=== PATIENT | female | born 1950 | race Caucasian/White ===

== ENCOUNTER 2016-08-27 18:10 | Inpatient (IN) | payer MEDICARE, OTHER ==
[~2016-08-27] VITALS: Ht 165.1 cm; Wt 98.2 kg
[2016-08-27 18:14] VITALS: BP 165/104; PULSE 117; RESP 18; TEMP 98.1; O2SAT 96
[2016-08-27] MEDS ORDERED: [UNRECOGNIZED DRUG - CODE] PO ×2 (18:58)
[2016-08-27] MEDS ORDERED: TRAZ300T2 PO ×2 (18:58)
[2016-08-27] MEDS ORDERED: DULO1CAP3 PO ×2 (18:58)
--- NOTE | 2016-08-27 18:59 | PD ---
HPI Chief Complaint: Psychiatric Symptoms Time Seen by Provider: 18:27 Travel History International Travel<30 days: No Contact w/Intl Traveler<30days: No Traveled to known affect area: No History of Present Illness HPI 65yo F with PMH of HTN, schizophrenia, bipolar disorder was brought in by dry placer machine operator at [facility] for worsening paranoia over the last few days. Pt states she hears voices telling her they will hurt her sister and her. Pt denies any complaints such as fever, cough, chest pain, sob, n/v, abdominal pain, weakness or numbness. retail manager in training Ximena Rothman [phone] is responsible for giving patient her medications including depakote for bipolar and confirms that she is acting more paranoid than normal. No overt trauma. PFSH Social History Tobacco Use: No Allergies-Medications (Allergen,Severity, Reaction): Coded Allergies: No Known Allergies (Unverified , 08/28/16) Reported Meds & Prescriptions Reported Meds & Active Scripts Active Reported Hydroxyzine HCl 50 Mg Tab 50 Mg PO DAILY Urocit-K 10 (Potassium Citrate (Alkalinizer)) 1,080 Mg Tab 10 Meq PO DAILY Metoprolol Tartrate 25 Mg Tab 25 Mg PO BID Furosemide 20 Mg Tab 20 Mg PO DAILY Ibuprofen 800 Mg Tab 800 Mg PO TID Benztropine (Benztropine Mesylate) 2 Mg Tab 2 Mg PO BID Oscal 500/200 D-3 (Calcium Carbonate-Vitamin D) 500-200 Mg-Unit Tab 1 Tab PO TID Drisdol (Ergocalciferol) 50,000 Unit Cap 50,000 Units PO WEEKLY ON MONDAYS Risperdal Consta Inj (Risperidone) 37.5 Mg Inj 37.5 Mg IM Q14D Lisinopril 10 Mg Tab 10 Mg PO DAILY Omeprazole 20 Mg Tab 20 Mg PO DAILYAC Alendronate (Alendronate Sodium) 70 Mg Tab 70 Mg PO WEEKLY ON MONDAYS Just Tears Eye Drops (Artificial Tear Solution Opth Drops) 1 Nadja Nadja 1 Drop EACH EAR DIRECTED PRN Depakote ER (Divalproex Sodium) 500 Mg Esperanza 500 Mg PO TID Buspirone (Buspirone HCl) 15 Mg Tab 15 Mg PO BID Duloxetine DR (Duloxetine HCl) 60 Mg Capdr 60 Mg PO HS Trazodone (Trazodone HCl) 300 Mg Tab 300 Mg PO HS B-12 (Cyanocobalamin) 500 Mcg Tab 500 Mcg PO DAILY Review of Systems Except as stated in HPI: all other systems reviewed are Neg Physical Exam Narrative GENERAL: 65yo F not in distress. SKIN: Warm and dry. HEAD: Atraumatic. Normocephalic. EYES: Pupils equal and round. No scleral icterus. No injection or drainage. ENT: No nasal bleeding or discharge. Mucous membranes pink and moist. NECK: Trachea midline. No JVD. CARDIOVASCULAR: Regular rate and rhythm. No murmur appreciated. RESPIRATORY: No accessory muscle use. Clear to auscultation. Breath sounds equal bilaterally. GASTROINTESTINAL: Abdomen soft, non-tender, nondistended. No rebound tenderness or guarding. MUSCULOSKELETAL: No obvious deformities. No clubbing. No cyanosis. No edema. NEUROLOGICAL: Awake and alert. No obvious cranial nerve deficits. Motor grossly within normal limits. Normal speech. PSYCHIATRIC: Appropriate mood and affect; insight and judgment normal. Data Data Last Documented VS Vital Signs Date Time Temp Pulse Resp B/P Pulse Ox O2 Delivery O2 Flow Rate FiO2 08/27/16 23:33 70 16 168/80 Room Air 08/27/16 18:14 98.1 96 Orders Complete Blood Count With Diff (08/27/16 18:35) Comprehensive Metabolic Panel (08/27/16 18:35) Urinalysis - C+S If Indicated (08/27/16 18:35) Drug Screen, Random Urine (08/27/16 18:35) Alcohol (Ethanol) (08/27/16 18:35) Salicylates (Aspirin) (08/27/16 18:35) Tylenol (Acetaminophen) (08/27/16 18:35) Valproic Acid (Depakene) (08/27/16 18:35) Psych Screen (08/27/16 18:35) Hip, Uni(Ap&Lat) W Ap Pelvis (08/28/16 ) Admit Order (Ed Use Only) (08/28/16 02:44) Vital Signs (Adult) STEVO.Q12H.E (08/28/16 02:44) Activity Oob Ad Yee (08/28/16 02:44) Level Of Observation (Psych) (08/28/16 02:44) Diet Regular Basic (08/28/16 Breakfast) Basic Metabolic Panel (Bmp) (08/29/16 06:00) Lipid Profile (08/29/16 06:00) Hemoglobin (Hgb) A1c (08/29/16 06:00) Consult Hospitalist (08/28/16 ) Labs Laboratory Tests Test 08/27/16 08/27/16 19:56 20:02 White Blood Count 6.4 TH/MM3 Red Blood Count 4.73 MIL/MM3 Hemoglobin 14.2 GM/DL Hematocrit 42.5 % Mean Corpuscular Volume 89.9 FL Mean Corpuscular Hemoglobin 30.0 PG Mean Corpuscular Hemoglobin 33.3 % Concent Red Cell Distribution Width 15.4 % Platelet Count 159 TH/MM3 Mean Platelet Volume 8.4 FL Neutrophils (%) (Auto) 56.8 % Lymphocytes (%) (Auto) 29.1 % Monocytes (%) (Auto) 13.2 % Eosinophils (%) (Auto) 0.5 % Basophils (%) (Auto) 0.4 % Neutrophils # (Auto) 3.7 TH/MM3 Lymphocytes # (Auto) 1.9 TH/MM3 Monocytes # (Auto) 0.8 TH/MM3 Eosinophils # (Auto) 0.0 TH/MM3 Basophils # (Auto) 0.0 TH/MM3 CBC Comment AUTO DIFF Differential Total Cells 100 Counted Neutrophils % (Manual) 58 % Band Neutrophils % 6 % Lymphocytes % 27 % Monocytes % 2 % Eosinophils % 1 % Neutrophils # (Manual) 4.5 TH/MM3 Metamyelocytes 5 % Promyelocytes 1 % Differential Comment FINAL DIFF MANUAL Platelet Estimate LOW Platelet Morphology Comment NORMAL Red Cell Morphology Comment NORMAL Sodium Level 141 MEQ/L Potassium Level 3.7 MEQ/L Chloride Level 103 MEQ/L Carbon Dioxide Level 28.2 MEQ/L Anion Gap 10 MEQ/L Blood Urea Nitrogen 19 MG/DL Creatinine 0.98 MG/DL Estimat Glomerular Filtration 57 ML/MIN Rate Random Glucose 96 MG/DL Calcium Level 8.7 MG/DL Total Bilirubin 0.4 MG/DL Aspartate Amino Transf 39 U/L (AST/SGOT) Alanine Aminotransferase 25 U/L (ALT/SGPT) Alkaline Phosphatase 70 U/L Total Protein 6.8 GM/DL Albumin 3.1 GM/DL Salicylates Level LESS THAN 1.7 MG/DL Acetaminophen Level LESS THAN 2.0 MCG/ML Valproic Acid (Depakene) Level 118 MCG/ML Ethyl Alcohol Level LESS THAN 3 MG/DL Urine Color YELLOW Urine Turbidity CLEAR Urine pH 6.5 Urine Specific [place] 1.023 Urine Protein NEG mg/dL Urine Glucose (UA) NEG mg/dL Urine Ketones TRACE mg/dL Urine Occult Blood NEG Urine Nitrite NEG Urine Bilirubin NEG Urine Urobilinogen 4.0 MG/DL Urine Leukocyte Esterase NEG Urine RBC 1 /hpf Urine WBC 1 /hpf Urine Squamous Epithelial 1 /hpf Cells Urine Bacteria RARE /hpf Urine Mucus FEW /lpf Microscopic Urinalysis Comment CULT NOT INDICATED Urine Opiates Screen NEG Urine Barbiturates Screen NEG Urine Amphetamines Screen NEG Urine Benzodiazepines Screen NEG Urine Cocaine Screen NEG Urine Cannabinoids Screen NEG MDM Medical Decision Making Medical Screen Exam Complete: Yes Emergency Medical Condition: Yes Interpretation(s) Laboratory Tests Test 08/27/16 08/27/16 19:56 20:02 White Blood Count 6.4 TH/MM3 (4.0-11.0) Red Blood Count 4.73 MIL/MM3 (4.00-5.30) Hemoglobin 14.2 GM/DL (11.6-15.3) Hematocrit 42.5 % (35.0-46.0) Mean Corpuscular Volume 89.9 FL (80.0-100.0) Mean Corpuscular Hemoglobin 30.0 PG (27.0-34.0) Mean Corpuscular Hemoglobin 33.3 % Concent (32.0-36.0) Red Cell Distribution Width 15.4 % (11.6-17.2) Platelet Count 159 TH/MM3 (150-450) Mean Platelet Volume 8.4 FL (7.0-11.0) Neutrophils (%) (Auto) 56.8 % (16.0-70.0) Lymphocytes (%) (Auto) 29.1 % (9.0-44.0) Monocytes (%) (Auto) 13.2 % (0.0-8.0) Eosinophils (%) (Auto) 0.5 % (0.0-4.0) Basophils (%) (Auto) 0.4 % (0.0-2.0) Neutrophils # (Auto) 3.7 TH/MM3 (1.8-7.7) Lymphocytes # (Auto) 1.9 TH/MM3 (1.0-4.8) Monocytes # (Auto) 0.8 TH/MM3 (0-0.9) Eosinophils # (Auto) 0.0 TH/MM3 (0-0.4) Basophils # (Auto) 0.0 TH/MM3 (0-0.2) CBC Comment AUTO DIFF Differential Total Cells 100 Counted Neutrophils % (Manual) 58 % (16-70) Band Neutrophils % 6 % (0-6) Lymphocytes % 27 % (9-44) Monocytes % 2 % (0-8) Eosinophils % 1 % (0-4) Neutrophils # (Manual) 4.5 TH/MM3 (1.8-7.7) Metamyelocytes 5 % (0-1) Promyelocytes 1 % (0-0) Differential Comment FINAL DIFF MANUAL Platelet Estimate LOW (NORMAL) Platelet Morphology Comment NORMAL (NORMAL) Red Cell Morphology Comment NORMAL (NORMAL) Sodium Level 141 MEQ/L (136-145) Potassium Level 3.7 MEQ/L (3.5-5.1) Chloride Level 103 MEQ/L (98-107) Carbon Dioxide Level 28.2 MEQ/L (21.0-32.0) Anion Gap 10 MEQ/L (5-15) Blood Urea Nitrogen 19 MG/DL (7-18) Creatinine 0.98 MG/DL (0.50-1.00) Estimat Glomerular Filtration 57 ML/MIN (>89) Rate Random Glucose 96 MG/DL (74-106) Calcium Level 8.7 MG/DL (8.5-10.1) Total Bilirubin 0.4 MG/DL (0.2-1.0) Aspartate Amino Transf 39 U/L (15-37) (AST/SGOT) Alanine Aminotransferase 25 U/L (10-53) (ALT/SGPT) Alkaline Phosphatase 70 U/L (45-117) Total Protein 6.8 GM/DL (6.4-8.2) Albumin 3.1 GM/DL (3.4-5.0) Salicylates Level LESS THAN 1.7 MG/DL (2.8-20.0) Acetaminophen Level LESS THAN 2.0 MCG/ML (10.0-30.0) Valproic Acid (Depakene) Level 118 MCG/ML (50-100) Ethyl Alcohol Level LESS THAN 3 MG/DL (0-5) Urine Color YELLOW (YELLW/STRAW) Urine Turbidity CLEAR (CLEAR) Urine pH 6.5 (5.0-8.5) Urine Specific [place] 1.023 (1.002-1.035) Urine Protein NEG mg/dL (NEG-TRACE) Urine Glucose (UA) NEG mg/dL (NEG) Urine Ketones TRACE mg/dL (NEG) Urine Occult Blood NEG (NEG) Urine Nitrite NEG (NEG) Urine Bilirubin NEG (NEG) Urine Urobilinogen 4.0 MG/DL (LESS THAN 2.0) Urine Leukocyte Esterase NEG (NEG) Urine RBC 1 /hpf (0-3) Urine WBC 1 /hpf (0-5) Urine Squamous Epithelial 1 /hpf (0-5) Cells Urine Bacteria RARE /hpf (NONE) Urine Mucus FEW /lpf (OCC) Microscopic Urinalysis Comment CULT NOT INDICATED Urine Opiates Screen NEG (NEG) Urine Barbiturates Screen NEG (NEG) Urine Amphetamines Screen NEG (NEG) Urine Benzodiazepines Screen NEG (NEG) Urine Cocaine Screen NEG (NEG) Urine Cannabinoids Screen NEG (NEG) Differential Diagnosis Psychosis vs. paranoid schizophrenia vs. dementia vs. electrolyte abnormality vs. UTI vs. dehydration Narrative Course 65yo F with schizophrenia brought here for worsening paranoia by caregiver. Pt is not in acute distress and denies any suicidal ideation or homicidal ideation. Will check labs, depakote level, UA and place psych evaluation. Labs reviewed, no leukocytosis. BMP wnl. Valproic acid level 118 which is within therapeutic range of 50-125 for depakote. acetaminophen and salicylate and alcohol negative. UA negative. While waiting for psych evaluation, pt states she has been having left hip pain for 5 months. States she fell 1 week ago. Pt is able to lift her left leg and has good DP pulse with intact sensation. Will do xray left hip. Xray showed no acute fracture or malalignment. Pt was ambulating in the ED. Pt medically clear for psych evaluation. Diagnosis Primary Impression: Schizophrenia Qualified Code: F20.0 - Paranoid schizophrenia Admitting Information Admitting Physician Requests: it Juanis Bunch DO Aug 27, 2016 18:59
[2016-08-27] MEDS ORDERED: RISP37.5P IM ×2 (19:06)
[2016-08-27] MEDS ORDERED: OMEP20TA PO ×2 (19:06)
[2016-08-27] MEDS ORDERED: ALEN1TAB48 PO ×2 (19:06)
[2016-08-27] MEDS ORDERED: JUSTSOL EACH EAR ×2 (19:06)
[2016-08-27] MEDS ORDERED: LISI10TA3 PO ×2 (19:06)
[2016-08-27] MEDS ORDERED: BUSP15TA PO ×2 (19:06)
[2016-08-27] MEDS ORDERED: DEPA500T3 PO ×2 (19:06)
[2016-08-27] MEDS ORDERED: BENZ2TAB PO ×2 (19:10)
[2016-08-27] MEDS ORDERED: FURO20TA PO ×2 (19:10)
[2016-08-27] MEDS ORDERED: DRIS50002 PO ×2 (19:10)
[2016-08-27] MEDS ORDERED: IBUP800T23 PO ×2 (19:10)
[2016-08-27] MEDS ORDERED: OSCA200T PO ×2 (19:10)
[2016-08-27] MEDS ORDERED: UROCTAB2 PO ×2 (19:12)
[2016-08-27] MEDS ORDERED: HYDR50TA94 PO ×2 (19:12)
[2016-08-27] MEDS ORDERED: METO25TA3 PO ×2 (19:12)
[2016-08-27 20:24] LABS: AUTOMATED NEUTROPHIL # 3.7 TH/MM3 (1.8-7.7); BASOPHIL % 0.4 % (0.0-2.0); EOSINOPHIL % 0.5 % (0.0-4.0); HEMATOCRIT 42.5 % (35.0-46.0); LYMPH % 29.1 % (9.0-44.0); LYMPHOCYTE # 1.9 TH/MM3 (1.0-4.8); MEAN CELL VOLUME 89.9 FL (80.0-100.0); MEAN CORPUSCULAR HGB CONC 33.3 % (32.0-36.0); MONO % 13.2 % (0.0-8.0); NEUT % 56.8 % (16.0-70.0); PLATELET COUNT 159 TH/MM3 (150-450); RED BLOOD COUNT 4.73 MIL/MM3 (4.00-5.30); RED CELL DISTRIBUTION WIDTH 15.4 % (11.6-17.2); WHITE BLOOD COUNT 6.4 TH/MM3 (4.0-11.0)
[2016-08-27 20:26] LABS: HEMO FLAGS AUTO DIFF
[2016-08-27 20:44] LABS: ACETAMINOPHEN LESS THAN 2.0 MCG/ML (10.0-30.0); ALKALINE PHOSPHATASE 70 U/L (45-117); ALT (GPT) 25 U/L (10-53); ANION GAP 10 MEQ/L (5-15); AST (GOT) 39 U/L (15-37); BICARBONATE 28.2 MEQ/L (21.0-32.0); BLOOD UREA NITROGEN 19 MG/DL (7-18); CHLORIDE 103 MEQ/L (98-107); GLOMERULAR FILTRATION RATE 57 ML/MIN (>89); POTASSIUM 3.7 MEQ/L (3.5-5.1); SODIUM (NA) 141 MEQ/L (136-145); TOTAL BILIRUBIN ADULT 0.4 MG/DL (0.2-1.0)
[2016-08-27 20:54] LABS: BANDS 6 % (0-6); EOSINOPHILS 1 % (0-4); METAMYELOCYTES 5 % (0-1); NEUTROPHIL # MANUAL DIFF 4.5 TH/MM3 (1.8-7.7); POLYS (SEG NEUTROPHILS) 58 % (16-70); PROMYELOCYTES 1 % (0-0); WBC DIFF SAMPLE 100
[2016-08-27 20:55] LABS: PLATELET ESTIMATE SMEAR LOW (NORMAL); PLATELET MORPHOLOGY NORMAL (NORMAL); SCAN/DIFF FINAL DIFF MANUAL
[2016-08-27 21:10] LABS: BACTERIA, URINE RARE /hpf; BLOOD, URINE NEG (NEG); GLUCOSE,URINE NEG (NEG); KETONE, URINE TRACE mg/dL (NEG); MUCUS URINE FEW /lpf (OCC); NITRITE,URINE NEG (NEG); PH, URINE 6.5 (5.0-8.5); SQUAMOUS EPITHELIAL CELL URINE 1 /hpf (0-5); URINE COLOR YELLOW (YELLW/STRAW)
[2016-08-27 21:12] LABS: COMMENT (UR) CULT NOT INDICATED; CULTURE IF INDICATED CULT NOT INDICATED
[2016-08-27 21:19] LABS: AMPHETAMINE, URINE NEG (NEG); BARBITURATES, URINE NEG (NEG); COCAINE, URINE NEG (NEG)
[2016-08-27 23:33] VITALS: BP 168/80; PULSE 70; RESP 16
--- NOTE | 2016-08-28 02:06 | RADRPT ---
EXAM DATE/TIME: 08/28/2016 01:42 [facility] COMPARISON: No previous studies available for comparison. INDICATIONS : Pt has fallen twice in past week. Pain to left hip. MEDICAL HISTORY : None. SURGICAL HISTORY : Left hip surgery ENCOUNTER: Initial ACUITY: 1 week PAIN SCORE: 8/10 LOCATION: Left Hip FINDINGS: AP and frog leg lateral views of the left hip were obtained as well as an AP view of the pelvis. This demonstrates extensive postsurgical changes status post left hip arthroplasty with intact femoral an d acetabular components. There is a screw-plate fixation device along the left ilium and acetabulum a nd there is heterotopic bone formation. There is a screw-plate fixation device also noted along the p roximal femur. There is no acute fracture or malalignment. There is mild osteopenia. The pubic rami a re intact. Degenerative disc changes are present in the lumbar spine. CONCLUSION: 1. No acute fracture or malalignment. 2. Remote postsurgical changes status post left hip arthroplasty and open region internal fixation of the left ilium and proximal femur. 3. 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 4. Degenerative disc change in the lumbar spine. Jim Pickard MD on August 28, 2016 at 2:02 Board Certified Radiologist. This report was verified electronically.
[2016-08-28] MEDS ORDERED: hydrOXYzine HCL 50 MG TAB PO PRN (03:30)
[2016-08-28] MEDS ORDERED: BENZTROPINE MESYLATE 1 MG TAB PO PRN (03:30)
[2016-08-28] MEDS ORDERED: LORazepam 2 MG/ML VIAL - age > 65 yrs IM PRN (03:30)
[2016-08-28] MEDS ORDERED: diphenhydrAMINE HCL 50 MG/ML VIAL - HS PRN IM (03:30)
[2016-08-28] MEDS ORDERED: diphenhydrAMINE HCL 50 MG CAP - HS PRN PO (03:30)
[2016-08-28] MEDS ORDERED: ALUMINUM/MAGNESIUM/SIMETH 30 ML CUP PO PRN (03:30)
[2016-08-28] MEDS ORDERED: diphenhydrAMINE HCL 50 MG CAP PO PRN (03:30)
[2016-08-28] MEDS ORDERED: traZODone HCL 50 MG TAB PO PRN (03:30)
[2016-08-28] MEDS ORDERED: diphenhydrAMINE HCL 50 MG/ML VIAL IM PRN (03:30)
[2016-08-28] MEDS ORDERED: BENZTROPINE MESYLATE 2 MG/2 ML VIAL IM PRN (03:30)
[2016-08-28 03:46] VITALS: BP 174/82; PULSE 81; RESP 17; TEMP 97.6; O2SAT 98
[2016-08-28] MEDS: DIVALPROEX SODIUM E.R. 500 MG TAB PO SCH ×4 (05:15→22:00)
[2016-08-28] MEDS: LORazepam 0.5 MG TAB age > 65 yrs PO PRN (05:15)
[2016-08-28 06:38] VITALS: BP 160/82; PULSE 86; RESP 16; TEMP 98; O2SAT 95
[2016-08-28] MEDS ORDERED: PANTOPRAZOLE SOD 20 MG DELAYED RELEASE TAB PO SCH (08:00)
[2016-08-28] MEDS ORDERED: FUROSEMIDE 20 MG TAB PO SCH (09:00)
[2016-08-28] MEDS ORDERED: LISINOPRIL 10 MG TAB PO SCH (09:00)
[2016-08-28] MEDS: busPIRone HCL 5 MG TAB PO SCH ×3 (09:39→21:00)
[2016-08-28] MEDS: CYANOCOBALAMIN 1,000 MCG TAB PO SCH (09:39)
[2016-08-28] MEDS: IBUPROFEN 800 MG TAB PO SCH ×3 (09:40→18:41)
[2016-08-28] MEDS: hydrOXYzine HCL 50 MG TAB PO SCH (09:41)
[2016-08-28] MEDS: METOPROLOL TARTRATE 25 MG TAB PO SCH ×4 (09:41→21:00)
[2016-08-28] MEDS: CALCIUM/VITAMIN D 250 MG/125 U TAB PO SCH ×3 (09:41→18:40)
[2016-08-28] MEDS: BENZTROPINE MESYLATE 2 MG TAB PO SCH ×3 (09:41→21:00)
[2016-08-28] MEDS ORDERED: ARTIFICIAL TEARS OPTH SOLN 15 ML BTL EACH EYE PRN (12:30)
[2016-08-28] MEDS: LISINOPRIL 10 MG TAB PO SCH (12:30)
--- NOTE | 2016-08-28 13:14 | HHI.HP ---
Provisional Diagnosis Admission Date Aug 28, 2016 at 02:52 Ellis I. Bipolar affective disorder depressed Ellis II. No diagnosis Ellis III. Please see the emergency room evaluation Ellis IV. Moderate stress difficulty coping Ellis V. GAF of 45 Certification of Person's Competence To Provide Express and Informed Consent I have personally examined Alessia Gutierrez , a person being served at [facility] on, Aug 28, 2016 13:06. Express and informed consent means consent voluntarily given in writing, by a competent person, after sufficient explanation and disclosure of the subject matter involved to enable the person to make a knowing and willful decision without any element of force, fraud, deceit, duress, or other form of constraint or coercion. This person is 18 years of age or older, is not now known to be incompetent to consent to treatment with a guardian advocate, and does not have a health care surrogate or proxy currently making medical treatment decisions. I have found this person to be one of the following: [x] Competent to provide express and informed consent, as defined above, for voluntary admission to this facility and is competent to provide express and informed consent for treatment. He/she has the consistent capacity to make well reasoned, willful, and knowing decisions concerning his or her medical or mental health treatment. The person fully and consistently understands the purpose of the admission for examination/placement and is fully capable of personally exercising all rights assured [place] Incompetent to provide express and informed consent to voluntary admission, and this is incompetent to provide express and informed consent to treatment. The person must be transferred to involuntary status and a petition for a guardian advocate filed with the Circuit Court. [] Refusing to provide express and informed consent to voluntary admission but is competent to provide express and informed consent for treatment. The person must be discharged or transferred to involuntary status. Form shall be completed within 24 hours of a person's arrival at the receiving facility and filed in the clinical record of each person: 1. Admitted on a voluntary basis 2. Permitted to provide express and informed consent to his/her own treatment 3. Allowed to transfer from involuntary to voluntary status 4. Prior to permitting a person to consent to his or her own treatment after having been previously found incompetent to consent to treatment. History of Present Illness Capacity: Has Capacity HPI This is 65-year-old white female who was recently discharged from [place] about 3 months ago and has been staying with a wash oil pump operator helper. Lately agent has been becoming more paranoid she believes that the people are trying to kill her and her sister. She has been feeling more depressed is tearful and sad she also has some visual hallucination and agitation and that is why the wash oil pump operator helper brought her to the emergency room for admission and med management. Patient denies any suicidal and/or homicidal ideation intentions or plan. No behavior or management problem reported. She is at times admitted to auditory and visual hallucinations. She also reported that she fell couple of times but people don't want to believe her. And complaining of some pain. Review of Systems Constitutional: DENIES: Diaphoretic episodes, Fatigue, Fever, Weight gain, Weight loss, Chills, Dizziness, Change in appetite, Night Sweats Endocrine: DENIES: Abnorml menstrual pattern, Heat/cold intolerance, Polydipsia , Polyuria, Polyphagia Eyes: DENIES: Blurred vision, Diplopia, Eye inflammation, Eye pain, Vision loss , Photosensitivity, Double Vision Ears, nose, mouth, throat: DENIES: Tinnitus, Hearing loss, Vertigo, Nasal discharge, Oral lesions, Throat pain, Hoarseness, Ear Pain, Running Nose, Epistaxis, Sinus Pain, Toothache, Odynophagia Respiratory: DENIES: Apneas, Cough, Snoring, Wheezing, Hemoptysis, Sputum production, Shortness of breath Cardiovascular: DENIES: Chest pain, Palpitations, Syncope, Dyspnea on Exertion , PND, Lower Extremity Edema, Orthopnea, Claudication Gastrointestinal: DENIES: Abdominal pain, Black stools, Bloody stools, Constipation, Diarrhea, Nausea, Vomiting, Difficulty Swallowing, Anorexia Genitourinary: DENIES: Abnormal vaginal bleeding, Dysmenorrhea, Dyspareunia, Sexual dysfunction, Urinary frequency, Urinary incontinence, Urgency, Hematuria , Dysuria, Nocturia, Vaginal discharge Musculoskeletal: COMPLAINS OF: Joint pain, Muscle aches, Back pain Integumentary: DENIES: Abnormal pigmentation, Pruritus, Rash, Nail changes, Breast masses, Breast skin changes, Nipple discharge Hematologic/lymphatic: DENIES: Bruising, Lymphadenopathy Immunologic/allergic: DENIES: Eczema, Urticaria Psychiatric: COMPLAINS OF: Mood changes, Depression, Hallucinations, Delusions Past Psych History Psychological trauma history Patient denied any physical verbal or sexual abuse growing up Violence risk - others (6 mos) Patient denies Violence risk - self (6 mos) Patient denies any suicidal ideation intentions of plan Substance Abuse History Drugs/Alcohol past 12 months Patient denies any alcohol or drug use and her abuse Past Family Social History Coded Allergies: No Known Allergies (Unverified , 08/28/16) Reported Medications Hydroxyzine HCl 50 Mg Tab50 Mg PO DAILY Ref 0 08/27/16 Potassium Citrate (Alkalinizer) (Urocit-K 10)1,080 Mg Tab10 Meq PO DAILY #90 TAB Ref 0 08/27/16 Metoprolol Tartrate 25 Mg Tab25 Mg PO BID #60 TAB Ref 0 08/27/16 Furosemide 20 Mg Tab20 Mg PO DAILY #30 TAB Ref 0 08/27/16 Ibuprofen 800 Mg Vyl228 Mg PO TID Ref 0 08/27/16 Benztropine 2 Mg Tab2 Mg PO BID #60 TAB Ref 0 08/27/16 Calcium Carbonate-Vitamin D (Oscal 500/200 D-3)500-200 Mg-Unit Tab1 Tab PO TID Ref 0 08/27/16 Ergocalciferol (Drisdol)50,000 Unit Cap50,000 Units PO WEEKLY ON MONDAYS #30 CAP Ref 0 08/27/16 Risperidone Inj (Risperdal Consta Inj)37.5 Mg Inj37.5 Mg IM Q14D #2 VIAL Ref 0 08/27/16 Lisinopril 10 Mg Tab10 Mg PO DAILY #30 TAB Ref 0 08/27/16 Omeprazole 20 Mg Tab20 Mg PO DAILYAC #30 TAB Ref 0 08/27/16 Alendronate 70 Mg Tab70 Mg PO WEEKLY ON MONDAYS #4 TAB Ref 0 08/27/16 Artificial Tear Solution Opth Drops (Just Tears Eye Drops)1 Nadja Sol1 Drop EACH EAR DIRECTED PRN (DRY EYE) 08/27/16 Divalproex ER (Depakote ER)500 Mg [id number] Mg PO TID #30 TAB Ref 0 08/27/16 Buspirone 15 Mg Tab15 Mg PO BID Ref 0 08/27/[address] 60 Mg Capdr60 Mg PO HS #30 CAP Ref 0 08/27/16 Trazodone 300 Mg Hvk684 Mg PO HS #30 TAB Ref 0 12/16/16 Cyanocobalamin (B-12)500 Mcg Rjl602 Mcg PO DAILY #1 BOTTLE Ref 0 08/27/16 Current Medications Medications (Trade) Dose Ordered Sig/Kate Route Start Time Stop Time Status Last Admin (Ativan) 0.5 mg Q12H PRN PO 08/28/16 03:30 08/28/16 05:15 (Ativan Inj) 0.5 mg Q12H PRN IM 08/28/16 03:30 (Atarax) 50 mg Q6H PRN PO 08/28/16 03:30 08/28/16 05:15 (Benadryl) 50 mg Q6H PRN PO 08/28/16 03:30 (Benadryl Inj) 50 mg Q6H PRN IM 08/28/16 03:30 (Benadryl) 50 mg HS PRN PO 08/28/16 03:30 (Cogentin) 1 mg Q12H PRN PO 08/28/16 03:30 (Cogentin Inj) 1 mg Q12H PRN IM 08/28/16 03:30 (Benadryl) 50 mg HS PRN PO 08/28/16 03:30 (Benadryl Inj) 50 mg HS PRN IM 08/28/16 03:30 (Desyrel) 50 mg HS PRN PO 08/28/16 03:30 (Tylenol) 650 mg Q4H PRN PO 08/28/16 03:30 (Milk Of Magnesia Liq) 30 ml DAILY PRN PO 08/28/16 03:30 (Mag-Al Plus Susp Liq) 30 ml Q6H PRN PO 08/28/16 03:30 (Vitamin B12) 500 mcg DAILY PO 08/28/16 09:00 08/28/16 09:39 (Desyrel) 300 mg HS PO 08/28/16 21:00 (Cymbalta Dr) 60 mg HS PO 08/28/16 21:00 (Buspar) 15 mg BID PO 08/28/16 09:00 08/28/16 09:39 (Depakote Er) 500 mg Q8H PO 08/28/16 06:00 08/28/16 12:46 (Protonix) 20 mg DAILYAC PO 08/28/16 08:00 08/28/16 09:40 (Prinivil) 10 mg DAILY PO 08/28/16 09:00 08/28/16 09:39 (Drisdol) 50,000 units Q7D PO 08/30/16 09:00 (Oscal-D 250-125) 500 mg TID PO 08/28/16 09:00 08/28/16 12:46 (Cogentin) 2 mg BID PO 08/28/16 09:00 08/28/16 09:41 (Motrin) 800 mg TID PO 08/28/16 09:00 08/28/16 12:47 (Lasix) 20 mg DAILY PO 08/28/16 09:00 Hold (Lopressor) 25 mg BID PO 08/28/16 09:00 08/28/16 09:41 (Atarax) 50 mg DAILY PO 08/28/16 09:00 08/28/16 09:41 (Prinivil) 10 mg DAILY PO 08/28/16 12:30 (Lopressor) 25 mg BID PO 08/28/16 12:30 (Protonix) 20 mg DAILYAC PO 08/29/16 08:00 Family History Positive for maybe depression and bipolar affective disorder Social History Patient was born in [facility]. She has 1 brother and 3 sisters. She was close to both of her parents. Her childhood was described as okay. She denied any physical verbal or sexual abuse growing up. She finished high school and 2 years of college she has been that lasted only for a couple of years she has no children. Patient worked in the [employer]. She did admit to alcohol use when she was young but she hasn't abused that in years denied any drug abuse. Denied any legal difficulty. She has been diagnosed with bipolar affective disorder and has been taking Depakote and Cymbalta and BuSpar. She has been hospitalized in [place] and was released 3 months ago. Patient's Strengths (min. 2) Patient is cooperative and willing to take the medication Physical Exam Please see the emergency room evaluation Vital Signs Vital Signs Date Time Temp Pulse Resp B/P Pulse Ox O2 Delivery O2 Flow Rate FiO2 08/28/16 12:16 18 08/28/16 06:38 98.0 86 160/82 95 08/27/16 23:33 Room Air Mental Status Examination This is a 65-year-old white mildly overweight female in wheelchair was alert oriented 2 cooperative casually dressed in her speech was slow without any evidence of loose associations or flights of ideas or pressure speech her mood was described as feeling frustrated depressed and her affect was sad and tearful she did admit to feeling paranoid that some people are going to kill her and her sister and she also admitted to seeing things and hearing things that are not there. She seems to be of average intelligence with poor recent memory and concentration her insight is fair and her judgment seems to be okay on hypothetical situation. Her language is normal her fund of knowledge is average her gait she was using the wheelchair Assessment & Plan Problem List: (1) Bipolar affective disorder, depressed ICD Code: F31.30 Assessment & Plan Estimated LOS: 5 days. This is a 65-year-old white mildly overweight female was recently discharged from [facility] 3 months ago has been decompensated with more paranoia agitation and hallucinations so her wash oil pump operator helper brought her for medical stabilization. She is voluntary and willing to cooperate with the treatment. Admitted to observe and evaluate and treat. Patient will participate in all the therapeutic activity on the floor. Side effect another alternative treatment were explained to the patient. manager office services to assist in aftercare and discharge planning. We will resume her medication and adjust according to her need and response. Request HC Surrog/Guard Advoc?: No Problem Qualifiers (1) Bipolar affective disorder, depressed: Qualified Code: F31.32 - Bipolar affective disorder, currently depressed, moderate Saturnino Kong MD Aug 28, 2016 13:14
--- NOTE | 2016-08-28 14:56 | PD.CONS ---
HPI Service [facility] Consult Requested By Psychiatric services Reason for Consult Review medications Primary Care Physician Unknown Diagnoses: History of Present Illness This is a pleasant 65-year-old morbidly obese female patient with a past medical history which includes hypertension, bipolar and schizophrenia. Patient reports feeling anxiety is intermittent and tearful throughout the interview process. Patient denies chest pain shortness of breath nausea vomiting diarrhea constipation fevers chills cough or congestion. Patient does report left hip pain worse with ambulation also reports a fall one week ago x- ray reviewed by myself as well as Dr. Arellano no evidence of acute fracture. Review of Systems Other All other systems reviewed and negative except as mentioned in history of present illness Past Family Social History Allergies: Coded Allergies: No Known Allergies (Unverified , 08/28/16) Past Medical History Morbid obesity, hypertension, bipolar and schizophrenia Past Surgical History Left hip arthroplasty Reported Medications Hydroxyzine HCl 50 Mg Tab 50 Mg PO DAILY Urocit-K 10 (Potassium Citrate (Alkalinizer)) 1,080 Mg Tab 10 Meq PO DAILY Metoprolol Tartrate 25 Mg Tab 25 Mg PO BID Furosemide 20 Mg Tab 20 Mg PO DAILY Ibuprofen 800 Mg Tab 800 Mg PO TID Benztropine (Benztropine Mesylate) 2 Mg Tab 2 Mg PO BID Oscal 500/200 D-3 (Calcium Carbonate-Vitamin D) 500-200 Mg-Unit Tab 1 Tab PO TID Drisdol (Ergocalciferol) 50,000 Unit Cap 50,000 Units PO WEEKLY ON MONDAYS Risperdal Consta Inj (Risperidone) 37.5 Mg Inj 37.5 Mg IM Q14D Lisinopril 10 Mg Tab 10 Mg PO DAILY Omeprazole 20 Mg Tab 20 Mg PO DAILYAC Alendronate (Alendronate Sodium) 70 Mg Tab 70 Mg PO WEEKLY ON MONDAYS Just Tears Eye Drops (Artificial Tear Solution Opth Drops) 1 Nadja Nadja 1 Drop EACH EAR DIRECTED PRN Depakote ER (Divalproex Sodium) 500 Mg Esperanza 500 Mg PO TID Buspirone (Buspirone HCl) 15 Mg Tab 15 Mg PO BID Duloxetine DR (Duloxetine HCl) 60 Mg Capdr 60 Mg PO HS Trazodone (Trazodone HCl) 300 Mg Tab 300 Mg PO HS B-12 (Cyanocobalamin) 500 Mcg Tab 500 Mcg PO DAILY Family History Family history positive for hypertension Social History Quit EtOH use possibly 30 years ago, denies tobacco use Physical Exam Vital Signs Vital Signs Date Time Temp Pulse Resp B/P Pulse Ox O2 Delivery O2 Flow Rate FiO2 08/28/16 12:16 18 08/28/16 06:38 98.0 86 16 160/82 95 08/28/16 03:46 97.6 81 17 174/82 98 08/27/16 23:33 70 16 168/80 Room Air 08/27/16 18:14 98.1 117 18 165/104 96 Physical Exam GENERAL: This is a obese, well-developed patient, in no apparent distress. SKIN: No rashes, ecchymoses or lesions. Cool and dry. HEAD: Atraumatic. Normocephalic. No temporal or scalp tenderness. EYES: Extraocular motions intact. No scleral icterus. No injection or drainage. ENT: Nose without bleeding, purulent drainage or septal hematoma. Throat without erythema, tonsillar hypertrophy or exudate. Uvula midline. Airway patent. NECK: Trachea midline. No JVD or lymphadenopathy. Supple, nontender, no meningeal signs. CARDIOVASCULAR: Regular rate and rhythm without murmurs, gallops, or rubs. RESPIRATORY: Clear to auscultation. Breath sounds equal bilaterally. No wheezes , rales, or rhonchi. GASTROINTESTINAL: Abdomen soft, non-tender, nondistended. No hepato-splenomegaly , or palpable masses. No guarding. MUSCULOSKELETAL: No joint tenderness, effusion, or edema noted. No calf tenderness. Negative Homans sign bilaterally. 1+ BLE edema NEUROLOGICAL: Awake and alert. Motor and sensory grossly within normal limits. Five out of 5 muscle strength in all muscle groups. Normal speech. Laboratory Laboratory Tests Test 08/27/16 08/27/16 19:56 20:02 White Blood Count 6.4 Red Blood Count 4.73 Hemoglobin 14.2 Hematocrit 42.5 Mean Corpuscular Volume 89.9 Mean Corpuscular Hemoglobin 30.0 Mean Corpuscular Hemoglobin 33.3 Concent Red Cell Distribution Width 15.4 Platelet Count 159 Mean Platelet Volume 8.4 Neutrophils (%) (Auto) 56.8 Lymphocytes (%) (Auto) 29.1 Monocytes (%) (Auto) 13.2 Eosinophils (%) (Auto) 0.5 Basophils (%) (Auto) 0.4 Neutrophils # (Auto) 3.7 Lymphocytes # (Auto) 1.9 Monocytes # (Auto) 0.8 Eosinophils # (Auto) 0.0 Basophils # (Auto) 0.0 CBC Comment AUTO DIFF Differential Total Cells 100 Counted Neutrophils % (Manual) 58 Band Neutrophils % 6 Lymphocytes % 27 Monocytes % 2 Eosinophils % 1 Neutrophils # (Manual) 4.5 Metamyelocytes 5 Promyelocytes 1 Differential Comment FINAL DIFF MANUAL Platelet Estimate LOW Platelet Morphology Comment NORMAL Red Cell Morphology Comment NORMAL Sodium Level 141 Potassium Level 3.7 Chloride Level 103 Carbon Dioxide Level 28.2 Anion Gap 10 Blood Urea Nitrogen 19 Creatinine 0.98 Estimat Glomerular Filtration 57 Rate Random Glucose 96 Calcium Level 8.7 Total Bilirubin 0.4 Aspartate Amino Transf 39 (AST/SGOT) Alanine Aminotransferase 25 (ALT/SGPT) Alkaline Phosphatase 70 Total Protein 6.8 Albumin 3.1 Salicylates Level LESS THAN 1.7 Acetaminophen Level LESS THAN 2.0 Valproic Acid (Depakene) Level 118 Ethyl Alcohol Level LESS THAN 3 Urine Color YELLOW Urine Turbidity CLEAR Urine pH 6.5 Urine Specific [place] 1.023 Urine Protein NEG Urine Glucose (UA) NEG Urine Ketones TRACE Urine Occult Blood NEG Urine Nitrite NEG Urine Bilirubin NEG Urine Urobilinogen 4.0 Urine Leukocyte Esterase NEG Urine RBC 1 Urine WBC 1 Urine Squamous Epithelial 1 Cells Urine Bacteria RARE Urine Mucus FEW Microscopic Urinalysis Comment CULT NOT INDICATED Urine Opiates Screen NEG Urine Barbiturates Screen NEG Urine Amphetamines Screen NEG Urine Benzodiazepines Screen NEG Urine Cocaine Screen NEG Urine Cannabinoids Screen NEG Result Diagram: 08/27/[id number]/27/[id number] Imaging Last Impressions Hip and Pelvis X-Ray 08/28/16 0000 Signed Impressions: Service Date/Time: Sunday, August 28, 2016 01:42 - CONCLUSION: 1. No acute fracture or malalignment. 2. Remote postsurgical changes status post left hip arthroplasty and open region internal fixation of the left ilium and proximal femur. 3. 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 4. Degenerative disc change in the lumbar spine. Jim Pickard MD Assessment and Plan Assessment and Plan This is a pleasant 65-year-old morbidly obese female patient with a past medical history which includes hypertension, bipolar and schizophrenia. Patient reports feeling anxiety is intermittent and tearful throughout the interview process. Patient denies chest pain shortness of breath nausea vomiting diarrhea constipation fevers chills cough or congestion. Patient does report left hip pain worse with ambulation also reports a fall one week ago x- ray reviewed no evidence of acute fracture. Hypertension resume lisinopril 10 mg daily and metoprolol 25 mg twice a day Continue to monitor blood pressure GERD Continue omeprazole Bilateral lower extremity edema 1+ Lasix on hold secondary to elevated BUN ration dehydration will recheck BMP in 3 days Left hip pain history of left hip total arthroplasty status post fall one week ago Hip/pelvic x-ray reviewed by myself as well as Dr. Arellano no acute fracture identified Acetaminophen as needed for pain DVT prophylaxis patient is ambulatory Written by Tatianna Nielsen, acting as scribe for Dr. Arellano on 08/28/16 at 15:12. The documentation accurately reflects the work performed [id number] by me on 08/28/16 at 15:13. Tatianna Nielsen Aug 28, 2016 14:56 Reynaldo Arellano MD Aug 29, 2016 15:13
[2016-08-28] MEDS: QUEtiapine FUMARATE 100 MG TAB PO SCH ×3 (16:29→21:00)
[2016-08-28 18:00] VITALS: BP 146/60; PULSE 74; RESP 16; TEMP 98.3; O2SAT 95
[2016-08-28 18:29] VITALS: BP 129/62; PULSE 73; RESP 16; TEMP 98.2; O2SAT 97
[2016-08-28 18:36] VITALS: BP 115/65; PULSE 89; RESP 18; TEMP 98.2; O2SAT 99
[2016-08-28] MEDS: traZODone HCL 100 MG TAB PO SCH ×2 (20:57→21:00)
[2016-08-28] MEDS: DULoxetine HCl DR 60 MG CAP PO SCH (21:00)
[2016-08-29 06:19] VITALS: BP 161/78; PULSE 62; RESP 16; TEMP 97.1; O2SAT 96
[2016-08-29] MEDS: DIVALPROEX SODIUM E.R. 500 MG TAB PO SCH ×3 (06:46→22:00)
[2016-08-29 08:00] LABS: HDL CHOLESTEROL 49.1 MG/DL (40.0-60.0)
[2016-08-29 08:15] LABS: ANION GAP 6 MEQ/L (5-15); BICARBONATE 30.8 MEQ/L (21.0-32.0); BLOOD UREA NITROGEN 18 MG/DL (7-18); CHLORIDE 106 MEQ/L (98-107); GLOMERULAR FILTRATION RATE 66 ML/MIN (>89); LDL CHOLESTEROL 75 MG/DL (0-99); SODIUM (NA) 143 MEQ/L (136-145)
[2016-08-29 08:18] LABS: POTASSIUM 4.5 MEQ/L (3.5-5.1)
[2016-08-29] MEDS: QUEtiapine FUMARATE 100 MG TAB PO SCH (08:47)
[2016-08-29] MEDS: CALCIUM/VITAMIN D 250 MG/125 U TAB PO SCH ×3 (08:47→16:55)
[2016-08-29] MEDS: METOPROLOL TARTRATE 25 MG TAB PO SCH ×2 (08:47→20:52)
[2016-08-29] MEDS: CYANOCOBALAMIN 1,000 MCG TAB PO SCH (08:48)
[2016-08-29] MEDS: busPIRone HCL 5 MG TAB PO SCH ×2 (08:48→20:52)
[2016-08-29] MEDS: IBUPROFEN 800 MG TAB PO SCH ×3 (08:48→16:56)
[2016-08-29] MEDS: PANTOPRAZOLE SOD 20 MG DELAYED RELEASE TAB PO SCH (08:48)
[2016-08-29] MEDS: LISINOPRIL 10 MG TAB PO SCH (08:48)
[2016-08-29] MEDS: BENZTROPINE MESYLATE 2 MG TAB PO SCH ×2 (08:48→20:52)
[2016-08-29] MEDS: hydrOXYzine HCL 50 MG TAB PO SCH (08:49)
[2016-08-29 11:01] LABS: HEMOGLOBIN A1a 1.2 %; HEMOGLOBIN Ao 85.2 %; HEMOGLOBIN F 1.7 %; HEMOGLOBIN LA1C 1.8 %; HEMOGLOBIN P3 4.9 %
[2016-08-29] MEDS: MAGNESIUM HYDROXIDE SUSP 30 ML CUP PO PRN (11:56)
--- NOTE | 2016-08-29 12:46 | HHI.PYPN ---
Subjective Remarks Patient was seen and case discussed with nursing. Patient is childlike and labile throughout the interview. Chief complaint is constipation.'s poor insight into her admission. Grossly disorganized. Complaining of auditory hallucinations telling her to get out of here. Per nursing her Seroquel dose made her too tired and unsteady. Objective Alert: Yes [place]: Person, Place, Date Mood: Agitated Affect: Blunted Memory Intact: Immediate Hallucinations: Auditory (telling her to get out of here) Delusions: Yes Delusion Type: Paranoid Suicidal: Ideation (denies) Homicidal: Ideation (denies) Insight/Judgement Poor Labs Test 08/29/16 06:07 Sodium Level 143 MEQ/L Potassium Level 4.5 MEQ/L Chloride Level 106 MEQ/L Carbon Dioxide Level 30.8 MEQ/L Anion Gap 6 MEQ/L Blood Urea Nitrogen 18 MG/DL Creatinine 0.87 MG/DL Estimat Glomerular Filtration 66 ML/MIN Rate Random Glucose 73 MG/DL Hemoglobin A1c 5.1 % Calcium Level 9.0 MG/DL Triglycerides Level 154 MG/DL Cholesterol Level 155 MG/DL LDL Cholesterol 75 MG/DL HDL Cholesterol 49.1 MG/DL Cholesterol/HDL Ratio 3.15 RATIO Vitals/IOs Vital Signs Date Time Temp Pulse Resp B/P Pulse Ox O2 Delivery O2 Flow Rate FiO2 08/29/16 11:11 18 08/29/16 06:19 97.1 62 161/78 96 08/27/16 23:33 Room Air Intake and Output 08/28/16 08/28/16 08/29/16 08:00 16:00 00:00 Intake Total 0 ml 240 ml 240 ml Balance 0 ml 240 ml 240 ml Assessment & Plan Problem List: (1) Bipolar affective disorder, depressed ICD Code: F31.30 Assessment & Plan DC Seroquel. Start Geodon 40 mg by mouth twice a day with food. Dulcolax suppository Justification for Cont. Inpt. Patient would decompensate in a less restrictive setting Request HC Surrog/Guard Advoc?: No Problem Qualifiers (1) Bipolar affective disorder, depressed: Qualified Code: F31.32 - Bipolar affective disorder, currently depressed, moderate Dante Thomas DO Aug 29, 2016 12:46
[2016-08-29] MEDS ORDERED: BISACODYL 10 MG SUPP RECTAL ONE (13:00)
[2016-08-29] MEDS: ZIPRASIDONE HCL 40 MG CAP PO SCH ×2 (13:00→16:56)
[2016-08-29 17:38] VITALS: BP 121/59; PULSE 72; RESP 17; TEMP 97.7
[2016-08-29] MEDS: traZODone HCL 100 MG TAB PO SCH (20:52)
[2016-08-29] MEDS: DULoxetine HCl DR 60 MG CAP PO SCH (20:52)
[2016-08-30 05:59] VITALS: BP 144/56; PULSE 56; RESP 16; TEMP 98.2; O2SAT 94
[2016-08-30] MEDS: DIVALPROEX SODIUM E.R. 500 MG TAB PO SCH ×3 (06:09→20:21)
[2016-08-30] MEDS: ZIPRASIDONE HCL 40 MG CAP PO SCH ×2 (08:48→17:07)
[2016-08-30] MEDS: METOPROLOL TARTRATE 25 MG TAB PO SCH ×2 (08:48→20:20)
[2016-08-30] MEDS: CYANOCOBALAMIN 1,000 MCG TAB PO SCH (08:48)
[2016-08-30] MEDS: LISINOPRIL 10 MG TAB PO SCH (08:48)
[2016-08-30] MEDS: CALCIUM/VITAMIN D 250 MG/125 U TAB PO SCH ×3 (08:48→17:07)
[2016-08-30] MEDS: IBUPROFEN 800 MG TAB PO SCH ×3 (08:49→17:08)
[2016-08-30] MEDS: hydrOXYzine HCL 50 MG TAB PO SCH (08:50)
[2016-08-30] MEDS: ERGOCALCIFEROL (VIT D2) 50,000 UNIT CAP PO SCH (08:50)
[2016-08-30] MEDS: busPIRone HCL 5 MG TAB PO SCH ×2 (08:50→20:20)
[2016-08-30] MEDS: BENZTROPINE MESYLATE 2 MG TAB PO SCH ×2 (08:50→20:21)
[2016-08-30] MEDS: PANTOPRAZOLE SOD 20 MG DELAYED RELEASE TAB PO SCH (08:50)
--- NOTE | 2016-08-30 13:49 | HHI.PYPN ---
Subjective Remarks Patient seen in room nurse Laine, chart reviewed, medication orders reviewed number of them have been discontinued. We have change the Depakote to 500 mg a.m. thousand milligrams at bedtime recheck Depakote level in a.m. Patient seen in her room patient intense labile somewhat intrusive speech somewhat rapid and pressured. Is also some paranoia noted stating she is afraid of the staff at her [facility] where she is been for about 3 months following her discharge from [facility] after staying there for over a year. She does acknowledge some persistent auditory hallucinations of a somewhat threatening also Review of Systems Other No change since 08/28 Objective Alert: Yes [place]: Person, Place, Date Mood: Agitated Affect: Blunted Memory Intact: Immediate Hallucinations: Auditory (telling her to get out of here) Delusions: Yes Delusion Type: Paranoid Suicidal: Ideation (denies) Homicidal: Ideation (denies) Insight/Judgement very poor Vitals/IOs Vital Signs Date Time Temp Pulse Resp B/P Pulse Ox O2 Delivery O2 Flow Rate FiO2 08/30/16 05:59 98.2 56 16 144/56 94 08/27/16 23:33 Room Air Intake and Output 08/29/16 08/29/16 08/30/16 08:00 16:00 00:00 Intake Total 300 ml 360 ml Balance 300 ml 360 ml Assessment & Plan Problem List: (1) Bipolar affective disorder, depressed ICD Code: F31.30 Assessment & Plan Estimated LOS: days patient continues manic and psychotic, though cooperative. She medication adjustments above Justification for Cont. Inpt. At the present time the patient with severely decompensated at a lower level of care Discharge Planning To be determined Request HC Surrog/Guard Advoc?: No Problem Qualifiers (1) Bipolar affective disorder, depressed: Qualified Code: F31.32 - Bipolar affective disorder, currently depressed, moderate Sky Mcmahon MD Aug 30, 2016 13:49
--- NOTE | 2016-08-30 16:56 | HHI.PR ---
Subjective Remarks Follow up hypertension Patient resting in bed comfortably offers no specific complaints Appears to be in no acute distress Blood pressure improved Bilateral lower extremity edema trace to 1+ Objective Vitals Vital Signs Date Time Temp Pulse Resp B/P Pulse Ox O2 Delivery O2 Flow Rate FiO2 08/30/16 15:08 18 08/30/16 05:59 98.2 56 16 144/56 94 08/29/16 17:38 97.7 72 17 121/59 I/O 08/29/16 08/29/16 08/29/16 08/30/16 08/30/16 08/30/16 07:00 15:00 23:00 07:00 15:00 23:00 Intake Total 300 ml 420 ml 480 ml 840 ml Balance 300 ml 420 ml 480 ml 840 ml Intake Oral 420 ml 480 ml 840 ml Other 300 ml # Voids 1 2 3 # Bowel Movements 2 Result Diagram: 08/27/16195508/29/16 0607 Objective Remarks GENERAL: This is a obese, well-developed patient, in no apparent distress. SKIN: No rashes, ecchymoses or lesions. Cool and dry. HEAD: Atraumatic. Normocephalic. No temporal or scalp tenderness. EYES: Extraocular motions intact. No scleral icterus. No injection or drainage. ENT: Nose without bleeding, purulent drainage or septal hematoma. Throat without erythema, tonsillar hypertrophy or exudate. Uvula midline. Airway patent. NECK: Trachea midline. No JVD or lymphadenopathy. Supple, nontender, no meningeal signs. CARDIOVASCULAR: Regular rate and rhythm without murmurs, gallops, or rubs. RESPIRATORY: Clear to auscultation. Breath sounds equal bilaterally. No wheezes , rales, or rhonchi. GASTROINTESTINAL: Abdomen soft, non-tender, nondistended. No hepato-splenomegaly , or palpable masses. No guarding. MUSCULOSKELETAL: No joint tenderness, effusion, or edema noted. No calf tenderness. Negative Homans sign bilaterally. 1+ BLE edema NEUROLOGICAL: Awake and alert. Motor and sensory grossly within normal limits. Five out of 5 muscle strength in all muscle groups. Normal speech. A/P Assessment and Plan This is a pleasant 65-year-old morbidly obese female patient with a past medical history which includes hypertension, bipolar and schizophrenia. Patient reports feeling anxiety is intermittent and tearful throughout the interview process. Patient denies chest pain shortness of breath nausea vomiting diarrhea constipation fevers chills cough or congestion. Patient does report left hip pain worse with ambulation also reports a fall one week ago x- ray reviewed no evidence of acute fracture. Hypertension - improved continue lisinopril 10 mg daily and metoprolol 25 mg twice a day Continue to monitor blood pressure GERD Continue omeprazole Bilateral lower extremity edema 1+ we'll resume Lasix 20 mg daily with 10 meq potassium and will recheck BMP in 3 days Left hip pain history of left hip total arthroplasty status post fall one week ago Hip/pelvic x-ray reviewed by myself as well as Dr. Arellano no acute fracture identified Acetaminophen as needed for pain DVT prophylaxis patient is ambulatory Discussed with patient and RN Written by Tatianna Nielsen, acting as scribe for Dr. Arellano on 08/30/16 at 16:55. The documentation accurately reflects the work performed [id number] by me on 08/30/16 at 16:55 Tatianna Nielsen Aug 30, 2016 16:56 Reynaldo Arellano MD Aug 30, 2016 23:49
[2016-08-30 20:00] VITALS: BP 130/62; PULSE 63; RESP 16; TEMP 97.9; O2SAT 94
[2016-08-30] MEDS: DULoxetine HCl DR 60 MG CAP PO SCH (20:20)
[2016-08-30] MEDS: traZODone HCL 100 MG TAB PO SCH (20:20)
[2016-08-31] MEDS: ACETAMINOPHEN 325 MG TAB PO PRN ×3 (04:25→17:10)
[2016-08-31 05:55] VITALS: BP 144/65; PULSE 76; RESP 16; TEMP 98.1; O2SAT 94
[2016-08-31] MEDS: ZIPRASIDONE HCL 40 MG CAP PO SCH ×2 (09:17→18:14)
[2016-08-31] MEDS: busPIRone HCL 5 MG TAB PO SCH ×2 (09:17→20:46)
[2016-08-31] MEDS: CALCIUM/VITAMIN D 250 MG/125 U TAB PO SCH ×3 (09:18→18:14)
[2016-08-31] MEDS: FUROSEMIDE 20 MG TAB PO SCH (09:18)
[2016-08-31] MEDS: DIVALPROEX SODIUM E.R. 500 MG TAB PO SCH ×2 (09:18→20:46)
[2016-08-31] MEDS: IBUPROFEN 800 MG TAB PO SCH ×4 (09:18→18:16)
[2016-08-31] MEDS: LISINOPRIL 10 MG TAB PO SCH (09:18)
[2016-08-31] MEDS: METOPROLOL TARTRATE 25 MG TAB PO SCH ×2 (09:18→20:47)
[2016-08-31] MEDS: CYANOCOBALAMIN 1,000 MCG TAB PO SCH (09:19)
[2016-08-31] MEDS: PANTOPRAZOLE SOD 20 MG DELAYED RELEASE TAB PO SCH (09:19)
[2016-08-31] MEDS: BENZTROPINE MESYLATE 2 MG TAB PO SCH ×2 (09:19→20:47)
[2016-08-31] MEDS: POTASSIUM CHLORIDE 10 MEQ CONTROLLED RELEASE TAB PO SCH (09:19)
--- NOTE | 2016-08-31 13:07 | HHI.PYPN ---
Subjective Remarks Patient seen in day room, with flexion of, chart review, patient continues somewhat intense labile superficial and silly. Compliant medications. Denies suicidality homicidality denies voices at this time also appears to be responding to internal stimuli at times Review of Systems Other No change since 08/28 Objective Alert: Yes [place]: Person, Place, Date Mood: Agitated Affect: Blunted Memory Intact: Immediate Hallucinations: Auditory (telling her to get out of here) Delusions: Yes Delusion Type: Paranoid Suicidal: Ideation (denies) Homicidal: Ideation (denies) Insight/Judgement Poor Labs Test 08/31/16 06:50 Valproic Acid (Depakene) Level 75 MCG/ML Vitals/IOs Vital Signs Date Time Temp Pulse Resp B/P Pulse Ox O2 Delivery O2 Flow Rate FiO2 08/31/16 05:55 98.1 76 16 144/65 94 08/27/16 23:33 Room Air Intake and Output 08/30/16 08/30/16 08/30/16 07:59 15:59 23:59 Intake Total 60 ml 1320 ml 2040 ml Balance 60 ml 1320 ml 2040 ml Assessment & Plan Problem List: (1) Bipolar affective disorder, depressed ICD Code: F31.30 Assessment & Plan Estimated LOS: days patient continue somewhat intense labile and silly, compliant medications Justification for Cont. Inpt. Patient will decompensate at a low level of care Discharge Planning To be determined Request HC Surrog/Guard Advoc?: No Problem Qualifiers (1) Bipolar affective disorder, depressed: Qualified Code: F31.32 - Bipolar affective disorder, currently depressed, moderate Sky Mcmahon MD Aug 31, 2016 13:07
[2016-08-31 19:47] VITALS: BP 153/65; PULSE 57; RESP 17; TEMP 98.6
[2016-08-31] MEDS: traZODone HCL 100 MG TAB PO SCH (20:46)
[2016-08-31] MEDS: DULoxetine HCl DR 60 MG CAP PO SCH (20:47)
[2016-08-31] MEDS: LORazepam 0.5 MG TAB age > 65 yrs PO PRN (21:26)
[2016-09-01 06:11] VITALS: BP 121/57; PULSE 54; RESP 18; TEMP 98.2; O2SAT 92
[2016-09-01] MEDS: CYANOCOBALAMIN 1,000 MCG TAB PO SCH (09:33)
[2016-09-01] MEDS: LISINOPRIL 10 MG TAB PO SCH (09:33)
[2016-09-01] MEDS: POTASSIUM CHLORIDE 10 MEQ CONTROLLED RELEASE TAB PO SCH (09:33)
[2016-09-01] MEDS: ZIPRASIDONE HCL 40 MG CAP PO SCH ×2 (09:34→18:31)
[2016-09-01] MEDS: DIVALPROEX SODIUM E.R. 500 MG TAB PO SCH ×2 (09:34→21:00)
[2016-09-01] MEDS: FUROSEMIDE 20 MG TAB PO SCH (09:34)
[2016-09-01] MEDS: BENZTROPINE MESYLATE 2 MG TAB PO SCH ×2 (09:34→21:00)
[2016-09-01] MEDS: CALCIUM/VITAMIN D 250 MG/125 U TAB PO SCH ×3 (09:34→18:30)
[2016-09-01] MEDS: PANTOPRAZOLE SOD 20 MG DELAYED RELEASE TAB PO SCH (09:34)
[2016-09-01] MEDS: busPIRone HCL 5 MG TAB PO SCH ×2 (09:35→21:00)
[2016-09-01] MEDS: METOPROLOL TARTRATE 25 MG TAB PO SCH ×2 (09:35→21:00)
[2016-09-01] MEDS: IBUPROFEN 800 MG TAB PO SCH ×3 (09:35→18:31)
--- NOTE | 2016-09-01 13:54 | HHI.PYPN ---
Subjective Remarks Patient seen in her room with floor staff, patient laying in bed, patient calm cooperative though show some drug-seeking asking for more medicine for her "gilda" the patient is resting calmly her speech is a little good rate and rhythm. She denies racing thoughts. Denies suicidality of voices. Patient compliant medications. For now continue treatment Review of Systems Other No change since 08/28 Objective Alert: Yes [place]: Person, Place, Date Mood: Agitated Affect: Blunted Memory Intact: Immediate Hallucinations: Auditory (telling her to get out of here) Delusions: Yes Delusion Type: Paranoid Suicidal: Ideation (denies) Homicidal: Ideation (denies) Insight/Judgement Poor Vitals/IOs Vital Signs Date Time Temp Pulse Resp B/P Pulse Ox O2 Delivery O2 Flow Rate FiO2 09/01/16 06:11 98.2 54 18 121/57 92 Intake and Output 08/31/16 08/31/16 09/01/16 08:00 16:00 00:00 Intake Total 0 ml 960 ml 600 ml Balance 0 ml 960 ml 600 ml Assessment & Plan Problem List: (1) Bipolar affective disorder, depressed ICD Code: F31.30 Assessment & Plan Estimated LOS: days patient is continues somewhat intense with pressured speech though the rate is softening, patient compliant medications. For now continue treatment Justification for Cont. Inpt. At this time patient would decompensate at a lower level of care Discharge Planning To be determined Request HC Surrog/Guard Advoc?: No Problem Qualifiers (1) Bipolar affective disorder, depressed: Qualified Code: F31.32 - Bipolar affective disorder, currently depressed, moderate Sky Mcmahon MD Sep 01, 2016 13:54
[2016-09-01 18:00] VITALS: BP 130/69; PULSE 60; RESP 18; TEMP 98.2; O2SAT 95
[2016-09-01] MEDS: LORazepam 0.5 MG TAB age > 65 yrs PO PRN (18:31)
[2016-09-01] MEDS: traZODone HCL 100 MG TAB PO SCH (21:00)
[2016-09-01] MEDS: DULoxetine HCl DR 60 MG CAP PO SCH (21:00)
[2016-09-02 06:00] VITALS: BP 148/41; PULSE 56; RESP 18; TEMP 98.1; O2SAT 94
[2016-09-02 07:30] LABS: POTASSIUM 4.4 MEQ/L (3.5-5.1)
[2016-09-02] MEDS: busPIRone HCL 5 MG TAB PO SCH ×2 (08:50→20:28)
[2016-09-02] MEDS: POTASSIUM CHLORIDE 10 MEQ CONTROLLED RELEASE TAB PO SCH (08:51)
[2016-09-02] MEDS: ZIPRASIDONE HCL 40 MG CAP PO SCH (08:51)
[2016-09-02] MEDS: IBUPROFEN 800 MG TAB PO SCH ×3 (08:51→17:24)
[2016-09-02] MEDS: PANTOPRAZOLE SOD 20 MG DELAYED RELEASE TAB PO SCH (08:51)
[2016-09-02] MEDS: METOPROLOL TARTRATE 25 MG TAB PO SCH ×2 (08:51→20:29)
[2016-09-02] MEDS: CALCIUM/VITAMIN D 250 MG/125 U TAB PO SCH ×3 (08:51→17:24)
[2016-09-02] MEDS: LISINOPRIL 10 MG TAB PO SCH (08:51)
[2016-09-02] MEDS: BENZTROPINE MESYLATE 2 MG TAB PO SCH ×2 (08:52→20:28)
[2016-09-02] MEDS: CYANOCOBALAMIN 1,000 MCG TAB PO SCH (08:52)
[2016-09-02] MEDS: FUROSEMIDE 20 MG TAB PO SCH (08:52)
[2016-09-02] MEDS: DIVALPROEX SODIUM E.R. 500 MG TAB PO SCH ×2 (08:52→20:28)
--- NOTE | 2016-09-02 13:11 | HHI.PYPN ---
Subjective Remarks Patient seen in day room with nurse Carmela, chart review, patient continues somewhat intrusive speech continue somewhat rapid and pressured. At times appears to be somewhat medication seeking at times appears requesting transfer to medical units. Will increase Geodon to 60 mg twice a day Review of Systems Other No change since 08/28 Objective Alert: Yes [place]: Person, Place, Date Mood: Agitated Affect: Blunted Memory Intact: Immediate Hallucinations: Auditory (telling her to get out of here) Delusions: Yes Delusion Type: Paranoid Suicidal: Ideation (denies) Homicidal: Ideation (denies) Insight/Judgement Poor Labs Test 09/02/16 06:54 Sodium Level 140 MEQ/L Potassium Level 4.4 MEQ/L Chloride Level 103 MEQ/L Carbon Dioxide Level 30.0 MEQ/L Anion Gap 7 MEQ/L Blood Urea Nitrogen 28 MG/DL Creatinine 0.85 MG/DL Estimat Glomerular Filtration 67 ML/MIN Rate Random Glucose 88 MG/DL Calcium Level 9.4 MG/DL Vitals/IOs Vital Signs Date Time Temp Pulse Resp B/P Pulse Ox O2 Delivery O2 Flow Rate FiO2 09/02/16 09:55 18 09/02/16 06:00 98.1 56 148/41 94 Intake and Output 09/01/16 09/01/16 09/02/16 08:00 16:00 00:00 Intake Total 0 ml 1320 ml 840 ml Balance 0 ml 1320 ml 840 ml Assessment & Plan Problem List: (1) Bipolar affective disorder, depressed ICD Code: F31.30 Assessment & Plan Estimated LOS: days patient remains somewhat hypomanic with decreasing rapid pressured speech will increase Geodon to 60 mg twice a day. Compliant medications. Justification for Cont. Inpt. At this time the patient was really decompensated a lower level of care Discharge Planning To be determined Request HC Surrog/Guard Advoc?: No Problem Qualifiers (1) Bipolar affective disorder, depressed: Qualified Code: F31.32 - Bipolar affective disorder, currently depressed, moderate Sky Mcmahon MD Sep 02, 2016 13:11
[2016-09-02] MEDS: ZIPRASIDONE HCL 60 MG CAP PO SCH (17:25)
[2016-09-02 18:31] VITALS: BP 130/68; PULSE 66; RESP 18; TEMP 98.4; O2SAT 95
[2016-09-02] MEDS: DULoxetine HCl DR 60 MG CAP PO SCH (20:28)
[2016-09-02] MEDS: traZODone HCL 100 MG TAB PO SCH (20:29)
[2016-09-03 05:59] VITALS: BP 115/62; PULSE 67; RESP 16; TEMP 98.3; O2SAT 94
[2016-09-03] MEDS: CALCIUM/VITAMIN D 250 MG/125 U TAB PO SCH ×3 (08:42→17:07)
[2016-09-03] MEDS: DIVALPROEX SODIUM E.R. 500 MG TAB PO SCH ×2 (08:43→20:22)
[2016-09-03] MEDS: METOPROLOL TARTRATE 25 MG TAB PO SCH ×2 (08:43→20:21)
[2016-09-03] MEDS: BENZTROPINE MESYLATE 2 MG TAB PO SCH ×2 (08:43→20:22)
[2016-09-03] MEDS: PANTOPRAZOLE SOD 20 MG DELAYED RELEASE TAB PO SCH (08:43)
[2016-09-03] MEDS: LISINOPRIL 10 MG TAB PO SCH (08:43)
[2016-09-03] MEDS: FUROSEMIDE 20 MG TAB PO SCH (08:43)
[2016-09-03] MEDS: busPIRone HCL 5 MG TAB PO SCH ×2 (08:43→20:21)
[2016-09-03] MEDS: IBUPROFEN 800 MG TAB PO SCH ×3 (08:44→17:07)
[2016-09-03] MEDS: CYANOCOBALAMIN 1,000 MCG TAB PO SCH (08:44)
[2016-09-03] MEDS: ZIPRASIDONE HCL 60 MG CAP PO SCH ×2 (09:00→17:08)
[2016-09-03] MEDS: POTASSIUM CHLORIDE 10 MEQ CONTROLLED RELEASE TAB PO SCH (09:13)
--- NOTE | 2016-09-03 12:02 | HHI.PYPN ---
Subjective Remarks Patient seen in day room with nurse Laine, chart review, patient sitting quietly in her chair she is calm cooperative with me though at times somewhat somatic the playing of pain towards right hip and buttocks that is chronic in nature from an old fall. Compliant medications Review of Systems Other No change since 08/28 Objective Alert: Yes [place]: Person, Place, Date Mood: Agitated Affect: Blunted Memory Intact: Immediate Hallucinations: Auditory (telling her to get out of here) Delusions: Yes Delusion Type: Paranoid Suicidal: Ideation (denies) Homicidal: Ideation (denies) Insight/Judgement Very poor Vitals/IOs Vital Signs Date Time Temp Pulse Resp B/P Pulse Ox O2 Delivery O2 Flow Rate FiO2 09/03/16 10:31 18 09/03/16 05:59 98.3 67 115/62 94 Intake and Output 09/02/16 09/02/16 09/03/16 08:00 16:00 00:00 Intake Total 1080 ml 840 ml Balance 1080 ml 840 ml Assessment & Plan Problem List: (1) Bipolar affective disorder, depressed ICD Code: F31.30 Assessment & Plan Estimated LOS: days she continues with mildly rapid pressured speech though improving, compliant medications, also continues mild somatic complaints. For now continue treatment Justification for Cont. Inpt. At this time the patient will decompensate is placed at a lower level of care Discharge Planning To be determined Request HC Surrog/Guard Advoc?: No Problem Qualifiers (1) Bipolar affective disorder, depressed: Qualified Code: F31.32 - Bipolar affective disorder, currently depressed, moderate Sky Mcmahon MD Sep 03, 2016 12:02
[2016-09-03] MEDS: LORazepam 0.5 MG TAB age > 65 yrs PO PRN (13:49)
--- NOTE | 2016-09-03 14:56 | HHI.PR ---
Subjective Remarks Follow-up bilateral lower extremity edema. States it is improving slowly. Denies shortness of breath. Discussed with RN Objective Vitals Vital Signs Date Time Temp Pulse Resp B/P Pulse Ox O2 Delivery O2 Flow Rate FiO2 09/03/16 10:31 18 09/03/16 05:59 98.3 67 16 115/62 94 09/02/16 18:31 98.4 66 18 130/68 95 I/O 09/02/16 09/02/16 09/02/16 09/03/16 09/03/16 09/03/16 07:00 15:00 23:00 07:00 15:00 23:00 Intake Total 1080 ml 840 ml 0 ml 1320 ml Balance 1080 ml 840 ml 0 ml 1320 ml Intake Oral 1080 ml 840 ml 0 ml 1320 ml # Voids 1 3 2 2 3 # Bowel Movements 1 Result Diagram: 09/02/16 0654 Objective Remarks GENERAL: This is a obese, well-developed patient, in no apparent distress. SKIN: No rashes, ecchymoses or lesions. Cool and dry. HEAD: Atraumatic. Normocephalic. No temporal or scalp tenderness. EYES: Extraocular motions intact. No scleral icterus. No injection or drainage. ENT: Nose without bleeding, purulent drainage or septal hematoma. Throat without erythema, tonsillar hypertrophy or exudate. Uvula midline. Airway patent. NECK: Trachea midline. No JVD or lymphadenopathy. Supple, nontender, no meningeal signs. CARDIOVASCULAR: Regular rate and rhythm without murmurs, gallops, or rubs. RESPIRATORY: Clear to auscultation. Breath sounds equal bilaterally. No wheezes , rales, or rhonchi. GASTROINTESTINAL: Abdomen soft, non-tender, nondistended. No guarding. MUSCULOSKELETAL: No joint tenderness, effusion, or edema noted. No calf tenderness. Negative Homans sign bilaterally. 1+ BLE edema NEUROLOGICAL: Awake and alert. Motor and sensory grossly within normal limits. Five out of 5 muscle strength in all muscle groups. Normal speech. Procedures none A/P Assessment and Plan This is a pleasant 65-year-old morbidly obese female patient with a past medical history which includes hypertension, bipolar and schizophrenia. Hypertension - improved continue lisinopril 10 mg daily and metoprolol 25 mg twice a day Continue to monitor blood pressure GERD Continue omeprazole Bilateral lower extremity edema 1+ continue Lasix 20 mg daily with 10 meq potassium and monitor BMP repeat September 06. Bilateral lower extremity elevation. Teds if allowed Left hip pain history of left hip total arthroplasty status post fall one week ago Hip/pelvic x-ray reviewed by myself as well as Dr. Arellano no acute fracture identified Acetaminophen as needed for pain DVT prophylaxis patient is ambulatory Discharge Planning Patient medically stable. We'll sign off. Enoc العلي MD Sep 03, 2016 14:56
[2016-09-03 19:45] VITALS: BP 125/66; PULSE 63; RESP 17; TEMP 97.8; O2SAT 93
[2016-09-03] MEDS: DULoxetine HCl DR 60 MG CAP PO SCH (20:22)
[2016-09-03] MEDS: traZODone HCL 100 MG TAB PO SCH (20:22)
[2016-09-03] MEDS: ACETAMINOPHEN 325 MG TAB PO PRN (20:23)
[2016-09-04] MEDS: LORazepam 0.5 MG TAB age > 65 yrs PO PRN ×2 (00:02→18:27)
[2016-09-04 05:54] VITALS: BP 168/98; PULSE 125; RESP 17; TEMP 97.5; O2SAT 93
[2016-09-04] MEDS: ACETAMINOPHEN 325 MG TAB PO PRN (06:23)
[2016-09-04] MEDS: ZIPRASIDONE HCL 60 MG CAP PO SCH ×2 (09:00→18:00)
[2016-09-04] MEDS: IBUPROFEN 800 MG TAB PO SCH ×3 (09:56→18:16)
[2016-09-04] MEDS: busPIRone HCL 5 MG TAB PO SCH ×2 (09:56→20:47)
[2016-09-04] MEDS: FUROSEMIDE 20 MG TAB PO SCH (09:56)
[2016-09-04] MEDS: DIVALPROEX SODIUM E.R. 500 MG TAB PO SCH ×2 (09:56→20:45)
[2016-09-04] MEDS: BENZTROPINE MESYLATE 2 MG TAB PO SCH ×2 (09:56→20:45)
[2016-09-04] MEDS: POTASSIUM CHLORIDE 10 MEQ CONTROLLED RELEASE TAB PO SCH (09:56)
[2016-09-04] MEDS: CYANOCOBALAMIN 1,000 MCG TAB PO SCH (09:57)
[2016-09-04] MEDS: CALCIUM/VITAMIN D 250 MG/125 U TAB PO SCH ×3 (09:57→18:16)
[2016-09-04] MEDS: LISINOPRIL 10 MG TAB PO SCH (09:57)
[2016-09-04] MEDS: METOPROLOL TARTRATE 25 MG TAB PO SCH ×2 (09:57→20:45)
[2016-09-04] MEDS: PANTOPRAZOLE SOD 20 MG DELAYED RELEASE TAB PO SCH (09:57)
--- NOTE | 2016-09-04 17:00 | HHI.PYPN ---
Subjective Remarks Patient seen in [place] floor staff, continue somewhat loud intrusive and intense, somewhat somatic today also. Compliant medications. Review of Systems Other No somatic complaints today Objective Alert: Yes [place]: Person, Place, Date Mood: Agitated Affect: Blunted Memory Intact: Immediate Hallucinations: Auditory (telling her to get out of here) Delusions: Yes Delusion Type: Paranoid Suicidal: Ideation (denies) Homicidal: Ideation (denies) Insight/Judgement Very poor Vitals/IOs Vital Signs Date Time Temp Pulse Resp B/P Pulse Ox O2 Delivery O2 Flow Rate FiO2 09/04/16 05:54 97.5 125 17 168/98 93 Intake and Output 09/03/16 09/03/16 09/04/16 08:00 16:00 00:00 Intake Total 480 ml 840 ml 960 ml Balance 480 ml 840 ml 960 ml Assessment & Plan Problem List: (1) Bipolar affective disorder, depressed ICD Code: F31.30 Assessment & Plan Estimated LOS: days patient continues somewhat manic intrusive little insight. Compliant medications Justification for Cont. Inpt. At this time patient would decompensate to place the lower level of care Discharge Planning To be determined Request HC Surrog/Guard Advoc?: No Problem Qualifiers (1) Bipolar affective disorder, depressed: Qualified Code: F31.32 - Bipolar affective disorder, currently depressed, moderate Sky Mcmahon MD Sep 04, 2016 17:00
[2016-09-04 19:50] VITALS: BP 133/30; PULSE 65; RESP 17; TEMP 97.6; O2SAT 95
[2016-09-04] MEDS: traZODone HCL 100 MG TAB PO SCH (20:44)
[2016-09-04] MEDS: DULoxetine HCl DR 60 MG CAP PO SCH (20:45)
[2016-09-05] MEDS: diphenhydrAMINE HCL 50 MG CAP - HS PRN PO (02:52)
[2016-09-05] MEDS: ACETAMINOPHEN 325 MG TAB PO PRN ×3 (02:52→19:52)
[2016-09-05 06:17] VITALS: BP 145/66; PULSE 60; RESP 18; TEMP 96.4; O2SAT 92
[2016-09-05] MEDS: ZIPRASIDONE HCL 60 MG CAP PO SCH ×2 (09:00→17:13)
[2016-09-05] MEDS: FUROSEMIDE 20 MG TAB PO SCH (09:50)
[2016-09-05] MEDS: METOPROLOL TARTRATE 25 MG TAB PO SCH ×2 (09:50→20:43)
[2016-09-05] MEDS: CYANOCOBALAMIN 1,000 MCG TAB PO SCH (09:50)
[2016-09-05] MEDS: IBUPROFEN 800 MG TAB PO SCH ×3 (09:50→17:13)
[2016-09-05] MEDS: POTASSIUM CHLORIDE 10 MEQ CONTROLLED RELEASE TAB PO SCH (09:50)
[2016-09-05] MEDS: busPIRone HCL 5 MG TAB PO SCH ×2 (09:50→20:42)
[2016-09-05] MEDS: DIVALPROEX SODIUM E.R. 500 MG TAB PO SCH ×2 (09:50→20:44)
[2016-09-05] MEDS: LISINOPRIL 10 MG TAB PO SCH (09:51)
[2016-09-05] MEDS: CALCIUM/VITAMIN D 250 MG/125 U TAB PO SCH ×3 (09:51→17:13)
[2016-09-05] MEDS: BENZTROPINE MESYLATE 2 MG TAB PO SCH ×2 (09:51→20:44)
[2016-09-05] MEDS: PANTOPRAZOLE SOD 20 MG DELAYED RELEASE TAB PO SCH (09:51)
--- NOTE | 2016-09-05 12:17 | HHI.PYPN ---
Subjective Remarks Patient was seen and case discussed with nursing. Patient is compliant with medications and behaving well on the unit. She is bright and cheerful during the interview. Mood has not been elevated. He denies auditory or visual hallucinations. Denies suicidal ideations thought or plan Objective Alert: Yes [place]: Person, Place, Date Mood: Agitated Affect: Blunted Memory Intact: Immediate Hallucinations: Auditory (telling her to get out of here) Delusions: Yes Delusion Type: Paranoid Suicidal: Ideation (denies) Homicidal: Ideation (denies) Insight/Judgement Poor Vitals/IOs Vital Signs Date Time Temp Pulse Resp B/P Pulse Ox O2 Delivery O2 Flow Rate FiO2 09/05/16 06:17 96.4 60 18 145/66 92 Intake and Output 09/04/16 09/04/16 09/05/16 08:00 16:00 00:00 Intake Total 360 ml 240 ml 960 ml Balance 360 ml 240 ml 960 ml Assessment & Plan Problem List: (1) Bipolar affective disorder, depressed ICD Code: F31.30 Assessment & Plan Continue current treatment plan Justification for Cont. Inpt. Patient will decompensate in a less restrictive setting Request HC Surrog/Guard Advoc?: No Problem Qualifiers (1) Bipolar affective disorder, depressed: Qualified Code: F31.32 - Bipolar affective disorder, currently depressed, moderate Dante Thomas DO Sep 05, 2016 12:17
[2016-09-05 19:30] VITALS: BP 130/64; PULSE 60; RESP 18; TEMP 97.1; O2SAT 96
[2016-09-05] MEDS: DULoxetine HCl DR 60 MG CAP PO SCH (20:43)
[2016-09-05] MEDS: traZODone HCL 100 MG TAB PO SCH (20:44)
[2016-09-06] MEDS: ACETAMINOPHEN 325 MG TAB PO PRN ×2 (03:56→21:06)
[2016-09-06] MEDS: diphenhydrAMINE HCL 50 MG CAP - HS PRN PO (03:58)
[2016-09-06 06:22] VITALS: BP 125/60; PULSE 70; RESP 17; TEMP 97; O2SAT 93
[2016-09-06 08:48] LABS: BICARBONATE 27.7 MEQ/L (21.0-32.0); MAGNESIUM 1.8 MG/DL (1.5-2.5); POTASSIUM 4.7 MEQ/L (3.5-5.1)
[2016-09-06] MEDS: ZIPRASIDONE HCL 60 MG CAP PO SCH (09:00)
[2016-09-06] MEDS: LISINOPRIL 10 MG TAB PO SCH (09:00)
[2016-09-06] MEDS: busPIRone HCL 5 MG TAB PO SCH ×2 (09:14→21:06)
[2016-09-06] MEDS: CALCIUM/VITAMIN D 250 MG/125 U TAB PO SCH ×3 (09:15→17:42)
[2016-09-06] MEDS: BENZTROPINE MESYLATE 2 MG TAB PO SCH ×2 (09:15→21:06)
[2016-09-06] MEDS: FUROSEMIDE 20 MG TAB PO SCH (09:15)
[2016-09-06] MEDS: METOPROLOL TARTRATE 25 MG TAB PO SCH ×2 (09:16→21:06)
[2016-09-06] MEDS: ERGOCALCIFEROL (VIT D2) 50,000 UNIT CAP PO SCH (09:16)
[2016-09-06] MEDS: POTASSIUM CHLORIDE 10 MEQ CONTROLLED RELEASE TAB PO SCH (09:16)
[2016-09-06] MEDS: DIVALPROEX SODIUM E.R. 500 MG TAB PO SCH ×2 (09:16→21:07)
[2016-09-06] MEDS: PANTOPRAZOLE SOD 20 MG DELAYED RELEASE TAB PO SCH (09:17)
[2016-09-06] MEDS: CYANOCOBALAMIN 1,000 MCG TAB PO SCH (09:19)
[2016-09-06] MEDS: IBUPROFEN 800 MG TAB PO SCH ×3 (09:19→17:42)
--- NOTE | 2016-09-06 15:46 | HHI.PYPN ---
Subjective Remarks discussed with treatment team, patient 7 unit, continues loud intrusive and med seeking. Will increase oral Geodon to 80 mg twice a day Review of Systems Other No somatic complaints today Objective Alert: Yes [place]: Person, Place, Date Mood: Agitated Affect: Blunted Memory Intact: Immediate Hallucinations: Auditory (telling her to get out of here) Delusions: Yes Delusion Type: Paranoid Suicidal: Ideation (denies) Homicidal: Ideation (denies) Insight/Judgement Very poor Labs Test 09/06/16 07:05 Sodium Level 137 MEQ/L Potassium Level 4.7 MEQ/L Chloride Level 100 MEQ/L Carbon Dioxide Level 27.7 MEQ/L Anion Gap 9 MEQ/L Blood Urea Nitrogen 30 MG/DL Creatinine 0.94 MG/DL Estimat Glomerular Filtration 60 ML/MIN Rate Random Glucose 103 MG/DL Calcium Level 9.3 MG/DL Magnesium Level 1.8 MG/DL Vitals/IOs Vital Signs Date Time Temp Pulse Resp B/P Pulse Ox O2 Delivery O2 Flow Rate FiO2 09/06/16 06:22 97.0 70 17 125/60 93 Intake and Output 09/05/16 09/05/16 09/06/16 08:00 16:00 00:00 Intake Total 240 ml 720 ml Balance 240 ml 720 ml Assessment & Plan Problem List: (1) Bipolar affective disorder, depressed ICD Code: F31.30 Assessment & Plan Estimated LOS: days patient continues manic psychotic and intrusive, will increase all Geodon 80 mg twice a day Justification for Cont. Inpt. At this time patient with severely decompensated a lower level of care Discharge Planning To be determined Request HC Surrog/Guard Advoc?: No Problem Qualifiers (1) Bipolar affective disorder, depressed: Qualified Code: F31.32 - Bipolar affective disorder, currently depressed, moderate Sky Mcmahon MD Sep 06, 2016 15:46
[2016-09-06] MEDS: ZIPRASIDONE HCL 80 MG CAP PO SCH (17:42)
[2016-09-06 20:00] VITALS: BP 131/89; PULSE 61; RESP 17; TEMP 97.7; O2SAT 96
[2016-09-06] MEDS: traZODone HCL 100 MG TAB PO SCH (21:06)
[2016-09-06] MEDS: DULoxetine HCl DR 60 MG CAP PO SCH (21:07)
[2016-09-06] MEDS: LORazepam 0.5 MG TAB age > 65 yrs PO PRN (21:09)
[2016-09-07] MEDS: ACETAMINOPHEN 325 MG TAB PO PRN ×3 (04:23→18:27)
[2016-09-07 04:25] VITALS: BP 163/95; PULSE 69; RESP 17; TEMP 97.7; O2SAT 94
[2016-09-07 06:04] VITALS: BP 163/95; PULSE 69; RESP 17; TEMP 97.7; O2SAT 96
[2016-09-07] MEDS: BENZTROPINE MESYLATE 2 MG TAB PO SCH ×2 (08:54→20:34)
[2016-09-07] MEDS: METOPROLOL TARTRATE 25 MG TAB PO SCH ×2 (08:54→20:34)
[2016-09-07] MEDS: LISINOPRIL 10 MG TAB PO SCH (08:54)
[2016-09-07] MEDS: CALCIUM/VITAMIN D 250 MG/125 U TAB PO SCH ×3 (08:54→16:07)
[2016-09-07] MEDS: busPIRone HCL 5 MG TAB PO SCH ×2 (08:54→20:34)
[2016-09-07] MEDS: IBUPROFEN 800 MG TAB PO SCH ×3 (08:56→16:07)
[2016-09-07] MEDS: DIVALPROEX SODIUM E.R. 500 MG TAB PO SCH (08:56)
[2016-09-07] MEDS: PANTOPRAZOLE SOD 20 MG DELAYED RELEASE TAB PO SCH (08:57)
[2016-09-07] MEDS: FUROSEMIDE 20 MG TAB PO SCH (08:57)
[2016-09-07] MEDS: ZIPRASIDONE HCL 80 MG CAP PO SCH ×2 (08:57→16:07)
[2016-09-07] MEDS: CYANOCOBALAMIN 1,000 MCG TAB PO SCH (08:57)
[2016-09-07] MEDS: POTASSIUM CHLORIDE 10 MEQ CONTROLLED RELEASE TAB PO SCH (08:57)
--- NOTE | 2016-09-07 09:45 | HHI.PYPN ---
Subjective Remarks Patient seen in day room with nurse Deepthi, patient continues intrusive loud intense with rapid pressured speech continue somewhat somatic, also intrusive on my personal space. Compliant medications. Depakote level 75 contact 09/05 on 500 mg a.m. 1000 at bedtime. Will increase at bedtime dose to 1250 mg recheck Depakote level on 09/10 Review of Systems Other Most medical complaints today Objective Alert: Yes [place]: Person, Place, Date Mood: Agitated Affect: Blunted Memory Intact: Immediate Hallucinations: Auditory (telling her to get out of here) Delusions: Yes Delusion Type: Paranoid Suicidal: Ideation (denies) Homicidal: Ideation (denies) Insight/Judgement Poor Vitals/IOs Vital Signs Date Time Temp Pulse Resp B/P Pulse Ox O2 Delivery O2 Flow Rate FiO2 09/07/16 06:04 97.7 69 17 163/95 96 Intake and Output 09/06/16 09/06/16 09/07/16 08:00 16:00 00:00 Intake Total 120 ml 720 ml 840 ml Balance 120 ml 720 ml 840 ml Assessment & Plan Problem List: (1) Bipolar affective disorder, depressed ICD Code: F31.30 Assessment & Plan Estimated LOS: days patient continues intense intrusive and loud poor boundaries. To medication adjustments above Justification for Cont. Inpt. At this time patient would severely decompensated placed in a lower level of care Discharge Planning To be determined Request HC Surrog/Guard Advoc?: No Problem Qualifiers (1) Bipolar affective disorder, depressed: Qualified Code: F31.32 - Bipolar affective disorder, currently depressed, moderate Sky Mcmahon MD Sep 07, 2016 09:45
[2016-09-07] MEDS: LORazepam 0.5 MG TAB age > 65 yrs PO PRN ×2 (11:27→23:59)
[2016-09-07 20:19] VITALS: BP 157/69; PULSE 79; RESP 16; TEMP 97.3; O2SAT 98
[2016-09-07] MEDS: DIVALPROEX SODIUM E.R. 250 MG TAB PO SCH (20:32)
[2016-09-07] MEDS: traZODone HCL 100 MG TAB PO SCH (20:34)
[2016-09-07] MEDS: DULoxetine HCl DR 60 MG CAP PO SCH (20:34)
[2016-09-08] MEDS: ACETAMINOPHEN 325 MG TAB PO PRN ×4 (04:36→17:00)
[2016-09-08 06:33] VITALS: BP 163/67; PULSE 82; RESP 18; TEMP 97.7; O2SAT 94
[2016-09-08] MEDS: FUROSEMIDE 20 MG TAB PO SCH (08:20)
[2016-09-08] MEDS: DIVALPROEX SODIUM E.R. 500 MG TAB PO SCH (08:20)
[2016-09-08] MEDS: busPIRone HCL 5 MG TAB PO SCH ×2 (08:20→20:46)
[2016-09-08] MEDS: POTASSIUM CHLORIDE 10 MEQ CONTROLLED RELEASE TAB PO SCH (08:20)
[2016-09-08] MEDS: BENZTROPINE MESYLATE 2 MG TAB PO SCH ×2 (08:20→20:46)
[2016-09-08] MEDS: LISINOPRIL 10 MG TAB PO SCH (08:20)
[2016-09-08] MEDS: IBUPROFEN 800 MG TAB PO SCH (08:20)
[2016-09-08] MEDS: METOPROLOL TARTRATE 25 MG TAB PO SCH ×2 (08:21→20:46)
[2016-09-08] MEDS: CYANOCOBALAMIN 1,000 MCG TAB PO SCH (08:21)
[2016-09-08] MEDS: ZIPRASIDONE HCL 80 MG CAP PO SCH ×2 (08:21→17:00)
[2016-09-08] MEDS: PANTOPRAZOLE SOD 20 MG DELAYED RELEASE TAB PO SCH (08:21)
[2016-09-08] MEDS: CALCIUM/VITAMIN D 250 MG/125 U TAB PO SCH ×3 (08:21→17:00)
--- NOTE | 2016-09-08 09:28 | HHI.PYPN ---
Subjective Remarks Patient seen in her room, continues to complain of pain in various locations. It appears the Motrin 800 mg 3 times a day is not helping, will discontinue that offer tramadol 50 mg every 8 hours when necessary pain Review of Systems Other No significant changes in somatic complaints today Objective Alert: Yes [place]: Person, Place, Date Mood: Agitated Affect: Blunted Memory Intact: Immediate Hallucinations: Auditory (telling her to get out of here) Delusions: Yes Delusion Type: Paranoid Suicidal: Ideation (denies) Homicidal: Ideation (denies) Insight/Judgement Poor Vitals/IOs Vital Signs Date Time Temp Pulse Resp B/P Pulse Ox O2 Delivery O2 Flow Rate FiO2 09/08/16 06:33 97.7 82 18 163/67 94 Intake and Output 09/07/16 09/07/16 09/07/16 07:59 15:59 23:59 Intake Total 120 ml 840 ml Balance 120 ml 840 ml Assessment & Plan Problem List: (1) Bipolar affective disorder, depressed ICD Code: F31.30 Assessment & Plan Estimated LOS: days patient continues intense confused loud and intrusive. She medication changes above Justification for Cont. Inpt. At this time patient would severely decompensated place to the lower level of care Discharge Planning To be determined Request HC Surrog/Guard Advoc?: No Problem Qualifiers (1) Bipolar affective disorder, depressed: Qualified Code: F31.32 - Bipolar affective disorder, currently depressed, moderate Sky Mcmahon MD Sep 08, 2016 09:28
[2016-09-08] MEDS: traMADol HCL 50 MG TAB PO PRN ×2 (11:38→20:48)
[2016-09-08] MEDS: LORazepam 0.5 MG TAB age > 65 yrs PO PRN (13:08)
[2016-09-08 19:52] VITALS: BP 126/98; PULSE 51; RESP 17; TEMP 97.6; O2SAT 94
[2016-09-08] MEDS: DULoxetine HCl DR 60 MG CAP PO SCH (20:45)
[2016-09-08] MEDS: DIVALPROEX SODIUM E.R. 250 MG TAB PO SCH (20:46)
[2016-09-08] MEDS: traZODone HCL 100 MG TAB PO SCH (20:46)
[2016-09-09] MEDS: ACETAMINOPHEN 325 MG TAB PO PRN ×3 (03:58→16:21)
[2016-09-09] MEDS: traMADol HCL 50 MG TAB PO PRN ×3 (04:51→20:15)
[2016-09-09 06:00] VITALS: BP 118/54; PULSE 81; RESP 18; TEMP 98.2; O2SAT 95
[2016-09-09] MEDS: CYANOCOBALAMIN 1,000 MCG TAB PO SCH (09:17)
[2016-09-09] MEDS: LISINOPRIL 10 MG TAB PO SCH (09:18)
[2016-09-09] MEDS: ZIPRASIDONE HCL 80 MG CAP PO SCH ×2 (09:18→18:19)
[2016-09-09] MEDS: FUROSEMIDE 20 MG TAB PO SCH (09:22)
[2016-09-09] MEDS: METOPROLOL TARTRATE 25 MG TAB PO SCH ×2 (09:22→20:15)
[2016-09-09] MEDS: DIVALPROEX SODIUM E.R. 500 MG TAB PO SCH (09:22)
[2016-09-09] MEDS: PANTOPRAZOLE SOD 20 MG DELAYED RELEASE TAB PO SCH (09:22)
[2016-09-09] MEDS: BENZTROPINE MESYLATE 2 MG TAB PO SCH ×2 (09:22→20:14)
[2016-09-09] MEDS: busPIRone HCL 5 MG TAB PO SCH ×2 (09:22→20:14)
[2016-09-09] MEDS: LORazepam 0.5 MG TAB age > 65 yrs PO PRN (09:22)
[2016-09-09] MEDS: POTASSIUM CHLORIDE 10 MEQ CONTROLLED RELEASE TAB PO SCH (09:22)
[2016-09-09] MEDS: CALCIUM/VITAMIN D 250 MG/125 U TAB PO SCH ×3 (09:22→18:20)
--- NOTE | 2016-09-09 12:59 | HHI.PYPN ---
Subjective Remarks Patient seen in day room with nurse Banerjee, chart review, patient continues intense somewhat superficial silly childlike. Though the affect is soften somewhat. Patient compliant medications. For now continue treatment Review of Systems Other No new somatic complaints today Objective Alert: Yes [place]: Person, Place, Date Mood: Agitated Affect: Blunted Memory Intact: Immediate Hallucinations: Auditory (telling her to get out of here) Delusions: Yes Delusion Type: Paranoid Suicidal: Ideation (denies) Homicidal: Ideation (denies) Insight/Judgement Poor Vitals/IOs Vital Signs Date Time Temp Pulse Resp B/P Pulse Ox O2 Delivery O2 Flow Rate FiO2 09/09/16 06:00 98.2 81 18 118/54 95 Intake and Output 09/08/16 09/08/16 09/09/16 08:00 16:00 00:00 Intake Total 240 ml 720 ml 1080 ml Balance 240 ml 720 ml 1080 ml Assessment & Plan Problem List: (1) Bipolar affective disorder, depressed ICD Code: F31.30 Assessment & Plan Estimated LOS: days patient continues intense and intrusive and somewhat silly. Though it is softened somewhat. Compliant medications. Justification for Cont. Inpt. At this time patient would decompensated placement a lower level of care Discharge Planning To be determined Request HC Surrog/Guard Advoc?: No Problem Qualifiers (1) Bipolar affective disorder, depressed: Qualified Code: F31.32 - Bipolar affective disorder, currently depressed, moderate Sky Mcmahon MD Sep 09, 2016 12:59
[2016-09-09] MEDS: MAGNESIUM HYDROXIDE SUSP 30 ML CUP PO PRN (16:28)
[2016-09-09] MEDS: DIVALPROEX SODIUM E.R. 250 MG TAB PO SCH (20:14)
[2016-09-09] MEDS: traZODone HCL 100 MG TAB PO SCH (20:14)
[2016-09-09] MEDS: DULoxetine HCl DR 60 MG CAP PO SCH (20:15)
[2016-09-09 20:54] VITALS: BP 129/87; PULSE 81; RESP 18; TEMP 98.3; O2SAT 96
[2016-09-10] MEDS: traMADol HCL 50 MG TAB PO PRN (05:28)
[2016-09-10 05:58] VITALS: BP 184/79; PULSE 83; RESP 16; TEMP 97.5; O2SAT 97
[2016-09-10] MEDS: risperiDONE EXT REL INJ 37.5 MG/2 ML VIAL IM SCH (09:00)
[2016-09-10] MEDS: BENZTROPINE MESYLATE 2 MG TAB PO SCH ×2 (09:14→21:00)
[2016-09-10] MEDS: DIVALPROEX SODIUM E.R. 500 MG TAB PO SCH (09:14)
[2016-09-10] MEDS: CALCIUM/VITAMIN D 250 MG/125 U TAB PO SCH ×3 (09:15→17:30)
[2016-09-10] MEDS: PANTOPRAZOLE SOD 20 MG DELAYED RELEASE TAB PO SCH (09:15)
[2016-09-10] MEDS: busPIRone HCL 5 MG TAB PO SCH ×2 (09:15→21:00)
[2016-09-10] MEDS: ZIPRASIDONE HCL 80 MG CAP PO SCH ×2 (09:15→17:29)
[2016-09-10] MEDS: LISINOPRIL 10 MG TAB PO SCH (09:15)
[2016-09-10] MEDS: METOPROLOL TARTRATE 25 MG TAB PO SCH ×2 (09:15→21:00)
[2016-09-10] MEDS: POTASSIUM CHLORIDE 10 MEQ CONTROLLED RELEASE TAB PO SCH (09:15)
[2016-09-10] MEDS: FUROSEMIDE 20 MG TAB PO SCH (09:15)
[2016-09-10] MEDS: CYANOCOBALAMIN 1,000 MCG TAB PO SCH (09:15)
[2016-09-10] MEDS: ACETAMINOPHEN 325 MG TAB PO PRN (12:34)
--- NOTE | 2016-09-10 15:05 | HHI.PYPN ---
Subjective Remarks Patient seen in dayroom with floor staff, patient continues somewhat intense labile and intrusive somewhat silly and childish, compliant medications, for now continue treatment Review of Systems Other Today no somatic complaints noted Objective Alert: Yes [place]: Person, Place, Date Mood: Agitated Affect: Blunted Memory Intact: Immediate Hallucinations: Auditory (telling her to get out of here) Delusions: Yes Delusion Type: Paranoid Suicidal: Ideation (denies) Homicidal: Ideation (denies) Insight/Judgement Very poor Labs Test 09/10/16 06:32 Valproic Acid (Depakene) Level 67 MCG/ML Vitals/IOs Vital Signs Date Time Temp Pulse Resp B/P Pulse Ox O2 Delivery O2 Flow Rate FiO2 09/10/16 05:58 97.5 83 16 184/79 97 Intake and Output 09/09/16 09/09/16 09/09/16 07:59 15:59 23:59 Intake Total 120 ml 840 ml 240 ml Balance 120 ml 840 ml 240 ml Assessment & Plan Problem List: (1) Bipolar affective disorder, depressed ICD Code: F31.30 Assessment & Plan Estimated LOS: days patient continues intense intrusive labile superficial childlike and silly Justification for Cont. Inpt. This I patient was really decompensated placed a lower level of care Discharge Planning To be determined Request HC Surrog/Guard Advoc?: No Problem Qualifiers (1) Bipolar affective disorder, depressed: Qualified Code: F31.32 - Bipolar affective disorder, currently depressed, moderate Sky Mcmahon MD Sep 10, 2016 15:05
[2016-09-10 19:47] VITALS: BP 96/75; PULSE 64; RESP 16; TEMP 98.2; O2SAT 91
[2016-09-10] MEDS: DULoxetine HCl DR 60 MG CAP PO SCH (21:00)
[2016-09-10] MEDS: DIVALPROEX SODIUM E.R. 250 MG TAB PO SCH (21:00)
[2016-09-10] MEDS: traZODone HCL 100 MG TAB PO SCH (21:00)
[2016-09-10] MEDS: LORazepam 0.5 MG TAB age > 65 yrs PO PRN (21:31)
[2016-09-11 06:02] VITALS: BP 139/90; PULSE 65; RESP 18; TEMP 97.9; O2SAT 94
--- NOTE | 2016-09-11 08:58 | HHI.PYPN ---
Subjective Remarks Patient seen and examined with RN. Chart reviewed. Case discussed with nursing staff reports patient as somewhat needy but otherwise no behavioral problem. On my examination today, the patient reports that she feels "much better than before." No SI or HI voiced. She does have a mild resting hand tremor but no cogwheeling. Patient is reportedly compliant with medications although it does appear that she declined her Risperdal Consta injection yesterday. We will offer this to her again today. No other issues noted. Review of Systems Other Complains of some pain in her left hip, reportedly chronic. No other physical complaints. Objective Alert: Yes [place]: Person, Place Mood: Calm Affect: Euthymic Memory Intact: Comment (not formally assessed) Hallucinations: Other (no AVH reported) Delusions: No Delusion Type: Other (no casey delusional beliefs) Suicidal: Ideation (no SI) Homicidal: Ideation (no HI) Insight/Judgement Poor Remarks Resting hand tremor but no cogwheeling, no dystonias, no dyskinesias. Labs Labs reviewed. Depakote level 67, within the therapeutic range. Vitals/IOs Vital Signs Date Time Temp Pulse Resp B/P Pulse Ox O2 Delivery O2 Flow Rate FiO2 09/11/16 06:02 97.9 65 18 139/90 94 Intake and Output 09/10/16 09/10/16 09/11/16 08:00 16:00 00:00 Intake Total 240 ml 720 ml 1200 ml Output Total 250 ml Balance -10 ml 720 ml 1200 ml Assessment & Plan Problem List: (1) Bipolar affective disorder, depressed ICD Code: F31.30 Assessment & Plan Continue current psychotropics as ordered. Patient has Benadryl available as needed for any EPS. Continue other medications and care as ordered. Justification for Cont. Inpt. Risk for decompensation Discharge Planning Per Dr. Mcmahon Problem Qualifiers (1) Bipolar affective disorder, depressed: Qualified Code: F31.32 - Bipolar affective disorder, currently depressed, moderate Justin Cox MD Sep 11, 2016 08:58
[2016-09-11] MEDS: ZIPRASIDONE HCL 80 MG CAP PO SCH ×2 (09:11→17:23)
[2016-09-11] MEDS: busPIRone HCL 5 MG TAB PO SCH ×2 (09:11→20:35)
[2016-09-11] MEDS: DIVALPROEX SODIUM E.R. 500 MG TAB PO SCH (09:11)
[2016-09-11] MEDS: METOPROLOL TARTRATE 25 MG TAB PO SCH ×2 (09:11→20:36)
[2016-09-11] MEDS: PANTOPRAZOLE SOD 20 MG DELAYED RELEASE TAB PO SCH (09:11)
[2016-09-11] MEDS: CALCIUM/VITAMIN D 250 MG/125 U TAB PO SCH ×3 (09:11→17:23)
[2016-09-11] MEDS: POTASSIUM CHLORIDE 10 MEQ CONTROLLED RELEASE TAB PO SCH (09:12)
[2016-09-11] MEDS: CYANOCOBALAMIN 1,000 MCG TAB PO SCH (09:12)
[2016-09-11] MEDS: BENZTROPINE MESYLATE 2 MG TAB PO SCH ×2 (09:12→20:35)
[2016-09-11] MEDS: LISINOPRIL 10 MG TAB PO SCH (09:12)
[2016-09-11] MEDS: FUROSEMIDE 20 MG TAB PO SCH (09:12)
[2016-09-11] MEDS: traMADol HCL 50 MG TAB PO PRN ×3 (12:56→21:40)
[2016-09-11 19:19] VITALS: BP_DIAS 50; PULSE 62; RESP 16; TEMP 96.6; O2SAT 90
[2016-09-11] MEDS: LORazepam 0.5 MG TAB age > 65 yrs PO PRN (20:00)
[2016-09-11] MEDS: traZODone HCL 100 MG TAB PO SCH (20:36)
[2016-09-11] MEDS: DIVALPROEX SODIUM E.R. 250 MG TAB PO SCH (20:36)
[2016-09-11] MEDS: DULoxetine HCl DR 60 MG CAP PO SCH (20:36)
[2016-09-12] MEDS: LORazepam 0.5 MG TAB age > 65 yrs PO PRN ×2 (05:06→22:14)
[2016-09-12] MEDS: traMADol HCL 50 MG TAB PO PRN ×3 (05:07→22:16)
[2016-09-12 05:33] VITALS: BP 123/73; PULSE 52; RESP 16; TEMP 96.8
[2016-09-12] MEDS: PANTOPRAZOLE SOD 20 MG DELAYED RELEASE TAB PO SCH (08:00)
[2016-09-12] MEDS: LISINOPRIL 10 MG TAB PO SCH (08:04)
[2016-09-12] MEDS: DIVALPROEX SODIUM E.R. 500 MG TAB PO SCH (08:05)
[2016-09-12] MEDS: busPIRone HCL 5 MG TAB PO SCH ×2 (08:05→22:15)
[2016-09-12] MEDS: POTASSIUM CHLORIDE 10 MEQ CONTROLLED RELEASE TAB PO SCH (08:05)
[2016-09-12] MEDS: BENZTROPINE MESYLATE 2 MG TAB PO SCH ×2 (08:05→22:14)
[2016-09-12] MEDS: CALCIUM/VITAMIN D 250 MG/125 U TAB PO SCH ×4 (08:05→16:57)
[2016-09-12] MEDS: ZIPRASIDONE HCL 80 MG CAP PO SCH ×2 (08:05→16:58)
[2016-09-12] MEDS: CYANOCOBALAMIN 1,000 MCG TAB PO SCH (08:05)
[2016-09-12] MEDS: FUROSEMIDE 20 MG TAB PO SCH (08:05)
[2016-09-12] MEDS: METOPROLOL TARTRATE 25 MG TAB PO SCH ×2 (08:30→22:15)
--- NOTE | 2016-09-12 12:13 | HHI.PYPN ---
Subjective Remarks Patient seen and examined with nursing staff. Chart reviewed. Case discussed with nursing staff who reports that patient remains fairly attention seeking and medication focused. On my examination today, the patient remained somewhat medication seeking. Her affect is a little bit labile. She denies side effects from medications. Review of Systems Other Complains of some chronic generalized body pain but otherwise no physical complaints. Objective Alert: Yes [place]: Person, Place Mood: Calm Affect: Labile Memory Intact: Comment (not assessed today) Hallucinations: Other (none) Delusions: No Delusion Type: Other (no delusions) Suicidal: Ideation (no SI) Homicidal: Ideation (no HI) Insight/Judgement Poor Remarks Thought process seems a little attention seeking and childlike. Labs Labs reviewed. No new labs. Vitals/IOs Vital Signs Date Time Temp Pulse Resp B/P Pulse Ox O2 Delivery O2 Flow Rate FiO2 09/12/16 05:33 96.8 52 16 123/73 09/11/16 19:19 90 Intake and Output 09/11/16 09/11/16 09/12/16 08:00 16:00 00:00 Intake Total 240 ml 720 ml 960 ml Balance 240 ml 720 ml 960 ml Assessment & Plan Problem List: (1) Bipolar affective disorder, depressed ICD Code: F31.30 Assessment & Plan Continue current psychotropics as ordered. Continue other medications and care as ordered. Justification for Cont. Inpt. Risk for decompensation Discharge Planning Per Dr. Mcmahon Problem Qualifiers (1) Bipolar affective disorder, depressed: Qualified Code: F31.32 - Bipolar affective disorder, currently depressed, moderate Justin Cox MD Sep 12, 2016 12:13
[2016-09-12 18:00] VITALS: BP 115/68; PULSE 76; RESP 16; TEMP 98.3; O2SAT 93
[2016-09-12] MEDS: traZODone HCL 100 MG TAB PO SCH (22:13)
[2016-09-12] MEDS: DIVALPROEX SODIUM E.R. 250 MG TAB PO SCH (22:14)
[2016-09-12] MEDS: DULoxetine HCl DR 60 MG CAP PO SCH (22:15)
[2016-09-13] MEDS: traMADol HCL 50 MG TAB PO PRN ×3 (05:02→20:19)
[2016-09-13] MEDS: LORazepam 0.5 MG TAB age > 65 yrs PO PRN ×2 (05:02→17:45)
[2016-09-13 06:00] VITALS: BP 151/76; PULSE 105; RESP 16; TEMP 97.6; O2SAT 94
[2016-09-13] MEDS: busPIRone HCL 5 MG TAB PO SCH ×2 (08:45→20:20)
[2016-09-13] MEDS: LISINOPRIL 10 MG TAB PO SCH (08:45)
[2016-09-13] MEDS: CYANOCOBALAMIN 1,000 MCG TAB PO SCH (08:46)
[2016-09-13] MEDS: PANTOPRAZOLE SOD 20 MG DELAYED RELEASE TAB PO SCH (08:46)
[2016-09-13] MEDS: BENZTROPINE MESYLATE 2 MG TAB PO SCH ×2 (08:46→20:19)
[2016-09-13] MEDS: CALCIUM/VITAMIN D 250 MG/125 U TAB PO SCH ×3 (08:46→17:44)
[2016-09-13] MEDS: METOPROLOL TARTRATE 25 MG TAB PO SCH ×2 (08:46→20:20)
[2016-09-13] MEDS: ZIPRASIDONE HCL 80 MG CAP PO SCH ×2 (08:46→17:44)
[2016-09-13] MEDS: DIVALPROEX SODIUM E.R. 500 MG TAB PO SCH (08:47)
[2016-09-13] MEDS: POTASSIUM CHLORIDE 10 MEQ CONTROLLED RELEASE TAB PO SCH (08:47)
[2016-09-13] MEDS: ERGOCALCIFEROL (VIT D2) 50,000 UNIT CAP PO SCH (08:47)
[2016-09-13] MEDS: FUROSEMIDE 20 MG TAB PO SCH (08:47)
--- NOTE | 2016-09-13 16:03 | HHI.PYPN ---
Subjective Remarks Patient discussed with treatment team, chart review, patient sitting unit with floor staff. Patient continues loud intrusive somewhat grandiose and childlike. Compliant medications. For now continue treatment. Review of Systems Except as stated in HPI: all other systems reviewed are Neg Objective Alert: Yes [place]: Person, Place Mood: Calm Affect: Labile Memory Intact: Comment (not assessed today) Hallucinations: Other (none) Delusions: No Delusion Type: Other (no delusions) Suicidal: Ideation (no SI) Homicidal: Ideation (no HI) Insight/Judgement Very poor Vitals/IOs Vital Signs Date Time Temp Pulse Resp B/P Pulse Ox O2 Delivery O2 Flow Rate FiO2 09/13/16 06:02 20 09/13/16 06:00 97.6 105 151/76 94 Intake and Output 09/12/16 09/12/16 09/12/16 07:59 15:59 23:59 Intake Total 120 ml 1560 ml 960 ml Balance 120 ml 1560 ml 960 ml Assessment & Plan Problem List: (1) Bipolar affective disorder, depressed ICD Code: F31.30 Assessment & Plan Estimated LOS: days patient continues loud intrusive pressured speech. Compliant medications. Justification for Cont. Inpt. At this time patient would decompensated placed in the lower level of care Discharge Planning To be determined Problem Qualifiers (1) Bipolar affective disorder, depressed: Qualified Code: F31.32 - Bipolar affective disorder, currently depressed, moderate Sky Mcmahon MD Sep 13, 2016 16:03
[2016-09-13 19:34] VITALS: BP 124/79; PULSE 72; RESP 18; TEMP 98.4
[2016-09-13] MEDS: traZODone HCL 100 MG TAB PO SCH (20:19)
[2016-09-13] MEDS: DIVALPROEX SODIUM E.R. 250 MG TAB PO SCH (20:19)
[2016-09-13] MEDS: DULoxetine HCl DR 60 MG CAP PO SCH (20:20)
[2016-09-14] MEDS: LORazepam 0.5 MG TAB age > 65 yrs PO PRN ×2 (04:50→17:15)
[2016-09-14] MEDS: traMADol HCL 50 MG TAB PO PRN ×2 (04:50→13:41)
[2016-09-14 05:34] VITALS: BP 146/58; PULSE 94; RESP 17; TEMP 97; O2SAT 92
[2016-09-14] MEDS: LISINOPRIL 10 MG TAB PO SCH (10:05)
[2016-09-14] MEDS: DIVALPROEX SODIUM E.R. 500 MG TAB PO SCH ×2 (10:05→21:03)
[2016-09-14] MEDS: ZIPRASIDONE HCL 80 MG CAP PO SCH ×2 (10:05→17:15)
[2016-09-14] MEDS: METOPROLOL TARTRATE 25 MG TAB PO SCH ×2 (10:05→20:28)
[2016-09-14] MEDS: POTASSIUM CHLORIDE 10 MEQ CONTROLLED RELEASE TAB PO SCH (10:05)
[2016-09-14] MEDS: BENZTROPINE MESYLATE 2 MG TAB PO SCH ×2 (10:05→21:03)
[2016-09-14] MEDS: FUROSEMIDE 20 MG TAB PO SCH (10:07)
[2016-09-14] MEDS: CALCIUM/VITAMIN D 250 MG/125 U TAB PO SCH ×3 (10:07→17:15)
[2016-09-14] MEDS: PANTOPRAZOLE SOD 20 MG DELAYED RELEASE TAB PO SCH (10:07)
[2016-09-14] MEDS: CYANOCOBALAMIN 1,000 MCG TAB PO SCH (10:07)
[2016-09-14] MEDS: busPIRone HCL 5 MG TAB PO SCH ×2 (10:10→21:03)
--- NOTE | 2016-09-14 11:59 | HHI.PYPN ---
Subjective Remarks Patient seen in day room with nurse Hazel, chart review, patient not quite as labile today continues to ask about placement issues. She still remains intrusive though at times somewhat rapid pressured speech, compliant medications. Depakote level on 09/10 was 67, will increase at bedtime Depakote to 1500 mg check a level on 09/17 Review of Systems Except as stated in HPI: all other systems reviewed are Neg Objective Alert: Yes [place]: Person, Place Mood: Calm Affect: Labile Memory Intact: Comment (not assessed today) Hallucinations: Other (none) Delusions: No Delusion Type: Other (no delusions) Suicidal: Ideation (no SI) Homicidal: Ideation (no HI) Insight/Judgement Very poor Vitals/IOs Vital Signs Date Time Temp Pulse Resp B/P Pulse Ox O2 Delivery O2 Flow Rate FiO2 09/14/16 05:50 20 09/14/16 05:34 97.0 94 146/58 92 Intake and Output 09/13/16 09/13/16 09/14/16 08:00 16:00 00:00 Intake Total 960 ml 1080 ml Balance 960 ml 1080 ml Assessment & Plan Problem List: (1) Bipolar affective disorder, depressed ICD Code: F31.30 Assessment & Plan Estimated LOS: days patient continues loud intrusive, somewhat childlike. See medication changes above Justification for Cont. Inpt. At this time patient would significantly decompensate if placed in the lower level of care Discharge Planning To be determined Problem Qualifiers (1) Bipolar affective disorder, depressed: Qualified Code: F31.32 - Bipolar affective disorder, currently depressed, moderate Sky Mcmahon MD Sep 14, 2016 11:59
[2016-09-14 18:46] VITALS: BP 96/57; PULSE 64; RESP 17; TEMP 98; O2SAT 96
[2016-09-14] MEDS: traZODone HCL 100 MG TAB PO SCH (21:02)
[2016-09-14] MEDS: DULoxetine HCl DR 60 MG CAP PO SCH (21:02)
[2016-09-15] MEDS: traMADol HCL 50 MG TAB PO PRN (04:57)
[2016-09-15 05:20] VITALS: BP 147/78; PULSE 77; RESP 15; TEMP 98.2; O2SAT 95
[2016-09-15] MEDS: CYANOCOBALAMIN 1,000 MCG TAB PO SCH (09:00)
[2016-09-15] MEDS: busPIRone HCL 5 MG TAB PO SCH ×2 (09:04→20:58)
[2016-09-15] MEDS: ZIPRASIDONE HCL 80 MG CAP PO SCH ×2 (09:05→17:54)
[2016-09-15] MEDS: BENZTROPINE MESYLATE 2 MG TAB PO SCH ×2 (09:05→20:58)
[2016-09-15] MEDS: POTASSIUM CHLORIDE 10 MEQ CONTROLLED RELEASE TAB PO SCH (09:05)
[2016-09-15] MEDS: LISINOPRIL 10 MG TAB PO SCH (09:06)
[2016-09-15] MEDS: METOPROLOL TARTRATE 25 MG TAB PO SCH ×2 (09:07→21:00)
[2016-09-15] MEDS: CALCIUM/VITAMIN D 250 MG/125 U TAB PO SCH ×3 (09:07→17:53)
[2016-09-15] MEDS: FUROSEMIDE 20 MG TAB PO SCH (09:08)
[2016-09-15] MEDS: DIVALPROEX SODIUM E.R. 500 MG TAB PO SCH ×2 (09:08→20:59)
[2016-09-15] MEDS: PANTOPRAZOLE SOD 20 MG DELAYED RELEASE TAB PO SCH (09:09)
--- NOTE | 2016-09-15 10:55 | HHI.PYPN ---
Subjective Remarks Patient seen in day room with floor staff, she continues loud intrusive somewhat childlike and demanding now requesting increase in her tramadol medication. She is otherwise compliant with medication also asking about possibility of going home with her sister. Review of Systems Except as stated in HPI: all other systems reviewed are Neg Objective Alert: Yes [place]: Person, Place Mood: Calm Affect: Labile Memory Intact: Comment (not assessed today) Hallucinations: Other (none) Delusions: No Delusion Type: Other (no delusions) Suicidal: Ideation (no SI) Homicidal: Ideation (no HI) Insight/Judgement Very poor Vitals/IOs Vital Signs Date Time Temp Pulse Resp B/P Pulse Ox O2 Delivery O2 Flow Rate FiO2 09/15/16 05:20 98.2 77 15 147/78 95 Intake and Output 09/14/16 09/14/16 09/14/16 07:59 15:59 23:59 Intake Total 0 ml 1080 ml 360 ml Balance 0 ml 1080 ml 360 ml Assessment & Plan Problem List: (1) Bipolar affective disorder, depressed ICD Code: F31.30 Assessment & Plan Estimated LOS: days patient continues labile intrusive psychotic Justification for Cont. Inpt. At this time patient would severely decompensated placed in a lower level of care Discharge Planning To be determined Problem Qualifiers (1) Bipolar affective disorder, depressed: Qualified Code: F31.32 - Bipolar affective disorder, currently depressed, moderate Sky Mcmahon MD Sep 15, 2016 10:55
[2016-09-15] MEDS: LORazepam 0.5 MG TAB age > 65 yrs PO PRN (15:37)
[2016-09-15 18:00] VITALS: BP 105/55; PULSE 73; RESP 16; TEMP 98.4; O2SAT 97
[2016-09-15] MEDS: DULoxetine HCl DR 60 MG CAP PO SCH (20:58)
[2016-09-15] MEDS: traZODone HCL 100 MG TAB PO SCH (20:58)
[2016-09-16 06:01] VITALS: BP 125/77; PULSE 76; RESP 18; TEMP 97.3; O2SAT 94
[2016-09-16] MEDS: busPIRone HCL 5 MG TAB PO SCH ×2 (09:45→20:45)
[2016-09-16] MEDS: LORazepam 0.5 MG TAB age > 65 yrs PO PRN ×2 (09:45→20:46)
[2016-09-16] MEDS: BENZTROPINE MESYLATE 2 MG TAB PO SCH ×2 (09:45→20:46)
[2016-09-16] MEDS: FUROSEMIDE 20 MG TAB PO SCH (09:45)
[2016-09-16] MEDS: LISINOPRIL 10 MG TAB PO SCH (09:45)
[2016-09-16] MEDS: PANTOPRAZOLE SOD 20 MG DELAYED RELEASE TAB PO SCH (09:46)
[2016-09-16] MEDS: CYANOCOBALAMIN 1,000 MCG TAB PO SCH (09:46)
[2016-09-16] MEDS: traMADol HCL 50 MG TAB PO PRN ×2 (09:46→17:31)
[2016-09-16] MEDS: POTASSIUM CHLORIDE 10 MEQ CONTROLLED RELEASE TAB PO SCH (09:46)
[2016-09-16] MEDS: ZIPRASIDONE HCL 80 MG CAP PO SCH ×2 (09:47→17:30)
[2016-09-16] MEDS: CALCIUM/VITAMIN D 250 MG/125 U TAB PO SCH ×3 (09:47→17:31)
[2016-09-16] MEDS: DIVALPROEX SODIUM E.R. 500 MG TAB PO SCH ×2 (09:47→20:45)
[2016-09-16] MEDS: METOPROLOL TARTRATE 25 MG TAB PO SCH ×2 (09:47→20:45)
--- NOTE | 2016-09-16 10:34 | HHI.PYPN ---
Subjective Remarks Patient seen in day room, the floor staff, chart review, patient continues somewhat loud intrusive somewhat silly and childlike. Compliant medications. Continues to talk about his sister and possible placement. Now continue treatment Review of Systems Except as stated in HPI: all other systems reviewed are Neg Objective Alert: Yes [place]: Person, Place Mood: Calm Affect: Labile Memory Intact: Comment (not assessed today) Hallucinations: Other (none) Delusions: No Delusion Type: Other (no delusions) Suicidal: Ideation (no SI) Homicidal: Ideation (no HI) Insight/Judgement Very poor Vitals/IOs Vital Signs Date Time Temp Pulse Resp B/P Pulse Ox O2 Delivery O2 Flow Rate FiO2 09/16/16 06:01 97.3 76 18 125/77 94 Intake and Output 09/15/16 09/15/16 09/15/16 07:59 15:59 23:59 Intake Total 960 ml 1200 ml Balance 960 ml 1200 ml Assessment & Plan Problem List: (1) Bipolar affective disorder, depressed ICD Code: F31.30 Assessment & Plan Estimated LOS: days patient remains somewhat loud labile intrusive, though able to be redirected. For now continue treatment Justification for Cont. Inpt. At this time patient will decompensate if placed in a lower level of care Discharge Planning To be determined Problem Qualifiers (1) Bipolar affective disorder, depressed: Qualified Code: F31.32 - Bipolar affective disorder, currently depressed, moderate Sky Mcmahon MD Sep 16, 2016 10:34
[2016-09-16] MEDS: ACETAMINOPHEN 325 MG TAB PO PRN ×2 (13:36→21:09)
[2016-09-16 18:39] VITALS: BP 115/57; PULSE 69; RESP 18; TEMP 97.5; O2SAT 94
[2016-09-16] MEDS: traZODone HCL 100 MG TAB PO SCH (20:45)
[2016-09-16] MEDS: DULoxetine HCl DR 60 MG CAP PO SCH (20:46)
[2016-09-17] MEDS: traMADol HCL 50 MG TAB PO PRN ×3 (04:43→20:08)
[2016-09-17] MEDS: ACETAMINOPHEN 325 MG TAB PO PRN ×4 (04:46→22:34)
[2016-09-17 05:16] VITALS: BP 135/73; PULSE 60; RESP 16; TEMP 97.8; O2SAT 95
[2016-09-17] MEDS: PANTOPRAZOLE SOD 20 MG DELAYED RELEASE TAB PO SCH (08:37)
[2016-09-17] MEDS: DIVALPROEX SODIUM E.R. 500 MG TAB PO SCH ×2 (08:37→20:07)
[2016-09-17] MEDS: FUROSEMIDE 20 MG TAB PO SCH (08:37)
[2016-09-17] MEDS: POTASSIUM CHLORIDE 10 MEQ CONTROLLED RELEASE TAB PO SCH (08:37)
[2016-09-17] MEDS: BENZTROPINE MESYLATE 2 MG TAB PO SCH ×2 (08:38→20:08)
[2016-09-17] MEDS: ZIPRASIDONE HCL 80 MG CAP PO SCH ×2 (08:38→17:29)
[2016-09-17] MEDS: LISINOPRIL 10 MG TAB PO SCH (08:38)
[2016-09-17] MEDS: CALCIUM/VITAMIN D 250 MG/125 U TAB PO SCH ×3 (08:38→17:29)
[2016-09-17] MEDS: CYANOCOBALAMIN 1,000 MCG TAB PO SCH (08:38)
[2016-09-17] MEDS: busPIRone HCL 5 MG TAB PO SCH ×2 (08:38→20:08)
[2016-09-17] MEDS: LORazepam 0.5 MG TAB age > 65 yrs PO PRN ×2 (08:38→20:08)
[2016-09-17] MEDS: METOPROLOL TARTRATE 25 MG TAB PO SCH ×2 (08:39→20:08)
[2016-09-17 20:00] VITALS: BP 118/72; PULSE 58; RESP 18; TEMP 97.7
[2016-09-17] MEDS: traZODone HCL 100 MG TAB PO SCH (20:07)
[2016-09-17] MEDS: DULoxetine HCl DR 60 MG CAP PO SCH (20:08)
[2016-09-18] MEDS: traMADol HCL 50 MG TAB PO PRN ×3 (04:04→20:52)
[2016-09-18 06:39] VITALS: BP 135/63; PULSE 60; RESP 16; TEMP 98.2; O2SAT 98
[2016-09-18] MEDS: FUROSEMIDE 20 MG TAB PO SCH (08:52)
[2016-09-18] MEDS: BENZTROPINE MESYLATE 2 MG TAB PO SCH ×2 (08:53→20:51)
[2016-09-18] MEDS: METOPROLOL TARTRATE 25 MG TAB PO SCH ×3 (08:53→20:58)
[2016-09-18] MEDS: ZIPRASIDONE HCL 80 MG CAP PO SCH ×2 (08:53→17:54)
[2016-09-18] MEDS: busPIRone HCL 5 MG TAB PO SCH ×2 (08:53→20:51)
[2016-09-18] MEDS: LISINOPRIL 10 MG TAB PO SCH (08:54)
[2016-09-18] MEDS: PANTOPRAZOLE SOD 20 MG DELAYED RELEASE TAB PO SCH (08:54)
[2016-09-18] MEDS: CYANOCOBALAMIN 1,000 MCG TAB PO SCH (08:54)
[2016-09-18] MEDS: POTASSIUM CHLORIDE 10 MEQ CONTROLLED RELEASE TAB PO SCH (08:54)
[2016-09-18] MEDS: CALCIUM/VITAMIN D 250 MG/125 U TAB PO SCH ×3 (08:54→17:54)
[2016-09-18] MEDS: ACETAMINOPHEN 325 MG TAB PO PRN ×2 (08:56→15:12)
[2016-09-18] MEDS: DIVALPROEX SODIUM E.R. 500 MG TAB PO SCH ×2 (08:56→20:51)
[2016-09-18] MEDS: LORazepam 0.5 MG TAB age > 65 yrs PO PRN (17:58)
--- NOTE | 2016-09-18 19:19 | HHI.PYPN ---
Subjective Remarks Pt seen and discussed with staff. She has been labile with staff and engaging in splitting behaviors. She has been more redirectable today and reports mood is improved. She is childlike and regressed at times. Objective Alert: Yes [place]: Person, Place Mood: Other ("better") Affect: Labile Memory Intact: Comment (fair) Hallucinations: Other (none) Delusions: No Delusion Type: Other (no delusions) Suicidal: Ideation (no SI) Homicidal: Ideation (no HI) Insight/Judgement poor Vitals/IOs Vital Signs Date Time Temp Pulse Resp B/P Pulse Ox O2 Delivery O2 Flow Rate FiO2 09/18/16 06:39 98.2 60 16 135/63 98 Intake and Output 09/17/16 09/17/16 09/18/16 08:00 16:00 00:00 Intake Total 0 ml 480 ml 960 ml Balance 0 ml 480 ml 960 ml Assessment & Plan Problem List: (1) Bipolar affective disorder, depressed ICD Code: F31.30 Assessment & Plan Continue current tx plan Estimated LOS: days Justification for Cont. Inpt. risk of decompensating Problem Qualifiers (1) Bipolar affective disorder, depressed: Qualified Code: F31.32 - Bipolar affective disorder, currently depressed, moderate Chelsea Ge MD Sep 18, 2016 19:19
[2016-09-18 19:28] VITALS: BP 105/57; PULSE 56; RESP 17; TEMP 98.4; O2SAT 100
[2016-09-18] MEDS: traZODone HCL 100 MG TAB PO SCH (20:51)
[2016-09-18] MEDS: DULoxetine HCl DR 60 MG CAP PO SCH (21:00)
[2016-09-19 05:31] VITALS: BP 144/68; PULSE 76; RESP 20; TEMP 98.8; O2SAT 96
[2016-09-19] MEDS: ZIPRASIDONE HCL 80 MG CAP PO SCH ×2 (09:00→17:22)
[2016-09-19] MEDS: CYANOCOBALAMIN 1,000 MCG TAB PO SCH (09:00)
[2016-09-19] MEDS: ACETAMINOPHEN 325 MG TAB PO PRN ×2 (09:12→19:21)
[2016-09-19] MEDS: LISINOPRIL 10 MG TAB PO SCH (09:12)
[2016-09-19] MEDS: busPIRone HCL 5 MG TAB PO SCH ×2 (09:12→20:04)
[2016-09-19] MEDS: FUROSEMIDE 20 MG TAB PO SCH (09:13)
[2016-09-19] MEDS: PANTOPRAZOLE SOD 20 MG DELAYED RELEASE TAB PO SCH (09:13)
[2016-09-19] MEDS: METOPROLOL TARTRATE 25 MG TAB PO SCH ×2 (09:13→20:04)
[2016-09-19] MEDS: POTASSIUM CHLORIDE 10 MEQ CONTROLLED RELEASE TAB PO SCH (09:13)
[2016-09-19] MEDS: CALCIUM/VITAMIN D 250 MG/125 U TAB PO SCH ×3 (09:13→17:21)
[2016-09-19] MEDS: DIVALPROEX SODIUM E.R. 500 MG TAB PO SCH ×2 (09:14→20:04)
[2016-09-19] MEDS: BENZTROPINE MESYLATE 2 MG TAB PO SCH ×2 (09:14→20:03)
--- NOTE | 2016-09-19 12:38 | HHI.PYPN ---
Subjective Remarks Pt seen and discussed with staff. She has been compliant with treatment and is tolerating medications without side effects. Mood has been less labile today. No SI/HI. Objective Alert: Yes [place]: Person, Place Mood: Other ("better") Affect: Labile (decreased) Memory Intact: Comment (fair) Hallucinations: Other (none) Delusions: No Delusion Type: Other (no delusions) Suicidal: Ideation (no SI) Homicidal: Ideation (no HI) Insight/Judgement poor Vitals/IOs Vital Signs Date Time Temp Pulse Resp B/P Pulse Ox O2 Delivery O2 Flow Rate FiO2 09/19/16 05:31 98.8 76 20 144/68 96 Intake and Output 09/18/16 09/18/16 09/19/16 08:00 16:00 00:00 Intake Total 360 ml 240 ml Balance 360 ml 240 ml Assessment & Plan Problem List: (1) Bipolar affective disorder, depressed ICD Code: F31.30 Assessment & Plan Continue current tx plan. Estimated LOS: days Justification for Cont. Inpt. risk of decompensation Problem Qualifiers (1) Bipolar affective disorder, depressed: Qualified Code: F31.32 - Bipolar affective disorder, currently depressed, moderate Chelsea Ge MD Sep 19, 2016 12:37
[2016-09-19] MEDS: traMADol HCL 50 MG TAB PO PRN ×2 (13:00→20:33)
[2016-09-19 18:33] VITALS: BP 123/68; PULSE 77; RESP 18; TEMP 98.4; O2SAT 97
[2016-09-19] MEDS: DULoxetine HCl DR 60 MG CAP PO SCH (20:04)
[2016-09-19] MEDS: traZODone HCL 100 MG TAB PO SCH (20:34)
[2016-09-20] MEDS: traMADol HCL 50 MG TAB PO PRN ×2 (06:15→21:04)
[2016-09-20] MEDS: LORazepam 0.5 MG TAB age > 65 yrs PO PRN ×2 (06:15→21:04)
[2016-09-20 06:38] VITALS: BP 154/74; PULSE 73; RESP 18; TEMP 98; O2SAT 95
[2016-09-20] MEDS: DIVALPROEX SODIUM E.R. 500 MG TAB PO SCH ×2 (08:46→20:46)
[2016-09-20] MEDS: CALCIUM/VITAMIN D 250 MG/125 U TAB PO SCH ×3 (08:46→18:00)
[2016-09-20] MEDS: FUROSEMIDE 20 MG TAB PO SCH (08:47)
[2016-09-20] MEDS: ERGOCALCIFEROL (VIT D2) 50,000 UNIT CAP PO SCH (08:47)
[2016-09-20] MEDS: ZIPRASIDONE HCL 80 MG CAP PO SCH (08:47)
[2016-09-20] MEDS: BENZTROPINE MESYLATE 2 MG TAB PO SCH ×2 (08:47→20:46)
[2016-09-20] MEDS: PANTOPRAZOLE SOD 20 MG DELAYED RELEASE TAB PO SCH (08:47)
[2016-09-20] MEDS: busPIRone HCL 5 MG TAB PO SCH ×2 (08:47→20:45)
[2016-09-20] MEDS: CYANOCOBALAMIN 1,000 MCG TAB PO SCH (08:47)
[2016-09-20] MEDS: METOPROLOL TARTRATE 25 MG TAB PO SCH ×2 (08:47→20:46)
[2016-09-20] MEDS: POTASSIUM CHLORIDE 10 MEQ CONTROLLED RELEASE TAB PO SCH (08:47)
[2016-09-20] MEDS: LISINOPRIL 10 MG TAB PO SCH (08:47)
--- NOTE | 2016-09-20 13:49 | HHI.PYPN ---
Subjective Remarks Patient discussed with treatment team, chart reviewed, patient seen on unit, and use intrusive loud somewhat superficial and silly. Depakote level drawn on 09/17 is 99. Will increase Geodon to 120 mg twice a day Review of Systems Except as stated in HPI: all other systems reviewed are Neg Objective Alert: Yes [place]: Person, Place Mood: Other ("better") Affect: Labile (decreased) Memory Intact: Comment (fair) Hallucinations: Other (none) Delusions: No Delusion Type: Other (no delusions) Suicidal: Ideation (no SI) Homicidal: Ideation (no HI) Insight/Judgement Very poor Vitals/IOs Vital Signs Date Time Temp Pulse Resp B/P Pulse Ox O2 Delivery O2 Flow Rate FiO2 09/20/16 06:38 98.0 73 18 154/74 95 Intake and Output 09/19/16 09/19/16 09/20/16 08:00 16:00 00:00 Intake Total 240 ml 480 ml Balance 240 ml 480 ml Assessment & Plan Problem List: (1) Bipolar affective disorder, depressed ICD Code: F31.30 Assessment & Plan Estimated LOS: days patient continues intrusive loud and pressured speech. See medication adjustment above Justification for Cont. Inpt. At this time patient would severely decompensate if placed in a lower level of care Discharge Planning To be determined Problem Qualifiers (1) Bipolar affective disorder, depressed: Qualified Code: F31.32 - Bipolar affective disorder, currently depressed, moderate Sky Mcmahon MD Sep 20, 2016 13:49
[2016-09-20] MEDS: ZIPRASIDONE HCL 60 MG CAP PO SCH (18:00)
[2016-09-20 18:35] VITALS: BP 116/56; PULSE 67; RESP 18; TEMP 97.6; O2SAT 98
[2016-09-20] MEDS: traZODone HCL 100 MG TAB PO SCH (20:45)
[2016-09-20] MEDS: DULoxetine HCl DR 60 MG CAP PO SCH (20:46)
[2016-09-21] MEDS: traMADol HCL 50 MG TAB PO PRN ×3 (04:44→21:14)
[2016-09-21 05:27] VITALS: BP 129/69; PULSE 62; RESP 18; TEMP 97.3; O2SAT 95
[2016-09-21] MEDS: busPIRone HCL 5 MG TAB PO SCH ×2 (08:43→21:09)
[2016-09-21] MEDS: CALCIUM/VITAMIN D 250 MG/125 U TAB PO SCH ×3 (08:43→17:37)
[2016-09-21] MEDS: LISINOPRIL 10 MG TAB PO SCH (08:43)
[2016-09-21] MEDS: ZIPRASIDONE HCL 60 MG CAP PO SCH ×2 (08:43→17:37)
[2016-09-21] MEDS: CYANOCOBALAMIN 1,000 MCG TAB PO SCH (08:43)
[2016-09-21] MEDS: BENZTROPINE MESYLATE 2 MG TAB PO SCH ×2 (08:44→21:10)
[2016-09-21] MEDS: PANTOPRAZOLE SOD 20 MG DELAYED RELEASE TAB PO SCH (08:44)
[2016-09-21] MEDS: METOPROLOL TARTRATE 25 MG TAB PO SCH ×2 (08:44→21:10)
[2016-09-21] MEDS: POTASSIUM CHLORIDE 10 MEQ CONTROLLED RELEASE TAB PO SCH (08:44)
[2016-09-21] MEDS: DIVALPROEX SODIUM E.R. 500 MG TAB PO SCH ×2 (08:44→21:10)
[2016-09-21] MEDS: FUROSEMIDE 20 MG TAB PO SCH (08:44)
--- NOTE | 2016-09-21 09:22 | HHI.PYPN ---
Subjective Remarks Patient seen in day room with nurse Alivia, chart review, patient continues somewhat superficial and silly, though no significant behavioral problems noted , patient is redirectable, compliant medications. It appears patient may be approaching her baseline behavior [place]. For now continue treatment no change Review of Systems Except as stated in HPI: all other systems reviewed are Neg Objective Alert: Yes [place]: Person, Place Mood: Other ("better") Affect: Labile (decreased) Memory Intact: Comment (fair) Hallucinations: Other (none) Delusions: No Delusion Type: Other (no delusions) Suicidal: Ideation (no SI) Homicidal: Ideation (no HI) Insight/Judgement Poor Vitals/IOs Vital Signs Date Time Temp Pulse Resp B/P Pulse Ox O2 Delivery O2 Flow Rate FiO2 09/21/16 05:27 97.3 62 18 129/69 95 Intake and Output 09/20/16 09/20/16 09/21/16 08:00 16:00 00:00 Intake Total 1800 ml 1320 ml Balance 1800 ml 1320 ml Assessment & Plan Problem List: (1) Bipolar affective disorder, depressed ICD Code: F31.30 Assessment & Plan Estimated LOS: days patient continues somewhat intrusive and childthough no significant behavioral problems related to his. Compliant medications. For now continue treatment no change Justification for Cont. Inpt. This time patient will decompensate if placed in the lower [facility] Discharge Planning To be determined Problem Qualifiers (1) Bipolar affective disorder, depressed: Qualified Code: F31.32 - Bipolar affective disorder, currently depressed, moderate Sky Mcmahon MD Sep 21, 2016 09:22
[2016-09-21 19:43] VITALS: BP 148/68; PULSE 65; RESP 18; TEMP 96.8; O2SAT 98
[2016-09-21] MEDS: traZODone HCL 100 MG TAB PO SCH (21:09)
[2016-09-21] MEDS: DULoxetine HCl DR 60 MG CAP PO SCH (21:10)
[2016-09-21] MEDS: LORazepam 0.5 MG TAB age > 65 yrs PO PRN (21:14)
[2016-09-22] MEDS: traMADol HCL 50 MG TAB PO PRN ×2 (04:53→21:11)
[2016-09-22] MEDS: ACETAMINOPHEN 325 MG TAB PO PRN ×2 (05:09→09:12)
[2016-09-22 05:25] VITALS: BP 143/62; PULSE 64; RESP 16; TEMP 97.4; O2SAT 92
[2016-09-22] MEDS: DIVALPROEX SODIUM E.R. 500 MG TAB PO SCH ×2 (09:00→20:39)
[2016-09-22] MEDS: busPIRone HCL 5 MG TAB PO SCH ×2 (09:07→20:39)
[2016-09-22] MEDS: POTASSIUM CHLORIDE 10 MEQ CONTROLLED RELEASE TAB PO SCH (09:07)
[2016-09-22] MEDS: CALCIUM/VITAMIN D 250 MG/125 U TAB PO SCH ×3 (09:07→18:33)
[2016-09-22] MEDS: ZIPRASIDONE HCL 60 MG CAP PO SCH ×2 (09:07→18:33)
[2016-09-22] MEDS: PANTOPRAZOLE SOD 20 MG DELAYED RELEASE TAB PO SCH (09:07)
[2016-09-22] MEDS: CYANOCOBALAMIN 1,000 MCG TAB PO SCH (09:08)
[2016-09-22] MEDS: FUROSEMIDE 20 MG TAB PO SCH (09:08)
[2016-09-22] MEDS: BENZTROPINE MESYLATE 2 MG TAB PO SCH ×2 (09:08→20:38)
[2016-09-22] MEDS: LISINOPRIL 10 MG TAB PO SCH (09:08)
[2016-09-22] MEDS: METOPROLOL TARTRATE 25 MG TAB PO SCH ×2 (09:08→20:38)
--- NOTE | 2016-09-22 09:16 | HHI.PYPN ---
Subjective Remarks Patient seen in day room with nurse Bernabe, patient continues intrusive loud disorganized though slightly softer than yesterday, compliant medications, for now continue treatment Review of Systems Except as stated in HPI: all other systems reviewed are Neg Objective Alert: Yes [place]: Person, Place Mood: Other ("better") Affect: Labile (decreased) Memory Intact: Comment (fair) Hallucinations: Other (none) Delusions: No Delusion Type: Other (no delusions) Suicidal: Ideation (no SI) Homicidal: Ideation (no HI) Insight/Judgement Poor Vitals/IOs Vital Signs Date Time Temp Pulse Resp B/P Pulse Ox O2 Delivery O2 Flow Rate FiO2 09/22/16 05:25 97.4 64 16 143/62 92 Assessment & Plan Problem List: (1) Bipolar affective disorder, depressed ICD Code: F31.30 Assessment & Plan Estimated LOS: days patient continues loud and intrusive disorganized and somewhat childish. For now continue treatment Justification for Cont. Inpt. At this time patient will decompensate if placed in a lower level of care Discharge Planning To be determined Problem Qualifiers (1) Bipolar affective disorder, depressed: Qualified Code: F31.32 - Bipolar affective disorder, currently depressed, moderate Sky Mcmahon MD Sep 22, 2016 09:16
[2016-09-22 19:32] VITALS: BP 160/69; PULSE 57; RESP 18; TEMP 97.5; O2SAT 98
[2016-09-22] MEDS: traZODone HCL 100 MG TAB PO SCH (20:38)
[2016-09-22] MEDS: DULoxetine HCl DR 60 MG CAP PO SCH (20:38)
[2016-09-23 06:27] VITALS: BP 145/63; PULSE 59; RESP 16; TEMP 97.3; O2SAT 95
[2016-09-23] MEDS: traMADol HCL 50 MG TAB PO PRN ×2 (06:50→16:57)
--- NOTE | 2016-09-23 08:28 | HHI.PYPN ---
Subjective Remarks This is a late entry progress note was patient seen by me on 09/17/16. It appears I forgot to probably anterior progress note into the EMR. At that time patient did continues superficial silly intrusive and loud. Though she was redirectable. She is compliant medications. Review of Systems Except as stated in HPI: all other systems reviewed are Neg Objective Alert: Yes [place]: Person, Place Mood: Other ("better") Affect: Labile (decreased) Memory Intact: Comment (fair) Hallucinations: Other (none) Delusions: No Delusion Type: Other (no delusions) Suicidal: Ideation (no SI) Homicidal: Ideation (no HI) Insight/Judgement Very poor Vitals/IOs Vital Signs Date Time Temp Pulse Resp B/P Pulse Ox O2 Delivery O2 Flow Rate FiO2 09/23/16 06:27 97.3 59 16 145/63 95 Intake and Output 09/22/16 09/22/16 09/23/16 08:00 16:00 00:00 Intake Total 1320 ml 1080 ml Balance 1320 ml 1080 ml Assessment & Plan Problem List: (1) Bipolar affective disorder, depressed ICD Code: F31.30 Assessment & Plan Estimated LOS: days patient remained loud intrusive with manic features, compliant medications, able to be redirected Justification for Cont. Inpt. At That time patient would have severely decompensated with placed in the lower level of care Discharge Planning To be determined Problem Qualifiers (1) Bipolar affective disorder, depressed: Qualified Code: F31.32 - Bipolar affective disorder, currently depressed, moderate Sky Mcmahon MD Sep 23, 2016 08:28
[2016-09-23] MEDS: CYANOCOBALAMIN 1,000 MCG TAB PO SCH (08:51)
[2016-09-23] MEDS: ZIPRASIDONE HCL 60 MG CAP PO SCH ×2 (08:51→17:23)
[2016-09-23] MEDS: BENZTROPINE MESYLATE 2 MG TAB PO SCH ×2 (08:51→20:42)
[2016-09-23] MEDS: LISINOPRIL 10 MG TAB PO SCH (08:51)
[2016-09-23] MEDS: METOPROLOL TARTRATE 25 MG TAB PO SCH ×2 (08:51→20:42)
[2016-09-23] MEDS: CALCIUM/VITAMIN D 250 MG/125 U TAB PO SCH ×3 (08:52→17:24)
[2016-09-23] MEDS: POTASSIUM CHLORIDE 10 MEQ CONTROLLED RELEASE TAB PO SCH (08:52)
[2016-09-23] MEDS: ACETAMINOPHEN 325 MG TAB PO PRN (08:52)
[2016-09-23] MEDS: PANTOPRAZOLE SOD 20 MG DELAYED RELEASE TAB PO SCH (08:52)
[2016-09-23] MEDS: FUROSEMIDE 20 MG TAB PO SCH (08:52)
[2016-09-23] MEDS: DIVALPROEX SODIUM E.R. 500 MG TAB PO SCH ×2 (08:52→20:42)
[2016-09-23] MEDS: busPIRone HCL 5 MG TAB PO SCH ×2 (08:54→20:42)
--- NOTE | 2016-09-23 11:56 | HHI.PYPN ---
Subjective Remarks Patient seen in day room with nurse Bernabe, compliant medications, patient less intrusive or loud , superficial at times somewhat childlike. Patient Appears to be approaching her baseline. For now continue treatment no change Review of Systems Except as stated in HPI: all other systems reviewed are Neg Objective Alert: Yes [place]: Person, Place Mood: Other ("better") Affect: Labile (decreased) Memory Intact: Comment (fair) Hallucinations: Other (none) Delusions: No Delusion Type: Other (no delusions) Suicidal: Ideation (no SI) Homicidal: Ideation (no HI) Insight/Judgement Very poor Vitals/IOs Vital Signs Date Time Temp Pulse Resp B/P Pulse Ox O2 Delivery O2 Flow Rate FiO2 09/23/16 06:27 97.3 59 16 145/63 95 Intake and Output 09/22/16 09/22/16 09/23/16 08:00 16:00 00:00 Intake Total 1320 ml 1080 ml Balance 1320 ml 1080 ml Assessment & Plan Problem List: (1) Bipolar affective disorder, depressed ICD Code: F31.30 Assessment & Plan Estimated LOS: days patient coming somewhat less intrusive less demanding. Appears to be approaching her baseline Justification for Cont. Inpt. At this time patient will decompensate if placed in a lower level of care Discharge Planning To be determined Problem Qualifiers (1) Bipolar affective disorder, depressed: Qualified Code: F31.32 - Bipolar affective disorder, currently depressed, moderate Sky Mcmahon MD Sep 23, 2016 11:56
[2016-09-23 19:24] VITALS: BP 96/51; PULSE 60; RESP 16; TEMP 98; O2SAT 99
[2016-09-23] MEDS: DULoxetine HCl DR 60 MG CAP PO SCH (20:42)
[2016-09-23] MEDS: traZODone HCL 100 MG TAB PO SCH (20:42)
[2016-09-24] MEDS: traMADol HCL 50 MG TAB PO PRN ×2 (03:58→19:42)
[2016-09-24 06:00] VITALS: BP 120/68; PULSE 60; RESP 18; TEMP 97.6; O2SAT 95
[2016-09-24] MEDS: ACETAMINOPHEN 325 MG TAB PO PRN ×3 (06:31→15:23)
[2016-09-24] MEDS: LISINOPRIL 10 MG TAB PO SCH (09:00)
[2016-09-24] MEDS: DIVALPROEX SODIUM E.R. 500 MG TAB PO SCH ×2 (09:49→21:00)
[2016-09-24] MEDS: BENZTROPINE MESYLATE 2 MG TAB PO SCH ×2 (09:49→21:00)
[2016-09-24] MEDS: busPIRone HCL 5 MG TAB PO SCH ×2 (09:49→21:00)
[2016-09-24] MEDS: CALCIUM/VITAMIN D 250 MG/125 U TAB PO SCH ×3 (09:49→17:04)
[2016-09-24] MEDS: METOPROLOL TARTRATE 25 MG TAB PO SCH ×2 (09:50→19:42)
[2016-09-24] MEDS: FUROSEMIDE 20 MG TAB PO SCH (09:50)
[2016-09-24] MEDS: PANTOPRAZOLE SOD 20 MG DELAYED RELEASE TAB PO SCH (09:50)
[2016-09-24] MEDS: CYANOCOBALAMIN 1,000 MCG TAB PO SCH (09:50)
[2016-09-24] MEDS: POTASSIUM CHLORIDE 10 MEQ CONTROLLED RELEASE TAB PO SCH (09:51)
[2016-09-24] MEDS: ZIPRASIDONE HCL 60 MG CAP PO SCH ×2 (09:52→17:04)
--- NOTE | 2016-09-24 11:40 | HHI.PYPN ---
Subjective Remarks Patient seen in day room with medical student karen, patient continues loud intrusive. Little insight. Also there is some subtle med seeking that is continuing. Patient compliant medications. For now continue treatment Review of Systems Except as stated in HPI: all other systems reviewed are Neg Objective Alert: Yes [place]: Person, Place Mood: Other ("better") Affect: Labile (decreased) Memory Intact: Comment (fair) Hallucinations: Other (none) Delusions: No Delusion Type: Other (no delusions) Suicidal: Ideation (no SI) Homicidal: Ideation (no HI) Insight/Judgement Very poor Vitals/IOs Vital Signs Date Time Temp Pulse Resp B/P Pulse Ox O2 Delivery O2 Flow Rate FiO2 09/24/16 06:00 97.6 60 18 120/68 95 Intake and Output 09/23/16 09/23/16 09/24/16 08:00 16:00 00:00 Intake Total 240 ml 1080 ml Balance 240 ml 1080 ml Assessment & Plan Problem List: (1) Bipolar affective disorder, depressed ICD Code: F31.30 Assessment & Plan Estimated LOS: days patient continues loud intrusive hypomanic, the psychotic flavor. Justification for Cont. Inpt. At this time patient would significantly decompensate if placed in a lower level of care Discharge Planning To be determined Problem Qualifiers (1) Bipolar affective disorder, depressed: Qualified Code: F31.32 - Bipolar affective disorder, currently depressed, moderate Sky Mcmahon MD Sep 24, 2016 11:40
[2016-09-24] MEDS: risperiDONE EXT REL INJ 37.5 MG/2 ML VIAL IM SCH (17:03)
[2016-09-24 19:29] VITALS: BP 161/68; PULSE 82; RESP 18; TEMP 98.6; O2SAT 97
[2016-09-24] MEDS: traZODone HCL 100 MG TAB PO SCH (21:00)
[2016-09-24] MEDS: DULoxetine HCl DR 60 MG CAP PO SCH (21:00)
[2016-09-25 06:08] VITALS: BP 96/65; PULSE 59; RESP 16; TEMP 98.5; O2SAT 92
[2016-09-25] MEDS: LISINOPRIL 10 MG TAB PO SCH (09:00)
[2016-09-25] MEDS: METOPROLOL TARTRATE 25 MG TAB PO SCH ×2 (09:00→20:18)
[2016-09-25] MEDS: DIVALPROEX SODIUM E.R. 500 MG TAB PO SCH ×2 (09:25→20:19)
[2016-09-25] MEDS: busPIRone HCL 5 MG TAB PO SCH ×2 (09:25→20:18)
[2016-09-25] MEDS: POTASSIUM CHLORIDE 10 MEQ CONTROLLED RELEASE TAB PO SCH (09:25)
[2016-09-25] MEDS: ZIPRASIDONE HCL 60 MG CAP PO SCH ×2 (09:25→16:40)
[2016-09-25] MEDS: CALCIUM/VITAMIN D 250 MG/125 U TAB PO SCH ×3 (09:25→16:40)
[2016-09-25] MEDS: CYANOCOBALAMIN 1,000 MCG TAB PO SCH (09:25)
[2016-09-25] MEDS: traMADol HCL 50 MG TAB PO PRN ×2 (09:25→16:40)
[2016-09-25] MEDS: BENZTROPINE MESYLATE 2 MG TAB PO SCH ×2 (09:25→20:18)
[2016-09-25] MEDS: FUROSEMIDE 20 MG TAB PO SCH (09:26)
[2016-09-25] MEDS: PANTOPRAZOLE SOD 20 MG DELAYED RELEASE TAB PO SCH (09:26)
[2016-09-25] MEDS: MAGNESIUM HYDROXIDE SUSP 30 ML CUP PO PRN (10:00)
[2016-09-25] MEDS: LORazepam 0.5 MG TAB age > 65 yrs PO PRN ×2 (10:44→22:00)
--- NOTE | 2016-09-25 12:03 | HHI.PYPN ---
Subjective Remarks Patient was seen and case discussed with nursing. Patient remains grossly disorganized with poor insight. Per nursing patient is attention seeking. Compliant with medications. Complaining of mild right hip pain and is on pain medication. Alert and oriented 2. Describes mood is sad. Objective Alert: Yes [place]: Person, Place Mood: Other ("better") Affect: Labile (decreased) Memory Intact: Comment (fair) Hallucinations: Other (none) Delusions: No Delusion Type: Other (no delusions) Suicidal: Ideation (no SI) Homicidal: Ideation (no HI) Insight/Judgement Poor Vitals/IOs Vital Signs Date Time Temp Pulse Resp B/P Pulse Ox O2 Delivery O2 Flow Rate FiO2 09/25/16 06:08 98.5 59 16 96/65 92 Intake and Output 09/24/16 09/24/16 09/25/16 08:00 16:00 00:00 Intake Total 480 ml 240 ml Balance 480 ml 240 ml Assessment & Plan Problem List: (1) Bipolar affective disorder, depressed ICD Code: F31.30 Assessment & Plan Continue current treatment plan Justification for Cont. Inpt. Patient will decompensate in a less restrictive setting Problem Qualifiers (1) Bipolar affective disorder, depressed: Qualified Code: F31.32 - Bipolar affective disorder, currently depressed, moderate Dante Thomas DO Sep 25, 2016 12:03
[2016-09-25 18:00] VITALS: BP 153/67; PULSE 72; RESP 18; TEMP 98.3; O2SAT 95
[2016-09-25] MEDS: DULoxetine HCl DR 60 MG CAP PO SCH (20:18)
[2016-09-25] MEDS: traZODone HCL 100 MG TAB PO SCH (20:18)
[2016-09-25] MEDS: diphenhydrAMINE HCL 50 MG CAP - HS PRN PO (23:30)
[2016-09-26 05:48] VITALS: BP 160/72; PULSE 61; RESP 16; TEMP 97.9; O2SAT 92
[2016-09-26] MEDS: traMADol HCL 50 MG TAB PO PRN ×2 (06:02→20:52)
[2016-09-26] MEDS: LORazepam 0.5 MG TAB age > 65 yrs PO PRN (08:23)
[2016-09-26] MEDS: busPIRone HCL 5 MG TAB PO SCH ×2 (08:23→20:53)
[2016-09-26] MEDS: LISINOPRIL 10 MG TAB PO SCH (08:24)
[2016-09-26] MEDS: POTASSIUM CHLORIDE 10 MEQ CONTROLLED RELEASE TAB PO SCH (08:24)
[2016-09-26] MEDS: FUROSEMIDE 20 MG TAB PO SCH (08:24)
[2016-09-26] MEDS: PANTOPRAZOLE SOD 20 MG DELAYED RELEASE TAB PO SCH (08:24)
[2016-09-26] MEDS: METOPROLOL TARTRATE 25 MG TAB PO SCH ×2 (08:24→20:53)
[2016-09-26] MEDS: BENZTROPINE MESYLATE 2 MG TAB PO SCH ×2 (08:24→20:53)
[2016-09-26] MEDS: CYANOCOBALAMIN 1,000 MCG TAB PO SCH (08:25)
[2016-09-26] MEDS: MAGNESIUM HYDROXIDE SUSP 30 ML CUP PO PRN (08:25)
[2016-09-26] MEDS: CALCIUM/VITAMIN D 250 MG/125 U TAB PO SCH ×3 (08:25→16:10)
[2016-09-26] MEDS: DIVALPROEX SODIUM E.R. 500 MG TAB PO SCH ×2 (08:25→20:53)
[2016-09-26] MEDS: ZIPRASIDONE HCL 60 MG CAP PO SCH ×2 (08:25→16:10)
--- NOTE | 2016-09-26 12:04 | HHI.PYPN ---
Subjective Remarks Patient was seen and case discussed with nursing. Patient is pleasant and cooperative with exam. Per nursing, patient had a temper tantrum last night and patient does not recall her behavior. Mood is elevated. Patient remains interview and attentive seeking. Blood pressure mildly elevated Objective Alert: Yes [place]: Person, Place Mood: Other ("better") Affect: Labile (decreased) Memory Intact: Comment (fair) Hallucinations: Other (none) Delusions: No Delusion Type: Other (no delusions) Suicidal: Ideation (no SI) Homicidal: Ideation (no HI) Insight/Judgement Poor Vitals/IOs Vital Signs Date Time Temp Pulse Resp B/P Pulse Ox O2 Delivery O2 Flow Rate FiO2 09/26/16 05:48 97.9 61 16 160/72 92 Intake and Output 09/25/16 09/25/16 09/26/16 08:00 16:00 00:00 Intake Total 0 ml 720 ml Balance 0 ml 720 ml Assessment & Plan Problem List: (1) Bipolar affective disorder, depressed ICD Code: F31.30 Assessment & Plan Estimated LOS: days Justification for Cont. Inpt. Change vitals to every 6 hours. BP remains elevated, adjust medications Problem Qualifiers (1) Bipolar affective disorder, depressed: Qualified Code: F31.32 - Bipolar affective disorder, currently depressed, moderate Dante Thomas DO Sep 26, 2016 12:04
[2016-09-26 18:00] VITALS: BP_SYST 123; PULSE 70; RESP 17; TEMP 97.2; O2SAT 96
[2016-09-26 19:30] VITALS: BP 94/61; PULSE 69; RESP 16; TEMP 97.2; O2SAT 97
--- NOTE | 2016-09-26 19:49 | RADRPT ---
EXAM DATE/TIME: 09/26/2016 19:24 CORRECTION Corrected on: October 01, 2016; [facility] COMPARISON: No previous studies available for comparison. INDICATIONS : Shoulder pain radiating down left arm. MEDICAL HISTORY : None. SURGICAL HISTORY : Breast augmentation. ENCOUNTER: Initial ACUITY: 1 day PAIN SCORE: 7/10 LOCATION: Left shoulder. FINDINGS: There is a fracture of the humeral head with the greater tuberosity free fragment. The acromion and glenoid are intact. CONCLUSION: Fracture humeral head as described above. Bernard Willingham MD FACR on September 26, 2016 at 19:47 Board Certified Radiologist. This report was verified electronically. Bernard Willingham MD FACR on October 01, 2016 at 10:03 Board Certified Radiologist. This report was verified electronically.
--- NOTE | 2016-09-26 19:51 | RADRPT ---
EXAM DATE/TIME: 09/26/2016 19:28 [facility] COMPARISON: No previous studies available for comparison. INDICATIONS : Knee pain radiating down left leg. MEDICAL HISTORY : Prior fracture. SURGICAL HISTORY : Prior surgical repair of fracture. ENCOUNTER: Initial ACUITY: 1 day PAIN SCORE: 8/10 LOCATION: Left knee. FINDINGS: Plate with screws is seen bridging fractures of the distal tibia and fibula. Alignment is anatomic. Degenerative changes are seen in the patellofemoral compartment. CONCLUSION: Evidence for previous surgery. Otherwise, negative for an acute process. Bernard Willingham MD FACR on September 26, 2016 at 19:48 Board Certified Radiologist. This report was verified electronically.
--- NOTE | 2016-09-26 20:15 | RADRPT ---
EXAM DATE/TIME: 09/26/2016 20:05 [facility] COMPARISON: No previous studies available for comparison. INDICATIONS : Trauma; fall. RADIATION DOSE: 35.01 CTDIvol (mGy) MEDICAL HISTORY : Hypertension. Bipolar disorder. SURGICAL HISTORY : None. ENCOUNTER: Initial ACUITY: 1 day PAIN SCALE: 5/10 LOCATION: cranial TECHNIQUE: Multiple contiguous axial images were obtained of the head. Using automated exposure control and adj ustment of the mA and/or kV according to patient size, radiation dose was kept as low as reasonably a chievable to obtain optimal diagnostic quality images. FINDINGS: CEREBRUM: The ventricles are normal for age. No evidence of midline shift, mass lesion, hemorrhage or acute in farction. No extra-axial fluid collections are seen. POSTERIOR FOSSA: The cerebellum and brainstem are intact. The 4th ventricle is midline. The cerebellopontine angle i s unremarkable. EXTRACRANIAL: The visualized portion of the orbits is intact. SKULL: The calvaria is intact. No evidence of skull fracture. CONCLUSION: Negative for acute traumatic process. Bernard Willingham MD FACR on September 26, 2016 at 20:13 Board Certified Radiologist. This report was verified electronically.
[2016-09-26 20:49] VITALS: BP 107/60; PULSE 72; RESP 16; TEMP 98.6; O2SAT 99
[2016-09-26] MEDS: traZODone HCL 100 MG TAB PO SCH (20:53)
[2016-09-26] MEDS: DULoxetine HCl DR 60 MG CAP PO SCH (20:53)
[2016-09-27 00:28] VITALS: BP 116/55; PULSE 66; RESP 17; TEMP 98.7; O2SAT 90
[2016-09-27] MEDS: traMADol HCL 50 MG TAB PO PRN ×2 (04:45→17:25)
[2016-09-27 04:48] VITALS: BP_SYST 101; BP_SYST 118; BP_DIAS 50; BP_DIAS 59; PULSE 69; PULSE 77; RESP 16; TEMP 98.5; O2SAT 92; O2SAT 93
[2016-09-27 04:53] VITALS: O2SAT 95
[2016-09-27] MEDS: PANTOPRAZOLE SOD 20 MG DELAYED RELEASE TAB PO SCH (08:00)
[2016-09-27] MEDS: ERGOCALCIFEROL (VIT D2) 50,000 UNIT CAP PO SCH (08:40)
[2016-09-27] MEDS: ZIPRASIDONE HCL 60 MG CAP PO SCH ×2 (08:40→17:24)
[2016-09-27] MEDS: DIVALPROEX SODIUM E.R. 500 MG TAB PO SCH ×2 (08:40→21:01)
[2016-09-27] MEDS: BENZTROPINE MESYLATE 2 MG TAB PO SCH ×2 (08:40→21:01)
[2016-09-27] MEDS: FUROSEMIDE 20 MG TAB PO SCH (08:41)
[2016-09-27] MEDS: LISINOPRIL 10 MG TAB PO SCH (08:41)
[2016-09-27] MEDS: CYANOCOBALAMIN 1,000 MCG TAB PO SCH (08:41)
[2016-09-27] MEDS: CALCIUM/VITAMIN D 250 MG/125 U TAB PO SCH ×3 (08:41→17:25)
[2016-09-27] MEDS: METOPROLOL TARTRATE 25 MG TAB PO SCH ×2 (08:41→21:01)
[2016-09-27] MEDS: POTASSIUM CHLORIDE 10 MEQ CONTROLLED RELEASE TAB PO SCH (08:41)
[2016-09-27] MEDS: ACETAMINOPHEN 325 MG TAB PO PRN (08:42)
[2016-09-27] MEDS: busPIRone HCL 5 MG TAB PO SCH ×2 (09:00→21:01)
[2016-09-27 09:08] VITALS: BP 137/59; PULSE 72; RESP 18; TEMP 98.6; O2SAT 93
[2016-09-27 13:14] VITALS: BP 91/52; PULSE 66; RESP 16; TEMP 98
--- NOTE | 2016-09-27 15:36 | HHI.PYPN ---
Subjective Remarks Patient discussed with treatment team and medical student jono Avendano, patient seen on unit. Patient tolerating sleeping on her left arm related to her fractured shoulder. Orthopedist has been consulted. Otherwise patient's behavior remained similar she is intrusive loud but less intrusive. Perhaps patient is reaching her baseline. Review of Systems Except as stated in HPI: all other systems reviewed are Neg (patient fell has fractured left shoulder orthopedist has been consulted) Objective Alert: Yes [place]: Person, Place Mood: Other ("better") Affect: Labile (decreased) Memory Intact: Comment (fair) Hallucinations: Other (none) Delusions: No Delusion Type: Other (no delusions) Suicidal: Ideation (no SI) Homicidal: Ideation (no HI) Insight/Judgement Very poor Vitals/IOs Vital Signs Date Time Temp Pulse Resp B/P Pulse Ox O2 Delivery O2 Flow Rate FiO2 09/27/16 13:14 98.0 66 16 91/52 09/27/16 09:08 93 Intake and Output 09/26/16 09/26/16 09/27/16 08:00 16:00 00:00 Intake Total 0 ml 1440 ml 360 ml Balance 0 ml 1440 ml 360 ml Assessment & Plan Problem List: (1) Bipolar affective disorder, depressed ICD Code: F31.30 Assessment & Plan Estimated LOS: days patient continues loud intrusive though somewhat softer today, is coping with wearing her sling, we'll awaiting the orthopedic consult Justification for Cont. Inpt. At this time patient will decompensate if placed in a lower level of care Discharge Planning To be determined Problem Qualifiers (1) Bipolar affective disorder, depressed: Qualified Code: F31.32 - Bipolar affective disorder, currently depressed, moderate Sky Mcmahon MD Sep 27, 2016 15:36
[2016-09-27 18:31] VITALS: BP 118/58; PULSE 62; RESP 16; TEMP 99; O2SAT 96
[2016-09-27] MEDS: DULoxetine HCl DR 60 MG CAP PO SCH (21:01)
[2016-09-27] MEDS: traZODone HCL 100 MG TAB PO SCH (21:01)
[2016-09-28 06:29] VITALS: BP 116/59; PULSE 76; RESP 18; TEMP 97.9; O2SAT 96
[2016-09-28] MEDS: PANTOPRAZOLE SOD 20 MG DELAYED RELEASE TAB PO SCH (08:00)
[2016-09-28] MEDS: busPIRone HCL 5 MG TAB PO SCH (08:50)
[2016-09-28] MEDS: DIVALPROEX SODIUM E.R. 500 MG TAB PO SCH ×2 (08:53→21:00)
[2016-09-28] MEDS: ZIPRASIDONE HCL 60 MG CAP PO SCH ×2 (08:53→17:09)
[2016-09-28] MEDS: BENZTROPINE MESYLATE 2 MG TAB PO SCH ×2 (08:53→21:00)
[2016-09-28] MEDS: POTASSIUM CHLORIDE 10 MEQ CONTROLLED RELEASE TAB PO SCH (08:54)
[2016-09-28] MEDS: CALCIUM/VITAMIN D 250 MG/125 U TAB PO SCH ×3 (08:55→17:10)
[2016-09-28] MEDS: METOPROLOL TARTRATE 25 MG TAB PO SCH ×2 (08:55→21:00)
[2016-09-28] MEDS: FUROSEMIDE 20 MG TAB PO SCH (08:55)
[2016-09-28] MEDS: LISINOPRIL 10 MG TAB PO SCH (08:55)
[2016-09-28] MEDS: CYANOCOBALAMIN 1,000 MCG TAB PO SCH (09:00)
[2016-09-28] MEDS: ACETAMINOPHEN 325 MG TAB PO PRN (12:30)
--- NOTE | 2016-09-28 14:23 | HHI.PYPN ---
Subjective Remarks Patient seen in day room with floor staff, patient laying quietly in the Bella chair the very sad face very poor eye contact, did respond to my questioning with eye contact though there is no verbal responses. It appears the patient is cycling into a depression. We'll discontinue her BuSpar. Will also change diet to mechanical soft with patient being edentulous Review of Systems Except as stated in HPI: all other systems reviewed are Neg Objective Alert: Yes [place]: Person, Place Mood: Other ("better") Affect: Labile (decreased) Memory Intact: Comment (fair) Hallucinations: Other (none) Delusions: No Delusion Type: Other (no delusions) Suicidal: Ideation (no SI) Homicidal: Ideation (no HI) Insight/Judgement Very poor Vitals/IOs Vital Signs Date Time Temp Pulse Resp B/P Pulse Ox O2 Delivery O2 Flow Rate FiO2 09/28/16 06:29 97.9 76 18 116/59 96 Intake and Output 09/27/16 09/27/16 09/28/16 08:00 16:00 00:00 Intake Total 0 ml 280 ml 720 ml Balance 0 ml 280 ml 720 ml Assessment & Plan Problem List: (1) Bipolar affective disorder, depressed ICD Code: F31.30 Assessment & Plan Estimated LOS: days patient appears recycling into a depressive episode. See medication adjustment above Justification for Cont. Inpt. At this time patient would significantly decompensated if placed in a lower level of care Discharge Planning To be determined Problem Qualifiers (1) Bipolar affective disorder, depressed: Qualified Code: F31.32 - Bipolar affective disorder, currently depressed, moderate Sky Mcmahon MD Sep 28, 2016 14:23
[2016-09-28 19:29] VITALS: BP 95/50; PULSE 66; RESP 18; TEMP 98.6; O2SAT 90
[2016-09-28] MEDS: DULoxetine HCl DR 60 MG CAP PO SCH (21:00)
[2016-09-28] MEDS: traZODone HCL 100 MG TAB PO SCH (21:00)
[2016-09-29 04:27] VITALS: BP 120/75
[2016-09-29] MEDS: traMADol HCL 50 MG TAB PO PRN (04:29)
[2016-09-29 06:03] VITALS: BP 113/61; PULSE 75; RESP 18; TEMP 98.8
--- NOTE | 2016-09-29 08:35 | HHI.PYPN ---
Subjective Remarks Patient seen in day room with nurse Chauncey, chart review, patient significantly more alert pleasant with intense eye contact trimmed behavior similar to the one shown prior. There is been some mixed compliance with medication the past day or 2. Though patient denies suicidality homicidality or voices or visions at this time. Patient voices no complaints of pain in her shoulder at this time. For now continue treatment no change Review of Systems Except as stated in HPI: all other systems reviewed are Neg Objective Alert: Yes [place]: Person, Place Mood: Other ("better") Affect: Labile (decreased) Memory Intact: Comment (fair) Hallucinations: Other (none) Delusions: No Delusion Type: Other (no delusions) Suicidal: Ideation (no SI) Homicidal: Ideation (no HI) Insight/Judgement Poor Vitals/IOs Vital Signs Date Time Temp Pulse Resp B/P Pulse Ox O2 Delivery O2 Flow Rate FiO2 09/29/16 06:03 98.8 75 18 113/61 09/28/16 19:29 90 Intake and Output 09/28/16 09/28/16 09/29/16 08:00 16:00 00:00 Intake Total 600 ml 140 ml Balance 600 ml 140 ml Assessment & Plan Problem List: (1) Bipolar affective disorder, depressed ICD Code: F31.30 Assessment & Plan Estimated LOS: days patient more alert today increased affect, increasingly verbal, with improved eye contact. Now sitting up in Bella chair having breakfast Justification for Cont. Inpt. With this time patient would decompensate if placed in a lower level of care Discharge Planning To be determined Problem Qualifiers (1) Bipolar affective disorder, depressed: Qualified Code: F31.32 - Bipolar affective disorder, currently depressed, moderate Sky Mcmahon MD Sep 29, 2016 08:35
[2016-09-29] MEDS: POTASSIUM CHLORIDE 10 MEQ CONTROLLED RELEASE TAB PO SCH (08:58)
[2016-09-29] MEDS: PANTOPRAZOLE SOD 20 MG DELAYED RELEASE TAB PO SCH (08:58)
[2016-09-29] MEDS: CALCIUM/VITAMIN D 250 MG/125 U TAB PO SCH ×3 (08:58→18:11)
[2016-09-29] MEDS: METOPROLOL TARTRATE 25 MG TAB PO SCH ×2 (08:58→21:25)
[2016-09-29] MEDS: FUROSEMIDE 20 MG TAB PO SCH (08:59)
[2016-09-29] MEDS: BENZTROPINE MESYLATE 2 MG TAB PO SCH ×2 (08:59→21:24)
[2016-09-29] MEDS: CYANOCOBALAMIN 1,000 MCG TAB PO SCH (08:59)
[2016-09-29] MEDS: DIVALPROEX SODIUM E.R. 500 MG TAB PO SCH ×2 (08:59→21:25)
[2016-09-29] MEDS: LISINOPRIL 10 MG TAB PO SCH (08:59)
[2016-09-29] MEDS: ZIPRASIDONE HCL 60 MG CAP PO SCH ×2 (08:59→18:11)
[2016-09-29 18:59] VITALS: BP 117/59; PULSE 69; RESP 14; TEMP 98.6; O2SAT 97
[2016-09-29] MEDS: DULoxetine HCl DR 60 MG CAP PO SCH (21:24)
[2016-09-29] MEDS: traZODone HCL 100 MG TAB PO SCH (21:25)
[2016-09-30] MEDS: traMADol HCL 50 MG TAB PO PRN ×2 (03:15→19:47)
[2016-09-30 06:29] VITALS: BP 161/75; PULSE 67; RESP 19; TEMP 97.3; O2SAT 96
[2016-09-30] MEDS: CYANOCOBALAMIN 1,000 MCG TAB PO SCH (09:00)
[2016-09-30] MEDS: POTASSIUM CHLORIDE 10 MEQ CONTROLLED RELEASE TAB PO SCH (09:16)
[2016-09-30] MEDS: DIVALPROEX SODIUM E.R. 500 MG TAB PO SCH ×2 (09:16→20:19)
[2016-09-30] MEDS: CALCIUM/VITAMIN D 250 MG/125 U TAB PO SCH ×3 (09:16→18:00)
[2016-09-30] MEDS: ZIPRASIDONE HCL 60 MG CAP PO SCH ×2 (09:16→18:00)
[2016-09-30] MEDS: BENZTROPINE MESYLATE 2 MG TAB PO SCH ×2 (09:17→20:20)
[2016-09-30] MEDS: LISINOPRIL 10 MG TAB PO SCH (09:17)
[2016-09-30] MEDS: FUROSEMIDE 20 MG TAB PO SCH (09:17)
[2016-09-30] MEDS: PANTOPRAZOLE SOD 20 MG DELAYED RELEASE TAB PO SCH (09:17)
[2016-09-30] MEDS: METOPROLOL TARTRATE 25 MG TAB PO SCH ×2 (09:17→20:19)
--- NOTE | 2016-09-30 13:06 | HHI.PYPN ---
Subjective Remarks Patient seen in day room, with nurse Mayte, chart reviewed. Patient continues somewhat intrusive and childlike though softer than yesterday. Compliant medications Review of Systems Except as stated in HPI: all other systems reviewed are Neg Objective Alert: Yes [place]: Person, Place Mood: Other ("better") Affect: Labile (decreased) Memory Intact: Comment (fair) Hallucinations: Other (none) Delusions: No Delusion Type: Other (no delusions) Suicidal: Ideation (no SI) Homicidal: Ideation (no HI) Insight/Judgement Very poor Vitals/IOs Vital Signs Date Time Temp Pulse Resp B/P Pulse Ox O2 Delivery O2 Flow Rate FiO2 09/30/16 06:29 97.3 67 19 161/75 96 Intake and Output 09/29/16 09/29/16 09/30/16 08:00 16:00 00:00 Intake Total 600 ml 720 ml 1780 ml Balance 600 ml 720 ml 1780 ml Assessment & Plan Problem List: (1) Bipolar affective disorder, depressed ICD Code: F31.30 Assessment & Plan Estimated LOS: days patient continues intermittently loud intrusive childlike though somewhat softer today Justification for Cont. Inpt. At this time patient will decompensate if placed in a lower level of care Discharge Planning To be determined Problem Qualifiers (1) Bipolar affective disorder, depressed: Qualified Code: F31.32 - Bipolar affective disorder, currently depressed, moderate Sky Mcmahon MD Sep 30, 2016 13:06
[2016-09-30] MEDS: diphenhydrAMINE HCL 50 MG CAP - HS PRN PO (14:15)
[2016-09-30] MEDS: LORazepam 0.5 MG TAB age > 65 yrs PO PRN (14:15)
[2016-09-30] MEDS: ACETAMINOPHEN 325 MG TAB PO PRN (18:16)
[2016-09-30 18:53] VITALS: BP 132/64; PULSE 70; RESP 17; TEMP 98.4; O2SAT 96
[2016-09-30 19:28] VITALS: BP 132/64; PULSE 70; PULSE 72; RESP 15; RESP 17; TEMP 98.4; TEMP 98.8; O2SAT 96
[2016-09-30] MEDS: traZODone HCL 100 MG TAB PO SCH (20:19)
[2016-09-30] MEDS: DULoxetine HCl DR 60 MG CAP PO SCH (20:20)
[2016-09-30] MEDS: MAGNESIUM HYDROXIDE SUSP 30 ML CUP PO PRN (20:20)
[2016-10-01] MEDS: ACETAMINOPHEN 325 MG TAB PO PRN (03:10)
[2016-10-01] MEDS: traMADol HCL 50 MG TAB PO PRN ×4 (06:25→21:24)
[2016-10-01 06:30] VITALS: BP 116/63; PULSE 61; RESP 16; TEMP 97.9; O2SAT 94
[2016-10-01] MEDS: METOPROLOL TARTRATE 25 MG TAB PO SCH ×2 (08:46→21:23)
[2016-10-01] MEDS: LISINOPRIL 10 MG TAB PO SCH (08:47)
[2016-10-01] MEDS: BENZTROPINE MESYLATE 2 MG TAB PO SCH ×2 (08:47→21:23)
[2016-10-01] MEDS: ZIPRASIDONE HCL 60 MG CAP PO SCH ×2 (08:47→18:00)
[2016-10-01] MEDS: PANTOPRAZOLE SOD 20 MG DELAYED RELEASE TAB PO SCH (08:47)
[2016-10-01] MEDS: POTASSIUM CHLORIDE 10 MEQ CONTROLLED RELEASE TAB PO SCH (08:47)
[2016-10-01] MEDS: CALCIUM/VITAMIN D 250 MG/125 U TAB PO SCH ×3 (08:47→18:00)
[2016-10-01] MEDS: DIVALPROEX SODIUM E.R. 500 MG TAB PO SCH ×2 (08:47→21:23)
[2016-10-01] MEDS: FUROSEMIDE 20 MG TAB PO SCH (08:47)
[2016-10-01] MEDS: CYANOCOBALAMIN 1,000 MCG TAB PO SCH (08:48)
--- NOTE | 2016-10-01 11:50 | HHI.PYPN ---
Subjective Remarks Patient seen in dayroom with floor staff, patient continues somewhat intrusive loud complaining some pain in her left shoulder. There is been a clarification of the x-ray interpretation. There is a fracture of the left humeral head. We' ll increase the frequency of the tramadol to every 6 hours. Review of Systems Except as stated in HPI: all other systems reviewed are Neg Objective Alert: Yes [place]: Person, Place Mood: Other ("better") Affect: Labile (decreased) Memory Intact: Comment (fair) Hallucinations: Other (none) Delusions: No Delusion Type: Other (no delusions) Suicidal: Ideation (no SI) Homicidal: Ideation (no HI) Insight/Judgement Poor Vitals/IOs Vital Signs Date Time Temp Pulse Resp B/P Pulse Ox O2 Delivery O2 Flow Rate FiO2 10/01/16 06:30 97.9 61 16 116/63 94 Intake and Output 09/30/16 09/30/16 10/01/16 08:00 16:00 00:00 Intake Total 720 ml 1180 ml Balance 720 ml 1180 ml Assessment & Plan Problem List: (1) Bipolar affective disorder, depressed ICD Code: F31.30 Assessment & Plan Estimated LOS: days patient continues somewhat intrusive but softer continues at times irritable and loud, the fracture left humerus is again confirmed by radiology. Will increase dosing time of Travenol. Justification for Cont. Inpt. At this time patient was significantly decompensated if placed in a lower level of care Discharge Planning To be determined Problem Qualifiers (1) Bipolar affective disorder, depressed: Qualified Code: F31.32 - Bipolar affective disorder, currently depressed, moderate Sky Mcmahon MD Oct 01, 2016 11:50
[2016-10-01] MEDS: LORazepam 0.5 MG TAB age > 65 yrs PO PRN (16:22)
[2016-10-01 18:00] VITALS: BP 150/63; PULSE 68; RESP 17; TEMP 97.5; O2SAT 95
[2016-10-01 20:14] VITALS: BP 160/101; PULSE 74; O2SAT 92
[2016-10-01] MEDS: traZODone HCL 100 MG TAB PO SCH (21:23)
[2016-10-01] MEDS: DULoxetine HCl DR 60 MG CAP PO SCH (21:24)
[2016-10-01 22:30] VITALS: BP 118/58; PULSE 65
[2016-10-02 05:31] VITALS: BP 144/63; PULSE 63; RESP 18; TEMP 98.4; O2SAT 96
[2016-10-02] MEDS: traMADol HCL 50 MG TAB PO PRN ×2 (05:54→23:57)
[2016-10-02] MEDS: FUROSEMIDE 20 MG TAB PO SCH (09:30)
[2016-10-02] MEDS: ZIPRASIDONE HCL 60 MG CAP PO SCH ×2 (09:30→17:44)
[2016-10-02] MEDS: POTASSIUM CHLORIDE 10 MEQ CONTROLLED RELEASE TAB PO SCH (09:30)
[2016-10-02] MEDS: METOPROLOL TARTRATE 25 MG TAB PO SCH ×2 (09:31→23:56)
[2016-10-02] MEDS: BENZTROPINE MESYLATE 2 MG TAB PO SCH ×2 (09:31→23:55)
[2016-10-02] MEDS: LISINOPRIL 10 MG TAB PO SCH (09:31)
[2016-10-02] MEDS: CALCIUM/VITAMIN D 250 MG/125 U TAB PO SCH ×3 (09:31→17:44)
[2016-10-02] MEDS: PANTOPRAZOLE SOD 20 MG DELAYED RELEASE TAB PO SCH (09:31)
[2016-10-02] MEDS: CYANOCOBALAMIN 1,000 MCG TAB PO SCH (09:31)
[2016-10-02] MEDS: DIVALPROEX SODIUM E.R. 500 MG TAB PO SCH ×2 (09:32→23:53)
--- NOTE | 2016-10-02 14:45 | HHI.PYPN ---
Subjective Remarks Pt seen and discussed with staf. Pt is labile at times but has not been agitated. No medication side effects. No SI/HI. Sleeping well and compliant with treatment. Objective Alert: Yes [place]: Person, Place Mood: Other ("better") Affect: Labile (decreased) Memory Intact: Comment (fair) Hallucinations: Other (none) Delusions: No Delusion Type: Other (no delusions) Suicidal: Ideation (no SI) Homicidal: Ideation (no HI) Insight/Judgement poor Vitals/IOs Vital Signs Date Time Temp Pulse Resp B/P Pulse Ox O2 Delivery O2 Flow Rate FiO2 10/02/16 05:31 98.4 63 18 144/63 96 Intake and Output 10/01/16 10/01/16 10/02/16 08:00 16:00 00:00 Intake Total 480 ml 961 ml 510 ml Balance 480 ml 961 ml 510 ml Assessment & Plan Problem List: (1) Bipolar affective disorder, depressed ICD Code: F31.30 Assessment & Plan Continue current tx plan. Estimated LOS: days Justification for Cont. Inpt. risk of decompensation Problem Qualifiers (1) Bipolar affective disorder, depressed: Qualified Code: F31.32 - Bipolar affective disorder, currently depressed, moderate Chelsea Ge MD Oct 02, 2016 14:45
[2016-10-02] MEDS: ACETAMINOPHEN 325 MG TAB PO PRN (17:49)
[2016-10-02 20:00] VITALS: BP 118/58; PULSE 63; RESP 18; TEMP 98.2
[2016-10-02] MEDS: traZODone HCL 100 MG TAB PO SCH (23:55)
[2016-10-02] MEDS: DULoxetine HCl DR 60 MG CAP PO SCH (23:56)
[2016-10-03 00:29] VITALS: BP 127/66; PULSE 80; RESP 20; TEMP 98.6; O2SAT 96
[2016-10-03 05:38] VITALS: BP 111/54; PULSE 56; RESP 18; TEMP 97.9; O2SAT 97
[2016-10-03] MEDS: BENZTROPINE MESYLATE 2 MG TAB PO SCH ×2 (09:09→20:56)
[2016-10-03] MEDS: POTASSIUM CHLORIDE 10 MEQ CONTROLLED RELEASE TAB PO SCH (09:09)
[2016-10-03] MEDS: CYANOCOBALAMIN 1,000 MCG TAB PO SCH (09:09)
[2016-10-03] MEDS: ZIPRASIDONE HCL 60 MG CAP PO SCH ×2 (09:09→18:48)
[2016-10-03] MEDS: CALCIUM/VITAMIN D 250 MG/125 U TAB PO SCH ×3 (09:09→18:49)
[2016-10-03] MEDS: DIVALPROEX SODIUM E.R. 500 MG TAB PO SCH ×2 (09:10→20:56)
[2016-10-03] MEDS: LISINOPRIL 10 MG TAB PO SCH (09:10)
[2016-10-03] MEDS: METOPROLOL TARTRATE 25 MG TAB PO SCH ×2 (09:10→21:00)
[2016-10-03] MEDS: PANTOPRAZOLE SOD 20 MG DELAYED RELEASE TAB PO SCH (09:10)
[2016-10-03] MEDS: FUROSEMIDE 20 MG TAB PO SCH (09:10)
[2016-10-03] MEDS: traMADol HCL 50 MG TAB PO PRN (09:12)
--- NOTE | 2016-10-03 15:12 | HHI.PYPN ---
Subjective Remarks Pt seen and discussed with staff. Pt remains labile but has been responding better to staff redirection. She is tearful during interview and wants MD to know that she is praying for everyone to find peace. No SI/HI. Medication compliant. Objective Alert: Yes [place]: Person, Place Mood: Other ("better") Affect: Labile (decreased) Memory Intact: Comment (fair) Hallucinations: Other (none) Delusions: No Delusion Type: Other (no delusions) Suicidal: Ideation (no SI) Homicidal: Ideation (no HI) Insight/Judgement limited Vitals/IOs Vital Signs Date Time Temp Pulse Resp B/P Pulse Ox O2 Delivery O2 Flow Rate FiO2 10/03/16 05:38 97.9 56 18 111/54 97 Intake and Output 10/02/16 10/02/16 10/03/16 08:00 16:00 00:00 Intake Total 240 ml 600 ml 720 ml Balance 240 ml 600 ml 720 ml Assessment & Plan Problem List: (1) Bipolar affective disorder, depressed ICD Code: F31.30 Assessment & Plan Continue current tx plan. Estimated LOS: days Justification for Cont. Inpt. risk of decompensation, impairments in social functioning Problem Qualifiers (1) Bipolar affective disorder, depressed: Qualified Code: F31.32 - Bipolar affective disorder, currently depressed, moderate Chelsae Ge MD Oct 03, 2016 15:12
[2016-10-03 18:00] VITALS: BP 109/54
[2016-10-03 19:58] VITALS: BP 151/69; PULSE 70; RESP 16; TEMP 98; O2SAT 98
[2016-10-03] MEDS: traZODone HCL 100 MG TAB PO SCH (20:56)
[2016-10-03] MEDS: DULoxetine HCl DR 60 MG CAP PO SCH (20:56)
[2016-10-04 05:15] VITALS: BP 142/64; PULSE 58; RESP 18; TEMP 98; O2SAT 97
[2016-10-04] MEDS: traMADol HCL 50 MG TAB PO PRN (05:55)
[2016-10-04] MEDS: ZIPRASIDONE HCL 60 MG CAP PO SCH ×2 (08:33→18:06)
[2016-10-04] MEDS: CYANOCOBALAMIN 1,000 MCG TAB PO SCH (08:33)
[2016-10-04] MEDS: METOPROLOL TARTRATE 25 MG TAB PO SCH ×2 (08:33→21:35)
[2016-10-04] MEDS: BENZTROPINE MESYLATE 2 MG TAB PO SCH ×2 (08:33→21:37)
[2016-10-04] MEDS: CALCIUM/VITAMIN D 250 MG/125 U TAB PO SCH ×3 (08:33→18:06)
[2016-10-04] MEDS: DIVALPROEX SODIUM E.R. 500 MG TAB PO SCH ×2 (08:33→21:37)
[2016-10-04] MEDS: FUROSEMIDE 20 MG TAB PO SCH (08:33)
[2016-10-04] MEDS: PANTOPRAZOLE SOD 20 MG DELAYED RELEASE TAB PO SCH (08:33)
[2016-10-04] MEDS: LISINOPRIL 10 MG TAB PO SCH (08:33)
[2016-10-04] MEDS: ERGOCALCIFEROL (VIT D2) 50,000 UNIT CAP PO SCH (08:33)
[2016-10-04] MEDS: POTASSIUM CHLORIDE 10 MEQ CONTROLLED RELEASE TAB PO SCH (08:34)
[2016-10-04] MEDS: LORazepam 0.5 MG TAB age > 65 yrs PO PRN (14:13)
--- NOTE | 2016-10-04 14:30 | HHI.PYPN ---
Subjective Remarks Patient discussed with treatment team, chart review, patient seen on unit. Patient remains intrusive tearful somewhat childlike the affect is soft somewhat , she continues compliant with medication. Though there is still difficulty related to placement Review of Systems Except as stated in HPI: all other systems reviewed are Neg Objective Alert: Yes [place]: Person, Place Mood: Other ("better") Affect: Labile (decreased) Memory Intact: Comment (fair) Hallucinations: Other (none) Delusions: No Delusion Type: Other (no delusions) Suicidal: Ideation (no SI) Homicidal: Ideation (no HI) Insight/Judgement Very poor Vitals/IOs Vital Signs Date Time Temp Pulse Resp B/P Pulse Ox O2 Delivery O2 Flow Rate FiO2 10/04/16 05:15 98.0 58 18 142/64 97 Intake and Output 10/03/16 10/03/16 10/04/16 08:00 16:00 00:00 Intake Total 240 ml 720 ml 720 ml Balance 240 ml 720 ml 720 ml Assessment & Plan Problem List: (1) Bipolar affective disorder, depressed ICD Code: F31.30 Assessment & Plan Estimated LOS: days patient continues somewhat labile intrusive though softening. Compliant medications. For now continue treatment Justification for Cont. Inpt. At this time patient will decompensate if placed on the lower level of care Discharge Planning To be determined Problem Qualifiers (1) Bipolar affective disorder, depressed: Qualified Code: F31.32 - Bipolar affective disorder, currently depressed, moderate Sky Mcmahon MD Oct 04, 2016 14:29
[2016-10-04] MEDS: ACETAMINOPHEN 325 MG TAB PO PRN (18:06)
[2016-10-04 21:35] VITALS: PULSE 68
[2016-10-04] MEDS: traZODone HCL 100 MG TAB PO SCH (21:36)
[2016-10-04] MEDS: DULoxetine HCl DR 60 MG CAP PO SCH (21:37)
[2016-10-05] MEDS: traMADol HCL 50 MG TAB PO PRN ×3 (05:02→22:49)
[2016-10-05 05:03] VITALS: BP 114/66; PULSE 70; RESP 16; TEMP 97.8; O2SAT 95
[2016-10-05] MEDS: CALCIUM/VITAMIN D 250 MG/125 U TAB PO SCH ×3 (08:46→16:44)
[2016-10-05] MEDS: POTASSIUM CHLORIDE 10 MEQ CONTROLLED RELEASE TAB PO SCH (08:46)
[2016-10-05] MEDS: FUROSEMIDE 20 MG TAB PO SCH (08:46)
[2016-10-05] MEDS: BENZTROPINE MESYLATE 2 MG TAB PO SCH ×2 (08:46→22:48)
[2016-10-05] MEDS: METOPROLOL TARTRATE 25 MG TAB PO SCH ×2 (08:46→22:47)
[2016-10-05] MEDS: LISINOPRIL 10 MG TAB PO SCH (08:46)
[2016-10-05] MEDS: DIVALPROEX SODIUM E.R. 500 MG TAB PO SCH ×2 (08:46→22:48)
[2016-10-05] MEDS: PANTOPRAZOLE SOD 20 MG DELAYED RELEASE TAB PO SCH (08:46)
[2016-10-05] MEDS: CYANOCOBALAMIN 1,000 MCG TAB PO SCH (08:46)
[2016-10-05] MEDS: ZIPRASIDONE HCL 60 MG CAP PO SCH (08:46)
[2016-10-05] MEDS: ACETAMINOPHEN 325 MG TAB PO PRN (08:47)
[2016-10-05] MEDS: LORazepam 0.5 MG TAB age > 65 yrs PO PRN (08:47)
--- NOTE | 2016-10-05 11:02 | HHI.PYPN ---
Subjective Remarks Patient seen on unit with floor staff, continues to be intrusive loud superficial and childlike. Will increase at at bedtime Geodon to 160 mg continue morning dose of 120 mg Review of Systems Except as stated in HPI: all other systems reviewed are Neg Objective Alert: Yes [place]: Person, Place Mood: Other ("better") Affect: Labile (decreased) Memory Intact: Comment (fair) Hallucinations: Other (none) Delusions: No Delusion Type: Other (no delusions) Suicidal: Ideation (no SI) Homicidal: Ideation (no HI) Insight/Judgement Very poor Vitals/IOs Vital Signs Date Time Temp Pulse Resp B/P Pulse Ox O2 Delivery O2 Flow Rate FiO2 10/05/16 05:03 97.8 70 16 114/66 95 Intake and Output 10/04/16 10/04/16 10/05/16 08:00 16:00 00:00 Intake Total 0 ml 1800 ml Balance 0 ml 1800 ml Assessment & Plan Problem List: (1) Bipolar affective disorder, depressed ICD Code: F31.30 Assessment & Plan Estimated LOS: days patient continues somewhat intrusive silly childlike though the intensity is somewhat diminished. See medication changes above Justification for Cont. Inpt. At this time patient will decompensate if placed in the lower level of care Discharge Planning To be determined Problem Qualifiers (1) Bipolar affective disorder, depressed: Qualified Code: F31.32 - Bipolar affective disorder, currently depressed, moderate Sky Mcmahon MD Oct 05, 2016 11:02
[2016-10-05 20:10] VITALS: BP 149/65; PULSE 64; RESP 16; TEMP 98; O2SAT 96
[2016-10-05] MEDS: DULoxetine HCl DR 60 MG CAP PO SCH (22:47)
[2016-10-05] MEDS: ZIPRASIDONE HCL 80 MG CAP PO SCH (22:48)
[2016-10-05] MEDS: traZODone HCL 100 MG TAB PO SCH (22:48)
[2016-10-06 06:08] VITALS: BP 107/54; PULSE 78; RESP 16; TEMP 98.2; O2SAT 94
--- NOTE | 2016-10-06 09:53 | HHI.PYPN ---
Subjective Remarks Patient seen in dayroom, with nurse Erin, chart review, patient does in Bella chair arousable to her childlike behavior but calmer less intrusive the less loud. Compliant medications Review of Systems Except as stated in HPI: all other systems reviewed are Neg Objective Alert: Yes [place]: Person, Place Mood: Other ("better") Affect: Labile (decreased) Memory Intact: Comment (fair) Hallucinations: Other (none) Delusions: No Delusion Type: Other (no delusions) Suicidal: Ideation (no SI) Homicidal: Ideation (no HI) Insight/Judgement Poor Vitals/IOs Vital Signs Date Time Temp Pulse Resp B/P Pulse Ox O2 Delivery O2 Flow Rate FiO2 10/06/16 06:08 98.2 78 16 107/54 94 Intake and Output 10/05/16 10/05/16 10/06/16 08:00 16:00 00:00 Intake Total 0 ml 2880 ml 600 ml Balance 0 ml 2880 ml 600 ml Assessment & Plan Problem List: (1) Bipolar affective disorder, depressed ICD Code: F31.30 Assessment & Plan Estimated LOS: days patient somewhat calmer today though continues child lichens at times somewhat intrusive. Compliant medications. Justification for Cont. Inpt. With this time patient will decompensate if placed in the lower level of care Discharge Planning To be determined Problem Qualifiers (1) Bipolar affective disorder, depressed: Qualified Code: F31.32 - Bipolar affective disorder, currently depressed, moderate Sky Mcmahon MD Oct 06, 2016 09:53
[2016-10-06] MEDS: LORazepam 0.5 MG TAB age > 65 yrs PO PRN (10:00)
[2016-10-06] MEDS: PANTOPRAZOLE SOD 20 MG DELAYED RELEASE TAB PO SCH (10:01)
[2016-10-06] MEDS: FUROSEMIDE 20 MG TAB PO SCH (10:01)
[2016-10-06] MEDS: POTASSIUM CHLORIDE 10 MEQ CONTROLLED RELEASE TAB PO SCH (10:01)
[2016-10-06] MEDS: METOPROLOL TARTRATE 25 MG TAB PO SCH ×2 (10:01→20:34)
[2016-10-06] MEDS: DIVALPROEX SODIUM E.R. 500 MG TAB PO SCH ×2 (10:01→20:34)
[2016-10-06] MEDS: BENZTROPINE MESYLATE 2 MG TAB PO SCH ×2 (10:02→20:33)
[2016-10-06] MEDS: LISINOPRIL 10 MG TAB PO SCH (10:02)
[2016-10-06] MEDS: CYANOCOBALAMIN 1,000 MCG TAB PO SCH (10:02)
[2016-10-06] MEDS: ZIPRASIDONE HCL 60 MG CAP PO SCH (10:02)
[2016-10-06] MEDS: CALCIUM/VITAMIN D 250 MG/125 U TAB PO SCH ×3 (10:02→17:52)
[2016-10-06] MEDS: ZIPRASIDONE HCL 80 MG CAP PO SCH (20:33)
[2016-10-06] MEDS: traMADol HCL 50 MG TAB PO PRN (20:33)
[2016-10-06] MEDS: traZODone HCL 100 MG TAB PO SCH (20:33)
[2016-10-06] MEDS: DULoxetine HCl DR 60 MG CAP PO SCH (20:34)
[2016-10-06 22:57] VITALS: BP 112/59; PULSE 71; RESP 18; TEMP 97.3; O2SAT 96
[2016-10-07 06:45] VITALS: BP 124/72; PULSE 69; RESP 17; TEMP 96.6; O2SAT 98
[2016-10-07] MEDS: CALCIUM/VITAMIN D 250 MG/125 U TAB PO SCH ×3 (09:17→16:42)
[2016-10-07] MEDS: CYANOCOBALAMIN 1,000 MCG TAB PO SCH (09:17)
[2016-10-07] MEDS: DIVALPROEX SODIUM E.R. 500 MG TAB PO SCH ×2 (09:17→21:25)
[2016-10-07] MEDS: ZIPRASIDONE HCL 60 MG CAP PO SCH (09:17)
[2016-10-07] MEDS: BENZTROPINE MESYLATE 2 MG TAB PO SCH ×2 (09:17→21:25)
[2016-10-07] MEDS: METOPROLOL TARTRATE 25 MG TAB PO SCH ×2 (09:18→21:25)
[2016-10-07] MEDS: POTASSIUM CHLORIDE 10 MEQ CONTROLLED RELEASE TAB PO SCH (09:18)
[2016-10-07] MEDS: FUROSEMIDE 20 MG TAB PO SCH (09:18)
[2016-10-07] MEDS: LISINOPRIL 10 MG TAB PO SCH (09:18)
[2016-10-07] MEDS: PANTOPRAZOLE SOD 20 MG DELAYED RELEASE TAB PO SCH (09:18)
--- NOTE | 2016-10-07 11:24 | HHI.PYPN ---
Subjective Remarks Patient seen in day room, sitting in Bella chair, with nurse Erin, chart reviewed, patient continues to ask for increased pain medication, complains of some poor sleep. Her H his cervical just adjusted continue to monitor no change in medication at this time. Patient is calmer less intrusive less childlike with me today Review of Systems Except as stated in HPI: all other systems reviewed are Neg Objective Alert: Yes [place]: Person, Place Mood: Other ("better") Affect: Labile (decreased) Memory Intact: Comment (fair) Hallucinations: Other (none) Delusions: No Delusion Type: Other (no delusions) Suicidal: Ideation (no SI) Homicidal: Ideation (no HI) Insight/Judgement Poor Vitals/IOs Vital Signs Date Time Temp Pulse Resp B/P Pulse Ox O2 Delivery O2 Flow Rate FiO2 10/07/16 06:45 96.6 69 17 124/72 98 Intake and Output 10/06/16 10/06/16 10/07/16 08:00 16:00 00:00 Intake Total 360 ml Balance 360 ml Assessment & Plan Problem List: (1) Bipolar affective disorder, depressed ICD Code: F31.30 Assessment & Plan Estimated LOS: days patient showing some decrease intensity of affect though still remains somewhat childish and intrusive. Justification for Cont. Inpt. At this time patient would significantly decompensated if placed in the lower level of care Discharge Planning To be determined Problem Qualifiers (1) Bipolar affective disorder, depressed: Qualified Code: F31.32 - Bipolar affective disorder, currently depressed, moderate Sky Mcmahon MD Oct 07, 2016 11:24
[2016-10-07] MEDS: ACETAMINOPHEN 325 MG TAB PO PRN (16:42)
[2016-10-07 20:00] VITALS: BP 121/49; PULSE 54; RESP 18; TEMP 96.6; O2SAT 95
[2016-10-07] MEDS: DULoxetine HCl DR 60 MG CAP PO SCH (21:25)
[2016-10-07] MEDS: traMADol HCL 50 MG TAB PO PRN (21:25)
[2016-10-07] MEDS: traZODone HCL 100 MG TAB PO SCH (21:25)
[2016-10-07] MEDS: ZIPRASIDONE HCL 80 MG CAP PO SCH (21:25)
[2016-10-08] MEDS: traMADol HCL 50 MG TAB PO PRN ×2 (06:26→18:04)
[2016-10-08 06:41] VITALS: BP 120/74; PULSE 66; RESP 18; TEMP 98; O2SAT 99
[2016-10-08] MEDS: CALCIUM/VITAMIN D 250 MG/125 U TAB PO SCH ×3 (09:38→18:04)
[2016-10-08] MEDS: CYANOCOBALAMIN 1,000 MCG TAB PO SCH (09:39)
[2016-10-08] MEDS: DIVALPROEX SODIUM E.R. 500 MG TAB PO SCH ×2 (09:41→21:41)
[2016-10-08] MEDS: ZIPRASIDONE HCL 60 MG CAP PO SCH (09:41)
[2016-10-08] MEDS: METOPROLOL TARTRATE 25 MG TAB PO SCH ×2 (09:42→21:40)
[2016-10-08] MEDS: POTASSIUM CHLORIDE 10 MEQ CONTROLLED RELEASE TAB PO SCH (09:42)
[2016-10-08] MEDS: LISINOPRIL 10 MG TAB PO SCH (09:42)
[2016-10-08] MEDS: PANTOPRAZOLE SOD 20 MG DELAYED RELEASE TAB PO SCH (09:42)
[2016-10-08] MEDS: FUROSEMIDE 20 MG TAB PO SCH (09:42)
[2016-10-08] MEDS: BENZTROPINE MESYLATE 2 MG TAB PO SCH ×2 (09:42→21:40)
[2016-10-08] MEDS: risperiDONE EXT REL INJ 37.5 MG/2 ML VIAL IM SCH (09:55)
--- NOTE | 2016-10-08 12:10 | HHI.PYPN ---
Subjective Remarks Patient seen in day room with nurse Deepthi, chart reviewed, patient, pleasant with me today is marked decrease in the intensity lability with her, marked decrease in the med seeking behaviors also. For now continue treatment Review of Systems Except as stated in HPI: all other systems reviewed are Neg Objective Alert: Yes [place]: Person, Place Mood: Other ("better") Affect: Labile (decreased) Memory Intact: Comment (fair) Hallucinations: Other (none) Delusions: No Delusion Type: Other (no delusions) Suicidal: Ideation (no SI) Homicidal: Ideation (no HI) Insight/Judgement Very poor Labs Test 10/08/16 06:28 Valproic Acid (Depakene) Level 106 MCG/ML Vitals/IOs Vital Signs Date Time Temp Pulse Resp B/P Pulse Ox O2 Delivery O2 Flow Rate FiO2 10/08/16 06:41 98.0 66 18 120/74 99 Intake and Output 10/07/16 10/07/16 10/08/16 08:00 16:00 00:00 Intake Total 1080 ml 480 ml Balance 1080 ml 480 ml Assessment & Plan Problem List: (1) Bipolar affective disorder, depressed ICD Code: F31.30 Assessment & Plan Estimated LOS: days patient calmer less intrusive less somatic today, compliant medications Justification for Cont. Inpt. At this time patient would decompensate if placed in a lower level of care Discharge Planning To be determined Problem Qualifiers (1) Bipolar affective disorder, depressed: Qualified Code: F31.32 - Bipolar affective disorder, currently depressed, moderate Sky Mcmahon MD Oct 08, 2016 12:10
[2016-10-08 19:11] VITALS: BP 118/62; PULSE 65; RESP 18; TEMP 96.8; O2SAT 98
[2016-10-08] MEDS: traZODone HCL 100 MG TAB PO SCH (21:40)
[2016-10-08] MEDS: ZIPRASIDONE HCL 80 MG CAP PO SCH (21:40)
[2016-10-08] MEDS: diphenhydrAMINE HCL 50 MG CAP - HS PRN PO (21:41)
[2016-10-08] MEDS: DULoxetine HCl DR 60 MG CAP PO SCH (21:41)
[2016-10-08] MEDS: LORazepam 0.5 MG TAB age > 65 yrs PO PRN (21:41)
[2016-10-09] MEDS: traMADol HCL 50 MG TAB PO PRN ×2 (06:21→14:09)
[2016-10-09 06:24] VITALS: BP 103/58; PULSE 58; RESP 16; TEMP 99.2; O2SAT 95
[2016-10-09] MEDS: METOPROLOL TARTRATE 25 MG TAB PO SCH ×2 (09:00→21:05)
[2016-10-09] MEDS: LISINOPRIL 10 MG TAB PO SCH (09:00)
[2016-10-09] MEDS: FUROSEMIDE 20 MG TAB PO SCH (09:02)
[2016-10-09] MEDS: ZIPRASIDONE HCL 60 MG CAP PO SCH (09:02)
[2016-10-09] MEDS: POTASSIUM CHLORIDE 10 MEQ CONTROLLED RELEASE TAB PO SCH (09:02)
[2016-10-09] MEDS: CYANOCOBALAMIN 1,000 MCG TAB PO SCH (09:02)
[2016-10-09] MEDS: PANTOPRAZOLE SOD 20 MG DELAYED RELEASE TAB PO SCH (09:02)
[2016-10-09] MEDS: CALCIUM/VITAMIN D 250 MG/125 U TAB PO SCH ×3 (09:03→18:18)
[2016-10-09] MEDS: BENZTROPINE MESYLATE 2 MG TAB PO SCH ×2 (09:03→21:04)
[2016-10-09] MEDS: DIVALPROEX SODIUM E.R. 500 MG TAB PO SCH ×2 (09:03→21:03)
[2016-10-09] MEDS: LORazepam 0.5 MG TAB age > 65 yrs PO PRN (09:06)
--- NOTE | 2016-10-09 13:39 | HHI.PYPN ---
Subjective Remarks Patient was seen and case discussed with nursing. Per nursing patient fractured her arm couple of weeks ago. She is getting when necessary Ultram is an pain throughout the day per nursing. Depakote level mildly elevated and treating psychiatrist during the week is aware. Behaving well on the unit. Compliant with medication Objective Alert: Yes [place]: Person, Place Mood: Other ("better") Affect: Labile (decreased) Memory Intact: Comment (fair) Hallucinations: Other (none) Delusions: No Delusion Type: Other (no delusions) Suicidal: Ideation (no SI) Homicidal: Ideation (no HI) Insight/Judgement Poor Vitals/IOs Vital Signs Date Time Temp Pulse Resp B/P Pulse Ox O2 Delivery O2 Flow Rate FiO2 10/09/16 06:24 99.2 58 16 103/58 95 Intake and Output 10/08/16 10/08/16 10/09/16 08:00 16:00 00:00 Intake Total 480 ml 480 ml Balance 480 ml 480 ml Assessment & Plan Problem List: (1) Bipolar affective disorder, depressed ICD Code: F31.30 Assessment & Plan Continue current treatment plan. Start Motrin 600 mg every 8 hours. Justification for Cont. Inpt. Patient would decompensate a less restrictive setting Problem Qualifiers (1) Bipolar affective disorder, depressed: Qualified Code: F31.32 - Bipolar affective disorder, currently depressed, moderate Dante Thomas DO Oct 09, 2016 13:39
[2016-10-09 20:09] VITALS: BP 126/57; PULSE 84; RESP 18; TEMP 98.2
[2016-10-09] MEDS: IBUPROFEN 600 MG TAB PO PRN (21:03)
[2016-10-09] MEDS: traZODone HCL 100 MG TAB PO SCH (21:04)
[2016-10-09] MEDS: ZIPRASIDONE HCL 80 MG CAP PO SCH (21:04)
[2016-10-09] MEDS: DULoxetine HCl DR 60 MG CAP PO SCH (21:04)
[2016-10-10 06:21] VITALS: BP 118/69; PULSE 83; RESP 18; TEMP 97.4
[2016-10-10] MEDS: POTASSIUM CHLORIDE 10 MEQ CONTROLLED RELEASE TAB PO SCH (09:32)
[2016-10-10] MEDS: DIVALPROEX SODIUM E.R. 500 MG TAB PO SCH ×2 (09:32→20:47)
[2016-10-10] MEDS: ZIPRASIDONE HCL 60 MG CAP PO SCH (09:32)
[2016-10-10] MEDS: CYANOCOBALAMIN 1,000 MCG TAB PO SCH (09:33)
[2016-10-10] MEDS: METOPROLOL TARTRATE 25 MG TAB PO SCH ×2 (09:33→20:47)
[2016-10-10] MEDS: PANTOPRAZOLE SOD 20 MG DELAYED RELEASE TAB PO SCH (09:33)
[2016-10-10] MEDS: FUROSEMIDE 20 MG TAB PO SCH (09:33)
[2016-10-10] MEDS: LISINOPRIL 10 MG TAB PO SCH (09:33)
[2016-10-10] MEDS: IBUPROFEN 600 MG TAB PO PRN ×2 (09:33→20:48)
[2016-10-10] MEDS: CALCIUM/VITAMIN D 250 MG/125 U TAB PO SCH ×3 (09:33→18:00)
[2016-10-10] MEDS: BENZTROPINE MESYLATE 2 MG TAB PO SCH ×2 (09:33→20:48)
[2016-10-10] MEDS: traMADol HCL 50 MG TAB PO PRN ×2 (09:34→18:29)
--- NOTE | 2016-10-10 14:07 | HHI.PYPN ---
Subjective Remarks Patient was seen and case discussed with nursing. Patient's pain has improved since we added Motrin. She continues to work herself out of her sling and orthopedics will be consulted for more permanent solution. Patient remains childlike with poor insight. Compliant with medications. Behaving well on the unit Objective Alert: Yes [place]: Person, Place Mood: Other ("better") Affect: Labile (decreased) Memory Intact: Comment (fair) Hallucinations: Other (none) Delusions: No Delusion Type: Other (no delusions) Suicidal: Ideation (no SI) Homicidal: Ideation (no HI) Insight/Judgement Poor Vitals/IOs Vital Signs Date Time Temp Pulse Resp B/P Pulse Ox O2 Delivery O2 Flow Rate FiO2 10/10/16 06:21 97.4 83 18 118/69 10/09/16 06:24 95 Intake and Output 10/09/16 10/09/16 10/10/16 08:00 16:00 00:00 Intake Total 1860 ml Balance 1860 ml Assessment & Plan Problem List: (1) Bipolar affective disorder, depressed ICD Code: F31.30 Assessment & Plan Continue current treatment plan Justification for Cont. Inpt. Patient will decompensate outside of a less restrictive setting Problem Qualifiers (1) Bipolar affective disorder, depressed: Qualified Code: F31.32 - Bipolar affective disorder, currently depressed, moderate Dante Thomas DO Oct 10, 2016 14:07
[2016-10-10 19:46] VITALS: BP 128/73; PULSE 79; RESP 18; TEMP 97.3; O2SAT 99
[2016-10-10] MEDS: ZIPRASIDONE HCL 80 MG CAP PO SCH (20:48)
[2016-10-10] MEDS: DULoxetine HCl DR 60 MG CAP PO SCH (20:48)
[2016-10-10] MEDS: traZODone HCL 100 MG TAB PO SCH (20:48)
[2016-10-11 05:36] VITALS: BP 111/62; PULSE 55; RESP 18; TEMP 97.1; O2SAT 100
[2016-10-11] MEDS: FUROSEMIDE 20 MG TAB PO SCH (09:00)
[2016-10-11] MEDS: LISINOPRIL 10 MG TAB PO SCH (09:00)
[2016-10-11] MEDS: METOPROLOL TARTRATE 25 MG TAB PO SCH ×2 (09:00→21:00)
[2016-10-11] MEDS: BENZTROPINE MESYLATE 2 MG TAB PO SCH ×2 (09:00→21:17)
[2016-10-11] MEDS: ERGOCALCIFEROL (VIT D2) 50,000 UNIT CAP PO SCH (09:00)
[2016-10-11] MEDS: CALCIUM/VITAMIN D 250 MG/125 U TAB PO SCH ×3 (09:02→17:06)
[2016-10-11] MEDS: CYANOCOBALAMIN 1,000 MCG TAB PO SCH (09:02)
[2016-10-11] MEDS: POTASSIUM CHLORIDE 10 MEQ CONTROLLED RELEASE TAB PO SCH (09:02)
[2016-10-11] MEDS: DIVALPROEX SODIUM E.R. 500 MG TAB PO SCH ×2 (09:03→21:17)
[2016-10-11] MEDS: PANTOPRAZOLE SOD 20 MG DELAYED RELEASE TAB PO SCH (09:04)
[2016-10-11] MEDS: ZIPRASIDONE HCL 60 MG CAP PO SCH (09:04)
--- NOTE | 2016-10-11 09:43 | PD.ORT.PN ---
Subjective Subjective Remarks Consult for left proximal humerus fracture and left knee contusion. Patient has bipolar disorder. She does not recall a fall. X-rays were performed on 2016 for left knee and 10/01/2016 for left shoulder. She is examined today in a wheelchair with a sling on her left upper extremity. She complains of pain to her shoulder and mild pain to the left knee. She is pleasant and answers questions accordingly Objective Vitals Vital Signs Date Time Temp Pulse Resp B/P Pulse Ox O2 Delivery O2 Flow Rate FiO2 10/11/16 05:36 97.1 55 18 111/62 100 10/10/16 19:46 97.3 79 18 128/73 99 I/O 10/10/16 10/10/16 10/10/16 10/11/16 10/11/16 10/11/16 07:00 15:00 23:00 07:00 15:00 23:00 Intake Total 1440 ml 150 ml 960 ml Balance 1440 ml 150 ml 960 ml Intake Oral 1440 ml 150 ml 960 ml # Voids 5 2 Imaging Last Impressions Shoulder X-Ray 09/26/16 0000 Signed Impressions: Service Date/Time: Monday, September 26, 2016 19:24 - CONCLUSION: Fracture humeral head as described above. Bernard Willingham MD FACR Knee X-Ray 09/26/16 0000 Signed Impressions: Service Date/Time: Monday, September 26, 2016 19:28 - CONCLUSION: Evidence for previous surgery. Otherwise, negative for an acute process. Bernard Willingham MD FACR Head CT 09/26/16 0000 Signed Impressions: Service Date/Time: Monday, September 26, 2016 20:05 - CONCLUSION: Negative for acute traumatic process. Bernard Willingham MD FACR Hip and Pelvis X-Ray 08/28/16 0000 Signed Impressions: Service Date/Time: Sunday, August 28, 2016 01:42 - CONCLUSION: 1. No acute fracture or malalignment. 2. Remote postsurgical changes status post left hip arthroplasty and open region internal fixation of the left ilium and proximal femur. 3. 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 4. Degenerative disc change in the lumbar spine. Slick Pickard MD Objective Remarks Alessia is alert but is confused. She is sitting in a wheelchair in no acute distress with a sling to her left upper extremity. Right upper extremity: Full range of motion neurovascularly intact Left upper extremity: Significant ecchymosis and mild swelling over proximal humerus. She has no pain to elbow and wrist range of motion. She has intact sensation over the radial ulnar and median nerve distributions with good capillary refills. She is able to extend her fingers and make a fist Right lower extremity: Full range of motion neurovascularly intact Left lower extremity: No pain with hip range of motion. She does have a small scab abrasion over her knee. There is no erythema or drainage. I'm able fully extend her knee and flex her knee to 120. She has only mild tenderness with range of motion of the knee. She does have some tenderness to palpation over the patella. Distally she has intact sensation with good capillary refills Assessment & Plan Assessment and Plan Minimally displaced left proximal humerus fracture- Nonoperative treatment Contusion with abrasion to left knee [employer] we'll fit her with sling and swath for left upper extremity We will perform repeat x-rays today to evaluate alignment of the proximal humerus She'll be nonweightbearing on the left upper extremity and remain in sling and swath at all times. No range of motion. She'll be weightbearing as tolerated to left lower extremity. X-rays and plan are reviewed with Dr. Del Valle and he will continue to follow this patient. SLICK GREENWOOD PA-C Oct 11, 2016 09:43
[2016-10-11] MEDS: IBUPROFEN 600 MG TAB PO PRN ×2 (12:24→21:17)
--- NOTE | 2016-10-11 14:12 | MB ---
cc: COLIN BYRNE ANTONY MD DATE OF CONSULTATION: 10/10/2016 REASON FOR CONSULTATION Left proximal humerus fracture. CONSULTING PHYSICIAN Colin Byrne D.O. HISTORY OF PRESENT ILLNESS Alessia is a 66-year-old female who suffers bipolar affective disorder. She was originally admitted on 08/28/2016. She has been under psychiatric care due to auditory and visual hallucinations and depression. On 09/26/2016 Alessia had a fall and is unable to recall the events. CT scan and knee x-rays were performed and five days later left shoulder x-rays were obtained. X-rays showed a left proximal humerus fracture and she was put into a cradle sling. Since then she has come out of the sling several times and continues to complain of pain to the left proximal humerus. REVIEW OF SYSTEMS She denies any headache, visual changes, neck pain, chest pain, shortness of breath, abdominal pain, nausea or vomiting, recent weight loss, numbness or tingling of extremities, but does complain of left proximal humerus and shoulder pain. PAST MEDICAL HISTORY Bipolar affective disorder. SOCIAL HISTORY Denies any alcohol or drug abuse. ALLERGIES No known allergies. MEDICATIONS Reported medications: 1. Hydroxyzine. 2. Potassium citrate. 3. Metoprolol. 4. Furosemide. 5. Ibuprofen. 6. Benztropine. 7. Calcium carbonate. 8. Ergocalciferol. 9. Risperidone. 10.Lisinopril. 11.Omeprazole. 12.Alendronate. 13.Artificial Tears solution. 14.Divalproex. 15.Depakote. 16.Buspirone. 17.Duloxetine. 18.Trazodone. 19.Cyanocobalamin. FAMILY HISTORY Positive for depression and bipolar affective disorder. PHYSICAL EXAMINATION GENERAL: Alessia is a 66-year-old female who is examined in a wheelchair. She is pleasant with complaints of pain to left shoulder and some pain to left knee. She has a previous history of multiple fractures in the left lower extremity with open reduction, internal fixation of femur as well as tibia plateau. VITAL SIGNS: Temperature 97.1, pulse 55, respiratory rate 18, blood pressure 111/62, pulse ox 100 at room air. HEENT: Normocephalic, atraumatic. Pupils are equal and reactive to light and accommodation. Extraocular movements are intact. Mucosa is moist with no exudates. NECK: Trachea is midline. No lymphadenopathy. CHEST: Breathing is regular with no accessory muscle use. ABDOMEN: Soft, nondistended and nontender. EXTREMITIES: Examination of right upper extremity reveals full range of motion and neurovascularly intact. Examination of the left upper extremity reveals significant bruising and ecchymosis over the proximal humerus. Skin is intact. She has full range of motion of elbow and wrist. She has intact sensation over the radial, ulnar and median nerve distributions with good capillary refill. She is able to extend her fingers and she is able to make a fist. Examination of the right lower extremity reveals no pain with hip or knee range of motion. Distally she has intact sensation with good capillary refill and strong dorsiflexion and plantar flexion of the foot. Examination of the left lower extremity reveals no pain with hip range of motion. She did have a small scab with no erythema or drainage over the knee anteriorly. I am able to fully extend her knee and flex her knee to 120 degrees without any significant discomfort. She does have tenderness to palpation over the patella. Distally she has intact sensation with good capillary refill. She has strong dorsiflexion and plantar flexion of the foot. IMAGING X-rays on 09/26/2016 were reviewed which showed no acute fractures. Previous plate and screw fixation of the distal femur and proximal tibia are noted with no hardware failure. X-rays were also reviewed of the shoulder taken on 10/01/2016 which show a minimally displaced fracture of the humeral head. The glenohumeral joint is concentrically reduced. ASSESSMENT 1. Left proximal humerus fracture minimally displaced. 2. Contusion to left knee. PLAN X-rays obtained on 10/01/2016 show a minimally displaced proximal humerus fracture. She will go into a sling and swathe as she will be fitted by the orthopedic shoes salesperson today. She will be non-weightbearing and will avoid any motion or range of motion of the shoulder. Repeat x-rays will be obtained today since it has been 10 days since previous x-rays and she has been coming out of the sling. Due to the contusion of her left knee she will continue to be weightbearing as tolerated with no restrictions. Anticipate this to continue to improve. She does have degenerative changes and arthritis of the knee which will give her some problems in daily activities. X-rays and plans are reviewed with Dr. Anders Del Valle and he will continue to follow and treat for left proximal humerus fracture. She will be seen tomorrow 10/11/2016 to assess x-ray results as well as fitting for sling and swathe. Dictated by: Jim Rebollar PA-C Anders Del Valle MD AD/BT /9:50 AM /2:12 PM I reviewed and agree with the above. Nonop treatment of left proximal humerus fx in sling- NWB- Start PT for pendulums and PROM WBAT LLE. ROM as tolerated. MTDD
--- NOTE | 2016-10-11 15:33 | RADRPT ---
EXAM DATE/TIME: 10/11/2016 14:33 [facility] COMPARISON: No previous studies available for comparison. INDICATIONS : Left arm pain previous fracture. MEDICAL HISTORY : None. SURGICAL HISTORY : None. ENCOUNTER: Subsequent ACUITY: 1 week PAIN SCORE: 8/10 LOCATION: Left Shoulder FINDINGS: Left humeral neck fracture is present involving the greater tuberosity. Humeral head is not dislocate d. The acromioclavicular joint is intact. Bony mineralization is normal. CONCLUSION: 1. Left humeral neck fracture Justin Corley MD on October 11, 2016 at 15:30 Board Certified Radiologist. This report was verified electronically.
--- NOTE | 2016-10-11 16:58 | HHI.PYPN ---
Subjective Remarks Patient discussed with treatment team, chart reviewed, patient seen on unit. Patient compliant medications continues at times labile childlike though the frequency and intensity has softened. Patient no significant behavioral problems for now continue treatment Review of Systems Except as stated in HPI: all other systems reviewed are Neg Objective Alert: Yes [place]: Person, Place Mood: Other ("better") Affect: Labile (decreased) Memory Intact: Comment (fair) Hallucinations: Other (none) Delusions: No Delusion Type: Other (no delusions) Suicidal: Ideation (no SI) Homicidal: Ideation (no HI) Insight/Judgement Very poor Vitals/IOs Vital Signs Date Time Temp Pulse Resp B/P Pulse Ox O2 Delivery O2 Flow Rate FiO2 10/11/16 05:36 97.1 55 18 111/62 100 Intake and Output 10/10/16 10/10/16 10/11/16 08:00 16:00 00:00 Intake Total 1440 ml 1110 ml Balance 1440 ml 1110 ml Assessment & Plan Problem List: (1) Bipolar affective disorder, depressed ICD Code: F31.30 Assessment & Plan Estimated LOS: days patient continues at times intrusive loud silly and childlike but the intensity and frequency her softening Justification for Cont. Inpt. At this time patient will decompensate if placed in a lower level of care Discharge Planning To be determined Problem Qualifiers (1) Bipolar affective disorder, depressed: Qualified Code: F31.32 - Bipolar affective disorder, currently depressed, moderate Sky Mcmahon MD Oct 11, 2016 16:58
[2016-10-11] MEDS: traMADol HCL 50 MG TAB PO PRN (17:07)
[2016-10-11 19:43] VITALS: BP 102/69; PULSE 73; RESP 18; TEMP 97.9
[2016-10-11] MEDS: LORazepam 0.5 MG TAB age > 65 yrs PO PRN (21:16)
[2016-10-11] MEDS: traZODone HCL 100 MG TAB PO SCH (21:17)
[2016-10-11] MEDS: ZIPRASIDONE HCL 80 MG CAP PO SCH (21:17)
[2016-10-11] MEDS: DULoxetine HCl DR 60 MG CAP PO SCH (21:17)
[2016-10-12] MEDS: diphenhydrAMINE HCL 50 MG CAP - HS PRN PO ×2 (00:31→10:42)
[2016-10-12] MEDS: traMADol HCL 50 MG TAB PO PRN ×2 (00:32→21:17)
[2016-10-12 05:35] VITALS: BP 117/59; PULSE 88; RESP 16; TEMP 97.9; O2SAT 97
[2016-10-12 07:40] LABS: AUTOMATED NEUTROPHIL # 3.5 TH/MM3 (1.8-7.7); BASOPHIL % 0.3 % (0.0-2.0); EOSINOPHIL % 0.3 % (0.0-4.0); HEMATOCRIT 40.9 % (35.0-46.0); HEMO FLAGS DIFF FINAL; LYMPH % 35.6 % (9.0-44.0); LYMPHOCYTE # 2.4 TH/MM3 (1.0-4.8); MEAN CELL VOLUME 90.6 FL (80.0-100.0); MEAN CORPUSCULAR HEMOGLOBIN 30.3 PG (27.0-34.0); MEAN CORPUSCULAR HGB CONC 33.4 % (32.0-36.0); MONO % 11.3 % (0.0-8.0); NEUT % 52.5 % (16.0-70.0); PLATELET COUNT 235 TH/MM3 (150-450); RED BLOOD COUNT 4.51 MIL/MM3 (4.00-5.30); WHITE BLOOD COUNT 6.7 TH/MM3 (4.0-11.0)
[2016-10-12 07:57] LABS: ALKALINE PHOSPHATASE 91 U/L (45-117); ALT (GPT) 11 U/L (10-53); ANION GAP 9 MEQ/L (5-15); AST (GOT) 14 U/L (15-37); BICARBONATE 29.1 MEQ/L (21.0-32.0); BLOOD UREA NITROGEN 23 MG/DL (7-18); CHLORIDE 99 MEQ/L (98-107); GLOMERULAR FILTRATION RATE 45 ML/MIN (>89); POTASSIUM 4.4 MEQ/L (3.5-5.1); SODIUM (NA) 137 MEQ/L (136-145); TOTAL BILIRUBIN ADULT 0.4 MG/DL (0.2-1.0)
[2016-10-12] MEDS: METOPROLOL TARTRATE 25 MG TAB PO SCH ×2 (09:00→21:17)
[2016-10-12] MEDS: CYANOCOBALAMIN 1,000 MCG TAB PO SCH (09:51)
[2016-10-12] MEDS: DIVALPROEX SODIUM E.R. 500 MG TAB PO SCH ×2 (09:51→21:16)
[2016-10-12] MEDS: FUROSEMIDE 20 MG TAB PO SCH (09:51)
[2016-10-12] MEDS: ZIPRASIDONE HCL 60 MG CAP PO SCH (09:52)
[2016-10-12] MEDS: CALCIUM/VITAMIN D 250 MG/125 U TAB PO SCH ×3 (09:52→18:52)
[2016-10-12] MEDS: LISINOPRIL 10 MG TAB PO SCH (09:52)
[2016-10-12] MEDS: POTASSIUM CHLORIDE 10 MEQ CONTROLLED RELEASE TAB PO SCH (09:52)
[2016-10-12] MEDS: BENZTROPINE MESYLATE 2 MG TAB PO SCH ×2 (09:52→21:17)
[2016-10-12] MEDS: PANTOPRAZOLE SOD 20 MG DELAYED RELEASE TAB PO SCH (09:52)
--- NOTE | 2016-10-12 12:42 | HHI.PYPN ---
Subjective Remarks Patient seen in her room with nurse Hazel, patient dosing at this time. Repeat x-rays show left humeral head fracture though good position. Will defer to or thrill for treatment. Patient compliant medications. Staff also noted that appear to be pink tinged urine, patient showing no complaints of UTI at this time, will check UA we'll also repeat Depakote level in a.m. Review of Systems Except as stated in HPI: all other systems reviewed are Neg Objective Alert: Yes [place]: Person, Place Mood: Other ("better") Affect: Labile (decreased) Memory Intact: Comment (fair) Hallucinations: Other (none) Delusions: No Delusion Type: Other (no delusions) Suicidal: Ideation (no SI) Homicidal: Ideation (no HI) Insight/Judgement Very poor Labs Test 10/12/16 06:57 White Blood Count 6.7 TH/MM3 Red Blood Count 4.51 MIL/MM3 Hemoglobin 13.6 GM/DL Hematocrit 40.9 % Mean Corpuscular Volume 90.6 FL Mean Corpuscular Hemoglobin 30.3 PG Mean Corpuscular Hemoglobin 33.4 % Concent Red Cell Distribution Width 15.0 % Platelet Count 235 TH/MM3 Mean Platelet Volume 7.9 FL Neutrophils (%) (Auto) 52.5 % Lymphocytes (%) (Auto) 35.6 % Monocytes (%) (Auto) 11.3 % Eosinophils (%) (Auto) 0.3 % Basophils (%) (Auto) 0.3 % Neutrophils # (Auto) 3.5 TH/MM3 Lymphocytes # (Auto) 2.4 TH/MM3 Monocytes # (Auto) 0.8 TH/MM3 Eosinophils # (Auto) 0.0 TH/MM3 Basophils # (Auto) 0.0 TH/MM3 CBC Comment DIFF FINAL Differential Comment Sodium Level 137 MEQ/L Potassium Level 4.4 MEQ/L Chloride Level 99 MEQ/L Carbon Dioxide Level 29.1 MEQ/L Anion Gap 9 MEQ/L Blood Urea Nitrogen 23 MG/DL Creatinine 1.21 MG/DL Estimat Glomerular Filtration 45 ML/MIN Rate Random Glucose 81 MG/DL Calcium Level 9.3 MG/DL Total Bilirubin 0.4 MG/DL Aspartate Amino Transf 14 U/L (AST/SGOT) Alanine Aminotransferase 11 U/L (ALT/SGPT) Alkaline Phosphatase 91 U/L Total Protein 6.4 GM/DL Albumin 2.9 GM/DL Vitals/IOs Vital Signs Date Time Temp Pulse Resp B/P Pulse Ox O2 Delivery O2 Flow Rate FiO2 10/12/16 05:35 97.9 88 16 117/59 97 Intake and Output 10/11/16 10/11/16 10/12/16 08:00 16:00 00:00 Intake Total 0 ml 960 ml 1260 ml Balance 0 ml 960 ml 1260 ml Assessment & Plan Problem List: (1) Bipolar affective disorder, depressed ICD Code: F31.30 Assessment & Plan Estimated LOS: days patient somewhat sedated today, compliant medications, did get up this morning 3 breakfast and then returned to bed. Will check Depakote blood level in a.m. also will check UA Justification for Cont. Inpt. At this time patient would decompensate if placed in the lower level of care Discharge Planning To be determined Problem Qualifiers (1) Bipolar affective disorder, depressed: Qualified Code: F31.32 - Bipolar affective disorder, currently depressed, moderate Sky Mcmahon MD Oct 12, 2016 12:42
--- NOTE | 2016-10-12 18:39 | PD.ORT.PN ---
Subjective Subjective Remarks in chair comfortable. no complaints Objective Vitals Vital Signs Date Time Temp Pulse Resp B/P Pulse Ox O2 Delivery O2 Flow Rate FiO2 10/12/16 05:35 97.9 88 16 117/59 97 10/11/16 19:43 97.9 73 18 102/69 I/O 10/11/16 10/11/16 10/11/16 10/12/16 10/12/16 10/12/16 07:00 15:00 23:00 07:00 15:00 23:00 Intake Total 960 ml 1500 ml 960 ml 480 ml Balance 960 ml 1500 ml 960 ml 480 ml Intake Oral 960 ml 1500 ml 960 ml 480 ml # Voids 2 3 3 Result Diagram: 10/12/16 0657 10/12/16 0657 Objective Remarks Alert. Confused. LUE in sling. grossly nvi. SILT distally. RLE: nvi. ROM 0-102. SILT distally. 2+PT/DP, +TTP over medial patella facet and medial joint line. negative apprehension, stable to varus and valgus stress. Assessment & Plan Assessment and Plan 1-Minimally displaced left proximal humerus fracture at greater tuberosity- -nonop. sling/swathe. Start PT passive ROM around 2/10. 2-Contusion with abrasion to left knee -WBAT -PT for ROM, gait training F/U Dr. Del Valle 2 weeks Stephane Del Valle Jr., MD Oct 12, 2016 18:39
[2016-10-12 19:00] VITALS: BP 134/59; PULSE 65; RESP 16; TEMP 98.4; O2SAT 99
[2016-10-12 19:11] LABS: BACTERIA, URINE MANY /hpf; BLOOD, URINE NEG (NEG); COMMENT (UR) CULTURE INDICATED; CULTURE IF INDICATED CULTURE INDICATED; GLUCOSE,URINE NEG (NEG); KETONE, URINE NEG (NEG); MUCUS URINE FEW /lpf (OCC); NITRITE,URINE NEG (NEG); PH, URINE 6.5 (5.0-8.5); SQUAMOUS EPITHELIAL CELL URINE 2 /hpf (0-5); URINE COLOR YELLOW (YELLW/STRAW)
[2016-10-12] MEDS: DULoxetine HCl DR 60 MG CAP PO SCH (21:16)
[2016-10-12] MEDS: ZIPRASIDONE HCL 80 MG CAP PO SCH (21:17)
[2016-10-12] MEDS: traZODone HCL 100 MG TAB PO SCH (21:17)
[2016-10-12] MEDS: risperiDONE 1 MG TAB PO SCH (21:17)
[2016-10-13 06:21] VITALS: BP 104/56; PULSE 79; RESP 16; TEMP 97.1; O2SAT 93
[2016-10-13] MEDS: PANTOPRAZOLE SOD 20 MG DELAYED RELEASE TAB PO SCH (08:00)
[2016-10-13] MEDS: DIVALPROEX SODIUM E.R. 500 MG TAB PO SCH ×2 (08:55→21:43)
[2016-10-13] MEDS: BENZTROPINE MESYLATE 2 MG TAB PO SCH ×2 (08:57→21:43)
[2016-10-13] MEDS: METOPROLOL TARTRATE 25 MG TAB PO SCH ×2 (08:58→21:00)
[2016-10-13] MEDS: LISINOPRIL 10 MG TAB PO SCH (08:59)
[2016-10-13] MEDS: CALCIUM/VITAMIN D 250 MG/125 U TAB PO SCH ×3 (08:59→17:19)
[2016-10-13] MEDS: risperiDONE 1 MG TAB PO SCH ×2 (08:59→21:42)
[2016-10-13] MEDS: POTASSIUM CHLORIDE 10 MEQ CONTROLLED RELEASE TAB PO SCH (09:00)
[2016-10-13] MEDS: CYANOCOBALAMIN 1,000 MCG TAB PO SCH (09:00)
[2016-10-13] MEDS: ZIPRASIDONE HCL 60 MG CAP PO SCH (09:00)
[2016-10-13] MEDS: FUROSEMIDE 20 MG TAB PO SCH (09:00)
[2016-10-13] MEDS: IBUPROFEN 600 MG TAB PO PRN (09:02)
--- NOTE | 2016-10-13 11:26 | HHI.PYPN ---
Subjective Remarks Patient seen in day room with nurse Josseline and family practice resident Antonina, patient calm and pleasant with me. Though still somewhat childish she is calmer and more appropriate. She does complain of pain with a fractured left shoulder. We will discontinue her Tylenol Motrin and tramadol. Will start Tylenol 3 one every 6 hours when necessary pain. Her UA also came back positive for the culture indicated. The culture results are not ready yet. We' ll start patient on Bactrim DS 1 twice a day 5 days. Continue other medications no change Review of Systems Except as stated in HPI: all other systems reviewed are Neg Objective Alert: Yes [place]: Person, Place Mood: Other ("better") Affect: Labile (decreased) Memory Intact: Comment (fair) Hallucinations: Other (none) Delusions: No Delusion Type: Other (no delusions) Suicidal: Ideation (no SI) Homicidal: Ideation (no HI) Insight/Judgement Poor Labs Test 10/12/16 10/13/16 18:59 06:54 Urine Color YELLOW Urine Turbidity CLEAR Urine pH 6.5 Urine Specific [place] 1.010 Urine Protein NEG mg/dL Urine Glucose (UA) NEG mg/dL Urine Ketones NEG mg/dL Urine Occult Blood NEG Urine Nitrite NEG Urine Bilirubin NEG Urine Urobilinogen LESS THAN 2.0 MG/DL Urine Leukocyte Esterase NEG Urine RBC 1 /hpf Urine WBC 2 /hpf Urine Squamous Epithelial 2 /hpf Cells Urine Bacteria MANY /hpf Urine Mucus FEW /lpf Microscopic Urinalysis Comment CULTURE INDICATED Valproic Acid (Depakene) Level 105 MCG/ML Date/Time Procedure Status Source Growth 10/12/16 18:59 Urine Culture Received Urine Clean Catch Pending Vitals/IOs Vital Signs Date Time Temp Pulse Resp B/P Pulse Ox O2 Delivery O2 Flow Rate FiO2 10/13/16 06:21 97.1 79 16 104/56 93 Intake and Output 10/12/16 10/12/16 10/13/16 08:00 16:00 00:00 Intake Total 240 ml 480 ml 720 ml Balance 240 ml 480 ml 720 ml Assessment & Plan Problem List: (1) Bipolar affective disorder, depressed ICD Code: F31.30 Assessment & Plan Estimated LOS: days patient continues somewhat loud and intrusive but softer. UA was positive will start patient on Bactrim DS while awaiting urine culture results, will also discontinue prior analgesics start patient on T3's to help control pain related to her fractured left shoulder continue to work on placement issues related to possible transfer to facility in [facility] to be near to sister Justification for Cont. Inpt. At this time patient would decompensate if placed in a lower level of care Discharge Planning To be determined Problem Qualifiers (1) Bipolar affective disorder, depressed: Qualified Code: F31.32 - Bipolar affective disorder, currently depressed, moderate Sky Mcmahon MD Oct 13, 2016 11:26
[2016-10-13] MEDS: SULFAMETHOXAZOLE-TRIMETHOPRIM DS 800-160 MG TAB PO SCH ×2 (11:56→21:43)
[2016-10-13] MEDS: ACETAMINOPHEN/CODEINE 300 MG/30 MG TAB PO PRN ×2 (12:07→18:00)
[2016-10-13] MEDS: ZIPRASIDONE HCL 80 MG CAP PO SCH (21:43)
[2016-10-13] MEDS: DULoxetine HCl DR 60 MG CAP PO SCH (21:43)
[2016-10-13] MEDS: traZODone HCL 100 MG TAB PO SCH (21:43)
[2016-10-14 05:37] VITALS: BP 91/59; PULSE 78; RESP 16; TEMP 98.2
[2016-10-14] MEDS: PANTOPRAZOLE SOD 20 MG DELAYED RELEASE TAB PO SCH (08:00)
[2016-10-14] MEDS: SULFAMETHOXAZOLE-TRIMETHOPRIM DS 800-160 MG TAB PO SCH ×2 (08:20→20:01)
[2016-10-14] MEDS: BENZTROPINE MESYLATE 2 MG TAB PO SCH ×2 (08:20→19:59)
[2016-10-14] MEDS: DIVALPROEX SODIUM E.R. 500 MG TAB PO SCH ×2 (08:21→20:02)
[2016-10-14] MEDS: ZIPRASIDONE HCL 60 MG CAP PO SCH (08:21)
[2016-10-14] MEDS: METOPROLOL TARTRATE 25 MG TAB PO SCH ×2 (08:22→19:58)
[2016-10-14] MEDS: POTASSIUM CHLORIDE 10 MEQ CONTROLLED RELEASE TAB PO SCH (08:22)
[2016-10-14] MEDS: FUROSEMIDE 20 MG TAB PO SCH (08:22)
[2016-10-14] MEDS: CALCIUM/VITAMIN D 250 MG/125 U TAB PO SCH ×3 (08:23→17:05)
[2016-10-14] MEDS: CYANOCOBALAMIN 1,000 MCG TAB PO SCH (08:23)
[2016-10-14] MEDS: LISINOPRIL 10 MG TAB PO SCH (08:23)
[2016-10-14] MEDS: risperiDONE 1 MG TAB PO SCH ×2 (08:23→19:59)
[2016-10-14] MEDS: ACETAMINOPHEN/CODEINE 300 MG/30 MG TAB PO PRN ×3 (08:24→20:25)
--- NOTE | 2016-10-14 12:33 | HHI.PYPN ---
Subjective Remarks Patient seen in day room with nurse Josseline, chart review, it appears that Tylenol 3 is helping with the pain from her left shoulder. Patient somewhat drowsy and at at the present time though arousable she is calm and pleasant though continue somewhat confused. For now continue treatment Review of Systems Except as stated in HPI: all other systems reviewed are Neg Objective Alert: Yes [place]: Person, Place Mood: Other ("better") Affect: Labile (decreased) Memory Intact: Comment (fair) Hallucinations: Other (none) Delusions: No Delusion Type: Other (no delusions) Suicidal: Ideation (no SI) Homicidal: Ideation (no HI) Insight/Judgement Very poor Labs Date/Time Procedure Status Source Growth 10/12/16 18:59 Urine Culture - Final Complete Urine Clean Catch 10-50,000 CFU/ML MIXED RAI... Vitals/IOs Vital Signs Date Time Temp Pulse Resp B/P Pulse Ox O2 Delivery O2 Flow Rate FiO2 10/14/16 05:37 98.2 78 16 91/59 10/13/16 06:21 93 Intake and Output 10/13/16 10/13/16 10/14/16 08:00 16:00 00:00 Intake Total 240 ml 990 ml Balance 240 ml 990 ml Assessment & Plan Problem List: (1) Bipolar affective disorder, depressed ICD Code: F31.30 Assessment & Plan Estimated LOS: days patient appears somewhat calmer appears pain relief is better now with the Tylenol 3. Patient less intense less intrusive Justification for Cont. Inpt. At this time the patient will decompensate if placed at a lower level of care Discharge Planning To be determined Problem Qualifiers (1) Bipolar affective disorder, depressed: Qualified Code: F31.32 - Bipolar affective disorder, currently depressed, moderate Sky Mcmahon MD Oct 14, 2016 12:33
[2016-10-14 18:40] VITALS: BP 115/82; PULSE 60; RESP 16; TEMP 97.8; O2SAT 96
[2016-10-14] MEDS: traZODone HCL 100 MG TAB PO SCH (19:56)
[2016-10-14] MEDS: DULoxetine HCl DR 60 MG CAP PO SCH (19:56)
[2016-10-14] MEDS: diphenhydrAMINE HCL 50 MG CAP - HS PRN PO (19:58)
[2016-10-14] MEDS: ZIPRASIDONE HCL 80 MG CAP PO SCH (20:04)
[2016-10-15] VITALS (10 sets, daily range): BP systolic 92–132; BP diastolic 50–65; PULSE 69–118; RESP 17–28; TEMP 98.3–101.1; O2SAT 92–100
[2016-10-15] MEDS: PANTOPRAZOLE SOD 20 MG DELAYED RELEASE TAB PO SCH (08:00)
[2016-10-15] MEDS: METOPROLOL TARTRATE 25 MG TAB PO SCH ×2 (08:33→23:36)
[2016-10-15] MEDS: FUROSEMIDE 20 MG TAB PO SCH (09:00)
[2016-10-15] MEDS: DIVALPROEX SODIUM E.R. 500 MG TAB PO SCH (09:00)
[2016-10-15] MEDS: LISINOPRIL 10 MG TAB PO SCH (09:00)
[2016-10-15] MEDS: risperiDONE 1 MG TAB PO SCH (09:00)
[2016-10-15] MEDS: CALCIUM/VITAMIN D 250 MG/125 U TAB PO SCH ×3 (09:00→18:00)
[2016-10-15] MEDS: CYANOCOBALAMIN 1,000 MCG TAB PO SCH (09:00)
[2016-10-15] MEDS: POTASSIUM CHLORIDE 10 MEQ CONTROLLED RELEASE TAB PO SCH (09:00)
[2016-10-15] MEDS: ZIPRASIDONE HCL 60 MG CAP PO SCH (09:00)
[2016-10-15] MEDS ORDERED: SODIUM CHLOR 0.9% 1000 ML INJ 1,000 ML IV SCH (11:00)
[2016-10-15 11:13] LABS: AUTOMATED NEUTROPHIL # 6.6 TH/MM3 (1.8-7.7); BASOPHIL % 0.3 % (0.0-2.0); EOSINOPHIL % 0.4 % (0.0-4.0); HEMATOCRIT 34.8 % (35.0-46.0); HEMO FLAGS DIFF FINAL; LYMPH % 16.8 % (9.0-44.0); LYMPHOCYTE # 1.8 TH/MM3 (1.0-4.8); MEAN CELL VOLUME 93.3 FL (80.0-100.0); MEAN CORPUSCULAR HEMOGLOBIN 30.5 PG (27.0-34.0); MEAN CORPUSCULAR HGB CONC 32.7 % (32.0-36.0); MONO % 19.4 % (0.0-8.0); NEUT % 63.1 % (16.0-70.0); PLATELET COUNT 157 TH/MM3 (150-450); RED BLOOD COUNT 3.73 MIL/MM3 (4.00-5.30); WHITE BLOOD COUNT 10.5 TH/MM3 (4.0-11.0)
[2016-10-15 11:15] LABS: GLUCOSE,URINE 100 mg/dL (NEG)
[2016-10-15] MEDS ORDERED: PROPRANOLOL HCL 10 MG TAB PO ONE (11:15)
[2016-10-15 11:17] LABS: BLOOD, URINE SMALL (NEG); KETONE, URINE NEG (NEG); NITRITE,URINE NEG (NEG); PH, URINE 5.5 (5.0-8.5); URINE COLOR YELLOW (YELLW/STRAW)
[2016-10-15 11:18] LABS: BACTERIA, URINE RARE /hpf; COMMENT (UR) CATH-CULTURE IND; CULTURE IF INDICATED CATH CULTURE IND; WBC, URINE 0-2 /hpf (0-5)
--- NOTE | 2016-10-15 11:21 | HHI.PYPN ---
Subjective Remarks Patient was seen for evaluation today along with nurse staff, patient is poorly cooperative, she seems to be confused, restless, agitated, needing frequent redirection, she is oriented in person, disoriented in time and place, not able to focus, with visible bilateral lower extremity movements. Review of Systems ROS Limitations: Altered Mental Status, Uncooperative Psychiatric: COMPLAINS OF: Confusion Objective Alert: Yes [place]: Person Mood: Agitated, Anxious Affect: Restricted Memory Intact: Comment (impaired ) Hallucinations: Other Delusions: No Delusion Type: Other (no delusions) Suicidal: Ideation (no SI) Homicidal: Ideation (no HI) Insight/Judgement poor Labs Date/Time Procedure Status Source Growth 10/12/16 18:59 Urine Culture - Final Complete Urine Clean Catch 10-50,000 CFU/ML MIXED RAI... Vitals/IOs Vital Signs Date Time Temp Pulse Resp B/P Pulse Ox O2 Delivery O2 Flow Rate FiO2 10/15/16 08:33 98.3 89 17 92/53 98 Intake and Output 10/14/16 10/14/16 10/15/16 08:00 16:00 00:00 Intake Total 120 ml 360 ml Balance 120 ml 360 ml Assessment & Plan Problem List: (1) Bipolar affective disorder, depressed Assessment & Plan: On psychiatric reevaluation today patient seems to be confused, agitated, restless, with continues involuntary legs movement which might suggest akathisia. Will order Depakote levels, EKG, routine labs including urine and CPK. Hospitalist consult to address potential underlying medical conditions. Will decrease Geodon to 120 mg twice a day, will will decrease benztropine to 1 mg twice a day, will decrease Depakote to 500 mg twice a day, will decrease Trazodone to 100 mg bid. ICD Code: F31.30 Assessment & Plan Estimated LOS: days Justification for Cont. Inpt. Patient is to continue psychiatric hospitalization for stabilization Problem Qualifiers (1) Bipolar affective disorder, depressed: Qualified Code: F31.32 - Bipolar affective disorder, currently depressed, moderate Saúl Alicia MD Oct 15, 2016 11:21
[2016-10-15 11:30] LABS: ALKALINE PHOSPHATASE 85 U/L (45-117); ALT (GPT) 13 U/L (10-53); ANION GAP 6 MEQ/L (5-15); AST (GOT) 16 U/L (15-37); BICARBONATE 28.5 MEQ/L (21.0-32.0); BLOOD UREA NITROGEN 36 MG/DL (7-18); CHLORIDE 103 MEQ/L (98-107); GLOMERULAR FILTRATION RATE 21 ML/MIN (>89); MAGNESIUM 2.1 MG/DL (1.5-2.5); POTASSIUM 5.5 MEQ/L (3.5-5.1); SODIUM (NA) 137 MEQ/L (136-145); TOTAL BILIRUBIN ADULT 0.5 MG/DL (0.2-1.0)
--- NOTE | 2016-10-15 13:38 | EKG ---
Date Performed: 10/15/2016 Time Performed: 10:40:34 PTAGE: 66 years EKG: Sinus rhythm NONSPECIFIC T-WAVE ABNORMALITY BORDERLINE ECG NO PREVIOUS TRACING DOCTOR: Mayte Seth Interpretating Date/Time 10/15/2016 13:34:38
--- NOTE | 2016-10-15 14:16 | HHI.PR ---
Subjective Remarks Reconsulted. Medical management UTI, pain. Patient reported to have changed in mental status. She is to be awake alert pleasant and responsive to questions and commands. Noted to be severely confused, agitated, unable to answer questions and commands. Patient also with hypoxia O2 sat low that she needs to be placed on 2 L nasal cannula as per nursing. Patient was also hypertensive SBP's in the 90s. UA was done last 10/12 with cultures of 10,000-50,000 mixed sandy. Patient was transferred to medical psychiatric unit for further evaluation. Patient seen today. Occasional response to questions and commands. Very restless. Moves all extremities and needs to be held down by 3 nurses. Abdominal palpation with tenderness to left lower quadrant. As per nursing, no report when patient had last bowel movement. When catheterized earlier, there was no urine flow. Mouth appears dry, skin appears dry. Otherwise, patient is afebrile. No noted nausea, vomiting, diarrhea. Cough is present. Objective Vitals Vital Signs Date Time Temp Pulse Resp B/P Pulse Ox O2 Delivery O2 Flow Rate FiO2 10/15/16 11:21 96 Nasal Cannula 4.00 10/15/16 11:21 99.1 90 18 95/50 96 10/15/16 08:33 98.3 89 17 92/53 98 10/14/16 18:40 97.8 60 16 115/82 96 I/O 10/14/16 10/14/16 10/14/16 10/15/16 10/15/16 10/15/16 07:00 15:00 23:00 07:00 15:00 23:00 Intake Total 120 ml 360 ml 360 ml Balance 120 ml 360 ml 360 ml Intake Oral 120 ml 360 ml Lipid 360 ml # Voids 1 5 1 # Bowel Movements 0 Result Diagram: 10/15/16 1037 10/15/16 1037 Objective Remarks GENERAL: This is a well-nourished, well-developed patient, in no apparent distress. HEENT: Normocephalic. Pupils equal round and reactive. Nose without bleeding. Airway patent. NECK: Trachea midline. No JVD. Supple. CARDIOVASCULAR: Regular rate and rhythm without murmurs, gallops, or rubs. RESPIRATORY: Diminished bases. No wheezes, rales, or rhonchi. Cough noted GASTROINTESTINAL: Abdomen soft, nondistended, tender to palpate left lower quadrant. Bowel Sounds hypoactive. NEUROLOGICAL: Awake and alert. Restless. Confuse. OSBORN. Nonverbal/mute. Procedures none A/P Problem List: (1) Bipolar affective disorder, depressed ICD Code: F31.30 Status: Acute (2) Schizophrenia ICD Code: F20.9 Status: Acute (3) Abdominal pain ICD Code: R10.9 Status: Acute (4) UTI (urinary tract infection) ICD Code: N39.0 Status: Acute (5) Hypoxia ICD Code: R09.02 Status: Acute (6) Acute kidney failure ICD Code: N17.9 Status: Acute Assessment and Plan This is a pleasant 65-year-old morbidly obese female patient with a past medical history which includes hypertension, bipolar and schizophrenia. Encephalopathy, AMS - difficult levels elevated previous days. Recheck level today 77 - Avoid sedative narcotics. DC Tylenol 3 for now. Abdominal pain - left lower quadrant tenderness to palpation - Abdominal KUB ordered. Will follow-up results. Hypoxia, Cough - continue 2 L nasal cannula. - DuoNeb's when necessary - Check chest x-ray - Monitor respiratory status UTI - patient was placed on Bactrim few days ago. UA showed 10,000-50,000 mixed sandy, possible contamination - DC Bactrim for now. Repeat UA straight catheter. Acute kidney injury - elevated BUN/creatinine 36/2.30 - IV fluids for hydration NS 84ml/hr - Avoid nephrotoxins - Recheck BMP tomorrow Left humeral neck fracture - orthosis following patient. Recommended for sling and swathe. - Continue precautions. HTN - low BP prior to transfer to medical psychiatric unit. 91/59, 92/53,95/50. - Hold lisinopril, metoprolol for now - Monitor BP trend Discussed with patient, nursing Written by Tiburcio Cope, acting as scribe for Dr. العلي on 10/15/16 at 11:00. The documentation accurately reflects the work performed [id number] by me on at 16:52. Problem Qualifiers (1) Bipolar affective disorder, depressed: Qualified Code: F31.32 - Bipolar affective disorder, currently depressed, moderate (2) Schizophrenia: Qualified Code: F20.0 - Paranoid schizophrenia Tiburcio Brito Oct 15, 2016 14:16 Enoc العلي MD Oct 15, 2016 16:52
--- NOTE | 2016-10-15 14:32 | RADRPT ---
EXAM DATE/TIME: 10/15/2016 12:36 [facility] COMPARISON: No previous studies available for comparison. INDICATIONS : Abdominal pain. MEDICAL HISTORY : Hypertension. SURGICAL HISTORY : Hip replacement. ENCOUNTER: Initial ACUITY: 1 day PAIN SCORE: Non-responsive. LOCATION: Abdomen. FINDINGS: There is no free air. Very minimal parenchymal changes are seen in the right lung base. The left laz ng is clear. Vena cava filter is evident. CONCLUSION: Nonspecific bowel gas pattern. Bernard Willingham MD FACR on October 15, 2016 at 13:57 Board Certified Radiologist. This report was verified electronically.
--- NOTE | 2016-10-15 14:36 | RADRPT ---
EXAM DATE/TIME: 10/15/2016 12:46 [facility] COMPARISON: No previous studies available for comparison. INDICATIONS : Hypoxia. MEDICAL HISTORY : Hypertension. SURGICAL HISTORY : None. ENCOUNTER: Initial ACUITY: 1 day PAIN SCORE: Non-responsive. LOCATION: Bilateral chest FINDINGS: The right lung is clear. Minimal parenchymal changes are seen in the left base. The heart and pulmo nary vascularity are normal. The portions of the bony skeleton visualized are unremarkable. CONCLUSION: Minimal parenchymal changes in the left base. Bernard Willingham MD FACR on October 15, 2016 at 13:58 Board Certified Radiologist. This report was verified electronically.
[2016-10-15] MEDS ORDERED: RESP: ALBUTEROL 2.5 MG/IPRATROPIUM 0.5 MG NEB (PRN) INH (15:00)
[2016-10-15] MEDS: SODIUM POLYSTYRENE SULFONATE SUSP 15 GM/60 ML CUP PO ONE (15:30)
[2016-10-15] MEDS: AZITHROMYCIN INJ 500 MG in SODIUM CHLOR 0.9% 250 ML INJ 250 ML IV SCH (16:00)
[2016-10-15] MEDS ORDERED: BISACODYL 10 MG SUPP PR PRN (17:00)
[2016-10-15] MEDS: PIPERACIL-TAZO 2.25 GM PREMIX 50 ML IV SCH ×2 (17:00→23:37)
[2016-10-15] MEDS ORDERED: LACTULOSE SYRUP 20 GM/30 ML CUP PO PRN (17:00)
[2016-10-15] MEDS ORDERED: DOCUSATE SODIUM 100 MG CAP PO PRN (17:00)
[2016-10-15] MEDS: RESP: ALBUTEROL 2.5 MG/IPRATROPIUM 0.5 MG NEB (SCH) INH (17:20)
--- NOTE | 2016-10-15 18:27 | HHI.PR ---
Addendum To [facility] Progress Not Reason for addendum: Additonal documentation (Pt. reported to be febrile 101.1 , tachycardic, dyspneic on 4L nc. Pt. seen, using accessory muscles and more lethargic compared to earlier. Pt. eyes opening to stimulation, not verbalizing , restless, using accessory muscles to breathe. O2 sat 89-92%. Rhonchi throughout with rales. Discussed with Dr. العلي. NPO for now. ABG Stat. Blood cultures ordered, lactic acid. IV antibiotics ordered earlier Azithromax and Zosyn. Cage Manager consulted. Will transfer to ICU. RN aware.) Tiburcio Brito Oct 15, 2016 18:27
[2016-10-15] MEDS: SODIUM CHLOR 0.9% 1000 ML INJ 1,000 ML IV SCH (18:59)
[2016-10-15] MEDS ORDERED: RESP: ALBUTEROL 2.5 MG/3 ML NEB (PRN) INH (19:00)
[2016-10-15] MEDS ORDERED: SODIUM CHLORIDE 0.9% FLUSH 5 ML FLUSH IV FLUSH PRN (19:00)
[2016-10-15] MEDS ORDERED: MISCELLANEOUS NURSING INFORMATION XX SCH (19:00)
[2016-10-15] MEDS ORDERED: CHLORHEXIDINE GLUCONATE 2 % 1 PACK (2 CLOTHS) TOP PRN (19:00)
[2016-10-15] MEDS ORDERED: ONDANSETRON HCL 4 MG/2 ML VIAL IV PRN (19:00)
[2016-10-15 19:20] LABS: BLOOD GAS BASE EXCESS 1.2 mmol/L (-2-2); BLOOD GAS CARBOXYHEMOGLOBIN 1.4 % (0-4); BLOOD GAS HCO3 27 mmol/L (22-26); BLOOD GAS METHEMOGLOBIN 1.2 % (0-2); BLOOD GAS O2 HGB SATURATION 94 % (90-100); BLOOD GAS OXYGEN CONTENT 15.5 Vol % (12.0-20.0); BLOOD GAS PCO2 51 mmHg (38-42); BLOOD GAS PO2 97 mmHg (61-120); BLOOD GAS TOTAL HGB 11.6 G/DL (12.0-16.0); CRITICAL VALUE YES; LITER FLOW 10 L/M; OXYGEN DEVICE SIMPLE MASK; TEMP CORR TO 98.6
[2016-10-15 19:21] LABS: DRAW SITE LT RADIAL; NUMBER OF ARTERIAL PUNCTURES 1; STAT YES; ULNAR PULSE PRESENT
[2016-10-15] MEDS ORDERED: ETOMIDATE 40 MG/20 ML VIAL ONE (19:23)
[2016-10-15] MEDS ORDERED: ROCURONIUM INJ 50 MG/5 ML VIAL ONE (19:23)
[2016-10-15] MEDS ORDERED: PROPOFOL 1000 MG/100 ML INJ 100 ML ONE (19:23)
--- NOTE | 2016-10-15 19:58 | PD.PROCEDR ---
Procedure Note Procedure PROCEDURE NOTE PROCEDURE: Endotracheal intubation INDICATION: Acute respiratory failure, respiratory distress with inadequate airway protection. 10/15/16 DETAILS OF PROCEDURE: The patient was placed in optimal position and preoxygenated with 100% FiO2 via [id number]. Oximeter oxygen saturation of 98% was obtained prior to direct laryngoscopy. The patient was administered etomidate 20 mg IV for sedation and Rocuronium 50 mg IV for paralysis. Direct laryngoscopy was performed with a 3.0 Hernandez laryngoscope blade and a grade I Cormack-Lehane view was obtained. On single attempt a size 7.5 endotracheal tube was visualized passing through the cords. Correct placement was confirmed with colorimetric CO2 detector. Breath sounds were equal bilaterally. No sounds auscultated over the stomach. The endotracheal tube was secured with a commercial tube felipe at a depth of 21 cm at the lips. The patient was connected to the ventilator. The patient tolerated the procedure well without any apparent complication. Oxygen saturations were maintained greater than 97% at all times. Stat chest x-ray was ordered. Chelly Benavides MD Oct 15, 2016 19:58
[2016-10-15] MEDS: PANTOPRAZOLE SODIUM 40 MG VIAL IV SCH (20:00)
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
--- NOTE | 2016-10-15 20:30 | RADRPT ---
EXAM DATE/TIME: 10/15/2016 20:04 [facility] COMPARISON: CHEST SINGLE AP, October 15, 2016, 12:46. INDICATIONS : Shortness of breath MEDICAL HISTORY : Hypertension. SURGICAL HISTORY : None. ENCOUNTER: Subsequent ACUITY: 1 day PAIN SCORE: Non-responsive. LOCATION: Bilateral chest FINDINGS: ET tube is present with tip overlapping approximately 2 cm above the marcel. NG tube is present with tip in the stomach. The lungs are clear without infiltrate, nodule, or mass. There is no appreciable pleural effusion for technique. Heart and mediastinum are unremarkable. There is prominence of the perivascular markings with crowding of the bronchovascular markings may be due to expiratory state of this radiograph, however slight interstitial process is not excluded. CONCLUSION: No acute cardiopulmonary disease. Juliet Cao MD on October 15, 2016 at 20:28 Board Certified Radiologist. This report was verified electronically.
[2016-10-15] MEDS: CHLORHEXIDINE 0.12% (ORAL KIT) 15 ML CUP MT SCH (20:34)
[2016-10-15 20:46] LABS: BLOOD GAS BASE EXCESS 0.7 mmol/L (-2-2); BLOOD GAS CARBOXYHEMOGLOBIN 1.1 % (0-4); BLOOD GAS HCO3 25 mmol/L (22-26); BLOOD GAS O2 HGB SATURATION 97 % (90-100); BLOOD GAS OXYGEN CONTENT 15.8 Vol % (12.0-20.0); BLOOD GAS PCO2 38 mmHg (38-42); BLOOD GAS PO2 158 mmHg (61-120); BLOOD GAS TOTAL HGB 11.4 G/DL (12.0-16.0); CRITICAL VALUE NO; DRAW SITE RT RADIAL; FIO2 100 %; NUMBER OF ARTERIAL PUNCTURES 1; OXYGEN DEVICE VENTILATOR; STAT NO; TEMP CORR TO 98.6; ULNAR PULSE PRESENT; VENT SETTINGS PRVC/18/400/+5/IT0.8
[2016-10-15] MEDS ORDERED: DIVALPROEX SODIUM E.R. 500 MG TAB PO SCH (21:00)
[2016-10-15] MEDS ORDERED: traZODone HCL 100 MG TAB PO SCH (21:00)
[2016-10-15] MEDS ORDERED: ZIPRASIDONE HCL 60 MG CAP PO SCH (21:00)
[2016-10-15] MEDS: SODIUM CHLORIDE 0.9% FLUSH 5 ML FLUSH IV FLUSH SCH (21:00)
[2016-10-15] MEDS ORDERED: BENZTROPINE MESYLATE 1 MG TAB PO SCH (21:00)
[2016-10-15 22:20] LABS: PROTHROMBIN TIME - PATIENT 11.2 SEC (9.8-11.6)
[2016-10-15 22:47] LABS: ALKALINE PHOSPHATASE 92 U/L (45-117); ALT (GPT) 16 U/L (10-53); ANION GAP 7 MEQ/L (5-15); AST (GOT) 31 U/L (15-37); BLOOD UREA NITROGEN 26 MG/DL (7-18); CHLORIDE 104 MEQ/L (98-107); GLOMERULAR FILTRATION RATE 43 ML/MIN (>89); POTASSIUM 5.3 MEQ/L (3.5-5.1); SODIUM (NA) 139 MEQ/L (136-145); TOTAL BILIRUBIN ADULT 0.7 MG/DL (0.2-1.0)
[2016-10-15 23:10] LABS: AUTOMATED NEUTROPHIL # 6.4 TH/MM3 (1.8-7.7); BASOPHIL % 0.3 % (0.0-2.0); EOSINOPHIL % 0.1 % (0.0-4.0); HEMATOCRIT 35.6 % (35.0-46.0); HEMO FLAGS DIFF FINAL; LYMPH % 16.6 % (9.0-44.0); LYMPHOCYTE # 1.6 TH/MM3 (1.0-4.8); MEAN CORPUSCULAR HGB CONC 33.7 % (32.0-36.0); MONO % 17.8 % (0.0-8.0); NEUT % 65.2 % (16.0-70.0); PLATELET COUNT 148 TH/MM3 (150-450); RED BLOOD COUNT 3.87 MIL/MM3 (4.00-5.30); RED CELL DISTRIBUTION WIDTH 14.8 % (11.6-17.2); WHITE BLOOD COUNT 9.9 TH/MM3 (4.0-11.0)
[2016-10-15] MEDS: PROPRANOLOL HCL 10 MG TAB PO SCH (23:36)
[2016-10-15] MEDS: DOCUSATE SODIUM 50 MG/SENNA 8.6 MG TAB PO SCH (23:37)
[2016-10-15] MEDS: PROPOFOL 1000 MG/100 ML INJ 100 ML IV SCH (23:41)
[2016-10-16] VITALS (21 sets, daily range): BP systolic 108–148; BP diastolic 53–78; PULSE 46–91; RESP 18–24; TEMP 98.1–99.2; O2SAT 92–100
--- NOTE | 2016-10-16 00:22 | RADRPT ---
EXAM DATE/TIME: 10/15/2016 21:14 [facility] COMPARISON: No previous studies available for comparison. INDICATIONS : Thrombosis. MEDICAL HISTORY : Hypertension. Bipolar disorder. Confused. Anxiety. Depression. Closterphobia. SURGICAL HISTORY : Left hip surgery. ENCOUNTER: Initial ACUITY: 1 day PAIN SCORE: Non-responsive LOCATION: Bilateral legs. TECHNIQUE: Venous ultrasound of the left and right leg was performed from the inguinal ligament to the proximal calf. Real-time, color Doppler and spectral tracing, compression and augmentation techniques were us ed. FINDINGS: RIGHT LEG: There is normal compressibility of the deep venous system from the inguinal region to the proximal ca lf. No echogenic clot is seen in the lumen of the common femoral, femoral, popliteal, and posterior tibial veins. There is a normal response of the venous system to proximal and distal augmentation an d respiration. LEFT LEG: There is normal compressibility of the deep venous system from the inguinal region to the proximal ca lf. No echogenic clot is seen in the lumen of the common femoral, femoral, popliteal, and posterior tibial veins. There is a normal response of the venous system to proximal and distal augmentation an d respiration. CONCLUSION: No DVT is identified within either lower extremity. Sky Amaya MD on October 16, 2016 at 0:20 Board Certified Radiologist. This report was verified electronically.
[2016-10-16] MEDS: DEXMEDETOMIDINE INJ 50 ML IV SCH ×3 (00:34→18:24)
[2016-10-16] MEDS ORDERED: ATROPINE SULFATE 1 MG/10 ML SYRINGE ONE (00:40)
[2016-10-16] MEDS ORDERED: LIDOCAINE HCL 2% 100 MG/5 ML SYRINGE ONE (00:40)
[2016-10-16] MEDS ORDERED: EPINEPHrine HCL (1:10,000) 1 MG/10 ML SYRINGE ONE (00:40)
--- NOTE | 2016-10-16 01:31 | RADRPT ---
EXAM DATE/TIME: 10/16/2016 01:01 [facility] COMPARISON: CT BRAIN W/O CONTRAST, September 26, 2016, 20:05. INDICATIONS : Altered mental status. RADIATION DOSE: 36.82 CTDIvol (mGy) MEDICAL HISTORY : Hypertension. Cardiovascular disease SURGICAL HISTORY : None. ENCOUNTER: Initial ACUITY: 1 day PAIN SCALE: Non-responsive LOCATION: cranial TECHNIQUE: Multiple contiguous axial images were obtained of the head. Using automated exposure control and adj ustment of the mA and/or kV according to patient size, radiation dose was kept as low as reasonably a chievable to obtain optimal diagnostic quality images. FINDINGS: CEREBRUM: There is moderate generalized cerebral atrophy. The ventricles are normal in size. There is mild yared ventricular white matter low attenuation. No evidence of midline shift, mass lesion, hemorrhage or a cute infarction. No extra-axial fluid collections are seen. POSTERIOR FOSSA: The cerebellum and brainstem demonstrate no acute finding. The 4th ventricle is midline. The cerebe llopontine angle is unremarkable. EXTRACRANIAL: There is minimal mucoperiosteal thickening within the left sphenoid sinus but the remaining paranasal sinuses are clear. SKULL: The calvaria is intact. No evidence of skull fracture. CONCLUSION: Stable noncontrast head CT. No acute intracranial abnormality is identified. Sky Amaya MD on October 16, 2016 at 1:26 Board Certified Radiologist. This report was verified electronically.
[2016-10-16] MEDS: CHLORHEXIDINE GLUCONATE 2 % 1 PACK (2 CLOTHS) TOP SCH (03:09)
[2016-10-16] MEDS: RESP: ALBUTEROL 2.5 MG/IPRATROPIUM 0.5 MG NEB (SCH) INH ×5 (03:26→21:03)
[2016-10-16] MEDS: SODIUM CHLOR 0.9% 1000 ML INJ 1,000 ML IV SCH ×3 (04:00→17:27)
[2016-10-16] MEDS: PIPERACIL-TAZO 2.25 GM PREMIX 50 ML IV SCH ×4 (04:13→22:20)
[2016-10-16] MEDS: PROPOFOL 1000 MG/100 ML INJ 100 ML IV SCH (05:57)
[2016-10-16 06:32] LABS: ALT (GPT) 17 U/L (10-53); ANION GAP 10 MEQ/L (5-15); AST (GOT) 48 U/L (15-37); BICARBONATE 22.9 MEQ/L (21.0-32.0); BLOOD UREA NITROGEN 22 MG/DL (7-18); CHLORIDE 105 MEQ/L (98-107); GLOMERULAR FILTRATION RATE 49 ML/MIN (>89); MAGNESIUM 2.1 MG/DL (1.5-2.5); POTASSIUM 5.7 MEQ/L (3.5-5.1); SODIUM (NA) 138 MEQ/L (136-145)
[2016-10-16 06:33] LABS: ALKALINE PHOSPHATASE 86 U/L (45-117); TOTAL BILIRUBIN ADULT 0.7 MG/DL (0.2-1.0)
[2016-10-16] MEDS ORDERED: INSULIN HUMAN REGULAR 1,000 UNITS/10 ML VIAL IV PUSH ONE (07:15)
[2016-10-16] MEDS ORDERED: DEXTROSE 50% IN WATER 50 ML VIAL(D50) IV PUSH ONE (07:15)
--- NOTE | 2016-10-16 07:37 | HHI.CCPN ---
Subjective Remarks/Hospital Course 66-year-old female with past medical history of bipolar disorder, HTN. She has previously been in [facility] in [facility] for about a year and a half. From there she had been discharged to an assisted living facility in May of 2016 but then was admitted to [facility] 08/28/16 due to worsening paranoia, delusions. She has been hospitalized since that time on a voluntary basis. She has been followed by psychiatry for titration of meds and making efforts toward snf placement near her sister's home. She had fallen and fractured her left humerus which was managed non-operatively. This morning she was transferred from psychiatry to the med-psych unit due to decreased mental status and increased oxygen requirement. She was noted to have increased creatinine 2.3 from baseline ~0.8. Depakote level was elevated 10/13 to 105 and depakote had been held, level now 77. She has been on trazodone 300 po qhs, cymbalta 60 mg po qhs. Risperdal 1 po bid added 09/14/16 and geodon incrased to 120 am/160 ahs on (previously on 120 bid). This evening she developed temp 101.1 and became tachypneic with rhonchi . She was given Zosyn and azithromycin and Payment Analyst was consulted. Upon arrival she was tachypneic with sonorous respirations and GCS 7-8. She was intubated for airway protection. No known new trauma, though she has h/o frequent falls. No recent opiods. SUBJ: Patient remains intubated and heavily sedated on propofol. On lightening sedation moves extremities do not follow commands. Afebrile today. No evidence of neuroleptic malignant syndrome. Potassium slightly elevated was treated with IV insulin and dextrose Objective Vital Signs Date Time Temp Pulse Resp B/P Pulse Ox O2 Delivery O2 Flow Rate FiO2 10/16/16 04:00 40 10/16/16 04:00 98.7 57 18 124/57 100 10/15/16 17:22 Nasal Cannula 4.00 Intake and Output 10/15/16 10/15/16 10/16/16 08:00 16:00 00:00 Intake Total 360 ml 280 ml Output Total 350 ml Balance 360 ml -70 ml Result Diagram: 10/15/16215710/16/16 0547 Other Results Microbiology Date/Time Procedure Status Source Growth 10/16/16 00:15 Influenza Types A,B Antigen (JILLIAN) - Final Complete Nasal Aspirate NEGATIVE FOR FLU A AND B ANTIGEN.... Laboratory Tests Test 10/15/16 10/15/16 19:10 20:36 Blood Gas Puncture Site LT RADIAL RT RADIAL Blood Gas Patient Temperature 98.6 98.6 Blood Gas HCO3 27 mmol/L 25 mmol/L (22-26) (22-26) Blood Gas Base Excess 1.2 mmol/L 0.7 mmol/L (-2-2) (-2-2) Blood Gas Oxygen Saturation 94 % (90-100) 97 % (90-100) Arterial Blood pH 7.34 7.43 (7.380-7.420) (7.380-7.420) Arterial Blood Partial 51 mmHg (38-42) 38 mmHg (38-42) Pressure CO2 Arterial Blood Partial 97 mmHg 158 mmHg Pressure O2 (61-120) (61-120) Arterial Blood Oxygen Content 15.5 Vol % 15.8 Vol % (12.0-20.0) (12.0-20.0) Arterial Blood 1.4 % (0-4) 1.1 % (0-4) Carboxyhemoglobin Arterial Blood Methemoglobin 1.2 % (0-2) 1.0 % (0-2) Blood Gas Hemoglobin 11.6 G/DL 11.4 G/DL (12.0-16.0) (12.0-16.0) Oxygen Delivery Device SIMPLE MASK VENTILATOR Blood Gas Liter Flow 10 L/M Blood Gas Ventilator Setting PRVC/18/400/+5/IT0.8 Blood Gas Inspired Oxygen 100 % Objective Remarks GENERAL: Obese well-developed patient who is intubated sedated SKIN: Warm and dry, no rash. HEAD: Atraumatic. Normocephalic. EYES: Pupils 4 mm and reactive bilaterally. No scleral icterus. No injection or drainage. No meningismus ENT: No nasal bleeding or discharge. Mucous membranes dry. Orotracheally intubated NECK: Trachea midline. No JVD. No meningismus CARDIOVASCULAR: Bradycardic. No murmurs rubs or gallops. RESPIRATORY: Air entry equal bilaterally with no wheezes or crackles, Diminished bilaterally without audible wheeze. From ETT large amount of yellow respiratory secretions. GASTROINTESTINAL: Abdomen soft, no appreciable tenderness, no rebound or guarding. MUSCULOSKELETAL: R knee scar well healed. S/p partial amputation of right foot. NEUROLOGICAL: On lightening sedation withdraws all extremities. No clonus, no rigidity. Do not follow commands Procedures none Urinary Catheter: Yes Assessment to: Continue Vascular Central Line Catheter: Yes Assessment to: Continue A/P Problem List: (1) Respiratory failure, acute ICD Code: J96.00 Status: Acute (2) Acute kidney failure ICD Code: N17.9 Status: Acute (3) Bipolar affective disorder, depressed ICD Code: F31.30 Status: Acute Assessment and Plan NEURO: Acute toxic metabolic encephalopathy Bipolar affective disorder Chronic pain h/o opioid dependence Propofol for sedation. Discontinue and start Precedex to facilitate ventilator weaning Target RASS -2. Daily sedation vacation. CT of the head shows no acute finding Suspect multifactorial toxic metabolic encephalopathy secondary to medication effect in setting of acute kidney injury. Garett evidence of neuroleptic malignant syndrome, holding all psychiatric meds. Will use Geodon when necessary RESP: Acute hypercapnic and hypoxemic respiratory failure Acute tracheobronchitis, suspected aspiration Remote history of tobacco abuse Ventilator bundle. Followup ABG, Followup CXR. DuoNeb every 6 hours Albuterol every 2 hours when necessary SBT with extubation when mental status permits CV: Monitor hemodynamics Propranolol 10 mg every 12 hours-hold for bradycardia hypotension GI: GERD NPO. OG tube. Start tube feeds today if not extubated Bowel regimen with Lisha-Colace twice a day. Stress ulcer prophylaxis as per below FEN/RENAL: Acute kidney injury Acute hyperkalemia Clinically appears dry, prerenal. NaCl@125 L per hour Insert Solomon. Monitor intake/output Potassium 5.7 earlier today. IV Insulin 5 U followed by D50 ID: Acute tracheobronchitis, suspected aspiration Blood cultures have been obtained. Send sputum culture now. Azithromycin daily 2 /3 #2, Zosyn with renal adjusted dose 2/3 #2. F/U influenza screen, pneumococcal and legionella antigen. CXR 2/3 with L basilar opacity. Previously on bactrim for ?UTI but urine culture 10/12 showed contaminant so bactrim has been discontinued. HEME: Monitor CBC ENDO: No history of diabetes. She is euglycemic. Obtain TSH MSK: L humeral neck fracture Seen by orthoDr. Del Valle. Non operative management with sling and swathe LUE, nonweightbearing LUE.. WBAT LLE. PROPH: Start Lovenox 40 mg sq daily. Protonix 40 mg IV daily for stress ulcer prophylaxis. ACCESS: PIV Dr. Benavides called patient's sister, Darlyn Wong, and provided update regarding ICU transfer and intubation. Patient is full code Critical care time 40 minutes exclusive of separately billable procedures. Problem Qualifiers (1) Bipolar affective disorder, depressed: Qualified Code: F31.32 - Bipolar affective disorder, currently depressed, moderate Malik Swanson MD Oct 16, 2016 07:18 Malik Swanson MD Oct 16, 2016 07:18
[2016-10-16] MEDS: PANTOPRAZOLE SOD 20 MG DELAYED RELEASE TAB PO SCH (08:00)
[2016-10-16 08:19] LABS: AUTOMATED NEUTROPHIL # 5.1 TH/MM3 (1.8-7.7); BASOPHIL % 0.4 % (0.0-2.0); EOSINOPHIL % 0.4 % (0.0-4.0); HEMATOCRIT 32.4 % (35.0-46.0); LYMPH % 28.6 % (9.0-44.0); LYMPHOCYTE # 2.9 TH/MM3 (1.0-4.8); MEAN CELL VOLUME 92.6 FL (80.0-100.0); MEAN CORPUSCULAR HEMOGLOBIN 30.6 PG (27.0-34.0); MEAN CORPUSCULAR HGB CONC 33.1 % (32.0-36.0); MONO % 21.3 % (0.0-8.0); NEUT % 49.3 % (16.0-70.0); PLATELET COUNT 139 TH/MM3 (150-450); RED CELL DISTRIBUTION WIDTH 14.8 % (11.6-17.2); WHITE BLOOD COUNT 10.3 TH/MM3 (4.0-11.0)
[2016-10-16 08:27] LABS: HEMO FLAGS AUTO DIFF
[2016-10-16] MEDS: CHLORHEXIDINE 0.12% (ORAL KIT) 15 ML CUP MT SCH ×2 (08:32→19:16)
[2016-10-16] MEDS: PANTOPRAZOLE SODIUM 40 MG VIAL IV SCH (08:53)
[2016-10-16] MEDS: SODIUM CHLORIDE 0.9% FLUSH 5 ML FLUSH IV FLUSH SCH ×2 (08:53→21:00)
[2016-10-16] MEDS: PROPRANOLOL HCL 10 MG TAB PO SCH ×2 (08:54→21:00)
[2016-10-16] MEDS: CALCIUM/VITAMIN D 250 MG/125 U TAB PO SCH ×3 (08:54→15:48)
[2016-10-16] MEDS: METOPROLOL TARTRATE 25 MG TAB PO SCH ×2 (08:54→21:00)
[2016-10-16] MEDS: CYANOCOBALAMIN 1,000 MCG TAB PO SCH (08:54)
[2016-10-16] MEDS: DOCUSATE SODIUM 50 MG/SENNA 8.6 MG TAB PO SCH ×2 (08:55→21:00)
[2016-10-16 09:08] LABS: CKMB 1.1 NG/ML (0.5-3.6)
[2016-10-16 10:33] LABS: PLATELET ESTIMATE SMEAR LOW (NORMAL); PLATELET MORPHOLOGY NORMAL (NORMAL); SCAN/DIFF AUTO DIFF CONFIRMED
[2016-10-16] MEDS: ENOXAPARIN SODIUM 40 MG/0.4 ML SYRINGE SQ SCH (13:54)
[2016-10-16] MEDS: AZITHROMYCIN INJ 500 MG in SODIUM CHLOR 0.9% 250 ML INJ 250 ML IV SCH (15:48)
[2016-10-16] MEDS ORDERED: ZIPRASIDONE MESYLATE 20 MG VIAL IM PRN (17:45)
[2016-10-17] VITALS (9 sets, daily range): BP systolic 121–158; BP diastolic 54–88; PULSE 52–84; RESP 18–24; TEMP 97.5–98.3; O2SAT 92–100
[2016-10-17] MEDS: LORazepam 0.5 MG TAB age > 65 yrs PO PRN (02:22)
[2016-10-17] MEDS: SODIUM CHLOR 0.9% 1000 ML INJ 1,000 ML IV SCH (03:36)
[2016-10-17] MEDS: CHLORHEXIDINE GLUCONATE 2 % 1 PACK (2 CLOTHS) TOP SCH (03:36)
[2016-10-17 04:33] LABS: HEMATOCRIT 31.4 % (35.0-46.0); HEMO FLAGS AUTO DIFF; MEAN CELL VOLUME 90.3 FL (80.0-100.0); MEAN CORPUSCULAR HEMOGLOBIN 30.9 PG (27.0-34.0); MEAN CORPUSCULAR HGB CONC 34.2 % (32.0-36.0); PLATELET COUNT 134 TH/MM3 (150-450); RED BLOOD COUNT 3.48 MIL/MM3 (4.00-5.30); RED CELL DISTRIBUTION WIDTH 14.8 % (11.6-17.2); WHITE BLOOD COUNT 6.5 TH/MM3 (4.0-11.0)
[2016-10-17 04:41] LABS: ALT (GPT) 13 U/L (10-53); ANION GAP 9 MEQ/L (5-15); AST (GOT) 21 U/L (15-37); BICARBONATE 22.4 MEQ/L (21.0-32.0); BLOOD UREA NITROGEN 14 MG/DL (7-18); CHLORIDE 110 MEQ/L (98-107); GLOMERULAR FILTRATION RATE 72 ML/MIN (>89); POTASSIUM 4.2 MEQ/L (3.5-5.1); SODIUM (NA) 141 MEQ/L (136-145)
[2016-10-17 04:43] LABS: ALKALINE PHOSPHATASE 74 U/L (45-117); TOTAL BILIRUBIN ADULT 0.5 MG/DL (0.2-1.0)
[2016-10-17] MEDS: RESP: ALBUTEROL 2.5 MG/IPRATROPIUM 0.5 MG NEB (SCH) INH (04:43)
[2016-10-17] MEDS: PIPERACIL-TAZO 2.25 GM PREMIX 50 ML IV SCH ×2 (04:45→11:13)
[2016-10-17 04:58] LABS: BANDS 1 % (0-6); NEUTROPHIL # MANUAL DIFF 3.4 TH/MM3 (1.8-7.7); POLYS (SEG NEUTROPHILS) 52 % (16-70); WBC DIFF SAMPLE 100
[2016-10-17 04:59] LABS: PLATELET ESTIMATE SMEAR NORMAL (NORMAL); PLATELET MORPHOLOGY NORMAL (NORMAL); SCAN/DIFF FINAL DIFF MANUAL
[2016-10-17] MEDS: DEXMEDETOMIDINE INJ 50 ML IV SCH (05:06)
--- NOTE | 2016-10-17 06:36 | RADRPT ---
EXAM DATE/TIME: 10/17/2016 05:36 [facility] COMPARISON: CHEST SINGLE AP, October 15, 2016, 20:04. INDICATIONS : Shortness of breath, possible pulmonary disease. MEDICAL HISTORY : Hypertension. SURGICAL HISTORY : None. ENCOUNTER: Subsequent ACUITY: 3 days PAIN SCORE: Non-responsive. LOCATION: Bilateral chest FINDINGS: AP view of the chest demonstrates a normal-sized cardiac silhouette. Endotracheal tube and nasogastri c tube have been removed. Lungs are underinflated with bibasilar opacity most likely representing ate lectasis. No effusion or pneumothorax is seen. CONCLUSION: Severely underinflated examination with likely atelectasis at the lung bases. Sky Amaya MD on October 17, 2016 at 6:33 Board Certified Radiologist. This report was verified electronically.
[2016-10-17] MEDS: CHLORHEXIDINE 0.12% (ORAL KIT) 15 ML CUP MT SCH (07:44)
[2016-10-17] MEDS: PANTOPRAZOLE SOD 20 MG DELAYED RELEASE TAB PO SCH ×2 (07:44→09:07)
--- NOTE | 2016-10-17 08:32 | HHI.CCPN ---
Subjective Remarks/Hospital Course 66-year-old female with past medical history of bipolar disorder, HTN. She has previously been in [facility] in [place] [facility] for about a year and a half. From there she had been discharged to an assisted living facility in May of 2016 but then was admitted to [facility] 08/28/16 due to worsening paranoia, delusions. She has been hospitalized since that time on a voluntary basis. She has been followed by psychiatry for titration of meds and making efforts toward senior living placement near her sister's home. She had fallen and fractured her left humerus which was managed non-operatively. This morning she was transferred from psychiatry to the med-psych unit due to decreased mental status and increased oxygen requirement. She was noted to have increased creatinine 2.3 from baseline ~0.8. Depakote level was elevated 10/13 to 105 and depakote had been held, level now 77. She has been on trazodone 300 po qhs, cymbalta 60 mg po qhs. Risperdal 1 po bid added 09/14/16 and geodon incrased to 120 am/160 ahs on (previously on 120 bid). This evening she developed temp 101.1 and became tachypneic with rhonchi . She was given Zosyn and azithromycin and Splunk Developer was consulted. Upon arrival she was tachypneic with sonorous respirations and GCS 7-8. She was intubated for airway protection. No known new trauma, though she has h/o frequent falls. No recent opiods. SUBJ: Patient remains intubated and heavily sedated on propofol. On lightening sedation moves extremities do not follow commands. Afebrile today. No evidence of neuroleptic malignant syndrome. Potassium slightly elevated was treated with IV insulin and dextrose 10/17/16; Extubated yesterday, breathing comfortably. Requests food. Tearful. Psychiatry reconsulted for resuming bipolar meds. Objective Vital Signs Date Time Temp Pulse Resp B/P Pulse Ox O2 Delivery O2 Flow Rate FiO2 10/17/16 06:00 62 10/17/16 04:45 100 10/17/16 04:00 97.5 20 121/69 10/16/16 21:03 Nasal Cannula 2.00 10/16/16 14:19 50 Intake and Output 10/16/16 10/16/16 10/17/16 08:00 16:00 00:00 Intake Total 1110 ml 1205 ml 1275 ml Output Total 450 ml 350 ml 300 ml Balance 660 ml 855 ml 975 ml Result Diagram: 10/17/16 0343 10/17/16 0343 Other Results Microbiology Date/Time Procedure Status Source Growth 10/15/16 19:55 Legionella Antigen - Final Complete Urine Catheterized Urine PRESUMPTIVE NEGATIVE FOR LEGIONELLA P... 10/15/16 19:55 Streptococcus pneumoniae Antigen (M - Final Complete Urine Catheterized Urine PRESUMPTIVE NEGATIVE FOR STREPTOCOCCU... 10/16/16 00:15 Influenza Types A,B Antigen (JILLIAN) - Final Complete Nasal Aspirate NEGATIVE FOR FLU A AND B ANTIGEN.... Objective Remarks GENERAL: Obese well-developed patient who on NC, breathing comfortable SKIN: Warm and dry, no rash. HEAD: Atraumatic. Normocephalic. EYES: Pupils 4 mm and reactive bilaterally. No scleral icterus. No injection or drainage. No meningismus ENT: No nasal bleeding or discharge. Mucous membranes dry. NECK: Trachea midline. No JVD. No meningismus CARDIOVASCULAR: No murmurs rubs or gallops. RESPIRATORY: Air entry equal bilaterally with no wheezes or crackles, Diminished bilaterally without audible wheeze. GASTROINTESTINAL: Abdomen soft, no appreciable tenderness, no rebound or guarding. MUSCULOSKELETAL: R knee scar well healed. S/p partial amputation of right foot. NEUROLOGICAL: Extubated, intermittently tearfu. Nonfocal exam Procedures none A/P Problem List: (1) Respiratory failure, acute ICD Code: J96.00 Status: Acute (2) Acute kidney failure ICD Code: N17.9 Status: Acute (3) Bipolar affective disorder, depressed ICD Code: F31.30 Status: Acute Assessment and Plan NEURO: Acute toxic metabolic encephalopathy Bipolar affective disorder Chronic pain h/o opioid dependence Discontinue Precedex. Use PRN Geodon. Consult psychiatry to assist in BiPolar management TCT of the head shows no acute finding Suspect multifactorial toxic metabolic encephalopathy secondary to medication effect in setting of acute kidney injury. No evidence of neuroleptic malignant syndrome RESP: Acute hypercapnic and hypoxemic respiratory failure-resolved Acute tracheobronchitis, suspected aspiration Remote history of tobacco abuse DuoNeb every 6 hours Albuterol every 2 hours when necessary Extubated 10/16/16. Empiric ABX EzPAP, Acapella, IS CV: Monitor hemodynamics DC Propranolol, continue metoprolol GI: GERD Regular diet Bowel regimen with Lisha-Colace twice a day. Stress ulcer prophylaxis as per below FEN/RENAL: Acute kidney injury-resolved Acute hyperkalemia-resolved NaCl@125 L per hour-DC today Monitor intake/output Hyperkalemia treated resolved ID: Acute tracheobronchitis, suspected aspiration All cultures negative to date DC Azithromycin daily 2/3 #3, Zosyn with renal adjusted dose 10/15 #3 if cultures remain negative for another 24 hours F/U influenza screen, -negative CXR 10/17 bibasilar opacity Previously on Bactrim for ?UTI but urine culture 10/12 showed contaminant so Bactrim has been discontinued. HEME: Monitor CBC ENDO: No history of diabetes. She is euglycemic. Obtain TSH MSK: L humeral neck fracture Seen by ortho, Dr. Del Valle. Non operative management with sling and swathe LUE, nonweightbearing LUE. WBAT LLE. PROPH: Lovenox 40 mg sq daily. Protonix 40 mg IV daily for stress ulcer prophylaxis. ACCESS: PIV Dr. Benavides called patient's sister, Darlyn Wong, and provided update regarding ICU transfer and intubation. Patient is full code Level [address] Tristan to assume care 10/17/16. Psych consulted Problem Qualifiers (1) Bipolar affective disorder, depressed: Qualified Code: F31.32 - Bipolar affective disorder, currently depressed, moderate Malik Swanson MD Oct 17, 2016 08:32
[2016-10-17] MEDS: CALCIUM/VITAMIN D 250 MG/125 U TAB PO SCH ×3 (08:57→12:47)
[2016-10-17] MEDS: DOCUSATE SODIUM 50 MG/SENNA 8.6 MG TAB PO SCH ×2 (08:57→09:07)
[2016-10-17] MEDS: METOPROLOL TARTRATE 25 MG TAB PO SCH (09:00)
[2016-10-17] MEDS: PANTOPRAZOLE SODIUM 40 MG VIAL IV SCH (09:00)
[2016-10-17] MEDS: SODIUM CHLORIDE 0.9% FLUSH 5 ML FLUSH IV FLUSH SCH (09:00)
[2016-10-17] MEDS: CYANOCOBALAMIN 1,000 MCG TAB PO SCH (09:07)
[2016-10-17] MEDS ORDERED: ACETAMINOPHEN/HYDROcodone 325 MG/5 MG TAB PO PRN (09:30)
[2016-10-17 09:36] LABS: HEMOGLOBIN A1a 1.1 %; HEMOGLOBIN A1b 0.9 %; HEMOGLOBIN Ao 85.1 %; HEMOGLOBIN F 1.9 %; HEMOGLOBIN LA1C 1.8 %; HEMOGLOBIN P3 5.1 %
[2016-10-17] MEDS ORDERED: Vancomycin Consult Pharmacy 1 EA OTHER SCH (12:15)
[2016-10-17] MEDS ORDERED: risperiDONE 1 MG TAB PO ONE (12:30)
[2016-10-17] MEDS: ENOXAPARIN SODIUM 40 MG/0.4 ML SYRINGE SQ SCH (12:47)
[2016-10-17] MEDS ORDERED: VANCOMYCIN INJ 1,250 MG in SODIUM CHLOR 0.9% 250 ML INJ 250 ML IV SCH (13:00)
--- NOTE | 2016-10-17 13:18 | EKG ---
Date Performed: 10/16/2016 Time Performed: 10:31:06 PTAGE: 66 years EKG: SINUS BRADYCARDIA Since previous tracing, no significant change noted BORDERLINE ECG PREVIOUS TRACING : 10/15/2016 10.40 DOCTOR: Eyal Lea Interpretating Date/Time 10/17/2016 13:16:08
--- NOTE | 2016-10-17 15:31 | HHI.DS ---
Discharge Summary Admission Date Aug 28, 2016 at 02:52 Admitting Diagnosis BIPOLAR DISORDER (1) Respiratory failure, acute ICD Code: J96.00 Diagnosis: Principal (2) Hypoxia ICD Code: R09.02 Diagnosis: Principal (3) Acute kidney failure ICD Code: N17.9 Diagnosis: Principal (4) Probable MRSA pneumonia Diagnosis: Principal (5) Bipolar affective disorder, depressed ICD Code: F31.30 Diagnosis: Principal (6) Schizophrenia ICD Code: F20.9 Diagnosis: Principal (7) Abdominal pain ICD Code: R10.9 Diagnosis: Principal (8) UTI (urinary tract infection) ICD Code: N39.0 Diagnosis: Principal Procedures none Brief History 66-year-old female with past medical history of bipolar disorder, HTN. She has previously been in [facility] in [facility] for about a year and a half. From there she had been discharged to an assisted living facility in May of 2016 but then was admitted to [facility] 08/28/16 due to worsening paranoia, delusions. She has been hospitalized since that time on a voluntary basis. She has been followed by psychiatry for titration of meds and making efforts toward correction placement near her sister's home. She had fallen and fractured her left humerus which was managed non-operatively. This morning she was transferred from psychiatry to the med-psych unit due to decreased mental status and increased oxygen requirement. She was noted to have increased creatinine 2.3 from baseline ~0.8. Depakote level was elevated 10/13 to 105 and depakote had been held, level now 77. She has been on trazodone 300 po qhs, cymbalta 60 mg po qhs. Risperdal 1 po bid added 09/14/16 and geodon incrased to 120 am/160 ahs on (previously on 120 bid). This evening she developed temp 101.1 and became tachypneic with rhonchi . She was given Zosyn and azithromycin and Chargemaster Analyst was consulted. Upon arrival she was tachypneic with sonorous respirations and GCS 7-8. She was intubated for airway protection. No known new trauma, though she has h/o frequent falls. No recent opiods. CBC/BMP: 10/17/16 0343 10/17/16 0343 Significant Findings Laboratory Tests Test 10/15/16 10/15/16 10/15/16 10/15/16 10:23 10:37 19:10 20:36 Urine Glucose (UA) 100 mg/dL (NEG) Urine Occult Blood SMALL (NEG) Urine Bacteria RARE /hpf (NONE) Red Blood Count 3.73 MIL/MM3 (4.00-5.30) Hemoglobin 11.4 GM/DL (11.6-15.3) Hematocrit 34.8 % (35.0-46.0) Monocytes (%) (Auto) 19.4 % (0.0-8.0) Monocytes # (Auto) 2.0 TH/MM3 (0-0.9) Potassium Level 5.5 MEQ/L (3.5-5.1) Blood Urea Nitrogen 36 MG/DL (7-18) Creatinine 2.30 MG/DL (0.50-1.00) Estimat Glomerular Filtration 21 ML/MIN (>89) Rate Total Protein 6.0 GM/DL (6.4-8.2) Albumin 2.9 GM/DL (3.4-5.0) Blood Gas HCO3 27 mmol/L (22-26) Arterial Blood pH 7.34 7.43 (7.380-7.420) (7.380-7.420) Arterial Blood Partial 51 mmHg (38-42) Pressure CO2 Blood Gas Hemoglobin 11.6 G/DL 11.4 G/DL (12.0-16.0) (12.0-16.0) Arterial Blood Partial 158 mmHg Pressure O2 (61-120) Test 10/15/16 10/15/16 10/16/16 10/16/16 21:27 21:58 05:47 07:01 D-Dimer Quantitative (PE/DVT) 0.59 MG/L FEU (0.00-0.50) Potassium Level 5.3 MEQ/L 5.7 MEQ/L (3.5-5.1) (3.5-5.1) Blood Urea Nitrogen 26 MG/DL (7-18) 22 MG/DL (7-18) Creatinine 1.24 MG/DL 1.12 MG/DL (0.50-1.00) (0.50-1.00) Estimat Glomerular Filtration 43 ML/MIN (>89) 49 ML/MIN (>89) Rate Total Protein 6.3 GM/DL (6.4-8.2) Albumin 2.8 GM/DL 2.7 GM/DL (3.4-5.0) (3.4-5.0) Red Blood Count 3.87 MIL/MM3 (4.00-5.30) Platelet Count 148 TH/MM3 (150-450) Monocytes (%) (Auto) 17.8 % (0.0-8.0) Monocytes # (Auto) 1.8 TH/MM3 (0-0.9) Ammonia LESS THAN 10 MCMOL/L (11-32) Random Glucose 67 MG/DL (74-106) Aspartate Amino Transf 48 U/L (15-37) (AST/SGOT) Total Creatine Kinase 223 U/L (26-192) Test 10/16/16 10/17/16 07:51 03:43 Red Blood Count 3.50 MIL/MM3 3.48 MIL/MM3 (4.00-5.30) (4.00-5.30) Hemoglobin 10.7 GM/DL 10.8 GM/DL (11.6-15.3) (11.6-15.3) Hematocrit 32.4 % 31.4 % (35.0-46.0) (35.0-46.0) Platelet Count 139 TH/MM3 134 TH/MM3 (150-450) (150-450) Monocytes (%) (Auto) 21.3 % (0.0-8.0) Monocytes # (Auto) 2.2 TH/MM3 (0-0.9) Platelet Estimate LOW (NORMAL) Monocytes % 12 % (0-8) Chloride Level 110 MEQ/L (98-107) Estimat Glomerular Filtration 72 ML/MIN (>89) Rate Random Glucose 107 MG/DL (74-106) Calcium Level 8.4 MG/DL (8.5-10.1) Total Protein 5.6 GM/DL (6.4-8.2) Albumin 2.4 GM/DL (3.4-5.0) PE at Discharge GENERAL: This is a well-nourished, well-developed patient, in no apparent distress. HEENT: Normocephalic. Pupils equal round and reactive. Nose without bleeding. Airway patent. NECK: Trachea midline. No JVD. Supple. CARDIOVASCULAR: Regular rate and rhythm without murmurs, gallops, or rubs. RESPIRATORY: Diminished bases. No wheezes, rales, or rhonchi. Cough noted GASTROINTESTINAL: Abdomen soft, nondistended, tender to palpate left lower quadrant. Bowel Sounds hypoactive. NEUROLOGICAL: Awake and alert. Restless. Confused. OSBORN. Transfer Summary See hospital course Hospital Course 66-year-old female with past medical history of bipolar disorder, HTN. She has previously been in [facility] in [facility] for about a year and a half, discharged to an assisted living facility in May of 2016 but then was admitted to [facility] 08/28/16 due to worsening paranoia, delusions. She had fallen and fractured her left humerus which was managed non-operatively. 10/15/16 AM she was transferred from psychiatry to the med-psych unit due to decreased mental status and increased oxygen requirement. She was noted to have increased creatinine 2.3 from baseline ~0.8. Depakote level was elevated 10/13 to 105 and depakote had been held, level now 77. She has been on trazodone 300 po qhs, cymbalta 60 mg po qhs. Risperdal 1 po bid added 09/14/16 and geodon increased to 120 am/160 ahs on (previously on 120 bid). This evening she developed temp 101.1 and became tachypneic with rhonchi Started on Zosyn and azithromycin. Upon arrival of Dr. Benavides she was tachypneic with sonorous respirations and GCS 7-8. She was intubated for airway protection. On 10/16/16, with lightening sedation moves extremities do not follow commands. She was extubated successfully and was placed on as needed Precedex and Geodon when necessary 10/17/16: Patient breathing comfortably. Requests food. Tearful. Psychiatry reconsulted for resuming bipolar meds, and transfer back to psych. Patient sputum growing MRSA, Zosyn will be continued on vancomycin and has been added. Patient remained stable for transfer to psych Pt Condition on Discharge: Stable Discharge Disposition: Disc to Psych Care Fac Discharge Instructions DIET: Follow Instructions for: As Tolerated, No Restrictions Activities you can perform: See Additionl Instruction Other Activity Instructions: Per PT Malik Swanson MD Oct 17, 2016 15:31
[2016-10-17] MEDS ORDERED: PIPERACIL-TAZO 4.5 GM PREMIX 100 ML IV SCH (17:00)
[2016-10-19] MEDS ORDERED: PHARMACY ORDERED LAB XX ONE (18:45)
== END 2016-10-15 20:00 | disposition short-term general hospital (02) | DRG 885 ==
LOC: NEPE 18:10 → NEDA 08-28 02:52 → H250 08-28 03:42 → H4EA 10-15 09:31 → N03A 10-15 19:22 → H270 10-15 20:00 → UNDODISIN 10-15 20:00
PROVIDERS: ADMIT Emergency Medicine; ATTEND Emergency Medicine
DX: F31.32 Bipolar disorder, current episode depressed, moderate (principal); J96.01 Acute respiratory failure with hypoxia; G92 Toxic encephalopathy; N17.9 Acute kidney failure, unspecified; F11.20 Opioid dependence, uncomplicated; E66.01 Morbid (severe) obesity due to excess calories; E87.5 Hyperkalemia; S42.252A Displaced fracture of greater tuberosity of left humerus, initial encounter for closed fracture; I10 Essential (primary) hypertension; M25.552 Pain in left hip; Z96.642 Presence of left artificial hip joint; K21.9 Gastro-esophageal reflux disease without esophagitis; E86.0 Dehydration; W19.XXXA Unspecified fall, initial encounter; Y93.9 Activity, unspecified; Y92.9 Unspecified place or not applicable; R60.0 Localized edema; F91.8 Other conduct disorders; W18.30XA Fall on same level, unspecified, initial encounter; Y92.239 Unspecified place in hospital as the place of occurrence of the external cause; S80.02XA Contusion of left knee, initial encounter; M17.12 Unilateral primary osteoarthritis, left knee; G89.29 Other chronic pain; Z87.891 Personal history of nicotine dependence; J20.9 Acute bronchitis, unspecified
CPT/HCPCS: 31500; 36600; 70450; 71010; 73030; 73502; 73560; 74000; 76937; 80048; 80053; 80061; 80164; 80301; 80320; 80329; 81001; 82140; 82550; 82552; 82805; 83036; 83605; 83735; 84132; 84443; 85007; 85025; 85027; 85379; 85610; 85730; 86403; 87040; 87070; 87086; 87147; 87186; 87205; 87449; 87641; 87804; 93005; 93970; 94002; 94003; 94640; 94664; 99285; C9113; C9399; G0479; J0171; J0456; J0461; J1650; J1815; J2543; J2794; J3370; J3486; J7030; J7050; Q0163

== ENCOUNTER 2016-10-15 19:02 | Inpatient (IN) | payer MEDICARE, OTHER ==
[~2016-10-15 19:02] MED LIST: ALEN1TAB48 PO; BENZ2TAB PO; BUSP15TA PO; DEPA500T3 PO; DRIS50002 PO; DULO1CAP3 PO; FURO20TA PO; HYDR50TA94 PO; IBUP800T23 PO; JUSTSOL EACH EAR; LISI10TA3 PO; METO25TA3 PO; OMEP20TA PO; OSCA200T PO; RISP37.5P IM; TRAZ300T2 PO; UROCTAB2 PO; [UNRECOGNIZED DRUG - CODE] PO
[2016-10-17] MEDS ORDERED: LORA-392 PO (15:30)
== END 2016-10-17 20:00 | disposition home or self-care (01) | DRG 208 ==
LOC: N03B 19:02
PROVIDERS: ADMIT Emergency Medicine; ATTEND Emergency Medicine
PROC: 0BH17EZ Insertion of Endotracheal Airway into Trachea, Via Natural or Artificial Opening (ICD-10-PCS; principal; 2016-10-15)
PROC: 5A1945Z Respiratory Ventilation, 24-96 Consecutive Hours (ICD-10-PCS; 2016-10-15)
DX: J96.02 Acute respiratory failure with hypercapnia (principal); G92 Toxic encephalopathy; N17.9 Acute kidney failure, unspecified; J15.212 Pneumonia due to Methicillin resistant Staphylococcus aureus; N39.0 Urinary tract infection, site not specified; F31.30 Bipolar disorder, current episode depressed, mild or moderate severity, unspecified; J96.01 Acute respiratory failure with hypoxia; Y92.239 Unspecified place in hospital as the place of occurrence of the external cause; T50.995A Adverse effect of other drugs, medicaments and biological substances, initial encounter; F20.9 Schizophrenia, unspecified; K21.9 Gastro-esophageal reflux disease without esophagitis; I10 Essential (primary) hypertension; E66.9 Obesity, unspecified; E87.5 Hyperkalemia; S42.302D Unspecified fracture of shaft of humerus, left arm, subsequent encounter for fracture with routine healing; W19.XXXD Unspecified fall, subsequent encounter; Z91.81 History of falling

== ENCOUNTER 2016-10-17 12:30 | Inpatient (IN) | payer MEDICARE, OTHER ==
[~2016-10-17] VITALS: Ht 165.1 cm; Wt 98.3 kg
[2016-10-17] MEDS ORDERED: LORA-392 PO (15:30)
[2016-10-17] MEDS ORDERED: MAGNESIUM HYDROXIDE SUSP 30 ML CUP PO PRN (17:15)
[2016-10-17] MEDS ORDERED: LORazepam 0.5 MG TAB age > 65 yrs PO PRN (17:15)
[2016-10-17] MEDS ORDERED: ALUMINUM/MAGNESIUM/SIMETH 30 ML CUP PO PRN (17:15)
[2016-10-17 17:26] VITALS: BP 114/65; PULSE 86; RESP 16; TEMP 97.9; O2SAT 99
[2016-10-17] MEDS ORDERED: SODIUM CHLORIDE FLUSH PRN IVF (17:30)
[2016-10-17] MEDS ORDERED: BISACODYL 10 MG SUPP RECTAL PRN (17:30)
[2016-10-17] MEDS ORDERED: ZIPRASIDONE MESYLATE 20 MG VIAL IM PRN (17:30)
[2016-10-17] MEDS: CHLORHEXIDINE 0.12% (ORAL KIT) 15 ML CUP OROPHARYNG SCH (17:48)
[2016-10-17] MEDS: IBUPROFEN 800 MG TAB PO SCH (18:00)
[2016-10-17] MEDS ORDERED: ARTIFICIAL TEARS OPTH SOLN 15 ML BTL EACH EYE PRN (18:00)
[2016-10-17] MEDS ORDERED: PILL SPLITTER OTHER PRN (18:15)
[2016-10-17] MEDS: DOCUSATE SODIUM 100 MG CAP PO PRN ×2 (18:28→18:34)
[2016-10-17 19:36] VITALS: BP 159/70; PULSE 102; RESP 18; TEMP 97.7; O2SAT 97
[2016-10-17] MEDS: PIPERACIL-TAZO 4.5 GM PREMIX 100 ML IV SCH (20:00)
[2016-10-17] MEDS: AZITHROMYCIN 500 MG/NS 250 ML IV SCH ×2 (20:00)
[2016-10-17] MEDS: ACETAMINOPHEN 325 MG TAB PO PRN (20:24)
[2016-10-17] MEDS: DOCUSATE SODIUM 50 MG/SENNA 8.6 MG TAB PO SCH (20:24)
[2016-10-17] MEDS: REMOVE OLD NICOTINE PATCH T-DERMAL SCH (21:00)
[2016-10-17] MEDS: RESP: ALBUTEROL 2.5 MG/IPRATROPIUM 0.5 MG NEB (SCH) NEB (21:32)
[2016-10-17] MEDS: diphenhydrAMINE HCL 50 MG CAP PO PRN (21:37)
[2016-10-17] MEDS: LORazepam 0.5 MG TAB PO PRN (21:37)
[2016-10-17] MEDS: SODIUM CHLORIDE FLUSH BID IVF SCH (21:38)
[2016-10-17] MEDS: METOPROLOL TARTRATE 25 MG TAB PO SCH (21:38)
[2016-10-17 21:42] VITALS: O2SAT 96
[2016-10-18] MEDS: ONDANSETRON HCL 4 MG/2 ML VIAL IV PUSH PRN ×2 (00:23→06:23)
[2016-10-18] MEDS: PIPERACIL-TAZO 4.5 GM PREMIX 100 ML IV SCH ×4 (03:10→20:47)
[2016-10-18] MEDS: RESP: ALBUTEROL 2.5 MG/IPRATROPIUM 0.5 MG NEB (SCH) NEB ×4 (04:40→21:43)
[2016-10-18] MEDS: VANCOMYCIN INJ 1,250 MG in SODIUM CHLOR 0.9% 250 ML INJ 250 ML IV SCH (05:36)
[2016-10-18 05:44] VITALS: BP 161/76; PULSE 84; RESP 15; TEMP 98; O2SAT 97
[2016-10-18] MEDS: CHLORHEXIDINE 0.12% (ORAL KIT) 15 ML CUP OROPHARYNG SCH ×2 (08:00→20:00)
[2016-10-18] MEDS: SODIUM CHLORIDE FLUSH BID IVF SCH ×2 (09:00→20:48)
[2016-10-18] MEDS: NICOTINE 21 MG/24 HR PATCH T-DERMAL SCH (09:00)
[2016-10-18] MEDS: ERGOCALCIFEROL (VIT D2) 50,000 UNIT CAP PO SCH (09:00)
[2016-10-18] MEDS ORDERED: CALCIUM/VITAMIN D 250 MG/125 U TAB PO SCH (09:00)
[2016-10-18] MEDS: PANTOPRAZOLE SOD 20 MG DELAYED RELEASE TAB PO SCH (09:00)
[2016-10-18] MEDS: METOPROLOL TARTRATE 25 MG TAB PO SCH ×2 (09:00→20:49)
[2016-10-18] MEDS: LISINOPRIL 10 MG TAB PO SCH (09:00)
[2016-10-18] MEDS: CALCIUM/VITAMIN D 250 MG/125 U TAB PO SCH ×3 (09:00→18:00)
[2016-10-18] MEDS: IBUPROFEN 800 MG TAB PO SCH ×3 (09:00→18:00)
[2016-10-18] MEDS: CYANOCOBALAMIN 1,000 MCG TAB PO SCH (09:00)
[2016-10-18] MEDS: FUROSEMIDE 20 MG TAB PO SCH (09:00)
[2016-10-18] MEDS: DOCUSATE SODIUM 50 MG/SENNA 8.6 MG TAB PO SCH ×2 (09:00→20:49)
[2016-10-18 09:23] LABS: ANION GAP 10 MEQ/L (5-15); BICARBONATE 21.3 MEQ/L (21.0-32.0); BLOOD UREA NITROGEN 8 MG/DL (7-18); CHLORIDE 108 MEQ/L (98-107); GLOMERULAR FILTRATION RATE 80 ML/MIN (>89); LDL CHOLESTEROL 65 MG/DL (0-99); POTASSIUM 4.3 MEQ/L (3.5-5.1); SODIUM (NA) 139 MEQ/L (136-145)
[2016-10-18 10:04] VITALS: O2SAT 96
--- NOTE | 2016-10-18 11:09 | HHI.PYPN ---
Subjective Remarks Patient is seen for reevaluation, she is in isolation due to MRSA she is calm and cooperative, pleasantly confused, no agitation, restlessness observed. She reports good, mood, denies SI/HI/VH. Review of Systems Other no somatic complain Objective Alert: Yes [place]: Person Mood: Calm Affect: Euthymic Memory Intact: Immediate Hallucinations: Other (none) Delusions: No Delusion Type: Other (none) Suicidal: Ideation (she denies) Homicidal: Ideation (she denies ) Insight/Judgement poor Labs Test 10/18/16 08:21 Sodium Level 139 MEQ/L Potassium Level 4.3 MEQ/L Chloride Level 108 MEQ/L Carbon Dioxide Level 21.3 MEQ/L Anion Gap 10 MEQ/L Blood Urea Nitrogen 8 MG/DL Creatinine 0.73 MG/DL Estimat Glomerular Filtration 80 ML/MIN Rate Random Glucose 116 MG/DL Calcium Level 8.1 MG/DL Triglycerides Level 125 MG/DL Cholesterol Level 127 MG/DL LDL Cholesterol 65 MG/DL HDL Cholesterol 37.0 MG/DL Cholesterol/HDL Ratio 3.43 RATIO Vancomycin Level Trough 25.6 MCG/ML Vitals/IOs Vital Signs Date Time Temp Pulse Resp B/P Pulse Ox O2 Delivery O2 Flow Rate FiO2 10/18/16 10:04 96 Nasal Cannula 2.00 10/18/16 05:44 98.0 84 15 161/76 Intake and Output 10/17/16 10/17/16 10/18/16 08:00 16:00 00:00 Intake Total 490 ml Output Total 1000 ml Balance -510 ml Assessment & Plan Problem List: (1) Schizophrenia ICD Code: F20.9 Assessment & Plan Estimated LOS: days Justification for Cont. Inpt. She will decompensate out of an structure environment, she needs stabilization Saúl Alicia MD Oct 18, 2016 11:09
[2016-10-18] MEDS: DIVALPROEX SODIUM E.R. 500 MG TAB PO SCH ×2 (11:15→20:49)
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
[2016-10-18 14:18] LABS: HEMOGLOBIN A1a 1.4 %; HEMOGLOBIN A1b 0.9 %; HEMOGLOBIN F 1.9 %; HEMOGLOBIN LA1C 2.2 %
--- NOTE | 2016-10-18 14:33 | HHI.HP ---
Provisional Diagnosis Admission Date Oct 17, 2016 at 12:30 [place]. Bipolar disorder, dementia Certification of Person's Competence To Provide Express and Informed Consent I have personally examined Alessia Gutierrez , a person being served at [facility] on, Oct 18, 2016 14:26. Express and informed consent means consent voluntarily given in writing, by a competent person, after sufficient explanation and disclosure of the subject matter involved to enable the person to make a knowing and willful decision without any element of force, fraud, deceit, duress, or other form of constraint or coercion. This person is 18 years of age or older, is not now known to be incompetent to consent to treatment with a guardian advocate, and does not have a health care surrogate or proxy currently making medical treatment decisions. I have found this person to be one of the following: [] Competent to provide express and informed consent, as defined above, for voluntary admission to this facility and is competent to provide express and informed consent for treatment. He/she has the consistent capacity to make well reasoned, willful, and knowing decisions concerning his or her medical or mental health treatment. The person fully and consistently understands the purpose of the admission for examination/placement and is fully capable of personally exercising all rights assured under [place] [] Incompetent to provide express and informed consent to voluntary admission, and this is incompetent to provide express and informed consent to treatment. The person must be transferred to involuntary status and a petition for a guardian advocate filed with the Circuit Court. [X] Refusing to provide express and informed consent to voluntary admission but is competent to provide express and informed consent for treatment. The person must be discharged or transferred to involuntary status. Form shall be completed within 24 hours of a person's arrival at the receiving facility and filed in the clinical record of each person: 1. Admitted on a voluntary basis 2. Permitted to provide express and informed consent to his/her own treatment 3. Allowed to transfer from involuntary to voluntary status 4. Prior to permitting a person to consent to his or her own treatment after having been previously found incompetent to consent to treatment. History of Present Illness Capacity: Has Capacity HPI The patient is a 66 years old woman with psychiatric history of schizophrenia, bipolar disorder, neurocognitive disorder, on multiple psychotropics, she has been hospital in psychiatry now since 08/28/2017. She was transferred last Tuesday to medical floor due to pneumonia and MRSA following her sputum, treated with antibiotic therapy and then brought back to the unit. Today patient was seen for evaluation and also for treatment team on a with nursing charge, social welfare research worker and therapist. Patient is seems to be more alert, talkative, and with a brighter affect. She reports good mood, she says that she is happy, she is just partially oriented in time and place, denies depression, denies suicidal or homicidal ideation, denies visual and auditory hallucinations. She denies distress and pain. Review of Systems Constitutional: DENIES: Diaphoretic episodes, Fatigue, Fever, Weight gain, Weight loss, Chills, Dizziness, Change in appetite, Night Sweats Endocrine: DENIES: Abnorml menstrual pattern, Heat/cold intolerance, Polydipsia , Polyuria, Polyphagia Eyes: DENIES: Blurred vision, Diplopia, Eye inflammation, Eye pain, Vision loss , Photosensitivity, Double Vision Ears, nose, mouth, throat: DENIES: Tinnitus, Hearing loss, Vertigo, Nasal discharge, Oral lesions, Throat pain, Hoarseness, Ear Pain, Running Nose, Epistaxis, Sinus Pain, Toothache, Odynophagia Respiratory: DENIES: Apneas, Cough, Snoring, Wheezing, Hemoptysis, Sputum production, Shortness of breath Gastrointestinal: DENIES: Abdominal pain, Black stools, Bloody stools, Constipation, Diarrhea, Nausea, Vomiting, Difficulty Swallowing, Anorexia Musculoskeletal: DENIES: Joint pain, Muscle aches, Stiffness, Joint Swelling, Back pain, Neck pain Integumentary: DENIES: Abnormal pigmentation, Pruritus, Rash, Nail changes, Breast masses, Breast skin changes, Nipple discharge Hematologic/lymphatic: DENIES: Bruising, Lymphadenopathy Immunologic/allergic: DENIES: Eczema, Urticaria Neurologic: DENIES: Abnormal gait, Headache, Localized weakness, Paresthesias, Seizures, Speech Problems, Tremor, Poor Balance Psychiatric: DENIES: Anxiety, Confusion, Mood changes, Depression, Hallucinations, Agitation, Suicidal Ideation, Homicidal Ideation, Delusions Substance Abuse History Drugs/Alcohol past 12 months She denies Past Family Social History Coded Allergies: *MDRO Multi-Drug Resistant Organism (Verified Adverse Reaction, Unknown, MRSA, 10/18/16) MRSA (sputum)-10/15/16 MRSA PCR screen POSITIVE - 10/15/16 Active Scripts Lorazepam (Ativan)0.5 Mg Tab0.5 Mg PO Q12H PRN (MODERATE TO SEVERE ANXIETY) 30 Days Ref 0 Prov:Malik Swanson MD 10/17/16 Reported Medications Potassium Citrate (Alkalinizer) (Urocit-K 10)1,080 Mg Tab10 Meq PO DAILY #90 TAB Ref 0 08/27/16 Metoprolol Tartrate 25 Mg Tab25 Mg PO BID #60 TAB Ref 0 08/27/16 Furosemide 20 Mg Tab20 Mg PO DAILY #30 TAB Ref 0 08/27/16 Ibuprofen 800 Mg Wal274 Mg PO TID Ref 0 08/27/16 Calcium Carbonate-Vitamin D (Oscal 500/200 D-3)500-200 Mg-Unit Tab1 Tab PO TID Ref 0 08/27/16 Ergocalciferol (Drisdol)50,000 Unit Cap50,000 Units PO WEEKLY ON MONDAYS #30 CAP Ref 0 08/27/16 Risperidone Inj (Risperdal Consta Inj)37.5 Mg Inj37.5 Mg IM Q14D #2 VIAL Ref 0 08/27/16 Lisinopril 10 Mg Tab10 Mg PO DAILY #30 TAB Ref 0 08/27/16 Omeprazole 20 Mg Tab20 Mg PO DAILYAC #30 TAB Ref 0 08/27/16 Alendronate 70 Mg Tab70 Mg PO WEEKLY ON MONDAYS #4 TAB Ref 0 08/27/16 Artificial Tear Solution Opth Drops (Just Tears Eye Drops)1 Nadja Sol1 Drop EACH EAR DIRECTED PRN (DRY EYE) 08/27/16 Cyanocobalamin (B-12)500 Mcg Hjh228 Mcg PO DAILY #1 BOTTLE Ref 0 08/27/16 Discontinued Reported Medications Hydroxyzine HCl 50 Mg Tab50 Mg PO DAILY Ref 0 08/27/16 Benztropine 2 Mg Tab2 Mg PO BID #60 TAB Ref 0 08/27/16 Divalproex ER (Depakote ER)500 Mg [id number] Mg PO TID #30 TAB Ref 0 08/27/16 Buspirone 15 Mg Tab15 Mg PO BID Ref 0 08/27/[address] 60 Mg Capdr60 Mg PO HS #30 CAP Ref 0 08/27/16 Trazodone 300 Mg Sdl893 Mg PO HS #30 TAB Ref 0 08/27/16 Current Medications Medications (Trade) Dose Ordered Sig/Kate Route Start Time Stop Time Status Last Admin (Ativan Inj) 0.5 mg Q12H PRN IM 10/17/16 17:15 (Tylenol) 650 mg Q4H PRN PO 10/17/16 17:15 10/17/16 20:24 (Milk Of Magnesia Liq) 30 ml DAILY PRN PO 10/17/16 17:15 10/17/16 20:24 (Mag-Al Plus Susp Liq) 30 ml Q6H PRN PO 10/17/16 17:15 10/17/16 20:24 (Habitrol 21 Mg Patch.24 Hr) 1 patch DAILY T-DERMAL 10/18/16 09:00 Miscellaneous Information 1 HS T-DERMAL 10/17/16 21:00 (Lisha-Colace) 2 tab BID PO 10/17/16 21:00 10/18/16 09:00 (Drisdol) 50,000 units Mo@09 PO 10/18/16 09:00 10/18/16 09:00 (Protonix) 20 mg DAILY PO 10/18/16 09:00 10/18/16 09:00 (Lopressor) 25 mg BID PO 10/17/16 21:00 10/18/16 09:00 (Vitamin B12) 500 mcg DAILY PO 10/18/16 09:00 10/18/16 09:00 (Ativan) 0.5 mg Q12HR PRN PO 10/17/16 17:30 10/17/16 21:37 Diphenhydramine HCl 50 mg 50 mg HS PRN PO 10/17/16 17:30 10/17/16 21:37 (Zithromax Inj/ NS 250 ml Inj) 250 ml @ 250 mls/hr Q24H IV 10/17/16 20:00 10/17/16 20:00 (Colace) 100 mg BID PRN PO 10/17/16 17:30 10/17/16 18:34 (Dulcolax Supp) 10 mg DAILY PRN RECTAL 10/17/16 17:30 10/17/16 23:42 (NS Flush) 2 ml BID IVF 10/17/16 21:00 10/18/16 09:00 (NS Flush) 2 ml UNSCH PRN IVF 10/17/16 17:30 10/18/16 00:24 (Peridex 0.12% Liq) 15 ml BID@08,20 OROPHARYNG 10/17/16 20:00 10/18/16 08:00 (Geodon Inj) 20 mg Q6H PRN IM 10/17/16 17:30 (Tears Naturale Opth Soln) 1 drop UNSCH PRN EACH EYE 10/17/16 18:00 (Lasix) 20 mg DAILY PO 10/18/16 09:00 10/18/16 09:00 (Motrin) 800 mg TID PO 10/17/16 18:00 10/18/16 13:00 Lisinopril 10 mg 10 mg DAILY PO 10/18/16 09:00 10/18/16 09:00 Vancomycin HCl 1250 mg/Sodium Chloride 262.5 ml @ 250 mls/hr Q18H IV 10/18/16 06:00 10/18/16 05:36 (Zosyn 4.5 Gm Premix) 100 ml @ 200 mls/hr Q6H IV 10/17/16 20:00 10/18/16 13:48 (Oscal-D 250-125) 500 mg TID PO 10/18/16 09:00 10/18/16 13:00 (Pill Splitter) 1 ea UNSCH PRN OTHER 10/17/16 18:15 (Zofran Inj) 4 mg Q6HR PRN IV PUSH 10/17/16 23:30 10/18/16 06:23 (Depakote Er) 500 mg BID PO 10/18/16 11:15 10/18/16 11:15 (Geodon) 80 mg BID PO 10/18/16 21:00 (Desyrel) 100 mg HS PO 10/18/16 21:00 (Cymbalta Dr) 60 mg DAILY PO 10/19/16 09:00 Social History Patient was born in [facility]. She has 1 brother and 3 sisters. She was close to both of her parents. Her childhood was described as okay. She denied any physical verbal or sexual abuse growing up. She finished high school and 2 years of college she has been that lasted only for a couple of years she has no children. Patient worked in the [employer]. She did admit to alcohol use when she was young but she hasn't abused that in years denied any drug abuse. Denied any legal difficulty. She has been diagnosed with bipolar affective disorder and has been taking Depakote and Cymbalta and BuSpar. She has been hospitalized in [place] and was released 3 months ago Physical Exam Vital Signs Vital Signs Date Time Temp Pulse Resp B/P Pulse Ox O2 Delivery O2 Flow Rate FiO2 10/18/16 10:04 96 Nasal Cannula 2.00 10/18/16 05:44 98.0 84 15 161/76 I/O 10/17/16 10/17/16 10/18/16 08:00 16:00 00:00 Intake Total 490 ml Output Total 1000 ml Balance -510 ml Mental Status Examination Appearance Overweight woman, age appearing, calm and cooperative Speech: Unremarkable Orientation: x3 Memory: Impaired (describe) Thought Process: Goal Directed Thought Content: Bizarre thinking Hallucination Type: None Suicidal Ideation: No Homicidal Ideation: No Judgement: Poor Affect: Good Mood: Appropriate Motor Activity: Normal gait Assessment & Plan Problem List: (1) Schizophrenia Assessment & Plan: Patient will be readmitted in the Med[facility] unit. We'll start trazodone 100 mg, Depakote 500 mg twice a day, Geodon 80 mg twice a day and duloxetine 60 minute. ICD Code: F20.9 Assessment & Plan Estimated LOS: Saúl Persaud MD Oct 18, 2016 14:32
[2016-10-18] MEDS: LORazepam 0.5 MG TAB PO PRN (15:50)
[2016-10-18 16:24] VITALS: BP 115/55; PULSE 79; RESP 16; TEMP 98.7; O2SAT 95
[2016-10-18 19:43] VITALS: BP 115/55; PULSE 79; RESP 16; TEMP 98.7; O2SAT 95
[2016-10-18] MEDS: ZIPRASIDONE HCL 80 MG CAP PO SCH (20:49)
[2016-10-18] MEDS: traZODone HCL 100 MG TAB PO SCH (20:50)
[2016-10-18] MEDS: AZITHROMYCIN 500 MG/NS 250 ML IV SCH ×2 (20:51)
[2016-10-18] MEDS: REMOVE OLD NICOTINE PATCH T-DERMAL SCH (21:00)
[2016-10-18] MEDS: ACETAMINOPHEN 325 MG TAB PO PRN (21:37)
[2016-10-19] MEDS: VANCOMYCIN INJ 1,250 MG in SODIUM CHLOR 0.9% 250 ML INJ 250 ML IV SCH ×2
[2016-10-19] MEDS: PIPERACIL-TAZO 4.5 GM PREMIX 100 ML IV SCH ×4 (01:57→20:00)
[2016-10-19] MEDS ORDERED: Vancomycin Consult Pharmacy 1 EA OTHER SCH (02:15)
[2016-10-19] MEDS: RESP: ALBUTEROL 2.5 MG/IPRATROPIUM 0.5 MG NEB (SCH) NEB ×4 (03:05→21:05)
[2016-10-19] MEDS ORDERED: VANCOMYCIN INJ 1,250 MG in SODIUM CHLOR 0.9% 250 ML INJ 250 ML IV SCH (04:00)
[2016-10-19] MEDS: LORazepam 0.5 MG TAB PO PRN (04:14)
[2016-10-19 05:43] VITALS: BP 115/69; PULSE 85; RESP 18; TEMP 98.2; O2SAT 96
[2016-10-19] MEDS: CHLORHEXIDINE 0.12% (ORAL KIT) 15 ML CUP OROPHARYNG SCH ×2 (08:00→20:00)
[2016-10-19] MEDS: CYANOCOBALAMIN 1,000 MCG TAB PO SCH (09:00)
[2016-10-19] MEDS: NICOTINE 21 MG/24 HR PATCH T-DERMAL SCH (09:00)
[2016-10-19] MEDS: DULoxetine HCl DR 60 MG CAP PO SCH (09:00)
[2016-10-19] MEDS: METOPROLOL TARTRATE 25 MG TAB PO SCH ×2 (09:00→21:38)
[2016-10-19] MEDS: CALCIUM/VITAMIN D 250 MG/125 U TAB PO SCH ×3 (09:00→18:00)
[2016-10-19] MEDS: SODIUM CHLORIDE FLUSH BID IVF SCH ×2 (09:00→21:39)
[2016-10-19] MEDS: LISINOPRIL 10 MG TAB PO SCH (09:00)
[2016-10-19] MEDS: IBUPROFEN 800 MG TAB PO SCH ×3 (09:00→18:00)
[2016-10-19] MEDS: FUROSEMIDE 20 MG TAB PO SCH (09:00)
[2016-10-19] MEDS: ZIPRASIDONE HCL 80 MG CAP PO SCH ×2 (09:00→21:37)
[2016-10-19] MEDS: DOCUSATE SODIUM 50 MG/SENNA 8.6 MG TAB PO SCH ×2 (09:00→21:37)
[2016-10-19] MEDS: PANTOPRAZOLE SOD 20 MG DELAYED RELEASE TAB PO SCH (09:00)
[2016-10-19] MEDS: DIVALPROEX SODIUM E.R. 500 MG TAB PO SCH ×2 (09:00→21:37)
--- NOTE | 2016-10-19 10:16 | HHI.PYPN ---
Subjective Remarks Patient was seen for reevaluation at bedside, patient was sign a good mood, pleasant, cooperative, she states that she is happy today, she doesn't have any medical complaints, she denies depressive symptoms, no delusions, paranoia, internal preoccupation, confusion, attention deficit observed, she is oriented in person, partially oriented to time and place. She has been medication compliant. As per nurse in charge no periods of agitation or aggressive behavior reported or observed in the last 24 hours. Review of Systems Other No significant changes seen 10/18/2016 Objective Alert: Yes [place]: Person, Place, Date Mood: Calm Affect: Euthymic Memory Intact: Immediate Hallucinations: Other (none) Delusions: No Delusion Type: Other (none) Suicidal: Ideation (she denies) Homicidal: Ideation (she denies ) Insight/Judgement fair Labs Test 10/19/16 06:00 Random Vancomycin Level 22.9 COMMENT Vitals/IOs Vital Signs Date Time Temp Pulse Resp B/P Pulse Ox O2 Delivery O2 Flow Rate FiO2 10/19/16 05:43 98.2 85 18 115/69 96 10/18/16 21:30 Nasal Cannula 2.00 Intake and Output 10/18/16 10/18/16 10/19/16 08:00 16:00 00:00 Intake Total 240 ml 600 ml 240 ml Output Total 400 ml 500 ml Balance -160 ml 600 ml -260 ml Assessment & Plan Problem List: (1) Schizophrenia Assessment & Plan: On psychiatric evaluation the patient does not show any significant depressive symptoms, acute anxiety or psychosis. She denies suicidal and homicidal ideation, she denies visual and auditory hallucinations. No episodic aggressive behavior or agitation observed or reported. So far just medication compliant with an appropriate good response. ICD Code: F20.9 Assessment & Plan Estimated LOS: days Justification for Cont. Inpt. Patient is now in IV antibiotics, but also she is still need more psychiatric stabilization. Saúl Alicia MD Oct 19, 2016 10:16
[2016-10-19] MEDS: LORazepam 2 MG/ML VIAL - age > 65 yrs IM PRN (11:00)
[2016-10-19 11:52] VITALS: O2SAT 96
--- NOTE | 2016-10-19 13:03 | HHI.PR ---
Subjective Remarks This is a 65-year-old obese female patient who was admitted to intensive care unit for acute respiratory failure, was previously on the ventilator and was weaned off. Improved clinical status. Transferred to inpatient medical psych unit for further management. Consulted for medical management. Patient complaints of mild SOB which is improving. Patient also c/o sore throat. Denies cough sputum production chest pain N/V/D. Offers no other complaints. Objective Vitals Vital Signs Date Time Temp Pulse Resp B/P Pulse Ox O2 Delivery O2 Flow Rate FiO2 10/19/16 11:52 96 21 10/19/16 05:43 98.2 85 18 115/69 96 10/18/16 21:30 Nasal Cannula 2.00 10/18/16 19:43 98.7 79 16 115/55 95 10/18/16 16:24 98.7 79 16 115/55 95 I/O 10/18/16 10/18/16 10/18/16 10/19/16 10/19/16 10/19/16 07:00 15:00 23:00 07:00 15:00 23:00 Intake Total 240 ml 600 ml 240 ml 480 ml Output Total 400 ml 500 ml 750 ml Balance -160 ml 600 ml -260 ml -270 ml Intake Oral 240 ml 600 ml 240 ml 480 ml Output Urine Total 400 ml 500 ml 750 ml # Voids 2 1 # Bowel Movements 2 2 1 Result Diagram: 10/18/16 0821 Objective Remarks GENERAL: This is a well-nourished, well-developed patient, in no apparent distress. SKIN: No rashes, ecchymoses or lesions. Cool and dry. HEAD: Atraumatic. Normocephalic. No temporal or scalp tenderness. EYES: Pupils equal round and reactive. Extraocular motions intact. No scleral icterus. No injection or drainage. ENT: Nose without bleeding. Throat without erythema. Uvula midline. Airway patent. NECK: Trachea midline. No JVD or lymphadenopathy. Supple, nontender, no meningeal signs. CARDIOVASCULAR: Regular rate and rhythm without murmurs, gallops, or rubs. RESPIRATORY: Clear to auscultation. Breath sounds equal bilaterally. No wheezes , rales, or rhonchi. GASTROINTESTINAL: Abdomen soft, non-tender, nondistended. Bowel sounds hypoactive. No guarding. MUSCULOSKELETAL: Extremities without clubbing, cyanosis, trace bilateral lower extremity edema. Partial left foot amputation. NEUROLOGICAL: Awake and alert. Confuse. Motor and sensory grossly within normal limits. Unsteady getting out of bed. Needs assistance with ADLs. Normal speech. A/P Problem List: (1) Schizophrenia ICD Code: F20.9 Status: Acute (2) Probable MRSA pneumonia Status: Acute (3) Respiratory failure, acute ICD Code: J96.00 Status: Acute (4) Acute kidney failure ICD Code: N17.9 Status: Acute Assessment and Plan This is a 65-year-old obese female patient who was admitted to intensive care unit for acute respiratory failure, was previously on the ventilator and was weaned off. Improved clinical status. Transferred to inpatient medical psych unit for further management. Consulted for medical management Schizophrenia - managed by psychiatry team Acute hypoxic respiratory failure, tracheo bronchitis, possible aspiration, MRSA sputum - Continue IV Zosyn, vancomycin, azithromycin -Droplet isolation - Continue O2 nasal cannula when necessary - DuoNeb scheduled and when necessary - Nicotine patch - Monitor labs HONG - resolved. Current creatinine 0.73 HTN - continue lisinopril 10 mg daily, furosemide 20 mg daily, metoprolol 25 twice a day - Monitor BP trend L humeral neck fracture Seen by ortho, Dr. Del Valle. Non operative management with sling and swathe LUE, nonweightbearing LUE. WBAT LLE. - Monitor for risk for falls. Continue with orthopedic precautions. Recommend sling and swath - Will order PT OT for evaluation Discussed plan of care with patient, RN, Dr. Alicia and Tatianna Salazra Oct 19, 2016 13:03
[2016-10-19] MEDS ORDERED: MENTHOL LOZENGE BUCCAL PRN (19:00)
[2016-10-19 20:10] VITALS: BP 122/57; PULSE 68; RESP 16; TEMP 98.1; O2SAT 92
[2016-10-19] MEDS ORDERED: SODIUM CHLOR 0.9% 1000 ML INJ 1,000 ML IV SCH (20:15)
[2016-10-19] MEDS: REMOVE OLD NICOTINE PATCH T-DERMAL SCH (21:00)
[2016-10-19] MEDS: traZODone HCL 100 MG TAB PO SCH (21:37)
[2016-10-19] MEDS: AZITHROMYCIN 500 MG/NS 250 ML IV SCH ×2 (21:39)
[2016-10-20] MEDS ORDERED: VANCOMYCIN INJ 1,250 MG in SODIUM CHLOR 0.9% 250 ML INJ 250 ML IV ONE (00:45)
[2016-10-20] MEDS: PIPERACIL-TAZO 4.5 GM PREMIX 100 ML IV SCH ×3 (03:06→14:00)
[2016-10-20] MEDS: RESP: ALBUTEROL 2.5 MG/IPRATROPIUM 0.5 MG NEB (SCH) NEB ×4 (04:26→20:57)
[2016-10-20 06:47] VITALS: BP 116/67; PULSE 69; RESP 16; TEMP 97.5; O2SAT 90
[2016-10-20] MEDS: LORazepam 0.5 MG TAB PO PRN (06:48)
[2016-10-20 07:21] LABS: AUTOMATED NEUTROPHIL # 6.3 TH/MM3 (1.8-7.7); BASOPHIL % 0.3 % (0.0-2.0); EOSINOPHIL % 0.1 % (0.0-4.0); HEMATOCRIT 31.1 % (35.0-46.0); HEMO FLAGS DIFF FINAL; LYMPH % 21.4 % (9.0-44.0); LYMPHOCYTE # 2.2 TH/MM3 (1.0-4.8); MEAN CELL VOLUME 91.5 FL (80.0-100.0); MEAN CORPUSCULAR HEMOGLOBIN 31.6 PG (27.0-34.0); MEAN CORPUSCULAR HGB CONC 34.5 % (32.0-36.0); NEUT % 62.2 % (16.0-70.0); PLATELET COUNT 184 TH/MM3 (150-450); RED CELL DISTRIBUTION WIDTH 15.2 % (11.6-17.2); WHITE BLOOD COUNT 10.2 TH/MM3 (4.0-11.0)
[2016-10-20] MEDS: CHLORHEXIDINE 0.12% (ORAL KIT) 15 ML CUP OROPHARYNG SCH ×2 (08:00→20:00)
[2016-10-20] MEDS: SODIUM CHLORIDE FLUSH BID IVF SCH ×2 (08:52→20:46)
[2016-10-20] MEDS: DULoxetine HCl DR 60 MG CAP PO SCH (08:52)
[2016-10-20] MEDS: DIVALPROEX SODIUM E.R. 500 MG TAB PO SCH ×2 (08:52→21:45)
[2016-10-20] MEDS: FUROSEMIDE 20 MG TAB PO SCH (08:52)
[2016-10-20] MEDS: IBUPROFEN 800 MG TAB PO SCH ×3 (08:52→18:00)
[2016-10-20] MEDS: ZIPRASIDONE HCL 80 MG CAP PO SCH ×2 (08:52→21:44)
[2016-10-20] MEDS: METOPROLOL TARTRATE 25 MG TAB PO SCH ×2 (08:52→21:45)
[2016-10-20] MEDS: LISINOPRIL 10 MG TAB PO SCH (08:53)
[2016-10-20] MEDS: PANTOPRAZOLE SOD 20 MG DELAYED RELEASE TAB PO SCH (08:53)
[2016-10-20] MEDS: DOCUSATE SODIUM 50 MG/SENNA 8.6 MG TAB PO SCH ×2 (08:53→21:44)
[2016-10-20] MEDS: CALCIUM/VITAMIN D 250 MG/125 U TAB PO SCH ×3 (08:53→18:00)
[2016-10-20] MEDS: NICOTINE 21 MG/24 HR PATCH T-DERMAL SCH (08:53)
[2016-10-20] MEDS: CYANOCOBALAMIN 1,000 MCG TAB PO SCH (08:53)
[2016-10-20 10:27] VITALS: O2SAT 96
--- NOTE | 2016-10-20 12:17 | HHI.PYPN ---
Subjective Remarks Patient was seen today for psychiatric evaluation, patient was found calm, cooperative and pleasant today, she was smiling, stating that she feels happy today, she denies depressive symptoms, reports good level of energy, reports good appetite, reports good sleep, denies suicidal and homicidal ideation, denies confusion, visual and auditory hallucinations, patient is fully oriented 3, medication compliant. Her sister, who was a bedside, reported that the patient is at baseline, much much better than before. She is trying to find a penitentiary for her. Review of Systems Other No changes since 10/19/2016 Objective Alert: Yes [place]: Person, Place, Date Mood: Calm Affect: Euthymic Memory Intact: Immediate, Recent, Remote Hallucinations: Other (none) Delusions: No Delusion Type: Other (none) Suicidal: Ideation (she denies) Homicidal: Ideation (she denies ) Insight/Judgement Good Labs Test 10/19/16 10/20/16 23:20 06:30 Vancomycin Level Trough 4.2 MCG/ML White Blood Count 10.2 TH/MM3 Red Blood Count 3.40 MIL/MM3 Hemoglobin 10.7 GM/DL Hematocrit 31.1 % Mean Corpuscular Volume 91.5 FL Mean Corpuscular Hemoglobin 31.6 PG Mean Corpuscular Hemoglobin 34.5 % Concent Red Cell Distribution Width 15.2 % Platelet Count 184 TH/MM3 Mean Platelet Volume 8.1 FL Neutrophils (%) (Auto) 62.2 % Lymphocytes (%) (Auto) 21.4 % Monocytes (%) (Auto) 16.0 % Eosinophils (%) (Auto) 0.1 % Basophils (%) (Auto) 0.3 % Neutrophils # (Auto) 6.3 TH/MM3 Lymphocytes # (Auto) 2.2 TH/MM3 Monocytes # (Auto) 1.6 TH/MM3 Eosinophils # (Auto) 0.0 TH/MM3 Basophils # (Auto) 0.0 TH/MM3 CBC Comment DIFF FINAL Differential Comment Creatinine 0.75 MG/DL Estimat Glomerular Filtration 78 ML/MIN Rate Vitals/IOs Vital Signs Date Time Temp Pulse Resp B/P Pulse Ox O2 Delivery O2 Flow Rate FiO2 10/20/16 10:27 96 Nasal Cannula 2.00 10/20/16 06:47 97.5 69 16 116/67 10/19/16 11:52 21 Intake and Output 10/19/16 10/19/16 10/20/16 08:00 16:00 00:00 Intake Total 480 ml 720 ml 1440 ml Output Total 750 ml 1000 ml Balance -270 ml 720 ml 440 ml Assessment & Plan Problem List: (1) Schizophrenia Assessment & Plan: Patient continues to show good response to psychotropic, no significant side effects, she doesn't show any sign of confusion, akathisia, depression, anxiety, she denies suicidal or homicidal ideation, she denies visual and auditory hallucinations. No changes in psychotropics at this moment. ICD Code: F20.9 Assessment & Plan Estimated LOS: days Justification for Cont. Inpt. At this point we'll start him to coordinate a safe discharge, patient is still needs medical care. Saúl Alicia MD Oct 20, 2016 12:17
[2016-10-20] MEDS: LORazepam 2 MG/ML VIAL - age > 65 yrs IM PRN (16:16)
[2016-10-20 16:23] VITALS: BP 151/74; PULSE 81; RESP 16; TEMP 98; O2SAT 94
--- NOTE | 2016-10-20 17:02 | HHI.PR ---
Subjective Remarks Follow up: acute respiratory failure. Denies cough sputum production chest pain N/V/D. Reports SOB is better but still present. Offers no other complaints. Objective Vitals Vital Signs Date Time Temp Pulse Resp B/P Pulse Ox O2 Delivery O2 Flow Rate FiO2 10/20/16 16:23 98.0 81 16 151/74 94 10/20/16 10:27 96 Nasal Cannula 2.00 10/20/16 06:47 97.5 69 16 116/67 90 10/19/16 20:10 98.1 68 16 122/57 92 I/O 10/19/16 10/19/16 10/19/16 10/20/16 10/20/16 10/20/16 07:00 15:00 23:00 07:00 15:00 23:00 Intake Total 480 ml 720 ml 960 ml 720 ml Output Total 750 ml 2600 ml 950 ml Balance -270 ml 720 ml 960 ml -1880 ml -950 ml Intake Oral 480 ml 720 ml 480 ml 720 ml Other 480 ml Output Urine Total 750 ml 2600 ml 950 ml # Voids 1 5 # Bowel Movements 1 1 Result Diagram: 10/20/1630 10/20/16 0630 Objective Remarks GENERAL: This is a well-nourished, well-developed patient, in no apparent distress. SKIN: No rashes, ecchymoses or lesions. Cool and dry. HEAD: Atraumatic. Normocephalic. No temporal or scalp tenderness. EYES: Pupils equal round and reactive. Extraocular motions intact. No scleral icterus. No injection or drainage. ENT: Nose without bleeding. Throat without erythema. Uvula midline. Airway patent. NECK: Trachea midline. No JVD or lymphadenopathy. Supple, nontender, no meningeal signs. CARDIOVASCULAR: Regular rate and rhythm without murmurs, gallops, or rubs. RESPIRATORY: Clear to auscultation. Breath sounds equal bilaterally. No wheezes , rales, or rhonchi. GASTROINTESTINAL: Abdomen soft, non-tender, nondistended. Bowel sounds hypoactive. No guarding. MUSCULOSKELETAL: Extremities without clubbing, cyanosis, trace bilateral lower extremity edema. Partial left foot amputation. NEUROLOGICAL: Awake and alert. Confuse. Motor and sensory grossly within normal limits. Unsteady getting out of bed. Needs assistance with ADLs. Normal speech. A/P Problem List: (1) Schizophrenia ICD Code: F20.9 Status: Acute (2) Probable MRSA pneumonia Status: Acute (3) Respiratory failure, acute ICD Code: J96.00 Status: Acute (4) Acute kidney failure ICD Code: N17.9 Status: Acute Assessment and Plan This is a 65-year-old obese female patient who was admitted to intensive care unit for acute respiratory failure, was previously on the ventilator and was weaned off. Improved clinical status. Transferred to inpatient medical psych unit for further management. Consulted for medical management Schizophrenia - managed by psychiatry team Acute hypoxic respiratory failure, tracheo bronchitis, possible aspiration, MRSA sputum - DC IV Zosyn, vancomycin, azithromycin - Start Clindamycin and Levaquin PO -Droplet isolation - Continue O2 nasal cannula when necessary - DuoNeb scheduled and when necessary - Nicotine patch - Monitor labs HONG - resolved. Current creatinine 0.73 HTN - continue lisinopril 10 mg daily, furosemide 20 mg daily, metoprolol 25 twice a day - Monitor BP trend L humeral neck fracture Seen by ortho, Dr. Del Valle. Non operative management with sling and swathe LUE, nonweightbearing LUE. WBAT LLE. - Monitor for risk for falls. Continue with orthopedic precautions. Recommend sling and swath - Will order PT OT for evaluation Discussed plan of care with patient, RN and . Tatianna Allison Oct 20, 2016 17:02 Phill Miranda MD Oct 29, 2016 09:08
[2016-10-20] MEDS: CLINDAMYCIN 150 MG CAP PO SCH (18:00)
[2016-10-20] MEDS ORDERED: VANCOMYCIN 1,500 MG/NS 500 ML IV SCH ×2 (18:00)
[2016-10-20] MEDS ORDERED: CLINDAMYCIN 150 MG CAP PO SCH (18:00)
[2016-10-20] MEDS: REMOVE OLD NICOTINE PATCH T-DERMAL SCH (21:00)
[2016-10-20] MEDS: traZODone HCL 100 MG TAB PO SCH (21:44)
[2016-10-21] MEDS: CLINDAMYCIN 150 MG CAP PO SCH ×4 (00:43→18:00)
[2016-10-21] MEDS: ACETAMINOPHEN 325 MG TAB PO PRN ×2 (03:52→19:54)
[2016-10-21] MEDS: RESP: ALBUTEROL 2.5 MG/IPRATROPIUM 0.5 MG NEB (SCH) NEB ×4 (04:05→22:00)
[2016-10-21 04:22] VITALS: BP 128/69; PULSE 79; RESP 16; TEMP 98.3; O2SAT 95
[2016-10-21] MEDS: CHLORHEXIDINE 0.12% (ORAL KIT) 15 ML CUP OROPHARYNG SCH ×2 (07:10→19:58)
[2016-10-21] MEDS: LEVOFLOXACIN 750 MG TAB PO SCH (08:29)
[2016-10-21] MEDS: CALCIUM/VITAMIN D 250 MG/125 U TAB PO SCH ×3 (08:29→18:00)
[2016-10-21] MEDS: FUROSEMIDE 20 MG TAB PO SCH (08:30)
[2016-10-21] MEDS: LORazepam 0.5 MG TAB PO PRN (08:30)
[2016-10-21] MEDS: METOPROLOL TARTRATE 25 MG TAB PO SCH ×2 (08:30→21:00)
[2016-10-21] MEDS: LISINOPRIL 10 MG TAB PO SCH (08:30)
[2016-10-21] MEDS: CYANOCOBALAMIN 1,000 MCG TAB PO SCH (08:30)
[2016-10-21] MEDS: PANTOPRAZOLE SOD 20 MG DELAYED RELEASE TAB PO SCH (08:30)
[2016-10-21] MEDS: ZIPRASIDONE HCL 80 MG CAP PO SCH ×2 (08:30→21:00)
[2016-10-21] MEDS: SODIUM CHLORIDE FLUSH BID IVF SCH ×2 (08:30→21:00)
[2016-10-21] MEDS: IBUPROFEN 800 MG TAB PO SCH ×3 (08:30→18:00)
[2016-10-21] MEDS: DULoxetine HCl DR 60 MG CAP PO SCH (08:30)
[2016-10-21] MEDS: DIVALPROEX SODIUM E.R. 500 MG TAB PO SCH ×2 (08:30→19:54)
[2016-10-21] MEDS: DOCUSATE SODIUM 50 MG/SENNA 8.6 MG TAB PO SCH ×2 (08:30→21:00)
[2016-10-21] MEDS: NICOTINE 21 MG/24 HR PATCH T-DERMAL SCH (08:31)
[2016-10-21] MEDS: clonazePAM 0.5 MG TAB PO SCH ×3 (09:39→19:54)
--- NOTE | 2016-10-21 09:39 | HHI.PYPN ---
Subjective Remarks Patient seen today for psychiatric reevaluation, patient continues showing consistent improvement in her mood, in her behavior, she denies depressive symptoms, she states that she is very happy, doing much better, compliant with psychotropics, she denies suicidal or homicidal ideation, she denies visual and auditory hallucinations. No episodes of aggressive behavior, agitation, disorganized behavior, observed or reported. Patient is still in Iv antibiotics. She does report mild to moderate anxiety and requests to be medicated with clonazepam "usually a very low-dose of clonazepam twice a day is very good for me". Patient is fully oriented 3, no confusion, delirium, fluctuation of consciousness, attention deficit observed. Review of Systems Musculoskeletal: COMPLAINS OF: Joint pain, Back pain Psychiatric: COMPLAINS OF: Anxiety Objective Alert: Yes [place]: Person, Place, Date Mood: Calm Affect: Euthymic Memory Intact: Immediate, Recent, Remote Hallucinations: Other (none) Delusions: No Delusion Type: Other (none) Suicidal: Ideation (she denies) Homicidal: Ideation (she denies ) Insight/Judgement Good Vitals/IOs Vital Signs Date Time Temp Pulse Resp B/P Pulse Ox O2 Delivery O2 Flow Rate FiO2 10/21/16 08:49 21 10/21/16 04:22 98.3 79 16 128/69 95 10/20/16 10:27 Nasal Cannula 2.00 Intake and Output 10/20/16 10/20/16 10/21/16 08:00 16:00 00:00 Intake Total 240 ml 740 ml Output Total 1600 ml 950 ml Balance -1360 ml -950 ml 740 ml Assessment & Plan Problem List: (1) Schizophrenia Assessment & Plan: Patient continues showing good response to psychotropics, no significant side effects, her mood, her thought processes, her memory seems to be now at baseline. She is still on IV antibiotics for pneumonia. We will add clonazepam 0.5 mg 2 times a day for reported anxiety. ICD Code: F20.9 Assessment & Plan Estimated LOS: days Justification for Cont. Inpt. Patient is now medically clear, still IV antibiotics, working in a discharge plan right now. Saúl Alicia MD Oct 21, 2016 09:39
[2016-10-21] MEDS ORDERED: PHARMACY ORDERED LAB XX ONE (10:45)
[2016-10-21] MEDS: DOCUSATE SODIUM 100 MG CAP PO PRN (12:07)
[2016-10-21 14:00] VITALS: BP 159/101; PULSE 79
[2016-10-21 17:33] VITALS: O2SAT 98
[2016-10-21 18:06] VITALS: BP 148/62; PULSE 55; RESP 16; TEMP 98.2; O2SAT 95
[2016-10-21] MEDS: traZODone HCL 100 MG TAB PO SCH (19:53)
[2016-10-21] MEDS: REMOVE OLD NICOTINE PATCH T-DERMAL SCH (21:00)
[2016-10-21] MEDS ORDERED: traMADol HCL 50 MG TAB PO ONE (21:45)
[2016-10-21 22:05] VITALS: O2SAT 96
[2016-10-22] MEDS: ACETAMINOPHEN 325 MG TAB PO PRN ×2 (04:12→21:03)
[2016-10-22] MEDS: CLINDAMYCIN 150 MG CAP PO SCH ×4 (05:15→18:00)
[2016-10-22] MEDS ORDERED: PHARMACY ORDERED LAB XX ONE (05:45)
[2016-10-22 06:09] VITALS: BP_SYST 155; BP_SYST 162; BP_DIAS 76; BP_DIAS 80; PULSE 68; RESP 14; TEMP 98.4; O2SAT 96
[2016-10-22] MEDS: CHLORHEXIDINE 0.12% (ORAL KIT) 15 ML CUP OROPHARYNG SCH ×2 (08:00→19:55)
[2016-10-22] MEDS: SODIUM CHLORIDE FLUSH BID IVF SCH ×2 (08:07→21:00)
[2016-10-22] MEDS: IBUPROFEN 800 MG TAB PO SCH ×3 (08:47→18:00)
[2016-10-22] MEDS: METOPROLOL TARTRATE 25 MG TAB PO SCH ×2 (08:48→21:04)
[2016-10-22] MEDS: PANTOPRAZOLE SOD 20 MG DELAYED RELEASE TAB PO SCH (08:48)
[2016-10-22] MEDS: LEVOFLOXACIN 750 MG TAB PO SCH (08:48)
[2016-10-22] MEDS: DOCUSATE SODIUM 50 MG/SENNA 8.6 MG TAB PO SCH ×2 (08:49→21:04)
[2016-10-22] MEDS: CALCIUM/VITAMIN D 250 MG/125 U TAB PO SCH ×3 (08:50→18:00)
[2016-10-22] MEDS: DULoxetine HCl DR 60 MG CAP PO SCH (08:50)
[2016-10-22] MEDS: clonazePAM 0.5 MG TAB PO SCH ×2 (08:50→21:04)
[2016-10-22] MEDS: FUROSEMIDE 20 MG TAB PO SCH (08:50)
[2016-10-22] MEDS: LISINOPRIL 20 MG TAB PO SCH (08:51)
[2016-10-22] MEDS: CYANOCOBALAMIN 1,000 MCG TAB PO SCH (08:51)
[2016-10-22] MEDS: DIVALPROEX SODIUM E.R. 500 MG TAB PO SCH ×2 (08:51→21:04)
[2016-10-22] MEDS: ZIPRASIDONE HCL 80 MG CAP PO SCH ×2 (08:51→21:04)
[2016-10-22] MEDS: NICOTINE 21 MG/24 HR PATCH T-DERMAL SCH (08:58)
--- NOTE | 2016-10-22 11:39 | HHI.PR ---
Subjective Remarks Late charting patient seen 10/21/2016 approximately 11 AM Follow up: acute respiratory failure. Denies cough sputum production chest pain N/V/D. Reports shortness of breath has improved. Patient reports 5-6 loose bowel movements after laxative given (Tatianna Nielsen) Objective Vital Signs Date Time Temp Pulse Resp B/P Pulse Ox O2 Delivery O2 Flow Rate FiO2 10/22/16 06:09 98.4 68 14 155/76 96 162/80 10/21/16 22:05 96 Nasal Cannula 2.00 10/21/16 18:06 98.2 55 16 148/62 95 10/21/16 17:33 98 21 10/21/16 14:00 79 159/101 I/O 10/21/16 10/21/16 10/21/16 10/22/16 10/22/16 10/22/16 07:00 15:00 23:00 07:00 15:00 23:00 Intake Total 120 ml 1780 ml 1080 ml 500 ml 360 ml Output Total 1450 ml Balance -1330 ml 1780 ml 1080 ml 500 ml 360 ml Intake Oral 120 ml 1780 ml 1080 ml 500 ml 360 ml Output Urine Total 1450 ml # Voids 4 5 2 # Bowel Movements 2 3 0 (Tatianna Nielsen) Result Diagram: 10/20/16 0630 10/22/16 0725 A/P Assessment and Plan They charting patient's ENT 2016 approximately 11 AM This is a 65-year-old obese female patient who was admitted to intensive care unit for acute respiratory failure, was previously on the ventilator and was weaned off. Improved clinical status. Transferred to inpatient medical psych unit for further management. Consulted for medical management Schizophrenia - managed by psychiatry team Acute hypoxic respiratory failure, tracheo bronchitis, possible aspiration, MRSA sputum - DC IV Zosyn, vancomycin, azithromycin -Continue Clindamycin and Levaquin PO -Droplet isolation - Continue O2 nasal cannula when necessary - DuoNeb scheduled and when necessary - Nicotine patch - Monitor labs HONG - resolved. Current creatinine 0.73 HTN - continue lisinopril 10 mg daily, furosemide 20 mg daily, metoprolol 25 twice a day - Monitor BP trend L humeral neck fracture Seen by orthoDr. Del Valle. Non operative management with sling and swathe LUE, nonweightbearing LUE. WBAT LLE. - Monitor for risk for falls. Continue with orthopedic precautions. Recommend sling and swath - Will order PT OT for evaluation Discussed plan of care with patient, RN and Dr. Miranda (Tatianna Nielsen) Tatianna Nielsen Oct 22, 2016 11:39 Phill Miranda MD Oct 29, 2016 09:09
--- NOTE | 2016-10-22 11:41 | HHI.PR ---
Subjective Remarks Follow up: acute respiratory failure. Denies cough sputum production chest pain N/V/D. denies shortness of breath. Patient reports no further loose stool. Stools are now formed. Reports she had a hard time sleeping last night had to receive trazodone for sleep. Per RN after trazodone patient's oxygen saturation dropped to approximately 88%. Objective Vitals Vital Signs Date Time Temp Pulse Resp B/P Pulse Ox O2 Delivery O2 Flow Rate FiO2 10/22/16 06:09 98.4 68 14 155/76 96 162/80 10/21/16 22:05 96 Nasal Cannula 2.00 10/21/16 18:06 98.2 55 16 148/62 95 10/21/16 17:33 98 21 10/21/16 14:00 79 159/101 I/O 10/21/16 10/21/16 10/21/16 10/22/16 10/22/16 10/22/16 07:00 15:00 23:00 07:00 15:00 23:00 Intake Total 120 ml 1780 ml 1080 ml 500 ml 360 ml Output Total 1450 ml Balance -1330 ml 1780 ml 1080 ml 500 ml 360 ml Intake Oral 120 ml 1780 ml 1080 ml 500 ml 360 ml Output Urine Total 1450 ml # Voids 4 5 2 # Bowel Movements 2 3 0 Result Diagram: 10/20/16 0630 10/22/16 0725 Objective Remarks GENERAL: This is a well-nourished, well-developed patient, in no apparent distress. SKIN: No rashes, ecchymoses or lesions. Cool and dry. HEAD: Atraumatic. Normocephalic. No temporal or scalp tenderness. EYES: Pupils equal round and reactive. Extraocular motions intact. No scleral icterus. No injection or drainage. ENT: Nose without bleeding. Throat without erythema. Uvula midline. Airway patent. NECK: Trachea midline. No JVD or lymphadenopathy. Supple, nontender, no meningeal signs. CARDIOVASCULAR: Regular rate and rhythm without murmurs, gallops, or rubs. RESPIRATORY: Clear to auscultation. Breath sounds equal bilaterally. No wheezes , rales, or rhonchi. GASTROINTESTINAL: Abdomen soft, non-tender, nondistended. Bowel sounds hypoactive. No guarding. MUSCULOSKELETAL: Extremities without clubbing, cyanosis, trace bilateral lower extremity edema. Partial left foot amputation. NEUROLOGICAL: Awake and alert. Confuse. Motor and sensory grossly within normal limits. Unsteady getting out of bed. Needs assistance with ADLs. Normal speech. A/P Problem List: (1) Schizophrenia ICD Code: F20.9 Status: Acute (2) Probable MRSA pneumonia Status: Acute (3) Respiratory failure, acute ICD Code: J96.00 Status: Acute (4) Acute kidney failure ICD Code: N17.9 Status: Acute Assessment and Plan They charting patient's ENT 2016 approximately 11 AM This is a 65-year-old obese female patient who was admitted to intensive care unit for acute respiratory failure, was previously on the ventilator and was weaned off. Improved clinical status. Transferred to inpatient medical psych unit for further management. Consulted for medical management Schizophrenia - managed by psychiatry team Acute hypoxic respiratory failure, tracheo bronchitis, possible aspiration, MRSA sputum - DC IV Zosyn, vancomycin, azithromycin -Continue Clindamycin and Levaquin PO stop date 10/29/2016 -Droplet isolation - Continue O2 nasal cannula when necessary - DuoNeb scheduled and when necessary - Nicotine patch - Monitor labs - Would recommend avoiding trazodone and sedating medications in light of patient's oxygen requirements HONG - resolved. Current creatinine 0.73 HTN - continue furosemide 20 mg daily, metoprolol 25 twice a day - Increase lisinopril to 20 mg daily - Monitor BP trend L humeral neck fracture Seen by ortho, Dr. Del Valle. Non operative management with sling and swathe LUE, nonweightbearing LUE. WBAT LLE. - Monitor for risk for falls. Continue with orthopedic precautions. Recommend sling and swath - Will order PT OT for evaluation Patient medically stable at this point. Recommend patient follow up with PCP after discharge and complete antibiotic course. Date 10/29/2016 Discussed plan of care with patient, RN and . Tatianna Allison Oct 22, 2016 11:41 Phill Miranda MD Oct 29, 2016 09:12
--- NOTE | 2016-10-22 12:52 | HHI.PYPN ---
Subjective Remarks Patient was seen today for reevaluation alone with nurse in charge, she is calm , cooperative and pleasant, patient reports very good mood, she says that she is happy with her improvement, she reports good compliant with medication and good response, denies side effects, she reports mild to moderate left shoulder pain. She denies depressive symptoms, she denies anxiety she denies visual and auditory hallucinations, she denies suicidal or homicidal ideation. Patient is fully oriented 3, no gross cognitive impairment observed, no involuntary movement disorder(akathisia), agitation, aggressive behavior, behavioral or mood dysregulation observed or reported. Review of Systems Other Mild to moderate left shoulder pain Objective Alert: Yes [place]: Person, Place, Date Mood: Calm Affect: Euthymic Memory Intact: Immediate, Recent, Remote Hallucinations: Other (none) Delusions: No Delusion Type: Other (none) Suicidal: Ideation (she denies) Homicidal: Ideation (she denies ) Insight/Judgement Good Labs Test 10/22/16 07:25 Creatinine 0.56 MG/DL Estimat Glomerular Filtration 109 ML/MIN Rate Vitals/IOs Vital Signs Date Time Temp Pulse Resp B/P Pulse Ox O2 Delivery O2 Flow Rate FiO2 10/22/16 06:09 98.4 68 14 155/76 96 162/80 10/21/16 22:05 Nasal Cannula 2.00 10/21/16 17:33 21 Intake and Output 10/21/16 10/21/16 10/22/16 08:00 16:00 00:00 Intake Total 120 ml 1780 ml 1080 ml Output Total 1450 ml Balance -1330 ml 1780 ml 1080 ml Assessment & Plan Problem List: (1) Schizophrenia Assessment & Plan: On reevaluation today the patient does not present any acute signs or symptom of psychotic decompensation, she denies depression, she denies anxiety, she denies suicidal and homicidal ideation. Patient is medication compliant, with an appropriate response, no significant side effects. At this point we have started the process of discharge plan to an CUSTODIAL facility once patient is medically clear. ICD Code: F20.9 Assessment & Plan Estimated LOS: days Justification for Cont. Inpt. Working in the coordination of a safe discharge plan, she is in IV antibiotics. Saúl Alicia MD Oct 22, 2016 12:51
[2016-10-22 18:44] VITALS: BP 140/73; PULSE 60; RESP 15; TEMP 97.4; O2SAT 95
[2016-10-22] MEDS: REMOVE OLD NICOTINE PATCH T-DERMAL SCH (21:00)
[2016-10-22] MEDS: traZODone HCL 100 MG TAB PO SCH (21:03)
[2016-10-23] MEDS: CLINDAMYCIN 150 MG CAP PO SCH ×4 (06:00→17:54)
[2016-10-23 06:13] VITALS: BP 118/57; PULSE 63; RESP 14; TEMP 98.9; O2SAT 97
[2016-10-23] MEDS: CHLORHEXIDINE 0.12% (ORAL KIT) 15 ML CUP OROPHARYNG SCH ×2 (08:00→20:00)
--- NOTE | 2016-10-23 08:31 | RADRPT ---
EXAM DATE/TIME: 10/23/2016 08:13 [facility] COMPARISON: CHEST SINGLE AP, October 17, 2016, 5:36. INDICATIONS : Shortness of breath MEDICAL HISTORY : Hypertension. SURGICAL HISTORY : None. ENCOUNTER: Subsequent ACUITY: 4 - 6 days PAIN SCORE: Non-responsive. LOCATION: Bilateral chest FINDINGS: A single view of the chest demonstrates the lungs to be symmetrically aerated without evidence of mas s, infiltrate or effusion. The cardiomediastinal contours are unremarkable. Osseous structures are intact. CONCLUSION: No acute disease. Mike Nazario MD on October 23, 2016 at 8:29 Board Certified Radiologist. This report was verified electronically.
[2016-10-23] MEDS: NICOTINE 21 MG/24 HR PATCH T-DERMAL SCH (09:00)
[2016-10-23] MEDS: SODIUM CHLORIDE FLUSH BID IVF SCH ×2 (09:00→20:57)
[2016-10-23] MEDS: DIVALPROEX SODIUM E.R. 500 MG TAB PO SCH ×2 (09:00→20:43)
[2016-10-23] MEDS: FUROSEMIDE 20 MG TAB PO SCH (09:00)
[2016-10-23] MEDS: METOPROLOL TARTRATE 25 MG TAB PO SCH ×2 (09:00→21:00)
[2016-10-23] MEDS: PANTOPRAZOLE SOD 20 MG DELAYED RELEASE TAB PO SCH (09:00)
[2016-10-23] MEDS: LISINOPRIL 20 MG TAB PO SCH (09:37)
[2016-10-23] MEDS: CYANOCOBALAMIN 1,000 MCG TAB PO SCH (09:37)
[2016-10-23] MEDS: DOCUSATE SODIUM 50 MG/SENNA 8.6 MG TAB PO SCH ×2 (09:37→20:43)
[2016-10-23] MEDS: CALCIUM/VITAMIN D 250 MG/125 U TAB PO SCH ×3 (09:37→17:54)
[2016-10-23] MEDS: ZIPRASIDONE HCL 80 MG CAP PO SCH ×2 (09:37→20:43)
[2016-10-23] MEDS: LEVOFLOXACIN 750 MG TAB PO SCH (09:38)
[2016-10-23] MEDS: clonazePAM 0.5 MG TAB PO SCH ×2 (09:39→20:43)
[2016-10-23] MEDS: DULoxetine HCl DR 60 MG CAP PO SCH (09:39)
[2016-10-23] MEDS: IBUPROFEN 800 MG TAB PO SCH ×3 (09:39→17:54)
--- NOTE | 2016-10-23 10:24 | HHI.PR ---
Subjective Remarks Follow up: acute respiratory failure. Patient noted to be on room air during evaluation. Reports feeling better today. Denies cough sputum production chest pain N/V/D. denies shortness of breath. Objective Vitals Vital Signs Date Time Temp Pulse Resp B/P Pulse Ox O2 Delivery O2 Flow Rate FiO2 10/23/16 06:13 98.9 63 14 118/57 97 Manual Cuff/Auscultation 10/22/16 18:44 97.4 60 15 140/73 95 I/O 10/22/16 10/22/16 10/22/16 10/23/16 10/23/16 10/23/16 07:00 15:00 23:00 07:00 15:00 23:00 Intake Total 500 ml 1560 ml 1530 ml Balance 500 ml 1560 ml 1530 ml Intake Oral 500 ml 1560 ml 1530 ml # Voids 2 4 2 1 # Bowel Movements 0 4 2 0 Result Diagram: 10/20/16 0630 10/22/16 0725 Objective Remarks GENERAL: This is a well-nourished, well-developed patient, in no apparent distress. EYES:Extraocular motions intact. No scleral icterus. No injection or drainage. CARDIOVASCULAR: Regular rate and rhythm without murmurs, gallops, or rubs. RESPIRATORY: Clear to auscultation. Breath sounds equal bilaterally. No wheezes , rales, or rhonchi. GASTROINTESTINAL: Abdomen soft, non-tender, nondistended. Bowel sounds hypoactive. No guarding. MUSCULOSKELETAL: Extremities without clubbing, cyanosis, trace bilateral lower extremity edema. Partial left foot amputation. NEUROLOGICAL: Awake and alert. Motor and sensory grossly within normal limits. Normal speech. A/P Problem List: (1) Schizophrenia ICD Code: F20.9 Status: Acute (2) Probable MRSA pneumonia Status: Acute (3) Respiratory failure, acute ICD Code: J96.00 Status: Acute (4) Acute kidney failure ICD Code: N17.9 Status: Acute Assessment and Plan This is a 65-year-old obese female patient who was admitted to intensive care unit for acute respiratory failure, was previously on the ventilator and was weaned off. Improved clinical status. Transferred to inpatient medical psych unit for further management. Consulted for medical management Schizophrenia - managed by psychiatry team Acute hypoxic respiratory failure, tracheo bronchitis, possible aspiration, MRSA sputum - DC IV Zosyn, vancomycin, azithromycin -Continue Clindamycin and Levaquin PO stop date 10/29/2016 -Droplet isolation - Continue O2 nasal cannula when necessary - DuoNeb scheduled and when necessary - Nicotine patch - Monitor labs- CBC for today pending - Would recommend avoiding trazodone and sedating medications in light of patient's oxygen requirements - Repeat CXR 10/23/2016 reviewed by myself as well as Dr. Miranda, no acute disease process identified improved from prior study HONG - resolved. Current creatinine 0.73 HTN - improved -continue furosemide 20 mg daily, metoprolol 25 twice a day -Continue lisinopril to 20 mg daily - Monitor BP trend L humeral neck fracture Seen by ortho, Dr. Del Valle. Non operative management with sling and swathe LUE, nonweightbearing LUE. WBAT LLE. - Monitor for risk for falls. Continue with orthopedic precautions. Recommend sling and swath - Will order PT OT for evaluation Patient medically stable at this point. Recommend patient follow up with PCP after discharge and complete antibiotic course. Date 10/29/2016 Discussed plan of care with patient, RN and Tatianna Salazar Oct 23, 2016 10:24 Phill Miranda MD Oct 29, 2016 09:12
[2016-10-23 11:27] LABS: AUTOMATED NEUTROPHIL # 3.3 TH/MM3 (1.8-7.7); BASOPHIL % 0.5 % (0.0-2.0); EOSINOPHIL % 0.6 % (0.0-4.0); HEMATOCRIT 30.5 % (35.0-46.0); LYMPH % 29.9 % (9.0-44.0); LYMPHOCYTE # 1.7 TH/MM3 (1.0-4.8); MEAN CELL VOLUME 90.5 FL (80.0-100.0); MEAN CORPUSCULAR HEMOGLOBIN 31.6 PG (27.0-34.0); MONO % 10.9 % (0.0-8.0); NEUT % 58.1 % (16.0-70.0); PLATELET COUNT 258 TH/MM3 (150-450); RED BLOOD COUNT 3.37 MIL/MM3 (4.00-5.30); RED CELL DISTRIBUTION WIDTH 14.7 % (11.6-17.2); WHITE BLOOD COUNT 5.7 TH/MM3 (4.0-11.0)
[2016-10-23 11:32] LABS: HEMO FLAGS AUTO DIFF
[2016-10-23 12:05] LABS: BANDS 2 % (0-6); BASOPHILS 1 % (0-2); EOSINOPHILS 2 % (0-4); MYELOCYTES 2 % (0-0); NEUTROPHIL # MANUAL DIFF 3.1 TH/MM3 (1.8-7.7); POLYS (SEG NEUTROPHILS) 51 % (16-70); WBC DIFF SAMPLE 100
[2016-10-23 12:06] LABS: PLATELET ESTIMATE SMEAR NORMAL (NORMAL); PLATELET MORPHOLOGY NORMAL (NORMAL); SCAN/DIFF FINAL DIFF MANUAL
--- NOTE | 2016-10-23 15:17 | HHI.PYPN ---
Subjective Remarks Patient seen and examined. Chart reviewed. Case discussed with nursing staff. On my examination today, patient is initially resting peacefully. She awakens easily and is in good spirits. She denies any suicidal ideation or audiovisual hallucinations. She complains of some ongoing shoulder pain and also of an extremely distractible hand tremor. This tremor was not present during rest and disappears when I examine the other arm. Denies side effects from medications. No other issues noted. Review of Systems Other Except as above, no somatic complaints. Objective Alert: Yes [place]: Person, Place, Date Mood: Calm Affect: Euthymic (remains euthymic) Memory Intact: Comment (intact on clinical exam) Hallucinations: Other (denies AVH) Delusions: No Delusion Type: Other (no delusions) Suicidal: Ideation (denies suicidal ideation) Homicidal: Ideation (no homicidal ideation) Insight/Judgement Poor Remarks Distractible hand tremor is noted above. No cogwheeling. No evident dystonia or dyskinesias. Labs Test 10/23/16 11:03 White Blood Count 5.7 TH/MM3 Red Blood Count 3.37 MIL/MM3 Hemoglobin 10.7 GM/DL Hematocrit 30.5 % Mean Corpuscular Volume 90.5 FL Mean Corpuscular Hemoglobin 31.6 PG Mean Corpuscular Hemoglobin 35.0 % Concent Red Cell Distribution Width 14.7 % Platelet Count 258 TH/MM3 Mean Platelet Volume 8.1 FL Neutrophils (%) (Auto) 58.1 % Lymphocytes (%) (Auto) 29.9 % Monocytes (%) (Auto) 10.9 % Eosinophils (%) (Auto) 0.6 % Basophils (%) (Auto) 0.5 % Neutrophils # (Auto) 3.3 TH/MM3 Lymphocytes # (Auto) 1.7 TH/MM3 Monocytes # (Auto) 0.6 TH/MM3 Eosinophils # (Auto) 0.0 TH/MM3 Basophils # (Auto) 0.0 TH/MM3 CBC Comment AUTO DIFF Differential Total Cells 100 Counted Neutrophils % (Manual) 51 % Band Neutrophils % 2 % Lymphocytes % 28 % Monocytes % 14 % Eosinophils % 2 % Basophils % 1 % Neutrophils # (Manual) 3.1 TH/MM3 Myelocytes 2 % Differential Comment FINAL DIFF MANUAL Platelet Estimate NORMAL Platelet Morphology Comment NORMAL Red Cell Morphology Comment NORMAL Labs reviewed. Vitals/IOs Vital Signs Date Time Temp Pulse Resp B/P Pulse Ox O2 Delivery O2 Flow Rate FiO2 10/23/16 06:13 98.9 63 14 118/57 97 Manual Cuff/Auscultation 10/21/16 22:05 Nasal Cannula 2.00 10/21/16 17:33 21 Intake and Output 10/22/16 10/22/16 10/23/16 08:00 16:00 00:00 Intake Total 500 ml 1560 ml 1530 ml Balance 500 ml 1560 ml 1530 ml Assessment & Plan Problem List: (1) Schizophrenia ICD Code: F20.9 Assessment & Plan Hospitalist alliances consultant input noted and appreciated. I see that they are recommending holding sedatives including the trazodone because of oxygen requirement. I will place the trazodone on hold. Continue other psychotropics as ordered. Continue other medications and care as ordered. Justification for Cont. Inpt. Risk for decompensation Discharge Planning Per Dr. Ravin Cox,Justin Slater MD Oct 23, 2016 15:16
[2016-10-23 18:00] VITALS: BP 138/65; PULSE 100; RESP 18; TEMP 98.7; O2SAT 97
[2016-10-23] MEDS: REMOVE OLD NICOTINE PATCH T-DERMAL SCH (20:44)
[2016-10-23] MEDS: diphenhydrAMINE HCL 50 MG CAP PO PRN (20:44)
[2016-10-24] MEDS: CLINDAMYCIN 150 MG CAP PO SCH ×5 (05:53→23:26)
[2016-10-24 06:00] VITALS: BP 177/79; PULSE 87; RESP 17; TEMP 98; O2SAT 95
[2016-10-24] MEDS: ACETAMINOPHEN 325 MG TAB PO PRN (06:07)
[2016-10-24] MEDS: CHLORHEXIDINE 0.12% (ORAL KIT) 15 ML CUP OROPHARYNG SCH ×2 (08:00→20:00)
[2016-10-24] MEDS: DIVALPROEX SODIUM E.R. 500 MG TAB PO SCH ×2 (08:42→20:34)
[2016-10-24] MEDS: ZIPRASIDONE HCL 80 MG CAP PO SCH ×2 (08:42→20:34)
[2016-10-24] MEDS: FUROSEMIDE 20 MG TAB PO SCH (08:42)
[2016-10-24] MEDS: LEVOFLOXACIN 750 MG TAB PO SCH (08:42)
[2016-10-24] MEDS: DULoxetine HCl DR 60 MG CAP PO SCH (08:42)
[2016-10-24] MEDS: clonazePAM 0.5 MG TAB PO SCH ×2 (08:42→20:34)
[2016-10-24] MEDS: CALCIUM/VITAMIN D 250 MG/125 U TAB PO SCH ×3 (08:43→17:08)
[2016-10-24] MEDS: DOCUSATE SODIUM 50 MG/SENNA 8.6 MG TAB PO SCH ×2 (08:43→20:34)
[2016-10-24] MEDS: PANTOPRAZOLE SOD 20 MG DELAYED RELEASE TAB PO SCH (08:43)
[2016-10-24] MEDS: IBUPROFEN 800 MG TAB PO SCH ×3 (08:43→17:08)
[2016-10-24] MEDS: LISINOPRIL 20 MG TAB PO SCH (08:43)
[2016-10-24] MEDS: CYANOCOBALAMIN 1,000 MCG TAB PO SCH (09:00)
[2016-10-24] MEDS: METOPROLOL TARTRATE 25 MG TAB PO SCH ×2 (09:00→21:00)
[2016-10-24] MEDS: NICOTINE 21 MG/24 HR PATCH T-DERMAL SCH (09:00)
[2016-10-24] MEDS: SODIUM CHLORIDE FLUSH BID IVF SCH ×2 (09:00→21:00)
--- NOTE | 2016-10-24 10:42 | HHI.PR ---
Subjective Remarks Follow up: acute respiratory failure. Patient saturating well on room air. Complains of chronic shoulder pain requesting Percocet. Denies cough sputum production chest pain N/V/D. denies shortness of breath Objective Vitals Vital Signs Date Time Temp Pulse Resp B/P Pulse Ox O2 Delivery O2 Flow Rate FiO2 10/24/16 09:23 96 Room Air 10/24/16 06:00 98.0 87 17 177/79 95 10/23/16 18:54 20 10/23/16 18:00 98.7 100 18 138/65 97 I/O 10/23/16 10/23/16 10/23/16 10/24/16 10/24/16 10/24/16 07:00 15:00 23:00 07:00 15:00 23:00 Intake Total 1440 ml 1200 ml 240 ml Balance 1440 ml 1200 ml 240 ml Intake Oral 1440 ml 1200 ml 240 ml # Voids 1 2 3 2 # Bowel Movements 0 2 1 Result Diagram: 10/23/16 1103 10/24/16 0741 Objective Remarks GENERAL: This is a well-nourished, well-developed patient, in no apparent distress. EYES:Extraocular motions intact. No scleral icterus. No injection or drainage. CARDIOVASCULAR: Regular rate and rhythm without murmurs, gallops, or rubs. RESPIRATORY: Clear to auscultation. Breath sounds equal bilaterally. No wheezes , rales, or rhonchi. GASTROINTESTINAL: Abdomen soft, non-tender, nondistended. Bowel sounds hypoactive. No guarding. MUSCULOSKELETAL: Extremities without clubbing, cyanosis, trace bilateral lower extremity edema. Partial left foot amputation. NEUROLOGICAL: Awake and alert. Motor and sensory grossly within normal limits. Normal speech. A/P Problem List: (1) Schizophrenia ICD Code: F20.9 Status: Acute (2) Probable MRSA pneumonia Status: Acute (3) Respiratory failure, acute ICD Code: J96.00 Status: Acute (4) Acute kidney failure ICD Code: N17.9 Status: Acute Assessment and Plan This is a 65-year-old obese female patient who was admitted to intensive care unit for acute respiratory failure, was previously on the ventilator and was weaned off. Improved clinical status. Transferred to inpatient medical psych unit for further management. Consulted for medical management Schizophrenia - managed by psychiatry team Acute hypoxic respiratory failure, tracheo bronchitis, possible aspiration, MRSA sputum - DC IV Zosyn, vancomycin, azithromycin -Continue Clindamycin and Levaquin PO stop date 10/29/2016 -Droplet isolation - DuoNeb when necessary - Nicotine patch - Would recommend avoiding trazodone and sedating medications in light of patient's oxygen requirements, explained the patient she cannot have Percocet at this time will continue acetaminophen as needed for pain - Repeat CXR 10/23/2016 reviewed by myself as well as Dr. Miranda, no acute disease process identified improved from prior study HONG - resolved. Current creatinine 0.69 HTN - improved overall trend with isolated episode of elevated high blood pressure 177/79 today continue to monitor trend -continue furosemide 20 mg daily, metoprolol 25 twice a day -Continue lisinopril to 20 mg daily - Monitor BP trend L humeral neck fracture Seen by ortho, Dr. Del Valle. Non operative management with sling and swathe LUE, nonweightbearing LUE. WBAT LLE. - Monitor for risk for falls. Continue with orthopedic precautions. Recommend sling and swath - Will order PT OT for evaluation Patient medically stable at this point. Recommend patient follow up with PCP after discharge and complete antibiotic course on 10/29/2016 Discussed plan of care with patient, RN and Tatianna Salazar Oct 24, 2016 10:42 Phill Miranda MD Oct 29, 2016 09:14
--- NOTE | 2016-10-24 15:54 | HHI.PYPN ---
Subjective Remarks Patient seen and examined. Chart reviewed. Case discussed with nursing staff who reports patient has been in good spirits and was ambulating around the unit earlier today. She reportedly continues to complain of tremor. Patient tells me that this has been going on for the last week or so and that "they were giving me shots for this that really helped." She remembers the name of the medication: Ativan. Somewhat medication seeking for benzodiazepines from there on out. Otherwise in good spirits. No SI or AVH reported. No side effects from medications. Sleep was not adversely affected by holding trazodone. Review of Systems Other Except as above, no reported somatic complaints Objective Alert: Yes [place]: Person, Place, Date Mood: Calm Affect: Euthymic (remains euthymic) Memory Intact: Comment (not formally assessed today) Hallucinations: Other (no AVH) Delusions: No Delusion Type: Other (no delusional material) Suicidal: Ideation (no suicidal ideation) Homicidal: Ideation (no homicidal ideation) Insight/Judgement Unchanged from previous assessment Remarks Patient continues to display a very distractible hand tremor. This disappears when the patient's attention is focused on any other task. Labs Test 10/24/16 07:41 Creatinine 0.69 MG/DL Estimat Glomerular Filtration 85 ML/MIN Rate Labs reviewed. Vitals/IOs Vital Signs Date Time Temp Pulse Resp B/P Pulse Ox O2 Delivery O2 Flow Rate FiO2 10/24/16 09:23 96 Room Air 10/24/16 06:00 98.0 87 17 177/79 10/21/16 22:05 2.00 10/21/16 17:33 21 Intake and Output 10/23/16 10/23/16 10/24/16 08:00 16:00 00:00 Intake Total 240 ml 1200 ml 1200 ml Balance 240 ml 1200 ml 1200 ml Assessment & Plan Problem List: (1) Schizophrenia ICD Code: F20.9 Assessment & Plan Continue current psychotropics as ordered. Continue other medications and care as ordered. Justification for Cont. Inpt. Risk for decompensation Discharge Planning Per Justin Novak MD Oct 24, 2016 15:54
[2016-10-24] MEDS: LORazepam 0.5 MG TAB PO PRN (16:19)
[2016-10-24 18:16] VITALS: BP 136/66; PULSE 77; RESP 20; TEMP 98; O2SAT 95
[2016-10-24] MEDS: diphenhydrAMINE HCL 50 MG CAP PO PRN (20:45)
[2016-10-24] MEDS: REMOVE OLD NICOTINE PATCH T-DERMAL SCH (21:00)
[2016-10-25] MEDS: ACETAMINOPHEN 325 MG TAB PO PRN ×3 (02:14→15:31)
[2016-10-25] MEDS: CLINDAMYCIN 150 MG CAP PO SCH ×3 (05:42→17:51)
[2016-10-25 05:54] VITALS: BP 121/78; PULSE 60; RESP 18; TEMP 97.9; O2SAT 94
[2016-10-25] MEDS: CHLORHEXIDINE 0.12% (ORAL KIT) 15 ML CUP OROPHARYNG SCH ×2 (08:00→19:27)
[2016-10-25] MEDS: MUPIROCIN 2% OINT 1 APPLIC/GM SYR EACH NARE SCH ×2 (09:00→21:04)
[2016-10-25] MEDS: NICOTINE 21 MG/24 HR PATCH T-DERMAL SCH (09:00)
[2016-10-25] MEDS: SODIUM CHLORIDE FLUSH BID IVF SCH ×2 (09:00→19:28)
[2016-10-25] MEDS: ZIPRASIDONE HCL 80 MG CAP PO SCH ×2 (09:17→21:05)
[2016-10-25] MEDS: METOPROLOL TARTRATE 25 MG TAB PO SCH ×2 (09:17→21:05)
[2016-10-25] MEDS: LISINOPRIL 20 MG TAB PO SCH (09:17)
[2016-10-25] MEDS: LEVOFLOXACIN 750 MG TAB PO SCH (09:17)
[2016-10-25] MEDS: DOCUSATE SODIUM 50 MG/SENNA 8.6 MG TAB PO SCH ×2 (09:17→21:00)
[2016-10-25] MEDS: CYANOCOBALAMIN 1,000 MCG TAB PO SCH (09:17)
[2016-10-25] MEDS: PANTOPRAZOLE SOD 20 MG DELAYED RELEASE TAB PO SCH (09:17)
[2016-10-25] MEDS: DIVALPROEX SODIUM E.R. 500 MG TAB PO SCH ×2 (09:18→21:04)
[2016-10-25] MEDS: DULoxetine HCl DR 60 MG CAP PO SCH (09:18)
[2016-10-25] MEDS: FUROSEMIDE 20 MG TAB PO SCH (09:18)
[2016-10-25] MEDS: CALCIUM/VITAMIN D 250 MG/125 U TAB PO SCH ×3 (09:18→17:51)
[2016-10-25] MEDS: clonazePAM 0.5 MG TAB PO SCH ×2 (09:18→21:06)
[2016-10-25] MEDS: ERGOCALCIFEROL (VIT D2) 50,000 UNIT CAP PO SCH (12:11)
[2016-10-25] MEDS: IBUPROFEN 800 MG TAB PO PRN ×2 (12:11→21:06)
[2016-10-25] MEDS: LORazepam 0.5 MG TAB PO PRN (12:11)
--- NOTE | 2016-10-25 12:11 | HHI.PR ---
Subjective Remarks Follow up: acute respiratory failure. Patient saturating well on room air. Complains of chronic pain requesting Percocet. Denies cough sputum production chest pain N/V/D. denies shortness of breath Objective Vitals Vital Signs Date Time Temp Pulse Resp B/P Pulse Ox O2 Delivery O2 Flow Rate FiO2 10/25/16 05:54 97.9 60 18 121/78 94 10/24/16 21:57 Room Air 10/24/16 18:16 98.0 77 20 136/66 95 I/O 10/24/16 10/24/16 10/24/16 10/25/16 10/25/16 10/25/16 07:00 15:00 23:00 07:00 15:00 23:00 Intake Total 240 ml 480 ml 720 ml Balance 240 ml 480 ml 720 ml Intake Oral 240 ml 480 ml 720 ml # Voids 2 3 3 # Bowel Movements 1 1 Result Diagram: 10/23/16 1103 10/24/16 0741 Objective Remarks GENERAL: This is a well-nourished, well-developed patient, in no apparent distress. EYES:Extraocular motions intact. No scleral icterus. No injection or drainage. CARDIOVASCULAR: Regular rate and rhythm without murmurs, gallops, or rubs. RESPIRATORY: Clear to auscultation. Breath sounds equal bilaterally. No wheezes , rales, or rhonchi. GASTROINTESTINAL: Abdomen soft, non-tender, nondistended. Bowel sounds hypoactive. No guarding. MUSCULOSKELETAL: Extremities without clubbing, cyanosis, trace bilateral lower extremity edema. Partial left foot amputation. NEUROLOGICAL: Awake and alert. Motor and sensory grossly within normal limits. Normal speech. A/P Problem List: (1) Schizophrenia ICD Code: F20.9 Status: Acute (2) Probable MRSA pneumonia Status: Acute (3) Respiratory failure, acute ICD Code: J96.00 Status: Acute (4) Acute kidney failure ICD Code: N17.9 Status: Acute Assessment and Plan This is a 65-year-old obese female patient who was admitted to intensive care unit for acute respiratory failure, was previously on the ventilator and was weaned off. Improved clinical status. Transferred to inpatient medical psych unit for further management. Consulted for medical management Schizophrenia - managed by psychiatry team Acute hypoxic respiratory failure, tracheo bronchitis, possible aspiration, MRSA sputum - DC IV Zosyn, vancomycin, azithromycin -Continue Clindamycin and Levaquin PO stop date 10/29/2016 -Droplet isolation - DuoNeb when necessary - Nicotine patch - Would recommend avoiding trazodone and sedating medications in light of patient's oxygen requirements, explained the patient she cannot have Percocet at this time will continue acetaminophen as needed for pain - Repeat CXR 10/23/2016 reviewed by myself as well as Dr. Miranda, no acute disease process identified improved from prior study HONG - resolved. Current creatinine 0.69 HTN - improved overall trend with isolated episode of elevated high blood pressure 177/79 today continue to monitor trend -continue furosemide 20 mg daily, metoprolol 25 twice a day -Continue lisinopril to 20 mg daily - Monitor BP trend L humeral neck fracture Seen by ortho, Dr. Del Valle. Non operative management with sling and swathe LUE, nonweightbearing LUE. WBAT LLE. - Monitor for risk for falls. Continue with orthopedic precautions. Recommend sling and swath - Will order PT OT for evaluation Patient medically stable at this point. Recommend patient follow up with PCP after discharge and complete antibiotic course. Date 10/29/2016 Discussed plan of care with patient, RN Written by Tatianna Nielsen, acting as scribe for Dr. العلي on 10/25/16 at 12:10. The documentation accurately reflects the work performed [id number] by me on at 16:36. Tatianna Nielsen Oct 25, 2016 12:11 Enoc العلي MD Oct 25, 2016 16:36
--- NOTE | 2016-10-25 13:25 | HHI.PYPN ---
Subjective Remarks Patient was seen today for psychiatric reevaluation along with nurse in charge Fredrick, weekend documentation was reviewed, patient was found eating her breakfast, she was communicative, in a visible good mood, she explains that she feels happy that the things are going good for her, she reports good response to psychotropics, no significant side effects, she denies depressive symptoms, she denies suicidal or homicidal ideation, she denies visual and auditory hallucinations. Patient is fully oriented 3, no gross cognitive impairment observed, no aggressive behavior, agitation, mood or behavioral dysregulation observed or reported. Review of Systems Other No significant somatic complaints Objective Alert: Yes [place]: Person, Place, Date Mood: Calm Affect: Euthymic (remains euthymic) Memory Intact: Comment (not formally assessed today) Hallucinations: Other (no AVH) Delusions: No Delusion Type: Other (no delusional material) Suicidal: Ideation (no suicidal ideation) Homicidal: Ideation (no homicidal ideation) Insight/Judgement good Vitals/IOs Vital Signs Date Time Temp Pulse Resp B/P Pulse Ox O2 Delivery O2 Flow Rate FiO2 10/25/16 05:54 97.9 60 18 121/78 94 10/24/16 21:57 Room Air 10/21/16 22:05 2.00 10/21/16 17:33 21 Intake and Output 10/24/16 10/24/16 10/25/16 08:00 16:00 00:00 Intake Total 240 ml 480 ml 720 ml Balance 240 ml 480 ml 720 ml Assessment & Plan Problem List: (1) Schizophrenia Assessment & Plan: Will restart today the trazodone 100 mg at night, continue psychiatric hospitalization for stabilization. ICD Code: F20.9 Assessment & Plan Estimated LOS: days Justification for Cont. Inpt. High risk to decompensate in outpatient basis. Saúl Alicia MD Oct 25, 2016 13:25
[2016-10-25 17:41] VITALS: BP 132/83; PULSE 69; RESP 18; TEMP 98.1; O2SAT 94
[2016-10-25] MEDS: REMOVE OLD NICOTINE PATCH T-DERMAL SCH (19:32)
[2016-10-25] MEDS: diphenhydrAMINE HCL 50 MG CAP PO PRN (21:04)
[2016-10-26] MEDS: LORazepam 0.5 MG TAB PO PRN ×3 (00:26→20:41)
[2016-10-26] MEDS: CLINDAMYCIN 150 MG CAP PO SCH ×4 (00:26→18:00)
[2016-10-26 06:30] VITALS: BP 184/76; PULSE 77; RESP 18; TEMP 97.1; O2SAT 95
[2016-10-26] MEDS: CHLORHEXIDINE 0.12% (ORAL KIT) 15 ML CUP OROPHARYNG SCH ×2 (08:00→20:00)
[2016-10-26] MEDS: MUPIROCIN 2% OINT 1 APPLIC/GM SYR EACH NARE SCH ×2 (08:47→20:41)
[2016-10-26] MEDS: SODIUM CHLORIDE FLUSH BID IVF SCH ×2 (08:47→21:00)
[2016-10-26] MEDS: NICOTINE 21 MG/24 HR PATCH T-DERMAL SCH (09:00)
[2016-10-26] MEDS: CYANOCOBALAMIN 1,000 MCG TAB PO SCH (09:15)
[2016-10-26] MEDS: PANTOPRAZOLE SOD 20 MG DELAYED RELEASE TAB PO SCH (09:15)
[2016-10-26] MEDS: CALCIUM/VITAMIN D 250 MG/125 U TAB PO SCH ×3 (09:15→18:00)
[2016-10-26] MEDS: LEVOFLOXACIN 750 MG TAB PO SCH (09:15)
[2016-10-26] MEDS: LISINOPRIL 20 MG TAB PO SCH (09:15)
[2016-10-26] MEDS: DOCUSATE SODIUM 50 MG/SENNA 8.6 MG TAB PO SCH ×2 (09:15→20:44)
[2016-10-26] MEDS: METOPROLOL TARTRATE 25 MG TAB PO SCH ×2 (09:15→20:41)
[2016-10-26] MEDS: DIVALPROEX SODIUM E.R. 500 MG TAB PO SCH ×2 (09:15→20:41)
[2016-10-26] MEDS: clonazePAM 0.5 MG TAB PO SCH ×2 (09:15→20:40)
[2016-10-26] MEDS: FUROSEMIDE 20 MG TAB PO SCH (09:15)
[2016-10-26] MEDS: DULoxetine HCl DR 60 MG CAP PO SCH (09:15)
[2016-10-26] MEDS: ZIPRASIDONE HCL 80 MG CAP PO SCH ×2 (09:15→20:41)
[2016-10-26] MEDS: ACETAMINOPHEN 325 MG TAB PO PRN ×3 (09:16→18:03)
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
--- NOTE | 2016-10-26 10:52 | HHI.PR ---
Subjective Remarks Follow up visit resp failure, tracheo bronchitis, MRSA, gen weakness. Pt. seen today. States she is feeling better. Denies cough, SOB/ dyspnea, congestion. Denies pain/ discomfort. Ambulating with walker use. Denies fevers, chills, n/ v/d. Objective Vitals Vital Signs Date Time Temp Pulse Resp B/P Pulse Ox O2 Delivery O2 Flow Rate FiO2 10/26/16 06:30 97.1 77 18 184/76 95 10/25/16 22:06 18 10/25/16 20:00 Room Air 10/25/16 17:41 98.1 69 18 132/83 94 I/O 10/25/16 10/25/16 10/25/16 10/26/16 10/26/16 10/26/16 07:00 15:00 23:00 07:00 15:00 23:00 Intake Total 720 ml 240 ml 240 ml 360 ml 360 ml Balance 720 ml 240 ml 240 ml 360 ml 360 ml Intake Oral 720 ml 240 ml 240 ml 360 ml 360 ml # Voids 3 4 # Bowel Movements 1 1 1 Result Diagram: 10/23/16 1103 10/24/16 0741 Imaging Last Impressions Chest X-Ray 10/23/16 0000 Signed Impressions: Service Date/Time: Sunday, October 23, 2016 08:13 - CONCLUSION: No acute disease. Mike Nazario MD Objective Remarks GENERAL: This is a well-nourished, well-developed patient, in no apparent distress. CARDIOVASCULAR: Regular rate and rhythm without murmurs, gallops, or rubs. RESPIRATORY: Clear to auscultation. Breath sounds equal bilaterally. No wheezes , rales, or rhonchi. GASTROINTESTINAL: Abdomen soft, non-tender, nondistended. Normal active bowel sounds MUSCULOSKELETAL: Extremities without clubbing, cyanosis, trace BLE edema. Right foot partial amputation, hx. NEURO: Alert & Oriented x2 to person, place. Moves all ext x4. A/P Problem List: (1) Schizophrenia ICD Code: F20.9 Status: Acute (2) Probable MRSA pneumonia Status: Acute (3) Respiratory failure, acute ICD Code: J96.00 Status: Acute (4) Acute kidney failure ICD Code: N17.9 Status: Acute Assessment and Plan This is a 65-year-old obese female patient who was admitted to intensive care unit for acute respiratory failure, was previously on the ventilator and was weaned off. Improved clinical status. Transferred to inpatient medical psych unit for further management. Consulted for medical management Schizophrenia - managed by psychiatry team Acute hypoxic respiratory failure, tracheo bronchitis, possible aspiration, MRSA sputum - DC IV Zosyn, vancomycin, azithromycin -Continue Clindamycin and Levaquin PO stop date 10/29/2016 -Droplet isolation - DuoNeb when necessary - Nicotine patch - Would recommend avoiding trazodone and sedating medications in light of patient's oxygen requirements, explained the patient she cannot have Percocet at this time will continue acetaminophen as needed for pain - Repeat CXR 10/23/2016 reviewed no acute disease process identified improved from prior study HONG - resolved. Current creatinine 0.69 HTN - improved overall trend with isolated episode of elevated high blood pressure 177/79 today 10/14 agitation continue to monitor trend -continue furosemide 20 mg daily, metoprolol 25 twice a day -Continue lisinopril to 20 mg daily - Monitor BP trend L humeral neck fracture Seen by ortho, Dr. Del Valle. Non operative management with sling and swathe LUE, nonweightbearing LUE. WBAT LLE. - Monitor for risk for falls. Continue with orthopedic precautions. Recommend sling and swath - Will order PT OT for evaluation -Ambulates with walker use. DVT prop - ambulation Discuss with patient and RN Stable from hospitalist standpoint. Pt. may transfer to inpatient psych if needed. May f/u with PCP when DC. Written by Tiburcio Cope, acting as scribe for Dr. العلي on 10/26/16 at 09: 40. The documentation accurately reflects the work performed [id number] by me on at 16:39. Tiburcio Brito Oct 26, 2016 10:52 Enoc العلي MD Oct 26, 2016 16:39
[2016-10-26] MEDS: IBUPROFEN 800 MG TAB PO PRN ×2 (14:41→20:40)
[2016-10-26] MEDS ORDERED: cloNIDine HCL 0.1 MG TAB PO PRN (16:45)
[2016-10-26] MEDS: diphenhydrAMINE HCL 50 MG CAP PO PRN (20:42)
[2016-10-26] MEDS: REMOVE OLD NICOTINE PATCH T-DERMAL SCH (21:00)
[2016-10-27] MEDS: CLINDAMYCIN 150 MG CAP PO SCH ×4 (00:52→17:08)
[2016-10-27 05:40] VITALS: BP 141/68; PULSE 70; RESP 16; TEMP 97.8; O2SAT 97
[2016-10-27] MEDS: ACETAMINOPHEN 325 MG TAB PO PRN ×3 (06:17→17:07)
[2016-10-27] MEDS: LORazepam 0.5 MG TAB PO PRN ×2 (06:17→21:48)
[2016-10-27] MEDS: CHLORHEXIDINE 0.12% (ORAL KIT) 15 ML CUP OROPHARYNG SCH ×2 (08:00→20:00)
[2016-10-27] MEDS: DOCUSATE SODIUM 50 MG/SENNA 8.6 MG TAB PO SCH ×2 (08:27→20:52)
[2016-10-27] MEDS: FUROSEMIDE 20 MG TAB PO SCH (08:27)
[2016-10-27] MEDS: METOPROLOL TARTRATE 25 MG TAB PO SCH ×2 (08:27→20:51)
[2016-10-27] MEDS: CALCIUM/VITAMIN D 250 MG/125 U TAB PO SCH ×3 (08:28→17:08)
[2016-10-27] MEDS: ZIPRASIDONE HCL 80 MG CAP PO SCH (08:28)
[2016-10-27] MEDS: DIVALPROEX SODIUM E.R. 500 MG TAB PO SCH ×2 (08:28→20:51)
[2016-10-27] MEDS: clonazePAM 0.5 MG TAB PO SCH ×2 (08:28→20:51)
[2016-10-27] MEDS: CYANOCOBALAMIN 1,000 MCG TAB PO SCH (08:28)
[2016-10-27] MEDS: LISINOPRIL 20 MG TAB PO SCH (08:28)
[2016-10-27] MEDS: PANTOPRAZOLE SOD 20 MG DELAYED RELEASE TAB PO SCH (08:28)
[2016-10-27] MEDS: LEVOFLOXACIN 750 MG TAB PO SCH (08:28)
[2016-10-27] MEDS: NICOTINE 21 MG/24 HR PATCH T-DERMAL SCH (09:00)
[2016-10-27] MEDS: MUPIROCIN 2% OINT 1 APPLIC/GM SYR EACH NARE SCH ×2 (09:00→20:52)
[2016-10-27] MEDS: SODIUM CHLORIDE FLUSH BID IVF SCH ×2 (09:00→20:52)
[2016-10-27] MEDS: DULoxetine HCl DR 60 MG CAP PO SCH (09:00)
[2016-10-27] MEDS: IBUPROFEN 800 MG TAB PO PRN ×2 (13:15→21:48)
--- NOTE | 2016-10-27 15:15 | HHI.PYPN ---
Subjective Remarks Patient more alert and oriented since returning from the medical floor she is no behavior problem at this time though her speech remains somewhat rapid and pressured. She continues somewhat drug-seeking in her requests though is redirectable with this She is compliant with her medications. We will check Depakote blood level in a.m. Will increase scheduled Geodon to 120 mg twice a day Review of Systems Except as stated in HPI: all other systems reviewed are Neg Objective Alert: Yes [place]: Person, Place, Date Mood: Calm Affect: Euthymic (remains euthymic) Memory Intact: Comment (not formally assessed today) Hallucinations: Other (no AVH) Delusions: No Delusion Type: Other (no delusional material) Suicidal: Ideation (no suicidal ideation) Homicidal: Ideation (no homicidal ideation) Insight/Judgement Poor Vitals/IOs Vital Signs Date Time Temp Pulse Resp B/P Pulse Ox O2 Delivery O2 Flow Rate FiO2 10/27/16 05:40 97.8 70 16 141/68 97 10/26/16 20:00 Room Air Intake and Output 10/26/16 10/26/16 10/27/16 08:00 16:00 00:00 Intake Total 360 ml 360 ml Balance 360 ml 360 ml Assessment & Plan Problem List: (1) Paranoid type schizophrenia, chronic state ICD Code: F20.0 Assessment & Plan Estimated LOS: days patient continues somewhat medication seeking the redirectable. Will recheck Depakote blood level in a.m. will increase Geodon to 120 mg twice a day. Also refined diagnosis and to schizophrenia chronic paranoid type from unspecified Justification for Cont. Inpt. At this time patient would decompensated placed a lower level of care Discharge Planning Be determined Sky Mcmahon MD Oct 27, 2016 15:15
[2016-10-27 18:00] VITALS: BP 149/71; PULSE 90; RESP 16; TEMP 98; O2SAT 96
[2016-10-27] MEDS: ZIPRASIDONE HCL 60 MG CAP PO SCH (20:51)
[2016-10-27] MEDS: diphenhydrAMINE HCL 50 MG CAP PO PRN (20:52)
[2016-10-27] MEDS: REMOVE OLD NICOTINE PATCH T-DERMAL SCH (20:54)
[2016-10-28] MEDS: CLINDAMYCIN 150 MG CAP PO SCH ×5 (01:24→21:57)
[2016-10-28] MEDS: LORazepam 0.5 MG TAB PO PRN ×2 (05:46→20:12)
[2016-10-28] MEDS: ACETAMINOPHEN 325 MG TAB PO PRN ×2 (05:46→21:58)
[2016-10-28 06:40] VITALS: BP 152/66; PULSE 74; RESP 17; TEMP 99; O2SAT 96
[2016-10-28] MEDS: CHLORHEXIDINE 0.12% (ORAL KIT) 15 ML CUP OROPHARYNG SCH ×2 (08:00→20:00)
[2016-10-28] MEDS: SODIUM CHLORIDE FLUSH BID IVF SCH ×2 (09:00→20:11)
[2016-10-28] MEDS: FUROSEMIDE 20 MG TAB PO SCH (09:00)
[2016-10-28] MEDS: DIVALPROEX SODIUM E.R. 500 MG TAB PO SCH ×2 (09:00→20:12)
[2016-10-28] MEDS: CYANOCOBALAMIN 1,000 MCG TAB PO SCH (09:00)
[2016-10-28] MEDS: NICOTINE 21 MG/24 HR PATCH T-DERMAL SCH (09:00)
[2016-10-28] MEDS: CALCIUM/VITAMIN D 250 MG/125 U TAB PO SCH ×3 (09:00→17:05)
[2016-10-28] MEDS: METOPROLOL TARTRATE 25 MG TAB PO SCH ×2 (09:00→20:12)
[2016-10-28] MEDS: clonazePAM 0.5 MG TAB PO SCH ×2 (09:00→20:12)
[2016-10-28] MEDS: DOCUSATE SODIUM 50 MG/SENNA 8.6 MG TAB PO SCH ×2 (09:00→20:12)
[2016-10-28] MEDS: LEVOFLOXACIN 750 MG TAB PO SCH (09:00)
[2016-10-28] MEDS: ZIPRASIDONE HCL 60 MG CAP PO SCH ×2 (09:00→20:12)
[2016-10-28] MEDS: LISINOPRIL 20 MG TAB PO SCH (09:00)
[2016-10-28] MEDS: PANTOPRAZOLE SOD 20 MG DELAYED RELEASE TAB PO SCH (09:00)
[2016-10-28] MEDS: MUPIROCIN 2% OINT 1 APPLIC/GM SYR EACH NARE SCH ×2 (09:00→20:11)
[2016-10-28] MEDS: DULoxetine HCl DR 60 MG CAP PO SCH (09:00)
--- NOTE | 2016-10-28 16:04 | HHI.PYPN ---
Subjective Remarks Patient seen in day room with nurse Bernabe and medical student Laura. Chart review. Patient sitting in [place] chair with blanket over her she is calmer less anxious less intrusive today than yesterday though she continues to be medication seeking now continues to ask for trazodone however with review of her medications I feel she continue the of present course Review of Systems Except as stated in HPI: all other systems reviewed are Neg Objective Alert: Yes [place]: Person, Place, Date Mood: Calm Affect: Euthymic (remains euthymic) Memory Intact: Comment (not formally assessed today) Hallucinations: Other (no AVH) Delusions: No Delusion Type: Other (no delusional material) Suicidal: Ideation (no suicidal ideation) Homicidal: Ideation (no homicidal ideation) Insight/Judgement Poor Labs Test 10/28/16 06:50 Valproic Acid (Depakene) Level 45 MCG/ML Vitals/IOs Vital Signs Date Time Temp Pulse Resp B/P Pulse Ox O2 Delivery O2 Flow Rate FiO2 10/28/16 06:40 99.0 74 17 152/66 96 10/26/16 20:00 Room Air Intake and Output 10/27/16 10/27/16 10/28/16 08:00 16:00 00:00 Intake Total 720 ml 840 ml Balance 720 ml 840 ml Assessment & Plan Problem List: (1) Paranoid type schizophrenia, chronic state ICD Code: F20.0 Assessment & Plan Estimated LOS: days patient continues somewhat psychotic and disorganized. Compliant medications. Though she also continues med seeking Justification for Cont. Inpt. At this time patient would decompensate if placed in the lower level of care Discharge Planning To be determined Sky Mcmahon MD Oct 28, 2016 16:04
[2016-10-28] MEDS: IBUPROFEN 800 MG TAB PO PRN (17:04)
[2016-10-28 19:46] VITALS: BP 125/75; PULSE 78; RESP 18; TEMP 98.1; O2SAT 97
[2016-10-28] MEDS: diphenhydrAMINE HCL 50 MG CAP PO PRN (20:13)
[2016-10-28] MEDS: REMOVE OLD NICOTINE PATCH T-DERMAL SCH (20:14)
[2016-10-29] MEDS: CLINDAMYCIN 150 MG CAP PO SCH ×2 (05:46→12:15)
[2016-10-29] MEDS: LORazepam 0.5 MG TAB PO PRN ×2 (05:54→17:04)
[2016-10-29] MEDS: IBUPROFEN 800 MG TAB PO PRN ×2 (05:55→17:04)
[2016-10-29 06:02] VITALS: BP 132/82; PULSE 63; RESP 18; TEMP 98.9; O2SAT 96
[2016-10-29] MEDS: CHLORHEXIDINE 0.12% (ORAL KIT) 15 ML CUP OROPHARYNG SCH ×2 (08:00→19:42)
[2016-10-29] MEDS: SODIUM CHLORIDE FLUSH BID IVF SCH ×2 (08:30→20:23)
[2016-10-29] MEDS: MUPIROCIN 2% OINT 1 APPLIC/GM SYR EACH NARE SCH ×2 (08:30→20:22)
[2016-10-29] MEDS: NICOTINE 21 MG/24 HR PATCH T-DERMAL SCH (09:00)
[2016-10-29] MEDS: DOCUSATE SODIUM 50 MG/SENNA 8.6 MG TAB PO SCH ×2 (09:00→20:24)
[2016-10-29] MEDS: clonazePAM 0.5 MG TAB PO SCH ×2 (09:19→20:24)
[2016-10-29] MEDS: DIVALPROEX SODIUM E.R. 500 MG TAB PO SCH ×2 (09:19→20:23)
[2016-10-29] MEDS: DULoxetine HCl DR 60 MG CAP PO SCH (09:19)
[2016-10-29] MEDS: METOPROLOL TARTRATE 25 MG TAB PO SCH ×2 (09:19→20:24)
[2016-10-29] MEDS: ZIPRASIDONE HCL 60 MG CAP PO SCH ×2 (09:20→20:24)
[2016-10-29] MEDS: PANTOPRAZOLE SOD 20 MG DELAYED RELEASE TAB PO SCH (09:20)
[2016-10-29] MEDS: LISINOPRIL 20 MG TAB PO SCH (09:20)
[2016-10-29] MEDS: FUROSEMIDE 20 MG TAB PO SCH (09:20)
[2016-10-29] MEDS: CALCIUM/VITAMIN D 250 MG/125 U TAB PO SCH ×3 (09:21→17:04)
[2016-10-29] MEDS: CYANOCOBALAMIN 1,000 MCG TAB PO SCH (09:21)
[2016-10-29] MEDS: LORazepam 2 MG/ML VIAL - age > 65 yrs IM PRN (10:19)
[2016-10-29] MEDS ORDERED: PANT20 PO (13:13)
[2016-10-29] MEDS ORDERED: CLON.5 PO (13:13)
[2016-10-29] MEDS ORDERED: METO25TA3 PO (13:13)
[2016-10-29] MEDS ORDERED: BACTOIN EACH NARE (13:13)
[2016-10-29] MEDS ORDERED: SENN1TAB PO (13:13)
[2016-10-29] MEDS ORDERED: DEPA500T3 PO (13:13)
[2016-10-29] MEDS ORDERED: LISI-515 PO (13:13)
[2016-10-29] MEDS ORDERED: DRIS50002 PO (13:13)
[2016-10-29] MEDS ORDERED: FURO20TA PO (13:13)
[2016-10-29] MEDS ORDERED: TRAZ100T4 PO (13:13)
[2016-10-29] MEDS ORDERED: CHLO.12%30 OROPHARYNG (13:13)
[2016-10-29] MEDS ORDERED: VITA10002 PO (13:13)
[2016-10-29] MEDS ORDERED: GEOD60CA PO (13:13)
[2016-10-29] MEDS ORDERED: OYST250T4 PO (13:13)
[2016-10-29] MEDS ORDERED: DULO1CAP3 PO (13:13)
--- NOTE | 2016-10-29 13:20 | HHI.DS ---
Psychiatry Discharge Summary Inpatient Psychiatric care?: Yes Advance Directive: No Reason Not Provided: Due to Patient Condition Mental Health AdvanceDirective: No Health Care Proxy: No Admission Admission Date Oct 17, 2016 at 12:30 Admission Diagnosis: (1) Paranoid type schizophrenia, chronic state ICD Code: F20.0 Brief History The patient is a 66 years old woman with psychiatric history of schizophrenia, bipolar disorder, neurocognitive disorder, on multiple psychotropics, she has been hospital in psychiatry now since 08/28/2017. She was transferred last Tuesday to medical floor due to pneumonia and MRSA following her sputum, treated with antibiotic therapy and then brought back to the unit. Today patient was seen for evaluation and also for treatment team on a with nursing charge, social media marketing analyst and therapist. Patient is seems to be more alert, talkative, and with a brighter affect. She reports good mood, she says that she is happy, she is just partially oriented in time and place, denies depression, denies suicidal or homicidal ideation, denies visual and auditory hallucinations. She denies distress and pain. Tobacco Use In Past 30 Days: No Tobacco Past 30 Days Alcohol Use: Never Hospital Course Patient's initial hospital course was noted for patients intrusiveness irritability paranoia vigilance and perseverative nurse. Was a brief transfer to the medical unit patient became somewhat septic though was returned to the psychiatric unit with those issues under control. Since that time patient then compliant medications there continues some occasional requests for medication though she is easily redirectable. The some vague confusion also noted with this at times. However overall patient is doing better she is compliant with the medications. She does denies suicidality homicidality voices or visions. At this time the patient met the maximum benefit of this hospitalization. [facility] as interview patient and accepted her into their facility. There is a bed available today. Thus patient will be discharged today to that facility with 1 month supply of her scheduled medications, to follow-up level of services through that facility Results Blood Pressure 132 / 82 Vital Signs Date Time Temp Pulse Resp B/P Pulse Ox O2 Delivery O2 Flow Rate FiO2 10/29/16 06:02 98.9 63 18 132/82 96 10/26/16 20:00 Room Air Laboratory Tests Test 10/28/16 06:50 Valproic Acid (Depakene) Level 45 MCG/ML (50-100) Laboratory Results Test 10/28/16 06:50 Valproic Acid (Depakene) Level 45 MCG/ML (50-100) Summary of Procedures None done Imaging Last Impressions Chest X-Ray 10/23/16 0000 Signed Impressions: Service Date/Time: Sunday, October 23, 2016 08:13 - CONCLUSION: No acute disease. Mike Nazario MD Pending results at discharge: No Medications # of Antipsychotic meds at D/C: 1 Approp Antipsych med options 1 - Minimum of three failed multiple trials of monotherapy. 2 - Documented plan to taper to monotherapy due to previous use of multiple meds OR cross-taper in progress at D/C. 3 - Documentation of augmentation of Clozapine. 4 - Justification other than those listed in allowable values 1-3, document here : Discharge Discharge Date: Oct 29, 2016 Discharge Diagnosis: (1) Paranoid type schizophrenia, chronic state Diagnosis: Principal ICD Code: F20.0 Mental Status Exam at Disch Patient alert overweight white female calm to somewhat labile she is and disoriented at times needing assistance. She is otherwise normal active her affect show some increased range and intensity mood is euthymic to mildly irritable speech rate and rhythm are somewhat increased there is a Eastern accent noted with her and is somewhat tangential and circumstantial the no auditory or visual hallucinations noted no delusions noted insight and judgment cognition is grossly intact Pt Condition on Discharge: Stable Discharge Disposition: Discharge to SNF Discharge Instructions Diet Instructions: As Tolerated, No Restrictions Activities you can perform: Regular-No Restrictions Scheduled Appointment: follow-up mental health professional through [place] Discharge Time > 30 minutes Discharge/Advance Care Plan Health Problems: (1) Paranoid type schizophrenia, chronic state Goals to promote your health * To prevent worsening of your condition and complications * To maintain your health at the optimal level Directions to meet your goals Take your medications as prescribed Follow your dietary instruction Follow activity as directed Keep your appointments as scheduled Take your immunizations and boosters as scheduled If your symptoms worsen call your PCP, if no PCP go to Urgent Care Center or Emergency Room For 04/04 questions related to your inpatient stay or results of tests pending at discharge, please contact Dr. Sky Mcmahon at Smoking is Dangerous to Your Health. Avoid second hand smoking Sky Mcmahon MD Oct 29, 2016 13:20
[2016-10-29] MEDS: REMOVE OLD NICOTINE PATCH T-DERMAL SCH (19:42)
== END 2016-10-29 20:10 | DRG 885 ==
LOC: H4EA 12:30 → H250 10-26 15:20
PROVIDERS: ADMIT Psychiatry & Neurology Psychiatry; ATTEND Psychiatry & Neurology Psychiatry
DX: F20.0 Paranoid schizophrenia (principal); J96.01 Acute respiratory failure with hypoxia; J15.212 Pneumonia due to Methicillin resistant Staphylococcus aureus; N17.9 Acute kidney failure, unspecified; F31.9 Bipolar disorder, unspecified; J40 Bronchitis, not specified as acute or chronic; I10 Essential (primary) hypertension; K21.9 Gastro-esophageal reflux disease without esophagitis; G89.29 Other chronic pain; S42.212D Unspecified displaced fracture of surgical neck of left humerus, subsequent encounter for fracture with routine healing; W19.XXXD Unspecified fall, subsequent encounter; R29.6 Repeated falls
CPT/HCPCS: 71010; 80048; 80061; 80164; 80202; 82565; 83036; 85007; 85025; 85027; 94640; 94664; J0456; J2060; J2405; J2543; J3370; J3486; J7030; J7050; Q0163